=== PATIENT | male | born 1950 | race Caucasian/White ===

== ENCOUNTER 2016-09-09 08:29 | Outpatient (RCR) | payer MEDICARE, MEDICAID ==
--- OUTSIDE RECORDS SUMMARY | 2016-06-15 09:15 | XMS REPORT | Continuity of Care Document ---
Author Author [facility] Organization [facility] Address Unknown Phone Unavailable Care Team Providers Care Clinical Exercise Physiologist Name Role Phone Chyna Nicole PCP [phone] Source Comments Some departments are not documenting in the electronic medical record. If you do not see the information that you expected, contact Release of Information in the Health Information Management department at [phone] for further assistance in locating additional records.[facility] Active Allergies and Adverse Reactions Allergen Noted Date Severity Reactions Comments Morphine 02/09/2016 High HALLUCINATIONS Current Medications Prescription Sig. Disp. Refills Start End Date Status Date latanoprost (XALATAN) Apply 1 Drop to both eyes Active 0.005 % ophthalmic at bedtime daily. solution docusate (COLACE) 100 mg Take 200 mg by mouth Active capsule daily. furosemide (LASIX) 40 mg Take 40 mg by mouth Active tablet daily. ebwdnpzoy-ohyv-uorhwboa Take by mouth. Active 6-30-50 mg tab polyethylene glycol 3350 Take 17 g by mouth daily. Active (GLYCOLAX; MIRALAX) 17 gram/dose powder OLANZapine (ZYPREXA Take 30 mg by mouth at Active ZYDIS) 20 mg rapid bedtime daily. dissolve tablet metoprolol (LOPRESSOR) Take 100 mg by mouth Active 100 mg tablet twice daily. Give 1 tab by mouth two times a day for Hypertension. Hold for systolic BP less than 100, Notify doctor if BP greater than 170 Indications: HYPERTENSION polyvinyl Place 1 Drop into or Active alcohol/povidone around eye(s) as Needed. (REFRESH) 1.4/0.6 % ophthalmic solution Lactoperoxi-Gluc Oxid-Pot by Mucous Membrane route. Active Thio gel CARBAMIDE PEROXIDE Place 5 Drops in ear as Active (DEBROX OT) directed as Needed. Instill 5 drop in both ears as needed for wax albuterol 0.5% Inhale 2.5 mg solution as Active (PROVENTIL; VENTOLIN) 2.5 directed every 6 hours as mg/0.5 mL nebu nebulizer needed. solution polycarbophil (FIBER) 625 Take 625 mg by mouth Active mg tablet daily. paliperidone(+) (INVEGA) Take 1 Tab by mouth every Active 9 mg tablet morning. melatonin 3 mg tab Take 6 mg by mouth at Active bedtime daily. omeprazole DR(+) Take 20 mg by mouth Active (PRILOSEC) 20 mg capsule daily. ramelteon(+) (ROZEREM) 8 Take 8 mg by mouth at Active mg tab bedtime as needed. Indications: SLEEP-ONSET INSOMNIA levothyroxine (SYNTHROID) Take 50 mcg by mouth Active 50 mcg tablet daily. hydrocortisone 2.5% Apply to affected area Active (ANUSOL-HC) 2.5 % rectal daily as needed. cream Indications: HEMORRHOIDS acetaminophen (TYLENOL) Take 1,000 mg by mouth Active 500 mg tablet every 4 hours as needed for Pain. Indications: PAIN erythromycin (ROMYCIN) Apply 1 Inch to right eye 3.5 g 3 05/13/20 Active ophthalmic ointment as directed three times 16 daily. 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 Eyelid lesion 02/09/2016 Last Assessment & Plan: mycosis fungoides with right upper and lower eyelid lesions patient may place dry gauze over lesion at night to minimize weeping start erythromycin ointment TID to eyelid lesions and right eye, concern for some early exposure changes due to LL mechanical ectropion and increased risk of developing preseptal cellulitis due to ulcerations but no signs of infection today Most Recent Encounters Date Type Specialty Providers Description 05/13/2016 Office Visit Ophthalmology Abraham Marie MD Eyelid lesion ( Primary Dx); Mycosis fungoides involving lymph nodes of multiple regions (HCC) Social History Tobacco Use Types Packs/Day Years Used Date Current Every Day Smoker Cigarettes 1 51 Smokeless Tobacco: Never Used Alcohol Use Drinks/Week oz/Week Comments No 0 Standard 0.0 drinks or equivalent Last Filed Vital Signs Vital Sign Reading Time Taken Blood Pressure 134/74 05/13/2016 3:16 PM CDT Pulse 95 05/13/2016 3:16 PM CDT Temperature 36.9 C (98.5 F) 03/10/2016 2:21 PM CDT Respiratory Rate 16 03/10/2016 2:21 PM CDT Height 1.778 m (5' 10") 05/13/2016 3:16 PM CDT Weight 101.2 kg (223 lb 1.7 oz) 05/13/2016 3:16 PM CDT Body Mass Index 32.01 05/13/2016 3:16 PM CDT Oxygen Saturation 96% 03/10/2016 2:21 PM CDT Plan of Care Date Type Specialty Providers Description 06/21/2016 Appointment Oncology 06/21/2016 Appointment Oncology Pasquale Alonzo MD [address] [facility] [address] [place] [address] [phone] (Fax) 07/19/2016 Appointment Ophthalmology Abraham Marie MD [address] [place] [address] [phone] (Fax) Health Maintenance Due Date Last Done Comments Hepatitis C Screening 1950 Physical (Comprehensive) 01/08/1955 Exam Pertussis Vaccine 01/08/1959 Tetanus Vaccine 01/08/1965 Colorectal Cancer 01/08/1998 Screening Shingles Vaccine 2008 Prevnar/Pneumovax (#1) 01/08/2013 Influenza Vaccine 05/06/2016 Results from Last 3 Months Not on file
[2016-06-15 09:41] LABS: BASOPHILS % (AUTO) 0 % (0-10); EOSINOPHILS # (AUTO) 0.1 10^3/uL (0.0-0.3); EOSINOPHILS % (AUTO) 1 % (0-10); LYMPHOCYTES # (AUTO) 0.7 X 10^3 (1.0-4.0); LYMPHOCYTES % (AUTO) 10 % (12-44); MEAN CORPUSCULAR HEMOGLOBIN 30 PG (25-34); MEAN CORPUSCULAR HGB CONC 34 G/DL (32-36); MEAN CORPUSCULAR VOLUME 87 FL (80-99); MEAN PLATELET VOLUME 10.2 FL (7.4-10.4); MONOCYTES # (AUTO) 0.8 X 10^3 (0.0-1.0); MONOCYTES % (AUTO) 11 % (0-12); NEUTROPHILS # (AUTO) 5.6 X 10^3 (1.8-7.8); NEUTROPHILS % (AUTO) 78 % (42-75); PLATELET COUNT 223 10^3/uL (130-400); RED BLOOD COUNT 5.71 10^6/uL (4.35-5.85); RED CELL DISTRIBUTION WIDTH 13.8 % (10.0-14.5); WHITE BLOOD COUNT 7.2 10^3/uL (4.3-11.0)
[2016-06-15 10:03] LABS: ALANINE AMINOTRANSFERASE 18 U/L (0-55); ALBUMIN 4.1 G/DL (3.2-4.5); ANION GAP 14 MMOL/L (5-14); ASPARTATE AMINO TRANSFERASE 17 U/L (5-34); BILIRUBIN,TOTAL 0.5 MG/DL (0.1-1.0); BLOOD UREA NITROGEN 16 MG/DL (7-18); BUN/CREATININE RATIO 16; CALCIUM 9.5 MG/DL (8.5-10.1); CARBON DIOXIDE 20 MMOL/L (21-32); CHLORIDE 106 MMOL/L (98-107); CREATININE SERUM 1.02 MG/DL (0.60-1.30); GFR ESTIMATED > 60; GLUCOSE 127 MG/DL (70-105); POTASSIUM 4.1 MMOL/L (3.6-5.0); SODIUM 140 MMOL/L (135-145); TOTAL PROTEIN 7.5 G/DL (6.4-8.2)
[2016-07-05 10:17] LABS: BASOPHILS % (AUTO) 0 % (0-10); EOSINOPHILS % (AUTO) 0 % (0-10); LYMPHOCYTES # (AUTO) 0.6 X 10^3 (1.0-4.0); LYMPHOCYTES % (AUTO) 12 % (12-44); MEAN CORPUSCULAR HEMOGLOBIN 31 PG (25-34); MEAN CORPUSCULAR HGB CONC 35 G/DL (32-36); MEAN CORPUSCULAR VOLUME 87 FL (80-99); MEAN PLATELET VOLUME 9.9 FL (7.4-10.4); MONOCYTES # (AUTO) 0.9 X 10^3 (0.0-1.0); MONOCYTES % (AUTO) 16 % (0-12); NEUTROPHILS % (AUTO) 72 % (42-75); PLATELET COUNT 243 10^3/uL (130-400); RED BLOOD COUNT 5.32 10^6/uL (4.35-5.85); RED CELL DISTRIBUTION WIDTH 13.9 % (10.0-14.5); WHITE BLOOD COUNT 5.5 10^3/uL (4.3-11.0)
[2016-07-05 10:39] LABS: ALANINE AMINOTRANSFERASE 23 U/L (0-55); ANION GAP 8 MMOL/L (5-14); ASPARTATE AMINO TRANSFERASE 18 U/L (5-34); BILIRUBIN,TOTAL 0.4 MG/DL (0.1-1.0); BLOOD UREA NITROGEN 16 MG/DL (7-18); BUN/CREATININE RATIO 17; CALCIUM 9.2 MG/DL (8.5-10.1); CARBON DIOXIDE 27 MMOL/L (21-32); CHLORIDE 105 MMOL/L (98-107); CREATININE SERUM 0.94 MG/DL (0.60-1.30); GFR ESTIMATED > 60; GLUCOSE 113 MG/DL (70-105); LACTATE DEHYDROGENASE 164 U/L (125-220); SODIUM 140 MMOL/L (135-145); TOTAL PROTEIN 7.5 G/DL (6.4-8.2)
[2016-07-27 11:36] LABS: BASOPHILS % (AUTO) 0 % (0-10); EOSINOPHILS % (AUTO) 0 % (0-10); LYMPHOCYTES # (AUTO) 0.9 X 10^3 (1.0-4.0); LYMPHOCYTES % (AUTO) 14 % (12-44); MEAN CORPUSCULAR HEMOGLOBIN 30 PG (25-34); MEAN CORPUSCULAR HGB CONC 35 G/DL (32-36); MEAN CORPUSCULAR VOLUME 88 FL (80-99); MEAN PLATELET VOLUME 9.5 FL (7.4-10.4); MONOCYTES % (AUTO) 14 % (0-12); NEUTROPHILS # (AUTO) 4.9 X 10^3 (1.8-7.8); NEUTROPHILS % (AUTO) 72 % (42-75); PLATELET COUNT 304 10^3/uL (130-400); RED CELL DISTRIBUTION WIDTH 14.1 % (10.0-14.5); WHITE BLOOD COUNT 6.8 10^3/uL (4.3-11.0)
[2016-07-27 12:00] LABS: ALANINE AMINOTRANSFERASE 17 U/L (0-55); ALBUMIN 4.1 G/DL (3.2-4.5); ANION GAP 9 MMOL/L (5-14); ASPARTATE AMINO TRANSFERASE 23 U/L (5-34); BILIRUBIN,TOTAL 0.5 MG/DL (0.1-1.0); BLOOD UREA NITROGEN 19 MG/DL (7-18); BUN/CREATININE RATIO 20; CALCIUM 9.5 MG/DL (8.5-10.1); CARBON DIOXIDE 23 MMOL/L (21-32); CHLORIDE 107 MMOL/L (98-107); CREATININE SERUM 0.97 MG/DL (0.60-1.30); GFR ESTIMATED > 60; GLUCOSE 94 MG/DL (70-105); LACTATE DEHYDROGENASE 218 U/L (125-220); SODIUM 139 MMOL/L (135-145); TOTAL PROTEIN 7.5 G/DL (6.4-8.2)
[2016-07-27 12:01] LABS: POTASSIUM 4.2 MMOL/L (3.6-5.0)
[2016-08-17 15:21] LABS: BASOPHILS % (AUTO) 0 % (0-10); EOSINOPHILS % (AUTO) 1 % (0-10); LYMPHOCYTES # (AUTO) 1.1 X 10^3 (1.0-4.0); LYMPHOCYTES % (AUTO) 18 % (12-44); MEAN CORPUSCULAR HEMOGLOBIN 31 PG (25-34); MEAN CORPUSCULAR HGB CONC 35 G/DL (32-36); MEAN CORPUSCULAR VOLUME 88 FL (80-99); MEAN PLATELET VOLUME 9.8 FL (7.4-10.4); MONOCYTES % (AUTO) 17 % (0-12); NEUTROPHILS # (AUTO) 3.7 X 10^3 (1.8-7.8); NEUTROPHILS % (AUTO) 65 % (42-75); PLATELET COUNT 302 10^3/uL (130-400); RED BLOOD COUNT 5.35 10^6/uL (4.35-5.85); RED CELL DISTRIBUTION WIDTH 14.5 % (10.0-14.5); WHITE BLOOD COUNT 5.8 10^3/uL (4.3-11.0)
[2016-08-17 15:48] LABS: ALANINE AMINOTRANSFERASE 16 U/L (0-55); ALBUMIN 4.2 G/DL (3.2-4.5); ANION GAP 10 MMOL/L (5-14); ASPARTATE AMINO TRANSFERASE 21 U/L (5-34); BILIRUBIN,TOTAL 0.4 MG/DL (0.1-1.0); BLOOD UREA NITROGEN 16 MG/DL (7-18); BUN/CREATININE RATIO 16; CALCIUM 9.2 MG/DL (8.5-10.1); CARBON DIOXIDE 23 MMOL/L (21-32); CHLORIDE 106 MMOL/L (98-107); CREATININE SERUM 1.01 MG/DL (0.60-1.30); GFR ESTIMATED > 60; GLUCOSE 103 MG/DL (70-105); LACTATE DEHYDROGENASE 250 U/L (125-220); POTASSIUM 4.1 MMOL/L (3.6-5.0); SODIUM 139 MMOL/L (135-145); TOTAL PROTEIN 7.5 G/DL (6.4-8.2)
[~2016-09-09] VITALS: Ht 175.3 cm; Wt 106.1 kg
[~2016-09-09 08:29] MED LIST: AC500T PO; ACETAMINOPHEN 325 MG TAB (TYLENOL) CANCER CTR PO PRN; ACHD5005 PO; AMLO5TAB2 PO; CARB15DR75 OU; CLOB30CR10 TP; DCS100C PO; DEXAMETHASONE IV PRN; DIVA500T15 PO; FAMOTIDINE 20MG/2ML IV (CANCER CTR) IV SCH; FURO40TA4 PO; LTN005OP2 OU; LVT.05T PO; METO100T2 PO; MULT-963 PO; NS (IVPB) CANCER CENTER 250 ML ONE; NS IV 500 ML (CANCER CENTER) 0 ML ONE; NS IV 500 ML (CANCER CENTER) 500 ML ONE; OMEP20CA12 PO; PALI3TAB2 PO; PALONOSETRON HCL IV PRN; QUET50TA PO; SODIUM CHLORIDE IV SCH; TR1C15 TOP; WHEA730P PO; [UNRECOGNIZED DRUG - CODE] PO; [UNRECOGNIZED DRUG - CODE] TP; [UNRECOGNIZED DRUG - OTHER] IV PRN; [UNRECOGNIZED DRUG - OTHER] IV SCH; diphenhydrAMINE 50 MG/ML INJ (CANCER CENTER) IV PRN
[2016-09-09 09:02] LABS: MEAN CORPUSCULAR HEMOGLOBIN 31 PG (25-34); MEAN CORPUSCULAR HGB CONC 35 G/DL (32-36); MEAN CORPUSCULAR VOLUME 88 FL (80-99); MEAN PLATELET VOLUME 9.8 FL (7.4-10.4); PLATELET COUNT 303 10^3/uL (130-400); RED BLOOD COUNT 5.61 10^6/uL (4.35-5.85); RED CELL DISTRIBUTION WIDTH 14.3 % (10.0-14.5); WHITE BLOOD COUNT 5.1 10^3/uL (4.3-11.0)
[2016-09-09 09:03] LABS: BASOPHILS % (AUTO) 0 % (0-10); EOSINOPHILS # (AUTO) 0.1 10^3/uL (0.0-0.3); EOSINOPHILS % (AUTO) 1 % (0-10); LYMPHOCYTES # (AUTO) 0.8 X 10^3 (1.0-4.0); LYMPHOCYTES % (AUTO) 15 % (12-44); MONOCYTES # (AUTO) 0.8 X 10^3 (0.0-1.0); MONOCYTES % (AUTO) 16 % (0-12); NEUTROPHILS # (AUTO) 3.5 X 10^3 (1.8-7.8); NEUTROPHILS % (AUTO) 68 % (42-75)
[2016-09-09 09:27] LABS: ALANINE AMINOTRANSFERASE 23 U/L (0-55); ALBUMIN 4.4 G/DL (3.2-4.5); ANION GAP 11 MMOL/L (5-14); ASPARTATE AMINO TRANSFERASE 23 U/L (5-34); BILIRUBIN,TOTAL 0.5 MG/DL (0.1-1.0); BLOOD UREA NITROGEN 16 MG/DL (7-18); BUN/CREATININE RATIO 16; CALCIUM 9.7 MG/DL (8.5-10.1); CARBON DIOXIDE 23 MMOL/L (21-32); CHLORIDE 106 MMOL/L (98-107); CREATININE SERUM 1.03 MG/DL (0.60-1.30); GFR ESTIMATED > 60; GLUCOSE 115 MG/DL (70-105); LACTATE DEHYDROGENASE 206 U/L (125-220); POTASSIUM 4.3 MMOL/L (3.6-5.0); SODIUM 140 MMOL/L (135-145); TOTAL PROTEIN 7.9 G/DL (6.4-8.2)
[2016-09-09] MEDS ORDERED: NS IV 500 ML (CANCER CENTER) 500 ML ONE (09:41)
== END 2016-09-13 | disposition home or self-care (01) ==
LOC: ONC 08:29
PROVIDERS: ATTEND Internal Medicine Hematology & Oncology
DX: Z51.11 Encounter for antineoplastic chemotherapy (principal); C86.6 Primary cutaneous CD30-positive T-cell proliferations; I10 Essential (primary) hypertension; E03.9 Hypothyroidism, unspecified; J44.9 Chronic obstructive pulmonary disease, unspecified; F17.210 Nicotine dependence, cigarettes, uncomplicated; Z79.899 Other long term (current) drug therapy
CPT/HCPCS: 36415; 80053; 83615; 85025; 96375; 96413; 99213

== ENCOUNTER → 2016-11-16 | Outpatient (CLI) | payer MEDICARE, MEDICAID ==
[~2016-11-16] MED LIST changes: -ACETAMINOPHEN 325 MG TAB (TYLENOL) CANCER CTR PO PRN; -DEXAMETHASONE IV PRN; -FAMOTIDINE 20MG/2ML IV (CANCER CTR) IV SCH; -NS (IVPB) CANCER CENTER 250 ML ONE; -NS IV 500 ML (CANCER CENTER) 0 ML ONE; -NS IV 500 ML (CANCER CENTER) 500 ML ONE; -PALONOSETRON HCL IV PRN; -SODIUM CHLORIDE IV SCH; -[UNRECOGNIZED DRUG - OTHER] IV PRN; -[UNRECOGNIZED DRUG - OTHER] IV SCH; -diphenhydrAMINE 50 MG/ML INJ (CANCER CENTER) IV PRN
--- OUTSIDE RECORDS SUMMARY | 2016-11-16 10:11 | XMS REPORT | Continuity of Care Document ---
Author Author [facility] Organization [facility] Address Unknown Phone Unavailable Care Team Providers Care Floorworker Lasting Name Role Phone Chyna Nicole PCP [phone] Source Comments Some departments are not documenting in the electronic medical record. If you do not see the information that you expected, contact Release of Information in the Health Information Management department at [phone] for further assistance in locating additional records.[facility] Active Allergies and Adverse Reactions Allergen [...] 40 mg by mouth Active tablet daily. [id number]-mwzh-qlqezsib Take by mouth. Active 6-30-50 mg tab [...] ulcerations but no signs of infection today Social History Tobacco Use Types Packs/Day Years [...]
--- NOTE | 2016-11-16 11:02 | Diagnostic Imaging Report ---
INDICATION: Cough and congestion. COMPARISON: 06/16/2011. FINDINGS: The lungs are well-aerated. No infiltrates have developed. No hilar adenopathy. No pulmonary edema. No pneumothorax or pleural effusions. The heart is not enlarged. IMPRESSION: Normal PA and lateral chest without significant change since the previous exam. Dictated by: Dictated on workstation # [id number]
== END ==
LOC: RAD 10:07
PROVIDERS: ATTEND Internal Medicine Hematology & Oncology
DX: R09.89 Other specified symptoms and signs involving the circulatory and respiratory systems (principal)
CPT/HCPCS: 71020

== ENCOUNTER → 2016-12-29 | Outpatient (RCR) | payer MEDICARE, MEDICAID ==
--- OUTSIDE RECORDS SUMMARY | 2016-09-30 10:03 | XMS REPORT | Continuity of Care Document ---
Author Author [facility] Organization [facility] Address Unknown Phone Unavailable Care Team Providers Care Residential Substance Abuse Counselor Name Role Phone Chyna Nicole PCP [phone] Source Comments Some departments are not documenting in the electronic medical record. If you do not see the information that you expected, contact Release of Information in the Health Information Management department at [phone] for further assistance in locating additional records.[facility] Active Allergies and Adverse Reactions Allergen Noted [...] 40 mg by mouth Active tablet daily. [id number]-uuwv-vpztnteh Take by mouth. Active 6-30-50 mg tab [...] Recent Encounters Date Type Specialty Providers Description 07/28/2016 Orders Only Oncology Vivienne Kothari APRN Cutaneous T-cell lymphoma, unspecified body region (HCC) 07/28/2016 Orders Only Oncology Pasquale Alonzo MD 07/28/2016 Orders Only Oncology Thea Ledezma LPN Cutaneous T-cell lymphoma, unspecified body region ([facility]) Social History Tobacco Use Types Packs/Day Years [...] 03/10/2016 2:21 PM CDT Plan of Care Health Maintenance Due Date Last Done Comments Hepatitis C Screening 1950 Physical (Comprehensive) 01/08/1955 Exam Pertussis Vaccine 01/08/1959 Tetanus Vaccine 01/08/1965 Colorectal Cancer 01/08/1998 Screening Shingles Vaccine 2008 Prevnar/Pneumovax (#1) 01/08/2013 Influenza Vaccine 05/06/2016 Results from Last 3 Months Not on file
[2016-09-30 10:25] LABS: BASOPHILS % (AUTO) 0 % (0-10); EOSINOPHILS # (AUTO) 0.1 10^3/uL (0.0-0.3); EOSINOPHILS % (AUTO) 1 % (0-10); LYMPHOCYTES # (AUTO) 0.7 X 10^3 (1.0-4.0); LYMPHOCYTES % (AUTO) 13 % (12-44); MEAN CORPUSCULAR HEMOGLOBIN 31 PG (25-34); MEAN CORPUSCULAR HGB CONC 34 G/DL (32-36); MEAN CORPUSCULAR VOLUME 89 FL (80-99); MONOCYTES # (AUTO) 0.9 X 10^3 (0.0-1.0); MONOCYTES % (AUTO) 16 % (0-12); NEUTROPHILS % (AUTO) 70 % (42-75); PLATELET COUNT 268 10^3/uL (130-400); RED BLOOD COUNT 5.45 10^6/uL (4.35-5.85); RED CELL DISTRIBUTION WIDTH 14.6 % (10.0-14.5); WHITE BLOOD COUNT 5.8 10^3/uL (4.3-11.0)
[2016-09-30 10:58] LABS: ALANINE AMINOTRANSFERASE 19 U/L (0-55); ALBUMIN 4.2 G/DL (3.2-4.5); ANION GAP 10 MMOL/L (5-14); ASPARTATE AMINO TRANSFERASE 20 U/L (5-34); BILIRUBIN,TOTAL 0.5 MG/DL (0.1-1.0); BLOOD UREA NITROGEN 18 MG/DL (7-18); BUN/CREATININE RATIO 18; CALCIUM 9.4 MG/DL (8.5-10.1); CARBON DIOXIDE 23 MMOL/L (21-32); CHLORIDE 107 MMOL/L (98-107); CREATININE SERUM 1.02 MG/DL (0.60-1.30); GFR ESTIMATED > 60; GLUCOSE 97 MG/DL (70-105); LACTATE DEHYDROGENASE 197 U/L (125-220); SODIUM 140 MMOL/L (135-145); TOTAL PROTEIN 7.5 G/DL (6.4-8.2)
[2016-10-21 10:42] LABS: BASOPHILS % (AUTO) 1 % (0-10); EOSINOPHILS # (AUTO) 0.1 10^3/uL (0.0-0.3); EOSINOPHILS % (AUTO) 1 % (0-10); LYMPHOCYTES % (AUTO) 16 % (12-44); MEAN CORPUSCULAR HEMOGLOBIN 31 PG (25-34); MEAN CORPUSCULAR HGB CONC 34 G/DL (32-36); MEAN CORPUSCULAR VOLUME 89 FL (80-99); MEAN PLATELET VOLUME 9.9 FL (7.4-10.4); MONOCYTES # (AUTO) 0.9 X 10^3 (0.0-1.0); MONOCYTES % (AUTO) 14 % (0-12); NEUTROPHILS # (AUTO) 4.5 X 10^3 (1.8-7.8); NEUTROPHILS % (AUTO) 69 % (42-75); PLATELET COUNT 269 10^3/uL (130-400); RED BLOOD COUNT 5.38 10^6/uL (4.35-5.85); RED CELL DISTRIBUTION WIDTH 14.7 % (10.0-14.5); WHITE BLOOD COUNT 6.5 10^3/uL (4.3-11.0)
[2016-10-21 11:09] LABS: ALANINE AMINOTRANSFERASE 17 U/L (0-55); ALBUMIN 4.2 G/DL (3.2-4.5); ANION GAP 13 MMOL/L (5-14); ASPARTATE AMINO TRANSFERASE 20 U/L (5-34); BILIRUBIN,TOTAL 0.5 MG/DL (0.1-1.0); BLOOD UREA NITROGEN 16 MG/DL (7-18); BUN/CREATININE RATIO 16; CALCIUM 9.4 MG/DL (8.5-10.1); CARBON DIOXIDE 21 MMOL/L (21-32); CHLORIDE 105 MMOL/L (98-107); CREATININE SERUM 0.97 MG/DL (0.60-1.30); GFR ESTIMATED > 60; GLUCOSE 103 MG/DL (70-105); LACTATE DEHYDROGENASE 178 U/L (125-220); POTASSIUM 4.3 MMOL/L (3.6-5.0); SODIUM 139 MMOL/L (135-145); TOTAL PROTEIN 7.7 G/DL (6.4-8.2)
[2016-10-21 12:22] LABS: THYROID STIMULATING HORMONE 0.93 UIU/ML (0.35-4.94)
[2016-11-16 09:30] LABS: BASOPHILS % (AUTO) 0 % (0-10); EOSINOPHILS % (AUTO) 0 % (0-10); LYMPHOCYTES # (AUTO) 0.5 X 10^3 (1.0-4.0); LYMPHOCYTES % (AUTO) 8 % (12-44); MEAN CORPUSCULAR HEMOGLOBIN 31 PG (25-34); MEAN CORPUSCULAR HGB CONC 35 G/DL (32-36); MEAN CORPUSCULAR VOLUME 88 FL (80-99); MEAN PLATELET VOLUME 9.9 FL (7.4-10.4); MONOCYTES # (AUTO) 0.9 X 10^3 (0.0-1.0); MONOCYTES % (AUTO) 14 % (0-12); NEUTROPHILS # (AUTO) 4.6 X 10^3 (1.8-7.8); NEUTROPHILS % (AUTO) 77 % (42-75); PLATELET COUNT 218 10^3/uL (130-400); RED BLOOD COUNT 4.92 10^6/uL (4.35-5.85); RED CELL DISTRIBUTION WIDTH 14.8 % (10.0-14.5)
[2016-11-16 10:02] LABS: ALANINE AMINOTRANSFERASE 15 U/L (0-55); ALBUMIN 3.5 G/DL (3.2-4.5); ANION GAP 12 MMOL/L (5-14); ASPARTATE AMINO TRANSFERASE 19 U/L (5-34); BILIRUBIN,TOTAL 0.4 MG/DL (0.1-1.0); BLOOD UREA NITROGEN 13 MG/DL (7-18); BUN/CREATININE RATIO 13; CALCIUM 8.7 MG/DL (8.5-10.1); CARBON DIOXIDE 23 MMOL/L (21-32); CHLORIDE 106 MMOL/L (98-107); CREATININE SERUM 0.98 MG/DL (0.60-1.30); GFR ESTIMATED > 60; GLUCOSE 151 MG/DL (70-105); LACTATE DEHYDROGENASE 236 U/L (125-220); POTASSIUM 3.6 MMOL/L (3.6-5.0); SODIUM 141 MMOL/L (135-145); TOTAL PROTEIN 7.1 G/DL (6.4-8.2)
[2016-12-07 11:11] LABS: BASOPHILS % (AUTO) 0 % (0-10); EOSINOPHILS # (AUTO) 0.1 10^3/uL (0.0-0.3); EOSINOPHILS % (AUTO) 1 % (0-10); LYMPHOCYTES # (AUTO) 0.9 X 10^3 (1.0-4.0); LYMPHOCYTES % (AUTO) 8 % (12-44); MEAN CORPUSCULAR HEMOGLOBIN 30 PG (25-34); MEAN CORPUSCULAR HGB CONC 34 G/DL (32-36); MEAN CORPUSCULAR VOLUME 89 FL (80-99); MEAN PLATELET VOLUME 9.4 FL (7.4-10.4); MONOCYTES # (AUTO) 0.9 X 10^3 (0.0-1.0); MONOCYTES % (AUTO) 8 % (0-12); NEUTROPHILS # (AUTO) 9.5 X 10^3 (1.8-7.8); NEUTROPHILS % (AUTO) 83 % (42-75); PLATELET COUNT 379 10^3/uL (130-400); RED BLOOD COUNT 5.21 10^6/uL (4.35-5.85); RED CELL DISTRIBUTION WIDTH 15.4 % (10.0-14.5); WHITE BLOOD COUNT 11.5 10^3/uL (4.3-11.0)
[2016-12-07 11:36] LABS: ALANINE AMINOTRANSFERASE 14 U/L (0-55); ALBUMIN 3.5 G/DL (3.2-4.5); ANION GAP 8 MMOL/L (5-14); ASPARTATE AMINO TRANSFERASE 22 U/L (5-34); BILIRUBIN,TOTAL 0.3 MG/DL (0.1-1.0); BLOOD UREA NITROGEN 12 MG/DL (7-18); BUN/CREATININE RATIO 13; CALCIUM 9.3 MG/DL (8.5-10.1); CARBON DIOXIDE 26 MMOL/L (21-32); CHLORIDE 106 MMOL/L (98-107); CREATININE SERUM 0.91 MG/DL (0.60-1.30); GFR ESTIMATED > 60; GLUCOSE 86 MG/DL (70-105); LACTATE DEHYDROGENASE 323 U/L (125-220); POTASSIUM 4.7 MMOL/L (3.6-5.0); SODIUM 140 MMOL/L (135-145); TOTAL PROTEIN 7.8 G/DL (6.4-8.2)
[~2016-12-29] VITALS: Ht 175.3 cm; Wt 98.9 kg
[~2016-12-29] MED LIST changes: +ACETAMINOPHEN 325 MG TAB (TYLENOL) CANCER CTR PO PRN; +DEXAMETHASONE IV PRN; +FAMOTIDINE 20MG/2ML IV (CANCER CTR) IV SCH; +NS IV 500 ML (CANCER CENTER) 500 ML IV SCH; +PALONOSETRON HCL IV PRN; +SODIUM CHLORIDE IV SCH; +[UNRECOGNIZED DRUG - OTHER] IV PRN; +[UNRECOGNIZED DRUG - OTHER] IV SCH; +diphenhydrAMINE 25 MG TAB (BENADRYL) CANCER CENTER PO ONE; +diphenhydrAMINE 25 MG TAB (BENADRYL) CANCER CENTER PO SCH; +diphenhydrAMINE 50 MG/ML INJ (CANCER CENTER) IV PRN
[2016-12-29 09:29] LABS: BASOPHILS % (AUTO) 1 % (0-10); EOSINOPHILS # (AUTO) 0.3 10^3/uL (0.0-0.3); EOSINOPHILS % (AUTO) 5 % (0-10); LYMPHOCYTES # (AUTO) 0.7 X 10^3 (1.0-4.0); LYMPHOCYTES % (AUTO) 13 % (12-44); MEAN CORPUSCULAR HEMOGLOBIN 30 PG (25-34); MEAN CORPUSCULAR HGB CONC 34 G/DL (32-36); MEAN CORPUSCULAR VOLUME 90 FL (80-99); MEAN PLATELET VOLUME 10.5 FL (7.4-10.4); MONOCYTES # (AUTO) 0.8 X 10^3 (0.0-1.0); MONOCYTES % (AUTO) 14 % (0-12); NEUTROPHILS # (AUTO) 3.9 X 10^3 (1.8-7.8); NEUTROPHILS % (AUTO) 68 % (42-75); PLATELET COUNT 254 10^3/uL (130-400); RED BLOOD COUNT 5.45 10^6/uL (4.35-5.85); RED CELL DISTRIBUTION WIDTH 15.7 % (10.0-14.5); WHITE BLOOD COUNT 5.8 10^3/uL (4.3-11.0)
[2016-12-29 09:46] LABS: ALANINE AMINOTRANSFERASE 16 U/L (0-55); ALBUMIN 4.1 G/DL (3.2-4.5); ANION GAP 10 MMOL/L (5-14); ASPARTATE AMINO TRANSFERASE 19 U/L (5-34); BILIRUBIN,TOTAL 0.6 MG/DL (0.1-1.0); BLOOD UREA NITROGEN 14 MG/DL (7-18); BUN/CREATININE RATIO 15; CALCIUM 9.7 MG/DL (8.5-10.1); CARBON DIOXIDE 24 MMOL/L (21-32); CHLORIDE 106 MMOL/L (98-107); CREATININE SERUM 0.96 MG/DL (0.60-1.30); GFR ESTIMATED > 60; GLUCOSE 114 MG/DL (70-105); MAGNESIUM 2.2 MG/DL (1.8-2.4); POTASSIUM 4.4 MMOL/L (3.6-5.0); SODIUM 140 MMOL/L (135-145); TOTAL PROTEIN 7.8 G/DL (6.4-8.2)
== END | disposition home or self-care (01) ==
LOC: ONC 09-30 10:00
PROVIDERS: ATTEND Internal Medicine Hematology & Oncology
DX: Z51.11 Encounter for antineoplastic chemotherapy (principal); C86.6 Primary cutaneous CD30-positive T-cell proliferations; I10 Essential (primary) hypertension; E03.9 Hypothyroidism, unspecified; J44.9 Chronic obstructive pulmonary disease, unspecified; F17.210 Nicotine dependence, cigarettes, uncomplicated; Z79.899 Other long term (current) drug therapy
CPT/HCPCS: 36415; 80053; 83615; 83735; 84443; 85025; 96375; 96413; 99213

== ENCOUNTER 2017-04-13 09:31 | Outpatient (RCR) | payer MEDICARE, MEDICAID ==
[2017-01-19 10:50] LABS: BASOPHILS % (AUTO) 0 % (0-10); EOSINOPHILS # (AUTO) 0.1 10^3/uL (0.0-0.3); EOSINOPHILS % (AUTO) 1 % (0-10); LYMPHOCYTES # (AUTO) 0.7 X 10^3 (1.0-4.0); LYMPHOCYTES % (AUTO) 11 % (12-44); MEAN CORPUSCULAR HEMOGLOBIN 31 PG (25-34); MEAN CORPUSCULAR HGB CONC 35 G/DL (32-36); MEAN CORPUSCULAR VOLUME 89 FL (80-99); MEAN PLATELET VOLUME 9.8 FL (7.4-10.4); MONOCYTES % (AUTO) 16 % (0-12); NEUTROPHILS # (AUTO) 4.6 X 10^3 (1.8-7.8); NEUTROPHILS % (AUTO) 72 % (42-75); PLATELET COUNT 285 10^3/uL (130-400); RED BLOOD COUNT 5.23 10^6/uL (4.35-5.85); RED CELL DISTRIBUTION WIDTH 15.1 % (10.0-14.5); WHITE BLOOD COUNT 6.4 10^3/uL (4.3-11.0)
[2017-01-19 11:16] LABS: ALANINE AMINOTRANSFERASE 14 U/L (0-55); ALBUMIN 3.9 G/DL (3.2-4.5); ANION GAP 10 MMOL/L (5-14); ASPARTATE AMINO TRANSFERASE 18 U/L (5-34); BILIRUBIN,TOTAL 0.4 MG/DL (0.1-1.0); BLOOD UREA NITROGEN 12 MG/DL (7-18); BUN/CREATININE RATIO 13; CALCIUM 9.3 MG/DL (8.5-10.1); CARBON DIOXIDE 23 MMOL/L (21-32); CHLORIDE 106 MMOL/L (98-107); CREATININE SERUM 0.89 MG/DL (0.60-1.30); GFR ESTIMATED > 60; GLUCOSE 96 MG/DL (70-105); LACTATE DEHYDROGENASE 200 U/L (125-220); POTASSIUM 3.7 MMOL/L (3.6-5.0); SODIUM 139 MMOL/L (135-145); TOTAL PROTEIN 7.4 G/DL (6.4-8.2)
[2017-02-10 09:49] LABS: BASOPHILS % (AUTO) 0 % (0-10); EOSINOPHILS # (AUTO) 0.4 10^3/uL (0.0-0.3); EOSINOPHILS % (AUTO) 9 % (0-10); LYMPHOCYTES # (AUTO) 0.7 X 10^3 (1.0-4.0); LYMPHOCYTES % (AUTO) 15 % (12-44); MEAN CORPUSCULAR HEMOGLOBIN 30 PG (25-34); MEAN CORPUSCULAR HGB CONC 34 G/DL (32-36); MEAN CORPUSCULAR VOLUME 89 FL (80-99); MEAN PLATELET VOLUME 10.3 FL (7.4-10.4); MONOCYTES # (AUTO) 0.8 X 10^3 (0.0-1.0); MONOCYTES % (AUTO) 18 % (0-12); NEUTROPHILS # (AUTO) 2.8 X 10^3 (1.8-7.8); NEUTROPHILS % (AUTO) 59 % (42-75); PLATELET COUNT 227 10^3/uL (130-400); RED BLOOD COUNT 5.49 10^6/uL (4.35-5.85); RED CELL DISTRIBUTION WIDTH 14.9 % (10.0-14.5); WHITE BLOOD COUNT 4.8 10^3/uL (4.3-11.0)
[2017-02-10 10:00] LABS: ALANINE AMINOTRANSFERASE 26 U/L (0-55); ALBUMIN 3.8 G/DL (3.2-4.5); ANION GAP 8 MMOL/L (5-14); ASPARTATE AMINO TRANSFERASE 40 U/L (5-34); BILIRUBIN,TOTAL 0.6 MG/DL (0.1-1.0); BLOOD UREA NITROGEN 12 MG/DL (7-18); BUN/CREATININE RATIO 14; CALCIUM 9.3 MG/DL (8.5-10.1); CARBON DIOXIDE 25 MMOL/L (21-32); CHLORIDE 105 MMOL/L (98-107); CREATININE SERUM 0.86 MG/DL (0.60-1.30); GFR ESTIMATED > 60; GLUCOSE 103 MG/DL (70-105); LACTATE DEHYDROGENASE 497 U/L (125-220); SODIUM 138 MMOL/L (135-145); TOTAL PROTEIN 8.3 G/DL (6.4-8.2)
[2017-02-10 10:05] LABS: POTASSIUM 5.2 MMOL/L (3.6-5.0)
[2017-03-02 09:38] LABS: BASOPHILS % (AUTO) 1 % (0-10); EOSINOPHILS # (AUTO) 0.3 10^3/uL (0.0-0.3); EOSINOPHILS % (AUTO) 5 % (0-10); LYMPHOCYTES # (AUTO) 0.9 X 10^3 (1.0-4.0); LYMPHOCYTES % (AUTO) 15 % (12-44); MEAN CORPUSCULAR HEMOGLOBIN 31 PG (25-34); MEAN CORPUSCULAR HGB CONC 34 G/DL (32-36); MEAN CORPUSCULAR VOLUME 90 FL (80-99); MEAN PLATELET VOLUME 9.4 FL (7.4-10.4); MONOCYTES # (AUTO) 0.8 X 10^3 (0.0-1.0); MONOCYTES % (AUTO) 13 % (0-12); NEUTROPHILS # (AUTO) 4.2 X 10^3 (1.8-7.8); NEUTROPHILS % (AUTO) 67 % (42-75); PLATELET COUNT 273 10^3/uL (130-400); RED BLOOD COUNT 5.46 10^6/uL (4.35-5.85); RED CELL DISTRIBUTION WIDTH 14.8 % (10.0-14.5); WHITE BLOOD COUNT 6.3 10^3/uL (4.3-11.0)
[2017-03-02 10:09] LABS: ALANINE AMINOTRANSFERASE 19 U/L (0-55); ALBUMIN 4.1 GM/DL (3.2-4.5); ANION GAP 12 MMOL/L (5-14); ASPARTATE AMINO TRANSFERASE 20 U/L (5-34); BILIRUBIN,TOTAL 0.4 MG/DL (0.1-1.0); BLOOD UREA NITROGEN 17 MG/DL (7-18); BUN/CREATININE RATIO 17; CALCIUM 9.7 MG/DL (8.5-10.1); CARBON DIOXIDE 24 MMOL/L (21-32); CHLORIDE 106 MMOL/L (98-107); CREATININE SERUM 0.99 MG/DL (0.60-1.30); GFR ESTIMATED > 60; GLUCOSE 96 MG/DL (70-105); HEMOLYSIS 19 (-100-29); ICTERUS 0.4 (-100-1.9); LACTATE DEHYDROGENASE 249 U/L (125-220); LIPEMIA 20 (-100-49); POTASSIUM 4.1 MMOL/L (3.6-5.0); SODIUM 142 MMOL/L (135-145); TOTAL PROTEIN 8.4 GM/DL (6.4-8.2)
[2017-03-24 10:10] LABS: BASOPHILS % (AUTO) 0 % (0-10); EOSINOPHILS # (AUTO) 0.3 10^3/uL (0.0-0.3); EOSINOPHILS % (AUTO) 6 % (0-10); LYMPHOCYTES # (AUTO) 0.7 X 10^3 (1.0-4.0); LYMPHOCYTES % (AUTO) 12 % (12-44); MEAN CORPUSCULAR HEMOGLOBIN 31 PG (25-34); MEAN CORPUSCULAR HGB CONC 35 G/DL (32-36); MEAN CORPUSCULAR VOLUME 90 FL (80-99); MEAN PLATELET VOLUME 10.2 FL (7.4-10.4); MONOCYTES # (AUTO) 0.6 X 10^3 (0.0-1.0); MONOCYTES % (AUTO) 11 % (0-12); NEUTROPHILS % (AUTO) 71 % (42-75); PLATELET COUNT 238 10^3/uL (130-400); RED BLOOD COUNT 5.31 10^6/uL (4.35-5.85); RED CELL DISTRIBUTION WIDTH 14.5 % (10.0-14.5); WHITE BLOOD COUNT 5.7 10^3/uL (4.3-11.0)
[2017-03-24 10:41] LABS: ALANINE AMINOTRANSFERASE 15 U/L (0-55); ALBUMIN 3.9 GM/DL (3.2-4.5); ANION GAP 10 MMOL/L (5-14); ASPARTATE AMINO TRANSFERASE 19 U/L (5-34); BILIRUBIN,TOTAL 0.5 MG/DL (0.1-1.0); BLOOD UREA NITROGEN 15 MG/DL (7-18); BUN/CREATININE RATIO 14; CALCIUM 9.5 MG/DL (8.5-10.1); CARBON DIOXIDE 25 MMOL/L (21-32); CHLORIDE 105 MMOL/L (98-107); CREATININE SERUM 1.04 MG/DL (0.60-1.30); GFR ESTIMATED > 60; GLUCOSE 118 MG/DL (70-105); LACTATE DEHYDROGENASE 165 U/L (125-220); POTASSIUM 3.8 MMOL/L (3.6-5.0); SODIUM 140 MMOL/L (135-145); TOTAL PROTEIN 7.5 GM/DL (6.4-8.2)
[~2017-04-13] VITALS: Ht 175.3 cm; Wt 102.5 kg
[~2017-04-13 09:31] MED LIST changes: +BRENTUXIMAB VEDOTIN IV SCH; -diphenhydrAMINE 25 MG TAB (BENADRYL) CANCER CENTER PO ONE; -diphenhydrAMINE 50 MG/ML INJ (CANCER CENTER) IV PRN
[2017-04-13 09:48] LABS: BASOPHILS % (AUTO) 1 % (0-10); EOSINOPHILS # (AUTO) 0.4 10^3/uL (0.0-0.3); EOSINOPHILS % (AUTO) 6 % (0-10); LYMPHOCYTES # (AUTO) 0.7 X 10^3 (1.0-4.0); LYMPHOCYTES % (AUTO) 11 % (12-44); MEAN CORPUSCULAR HEMOGLOBIN 30 PG (25-34); MEAN CORPUSCULAR HGB CONC 34 G/DL (32-36); MEAN CORPUSCULAR VOLUME 90 FL (80-99); MEAN PLATELET VOLUME 9.8 FL (7.4-10.4); MONOCYTES # (AUTO) 0.8 X 10^3 (0.0-1.0); MONOCYTES % (AUTO) 13 % (0-12); NEUTROPHILS # (AUTO) 4.3 X 10^3 (1.8-7.8); NEUTROPHILS % (AUTO) 70 % (42-75); PLATELET COUNT 241 10^3/uL (130-400); RED BLOOD COUNT 5.54 10^6/uL (4.35-5.85); RED CELL DISTRIBUTION WIDTH 14.6 % (10.0-14.5); WHITE BLOOD COUNT 6.1 10^3/uL (4.3-11.0)
[2017-04-13 10:17] LABS: ALANINE AMINOTRANSFERASE 17 U/L (0-55); ANION GAP 11 MMOL/L (5-14); ASPARTATE AMINO TRANSFERASE 19 U/L (5-34); BILIRUBIN,TOTAL 0.5 MG/DL (0.1-1.0); BLOOD UREA NITROGEN 14 MG/DL (7-18); BUN/CREATININE RATIO 14; CALCIUM 9.7 MG/DL (8.5-10.1); CARBON DIOXIDE 23 MMOL/L (21-32); CHLORIDE 107 MMOL/L (98-107); CREATININE SERUM 1.02 MG/DL (0.60-1.30); GFR ESTIMATED > 60; GLUCOSE 118 MG/DL (70-105); LACTATE DEHYDROGENASE 196 U/L (125-220); POTASSIUM 4.2 MMOL/L (3.6-5.0); SODIUM 141 MMOL/L (135-145); TOTAL PROTEIN 7.8 GM/DL (6.4-8.2)
== END 2017-04-19 | disposition home or self-care (01) ==
LOC: ONC 09:31
PROVIDERS: ATTEND Internal Medicine Hematology & Oncology
DX: Z51.11 Encounter for antineoplastic chemotherapy (principal); C86.6 Primary cutaneous CD30-positive T-cell proliferations; I10 Essential (primary) hypertension; E03.9 Hypothyroidism, unspecified; J44.9 Chronic obstructive pulmonary disease, unspecified; F17.210 Nicotine dependence, cigarettes, uncomplicated; Z79.899 Other long term (current) drug therapy
CPT/HCPCS: 36415; 80053; 83615; 85025; 96375; 96413; 99213

== ENCOUNTER → 2017-05-25 | Outpatient (CLI) | payer MEDICARE, MEDICAID ==
[~2017-05-25] MED LIST changes: -ACETAMINOPHEN 325 MG TAB (TYLENOL) CANCER CTR PO PRN; +BARIUM SUSPENSION 2.1% (VANILLA SILQ) 450 ML PO ONE; -BRENTUXIMAB VEDOTIN IV SCH; +CATHETER FLUSH 10 ML SYR IV PRN; -DEXAMETHASONE IV PRN; -FAMOTIDINE 20MG/2ML IV (CANCER CTR) IV SCH; +IOHEXOL 350 MG/ML 100 ML (OMNIPAQUE 350) VIAL IV ONE; +NS 100 ML (IVPB) BAG IV ONE; -NS IV 500 ML (CANCER CENTER) 500 ML IV SCH; -PALONOSETRON HCL IV PRN; -SODIUM CHLORIDE IV SCH; -[UNRECOGNIZED DRUG - OTHER] IV PRN; -[UNRECOGNIZED DRUG - OTHER] IV SCH; -diphenhydrAMINE 25 MG TAB (BENADRYL) CANCER CENTER PO SCH
--- NOTE | 2017-05-25 13:28 | Diagnostic Imaging Report ---
INDICATION: T-cell lymphoma. COMPARISON: Exam compared to 04/06/2016. TECHNIQUE: This patient received oral contrast media. CT chest, abdomen, and pelvis performed prior to IV contrast. Following IV contrast, post-injection CT neck, chest, abdomen, and pelvis performed with multiplanar reconstructions. NECK: No pathologically enlarged cervical lymph nodes. From swallowing or Valsalva, there is occlusion of the oropharynx and hypopharynx. No appreciable discrete mass. This, however, limits the evaluation of the mucosal surfaces. No fluid collection. No destructive osseous lesion. There are air-fluid levels within the bilateral maxillary sinuses associated with some lobular membrane thickening. Slight membrane thickening in the sphenoid as well as opacification of multiple partially visualized ethmoid air cells present. Mastoids and middle ear cavities are clear. No bony destruction. CHEST: There is some mild infrahilar right lower lobe partial atelectasis. No focal consolidation or pneumonia. No pulmonary parenchymal mass or lung nodule. There is no hilar or mediastinal adenopathy. There is some ectasia of the ascending aorta without dissection, plaque, or rupture and measures an unchanged 4.9 cm diameter. No pleural or pericardial effusion. No soft tissue or osseous chest wall abnormality. ABDOMEN AND PELVIS: Some low-density nodularity about the bilateral adrenal glands is identical to the prior. No dominant adrenal mass suggestive of some adenomatous hyperplasia. The liver is unremarkable. The spleen is negative. The pancreas is negative. The elongated portacaval node with a short axis of 9 mm is unchanged. Left greater than right renal cortical cysts are simple and stable. No biliary abnormality. The pancreas is negative. Right paramedian ventral abdominal wall hernia comprised of fat as well as segments of unobstructed small and large bowel, stable. No findings to suggest strangulation of the hernia sac contents. Prostate, seminal vesicles, and urinary bladder are unremarkable. No pelvic lymphadenopathy. No ascites or fluid collection. IMPRESSION: Neck: No adenopathy or fluid collection. Paranasal sinusitis. Chest: Negative and stable. Abdomen: Elongated prominent portacaval node unchanged. Nodular thickening of the adrenal glands unchanged. Negative liver. Stable benign renal cysts. Nonobstructive right upper quadrant ventral abdominal wall hernia stable. Pelvis: No pelvic adenopathy, mass, ascites, inflammatory process, or acute pathology. Dictated by: Dictated on workstation # [id number]
== END ==
LOC: RAD 12:24
PROVIDERS: ATTEND Nurse Practitioner Adult Health
DX: J32.8 Other chronic sinusitis; E27.9 Disorder of adrenal gland, unspecified; N28.1 Cyst of kidney, acquired; C84.09 Mycosis fungoides, extranodal and solid organ sites; C86.6 Primary cutaneous CD30-positive T-cell proliferations
CPT/HCPCS: 70491; 71260; 74178

== ENCOUNTER 2017-05-31 08:39 | Outpatient (RCR) | payer MEDICARE, MEDICAID ==
[2017-05-04 09:31] LABS: BASOPHILS % (AUTO) 0 % (0-10); EOSINOPHILS # (AUTO) 0.1 10^3/uL (0.0-0.3); EOSINOPHILS % (AUTO) 2 % (0-10); LYMPHOCYTES # (AUTO) 0.6 X 10^3 (1.0-4.0); LYMPHOCYTES % (AUTO) 8 % (12-44); MEAN CORPUSCULAR HEMOGLOBIN 31 PG (25-34); MEAN CORPUSCULAR HGB CONC 34 G/DL (32-36); MEAN CORPUSCULAR VOLUME 90 FL (80-99); MEAN PLATELET VOLUME 9.5 FL (7.4-10.4); MONOCYTES # (AUTO) 0.5 X 10^3 (0.0-1.0); MONOCYTES % (AUTO) 6 % (0-12); NEUTROPHILS # (AUTO) 6.1 X 10^3 (1.8-7.8); NEUTROPHILS % (AUTO) 83 % (42-75); PLATELET COUNT 267 10^3/uL (130-400); RED BLOOD COUNT 4.95 10^6/uL (4.35-5.85); RED CELL DISTRIBUTION WIDTH 14.4 % (10.0-14.5); WHITE BLOOD COUNT 7.4 10^3/uL (4.3-11.0)
[2017-05-04 09:53] LABS: ALANINE AMINOTRANSFERASE 13 U/L (0-55); ALBUMIN 3.6 GM/DL (3.2-4.5); ANION GAP 13 MMOL/L (5-14); ASPARTATE AMINO TRANSFERASE 14 U/L (5-34); BILIRUBIN,TOTAL 0.4 MG/DL (0.1-1.0); BLOOD UREA NITROGEN 11 MG/DL (7-18); BUN/CREATININE RATIO 13; CALCIUM 8.9 MG/DL (8.5-10.1); CARBON DIOXIDE 23 MMOL/L (21-32); CHLORIDE 107 MMOL/L (98-107); CREATININE SERUM 0.88 MG/DL (0.60-1.30); GFR ESTIMATED > 60; GLUCOSE 168 MG/DL (70-105); LACTATE DEHYDROGENASE 154 U/L (125-220); POTASSIUM 2.9 MMOL/L (3.6-5.0); SODIUM 143 MMOL/L (135-145); TOTAL PROTEIN 6.9 GM/DL (6.4-8.2)
[~2017-05-31 08:39] MED LIST changes: +ACETAMINOPHEN 325 MG TAB (TYLENOL) CANCER CTR PO PRN; -BARIUM SUSPENSION 2.1% (VANILLA SILQ) 450 ML PO ONE; +BRENTUXIMAB VEDOTIN IV SCH; -CATHETER FLUSH 10 ML SYR IV PRN; +DEXAMETHASONE IV PRN; +FAMOTIDINE 20MG/2ML IV (CANCER CTR) IV SCH; -IOHEXOL 350 MG/ML 100 ML (OMNIPAQUE 350) VIAL IV ONE; -NS 100 ML (IVPB) BAG IV ONE; +NS IV 500 ML (CANCER CENTER) 500 ML IV SCH; +PALONOSETRON HCL IV PRN; +SODIUM CHLORIDE IV SCH; +[UNRECOGNIZED DRUG - OTHER] IV PRN; +diphenhydrAMINE 25 MG TAB (BENADRYL) CANCER CENTER PO SCH
== END 2017-06-04 | disposition home or self-care (01) ==
LOC: ONC 08:39
PROVIDERS: ATTEND Internal Medicine Hematology & Oncology
DX: C86.6 Primary cutaneous CD30-positive T-cell proliferations (principal); I10 Essential (primary) hypertension; E03.9 Hypothyroidism, unspecified; J44.9 Chronic obstructive pulmonary disease, unspecified; F17.210 Nicotine dependence, cigarettes, uncomplicated; Z79.899 Other long term (current) drug therapy
CPT/HCPCS: 36415; 80053; 83615; 83735; 85025; 99213

== ENCOUNTER 2017-06-15 11:35 | Outpatient (RCR) | payer MEDICARE, MEDICAID ==
[~2017-06-15 11:35] MED LIST changes: -ACETAMINOPHEN 325 MG TAB (TYLENOL) CANCER CTR PO PRN; -BRENTUXIMAB VEDOTIN IV SCH; -DEXAMETHASONE IV PRN; -FAMOTIDINE 20MG/2ML IV (CANCER CTR) IV SCH; -NS IV 500 ML (CANCER CENTER) 500 ML IV SCH; -PALONOSETRON HCL IV PRN; -SODIUM CHLORIDE IV SCH; -[UNRECOGNIZED DRUG - OTHER] IV PRN; -diphenhydrAMINE 25 MG TAB (BENADRYL) CANCER CENTER PO SCH
[2017-06-15 11:50] LABS: BASOPHILS % (AUTO) 1 % (0-10); EOSINOPHILS # (AUTO) 0.5 10^3/uL (0.0-0.3); EOSINOPHILS % (AUTO) 6 % (0-10); LYMPHOCYTES # (AUTO) 1.1 X 10^3 (1.0-4.0); LYMPHOCYTES % (AUTO) 14 % (12-44); MEAN CORPUSCULAR HEMOGLOBIN 30 PG (25-34); MEAN CORPUSCULAR HGB CONC 33 G/DL (32-36); MEAN CORPUSCULAR VOLUME 92 FL (80-99); MEAN PLATELET VOLUME 9.9 FL (7.4-10.4); MONOCYTES % (AUTO) 13 % (0-12); NEUTROPHILS # (AUTO) 5.1 X 10^3 (1.8-7.8); NEUTROPHILS % (AUTO) 67 % (42-75); PLATELET COUNT 237 10^3/uL (130-400); RED BLOOD COUNT 5.52 10^6/uL (4.35-5.85); RED CELL DISTRIBUTION WIDTH 13.3 % (10.0-14.5); WHITE BLOOD COUNT 7.7 10^3/uL (4.3-11.0)
[2017-06-15 12:12] LABS: ALANINE AMINOTRANSFERASE 15 U/L (0-55); ALBUMIN 4.1 GM/DL (3.2-4.5); ANION GAP 8 MMOL/L (5-14); ASPARTATE AMINO TRANSFERASE 17 U/L (5-34); BILIRUBIN,TOTAL 0.5 MG/DL (0.1-1.0); BLOOD UREA NITROGEN 15 MG/DL (7-18); BUN/CREATININE RATIO 15; CALCIUM 9.6 MG/DL (8.5-10.1); CARBON DIOXIDE 27 MMOL/L (21-32); CHLORIDE 106 MMOL/L (98-107); CREATININE SERUM 0.99 MG/DL (0.60-1.30); GFR ESTIMATED > 60; GLUCOSE 77 MG/DL (70-105); POTASSIUM 4.6 MMOL/L (3.6-5.0); SODIUM 141 MMOL/L (135-145); TOTAL PROTEIN 8.3 GM/DL (6.4-8.2)
[2017-07-27 08:06] LABS: BASOPHILS % (AUTO) 0 % (0-10); EOSINOPHILS # (AUTO) 0.4 10^3/uL (0.0-0.3); EOSINOPHILS % (AUTO) 7 % (0-10); LYMPHOCYTES % (AUTO) 17 % (12-44); MEAN CORPUSCULAR HEMOGLOBIN 31 PG (25-34); MEAN CORPUSCULAR HGB CONC 34 G/DL (32-36); MEAN CORPUSCULAR VOLUME 91 FL (80-99); MEAN PLATELET VOLUME 9.8 FL (7.4-10.4); MONOCYTES # (AUTO) 0.7 X 10^3 (0.0-1.0); MONOCYTES % (AUTO) 12 % (0-12); NEUTROPHILS # (AUTO) 3.9 X 10^3 (1.8-7.8); NEUTROPHILS % (AUTO) 65 % (42-75); PLATELET COUNT 204 10^3/uL (130-400); RED BLOOD COUNT 5.41 10^6/uL (4.35-5.85); RED CELL DISTRIBUTION WIDTH 13.3 % (10.0-14.5); WHITE BLOOD COUNT 6.1 10^3/uL (4.3-11.0)
[2017-07-27 08:25] LABS: ALANINE AMINOTRANSFERASE 14 U/L (0-55); ALBUMIN 3.9 GM/DL (3.2-4.5); ANION GAP 11 MMOL/L (5-14); ASPARTATE AMINO TRANSFERASE 16 U/L (5-34); BILIRUBIN,TOTAL 0.5 MG/DL (0.1-1.0); BLOOD UREA NITROGEN 16 MG/DL (7-18); BUN/CREATININE RATIO 16; CALCIUM 9.4 MG/DL (8.5-10.1); CARBON DIOXIDE 24 MMOL/L (21-32); CHLORIDE 107 MMOL/L (98-107); CREATININE SERUM 1.02 MG/DL (0.60-1.30); GFR ESTIMATED > 60; GLUCOSE 107 MG/DL (70-105); LACTATE DEHYDROGENASE 182 U/L (125-220); POTASSIUM 4.5 MMOL/L (3.6-5.0); SODIUM 142 MMOL/L (135-145); TOTAL PROTEIN 7.8 GM/DL (6.4-8.2)
== END 2017-07-27 07:40 | disposition home or self-care (01) ==
LOC: ONC 11:35
PROVIDERS: ATTEND Internal Medicine Hematology & Oncology
DX: C86.6 Primary cutaneous CD30-positive T-cell proliferations (principal); C84.09 Mycosis fungoides, extranodal and solid organ sites; J32.8 Other chronic sinusitis; E27.9 Disorder of adrenal gland, unspecified; N28.1 Cyst of kidney, acquired; I10 Essential (primary) hypertension; E03.9 Hypothyroidism, unspecified; J44.9 Chronic obstructive pulmonary disease, unspecified; F17.210 Nicotine dependence, cigarettes, uncomplicated; Z79.899 Other long term (current) drug therapy
CPT/HCPCS: 36415; 80053; 83615; 85025; 99213

== ENCOUNTER 2017-08-17 10:08 | Outpatient (RCR) | payer MEDICARE, MEDICAID ==
[~2017-08-17] VITALS: Ht 175.3 cm; Wt 107.0 kg
[~2017-08-17 10:08] MED LIST changes: +ACETAMINOPHEN 325 MG TAB (TYLENOL) CANCER CTR ONE; +ACETAMINOPHEN 325 MG TAB (TYLENOL) CANCER CTR PO PRN; +BRENTUXIMAB VEDOTIN IV SCH; +FAMOTIDINE 20MG/2ML IV (CANCER CTR) IV SCH; +NS IV 1000 ML (CANCER CTR) IV SCH; +NS IV 500 ML (CANCER CENTER) 500 ML ONE; +PALONOSETRON HCL 0.25 MG, DEXAMETHASONE INJ (CANCER CTR) 4 MG in NS (IVPB) CANCER CENTE... IV PRN; +SODIUM CHLORIDE IV SCH; +diphenhydrAMINE 25 MG TAB (BENADRYL) CANCER CENTER PO ONE; +diphenhydrAMINE 25 MG TAB (BENADRYL) CANCER CENTER PO SCH
[2017-08-17 10:37] LABS: BASOPHILS % (AUTO) 0 % (0-10); EOSINOPHILS # (AUTO) 0.2 10^3/uL (0.0-0.3); EOSINOPHILS % (AUTO) 3 % (0-10); HEMATOCRIT 49 % (40-54); HEMOGLOBIN 16.5 G/DL (13.3-17.7); LYMPHOCYTES # (AUTO) 0.8 X 10^3 (1.0-4.0); LYMPHOCYTES % (AUTO) 12 % (12-44); MEAN CORPUSCULAR HEMOGLOBIN 30 PG (25-34); MEAN CORPUSCULAR HGB CONC 34 G/DL (32-36); MEAN CORPUSCULAR VOLUME 90 FL (80-99); MEAN PLATELET VOLUME 9.7 FL (7.4-10.4); MONOCYTES # (AUTO) 0.7 X 10^3 (0.0-1.0); MONOCYTES % (AUTO) 11 % (0-12); NEUTROPHILS % (AUTO) 73 % (42-75); PLATELET COUNT 246 10^3/uL (130-400); RED BLOOD COUNT 5.43 10^6/uL (4.35-5.85); RED CELL DISTRIBUTION WIDTH 13.6 % (10.0-14.5); WHITE BLOOD COUNT 6.8 10^3/uL (4.3-11.0)
[2017-08-17 10:58] LABS: ALANINE AMINOTRANSFERASE 15 U/L (0-55); ALBUMIN 3.9 GM/DL (3.2-4.5); ALKALINE PHOSPHATASE 81 U/L (40-136); BILIRUBIN,TOTAL 0.4 MG/DL (0.1-1.0); BUN/CREATININE RATIO 20; CALCIUM 9.6 MG/DL (8.5-10.1); CARBON DIOXIDE 26 MMOL/L (21-32); CHLORIDE 103 MMOL/L (98-107); CREATININE SERUM 0.95 MG/DL (0.60-1.30); GFR ESTIMATED > 60; GLUCOSE 93 MG/DL (70-105); POTASSIUM 4.3 MMOL/L (3.6-5.0); SODIUM 140 MMOL/L (135-145); TOTAL PROTEIN 7.9 GM/DL (6.4-8.2)
== END 2017-09-06 15:07 | disposition home or self-care (01) ==
LOC: ONC 10:08
PROVIDERS: ATTEND Internal Medicine Hematology & Oncology
DX: Z51.11 Encounter for antineoplastic chemotherapy (principal); C86.6 Primary cutaneous CD30-positive T-cell proliferations; C84.09 Mycosis fungoides, extranodal and solid organ sites; E27.9 Disorder of adrenal gland, unspecified; I10 Essential (primary) hypertension; E03.9 Hypothyroidism, unspecified; J44.9 Chronic obstructive pulmonary disease, unspecified; F17.210 Nicotine dependence, cigarettes, uncomplicated; Z79.899 Other long term (current) drug therapy
CPT/HCPCS: 36415; 80053; 83615; 85025; 96375; 96413

== ENCOUNTER 2017-11-30 10:14 | Outpatient (RCR) | payer MEDICARE, MEDICAID ==
[2017-09-07 09:35] LABS: BASOPHILS % (AUTO) 0 % (0-10); EOSINOPHILS # (AUTO) 0.4 10^3/uL (0.0-0.3); EOSINOPHILS % (AUTO) 8 % (0-10); HEMATOCRIT 50 % (40-54); HEMOGLOBIN 16.6 G/DL (13.3-17.7); LYMPHOCYTES # (AUTO) 0.7 X 10^3 (1.0-4.0); LYMPHOCYTES % (AUTO) 13 % (12-44); MEAN CORPUSCULAR HEMOGLOBIN 30 PG (25-34); MEAN CORPUSCULAR HGB CONC 34 G/DL (32-36); MEAN CORPUSCULAR VOLUME 91 FL (80-99); MEAN PLATELET VOLUME 10.1 FL (7.4-10.4); MONOCYTES # (AUTO) 0.7 X 10^3 (0.0-1.0); MONOCYTES % (AUTO) 12 % (0-12); NEUTROPHILS # (AUTO) 3.6 X 10^3 (1.8-7.8); NEUTROPHILS % (AUTO) 66 % (42-75); PLATELET COUNT 227 10^3/uL (130-400); RED BLOOD COUNT 5.47 10^6/uL (4.35-5.85); RED CELL DISTRIBUTION WIDTH 14.1 % (10.0-14.5); WHITE BLOOD COUNT 5.5 10^3/uL (4.3-11.0)
[2017-09-07 10:01] LABS: ALANINE AMINOTRANSFERASE 14 U/L (0-55); ALKALINE PHOSPHATASE 96 U/L (40-136); BILIRUBIN,TOTAL 0.6 MG/DL (0.1-1.0); BUN/CREATININE RATIO 15; CALCIUM 9.5 MG/DL (8.5-10.1); CARBON DIOXIDE 24 MMOL/L (21-32); CHLORIDE 107 MMOL/L (98-107); CREATININE SERUM 0.93 MG/DL (0.60-1.30); GFR ESTIMATED > 60; GLUCOSE 110 MG/DL (70-105); POTASSIUM 4.1 MMOL/L (3.6-5.0); SODIUM 143 MMOL/L (135-145); TOTAL PROTEIN 7.8 GM/DL (6.4-8.2)
[2017-09-28 09:32] LABS: BASOPHILS % (AUTO) 0 % (0-10); EOSINOPHILS # (AUTO) 0.3 10^3/uL (0.0-0.3); EOSINOPHILS % (AUTO) 5 % (0-10); HEMATOCRIT 48 % (40-54); HEMOGLOBIN 16.5 G/DL (13.3-17.7); LYMPHOCYTES # (AUTO) 0.7 X 10^3 (1.0-4.0); LYMPHOCYTES % (AUTO) 13 % (12-44); MEAN CORPUSCULAR HEMOGLOBIN 31 PG (25-34); MEAN CORPUSCULAR HGB CONC 34 G/DL (32-36); MEAN CORPUSCULAR VOLUME 92 FL (80-99); MEAN PLATELET VOLUME 10.2 FL (7.4-10.4); MONOCYTES # (AUTO) 0.3 X 10^3 (0.0-1.0); MONOCYTES % (AUTO) 6 % (0-12); NEUTROPHILS # (AUTO) 3.9 X 10^3 (1.8-7.8); NEUTROPHILS % (AUTO) 76 % (42-75); PLATELET COUNT 204 10^3/uL (130-400); RED BLOOD COUNT 5.25 10^6/uL (4.35-5.85); RED CELL DISTRIBUTION WIDTH 14.4 % (10.0-14.5); WHITE BLOOD COUNT 5.1 10^3/uL (4.3-11.0)
[2017-09-28 09:58] LABS: ALANINE AMINOTRANSFERASE 17 U/L (0-55); ALBUMIN 3.9 GM/DL (3.2-4.5); ALKALINE PHOSPHATASE 94 U/L (40-136); BILIRUBIN,TOTAL 0.6 MG/DL (0.1-1.0); BUN/CREATININE RATIO 11; CALCIUM 9.1 MG/DL (8.5-10.1); CARBON DIOXIDE 25 MMOL/L (21-32); CHLORIDE 104 MMOL/L (98-107); CREATININE SERUM 1.09 MG/DL (0.60-1.30); GFR ESTIMATED > 60; GLUCOSE 156 MG/DL (70-105); SODIUM 142 MMOL/L (135-145); TOTAL PROTEIN 7.8 GM/DL (6.4-8.2)
[2017-10-19 10:36] LABS: BASOPHILS % (AUTO) 0 % (0-10); EOSINOPHILS # (AUTO) 0.2 10^3/uL (0.0-0.3); EOSINOPHILS % (AUTO) 4 % (0-10); HEMATOCRIT 48 % (40-54); HEMOGLOBIN 16.3 G/DL (13.3-17.7); LYMPHOCYTES # (AUTO) 0.8 X 10^3 (1.0-4.0); LYMPHOCYTES % (AUTO) 13 % (12-44); MEAN CORPUSCULAR HEMOGLOBIN 32 PG (25-34); MEAN CORPUSCULAR HGB CONC 34 G/DL (32-36); MEAN CORPUSCULAR VOLUME 92 FL (80-99); MEAN PLATELET VOLUME 10.3 FL (7.4-10.4); MONOCYTES # (AUTO) 0.7 X 10^3 (0.0-1.0); MONOCYTES % (AUTO) 11 % (0-12); NEUTROPHILS # (AUTO) 4.3 X 10^3 (1.8-7.8); NEUTROPHILS % (AUTO) 72 % (42-75); PLATELET COUNT 204 10^3/uL (130-400); RED BLOOD COUNT 5.18 10^6/uL (4.35-5.85); RED CELL DISTRIBUTION WIDTH 14.4 % (10.0-14.5)
[2017-10-19 11:04] LABS: BUN/CREATININE RATIO 14; CALCIUM 9.5 MG/DL (8.5-10.1); CARBON DIOXIDE 24 MMOL/L (21-32); CHLORIDE 103 MMOL/L (98-107); CREATININE SERUM 0.96 MG/DL (0.60-1.30); GFR ESTIMATED > 60; GLUCOSE 123 MG/DL (70-105); SODIUM 138 MMOL/L (135-145)
[2017-10-19 11:05] LABS: ALANINE AMINOTRANSFERASE 14 U/L (0-55); ALKALINE PHOSPHATASE 98 U/L (40-136); BILIRUBIN,TOTAL 0.6 MG/DL (0.1-1.0); TOTAL PROTEIN 8.1 GM/DL (6.4-8.2)
[2017-11-09 09:56] LABS: BASOPHILS % (AUTO) 0 % (0-10); EOSINOPHILS # (AUTO) 0.3 10^3/uL (0.0-0.3); EOSINOPHILS % (AUTO) 5 % (0-10); HEMATOCRIT 48 % (40-54); HEMOGLOBIN 16.5 G/DL (13.3-17.7); LYMPHOCYTES # (AUTO) 0.9 X 10^3 (1.0-4.0); LYMPHOCYTES % (AUTO) 13 % (12-44); MEAN CORPUSCULAR HEMOGLOBIN 32 PG (25-34); MEAN CORPUSCULAR HGB CONC 34 G/DL (32-36); MEAN CORPUSCULAR VOLUME 92 FL (80-99); MEAN PLATELET VOLUME 10.3 FL (7.4-10.4); MONOCYTES # (AUTO) 0.6 X 10^3 (0.0-1.0); MONOCYTES % (AUTO) 9 % (0-12); NEUTROPHILS % (AUTO) 73 % (42-75); PLATELET COUNT 208 10^3/uL (130-400); RED BLOOD COUNT 5.21 10^6/uL (4.35-5.85); RED CELL DISTRIBUTION WIDTH 14.3 % (10.0-14.5); WHITE BLOOD COUNT 6.9 10^3/uL (4.3-11.0)
[2017-11-09 10:11] LABS: ALANINE AMINOTRANSFERASE 17 U/L (0-55); ALBUMIN 3.9 GM/DL (3.2-4.5); ALKALINE PHOSPHATASE 95 U/L (40-136); BILIRUBIN,TOTAL 0.5 MG/DL (0.1-1.0); BUN/CREATININE RATIO 11; CALCIUM 9.2 MG/DL (8.5-10.1); CARBON DIOXIDE 27 MMOL/L (21-32); CHLORIDE 105 MMOL/L (98-107); CREATININE SERUM 0.98 MG/DL (0.60-1.30); GFR ESTIMATED > 60; GLUCOSE 127 MG/DL (70-105); POTASSIUM 4.3 MMOL/L (3.6-5.0); SODIUM 139 MMOL/L (135-145); TOTAL PROTEIN 7.8 GM/DL (6.4-8.2)
[~2017-11-30] VITALS: Ht 175.3 cm; Wt 111.1 kg
[~2017-11-30 10:14] MED LIST changes: -ACETAMINOPHEN 325 MG TAB (TYLENOL) CANCER CTR ONE; +NS IV SCH; +[UNRECOGNIZED DRUG - OTHER] IV SCH; +[UNRECOGNIZED DRUG - OTHER] IV SCH; -diphenhydrAMINE 25 MG TAB (BENADRYL) CANCER CENTER PO ONE
[2017-11-30 10:32] LABS: BASOPHILS % (AUTO) 0 % (0-10); EOSINOPHILS # (AUTO) 0.1 10^3/uL (0.0-0.3); EOSINOPHILS % (AUTO) 1 % (0-10); HEMATOCRIT 49 % (40-54); HEMOGLOBIN 16.9 G/DL (13.3-17.7); LYMPHOCYTES # (AUTO) 0.8 X 10^3 (1.0-4.0); LYMPHOCYTES % (AUTO) 13 % (12-44); MEAN CORPUSCULAR HEMOGLOBIN 32 PG (25-34); MEAN CORPUSCULAR HGB CONC 34 G/DL (32-36); MEAN CORPUSCULAR VOLUME 92 FL (80-99); MEAN PLATELET VOLUME 10.3 FL (7.4-10.4); MONOCYTES % (AUTO) 17 % (0-12); NEUTROPHILS # (AUTO) 4.1 X 10^3 (1.8-7.8); NEUTROPHILS % (AUTO) 69 % (42-75); PLATELET COUNT 197 10^3/uL (130-400); RED BLOOD COUNT 5.34 10^6/uL (4.35-5.85); RED CELL DISTRIBUTION WIDTH 14.4 % (10.0-14.5)
[2017-11-30 10:56] LABS: ALANINE AMINOTRANSFERASE 14 U/L (0-55); ALBUMIN 4.1 GM/DL (3.2-4.5); ALKALINE PHOSPHATASE 83 U/L (40-136); BILIRUBIN,TOTAL 0.9 MG/DL (0.1-1.0); BUN/CREATININE RATIO 14; CALCIUM 8.8 MG/DL (8.5-10.1); CARBON DIOXIDE 25 MMOL/L (21-32); CHLORIDE 104 MMOL/L (98-107); CREATININE SERUM 0.91 MG/DL (0.60-1.30); GFR ESTIMATED > 60; GLUCOSE 102 MG/DL (70-105); POTASSIUM 4.3 MMOL/L (3.6-5.0); SODIUM 137 MMOL/L (135-145); TOTAL PROTEIN 7.9 GM/DL (6.4-8.2)
[2017-11-30] MEDS ORDERED: LOPERAMIDE 2 MG (IMODIUM) CAP PO ONE (11:15)
== END 2017-12-06 | disposition home or self-care (01) ==
LOC: ONC 10:14
PROVIDERS: ATTEND Internal Medicine Hematology & Oncology
DX: Z51.11 Encounter for antineoplastic chemotherapy (principal); C86.6 Primary cutaneous CD30-positive T-cell proliferations; C84.09 Mycosis fungoides, extranodal and solid organ sites; E27.9 Disorder of adrenal gland, unspecified; I10 Essential (primary) hypertension; E03.9 Hypothyroidism, unspecified; J44.9 Chronic obstructive pulmonary disease, unspecified; F17.210 Nicotine dependence, cigarettes, uncomplicated; Z79.899 Other long term (current) drug therapy
CPT/HCPCS: 36415; 80053; 83615; 84550; 85025; 96375; 96413

== ENCOUNTER → 2018-01-18 | Outpatient (CLI) | payer MEDICARE, MEDICAID ==
[~2018-01-18] MED LIST changes: -ACETAMINOPHEN 325 MG TAB (TYLENOL) CANCER CTR PO PRN; +BARIUM SUSPENSION 2.1% (VANILLA SILQ) 450 ML PO ONE; -BRENTUXIMAB VEDOTIN IV SCH; -FAMOTIDINE 20MG/2ML IV (CANCER CTR) IV SCH; +IOHEXOL 350 MG/ML 100 ML (OMNIPAQUE 350) VIAL IV ONE; +NS 250 ML (IVPB) BAG IV ONE; -NS IV 1000 ML (CANCER CTR) IV SCH; -NS IV 500 ML (CANCER CENTER) 500 ML ONE; -NS IV SCH; -PALONOSETRON HCL 0.25 MG, DEXAMETHASONE INJ (CANCER CTR) 4 MG in NS (IVPB) CANCER CENTE... IV PRN; -SODIUM CHLORIDE IV SCH; -[UNRECOGNIZED DRUG - OTHER] IV SCH; -[UNRECOGNIZED DRUG - OTHER] IV SCH; -diphenhydrAMINE 25 MG TAB (BENADRYL) CANCER CENTER PO SCH
--- NOTE | 2018-01-18 11:37 | Diagnostic Imaging Report ---
INDICATION: Cutaneous T-cell lymphoma. TECHNIQUE: Pre-and postcontrast axial imaging of the abdomen and pelvis was performed. Post contrast axial imaging of the neck and chest was also performed. COMPARISON: Comparison is made with prior CT neck, chest, abdomen and pelvis study from 05/25/2017. FINDINGS: CT NECK: The visualized intracranial structures are unremarkable. The posterior nasopharynx is unremarkable. Oropharynx and larynx are unremarkable. No thyroid masses are seen. Submandibular and parotid glands appear to be symmetric bilaterally. No pathologically enlarged lymph nodes are identified. No fluid collections are seen. Paranasal sinus disease with mucosal thickening bilateral maxillary sinuses as well as ethmoid air cells is again noted. Mastoids are well aerated. IMPRESSION: Stable CT soft tissue neck when compared with prior exam from 05/25/2017. Paranasal sinus disease is again noted. No definite pathologically enlarged cervical lymph nodes are present. CT CHEST: No axillary, hilar or mediastinal lymphadenopathy is detected. No pericardial or pleural fluid is identified. Minimal atelectasis in the right lower lobe and right middle lobe is again noted. No parenchymal mass is seen. IMPRESSION: Stable CT of the chest with no thoracic lymphadenopathy or evidence of pulmonary metastatic disease. CT ABDOMEN AND PELVIS: No discrete liver mass is seen. Gallbladder is unremarkable. The pancreas and spleen are unremarkable. Adrenal nodularity bilaterally appears stable. No discrete adrenal mass is detected. A left renal cyst appears to be stable. Right kidney is unremarkable. Aorta is calcified but nonaneurysmal. Large abdominal wall hernia containing small bowel loops appear similar to prior exam. No bowel obstruction is identified. The previously noted elongated lymph node in the portacaval location appears stable to slightly smaller with short axis measurement of 7 mm compared with 9 mm. No new lymphadenopathy is seen. No pelvic lymphadenopathy is seen. Bladder is unremarkable. IMPRESSION: Slight decrease in size of portacaval lymph node when compared with exam from 05/25/2017. No new abnormality is detected. Dictated by: Dictated on workstation # [id number]
== END ==
LOC: RAD 09:27
PROVIDERS: ATTEND Nurse Practitioner Adult Health
DX: C86.6 Primary cutaneous CD30-positive T-cell proliferations (principal); C84.09 Mycosis fungoides, extranodal and solid organ sites
CPT/HCPCS: 70491; 71260; 74178

== ENCOUNTER 2018-02-21 13:18 | Outpatient (RCR) | payer MEDICARE, MEDICAID ==
[2017-12-21 10:58] LABS: BASOPHILS % (AUTO) 0 % (0-10); EOSINOPHILS # (AUTO) 0.3 10^3/uL (0.0-0.3); EOSINOPHILS % (AUTO) 7 % (0-10); HEMATOCRIT 48 % (40-54); HEMOGLOBIN 15.9 G/DL (13.3-17.7); LYMPHOCYTES # (AUTO) 0.7 X 10^3 (1.0-4.0); LYMPHOCYTES % (AUTO) 14 % (12-44); MEAN CORPUSCULAR HEMOGLOBIN 31 PG (25-34); MEAN CORPUSCULAR HGB CONC 33 G/DL (32-36); MEAN CORPUSCULAR VOLUME 93 FL (80-99); MEAN PLATELET VOLUME 10.4 FL (7.4-10.4); MONOCYTES # (AUTO) 0.8 X 10^3 (0.0-1.0); MONOCYTES % (AUTO) 15 % (0-12); NEUTROPHILS # (AUTO) 3.2 X 10^3 (1.8-7.8); NEUTROPHILS % (AUTO) 64 % (42-75); PLATELET COUNT 236 10^3/uL (130-400); RED BLOOD COUNT 5.18 10^6/uL (4.35-5.85); RED CELL DISTRIBUTION WIDTH 14.7 % (10.0-14.5); WHITE BLOOD COUNT 5.1 10^3/uL (4.3-11.0)
[2017-12-21 11:18] LABS: ALANINE AMINOTRANSFERASE 16 U/L (0-55); ALBUMIN 4.2 GM/DL (3.2-4.5); ALKALINE PHOSPHATASE 95 U/L (40-136); BILIRUBIN,TOTAL 0.6 MG/DL (0.1-1.0); BUN/CREATININE RATIO 16; CALCIUM 9.5 MG/DL (8.5-10.1); CARBON DIOXIDE 26 MMOL/L (21-32); CHLORIDE 103 MMOL/L (98-107); CREATININE SERUM 0.98 MG/DL (0.60-1.30); GFR ESTIMATED > 60; GLUCOSE 86 MG/DL (70-105); POTASSIUM 4.5 MMOL/L (3.6-5.0); SODIUM 138 MMOL/L (135-145); TOTAL PROTEIN 8.2 GM/DL (6.4-8.2)
[2018-01-11 10:53] LABS: BASOPHILS % (AUTO) 1 % (0-10); EOSINOPHILS # (AUTO) 0.2 10^3/uL (0.0-0.3); EOSINOPHILS % (AUTO) 4 % (0-10); HEMATOCRIT 47 % (40-54); HEMOGLOBIN 15.5 G/DL (13.3-17.7); LYMPHOCYTES # (AUTO) 0.7 X 10^3 (1.0-4.0); LYMPHOCYTES % (AUTO) 14 % (12-44); MEAN CORPUSCULAR HEMOGLOBIN 31 PG (25-34); MEAN CORPUSCULAR HGB CONC 33 G/DL (32-36); MEAN CORPUSCULAR VOLUME 93 FL (80-99); MEAN PLATELET VOLUME 10.1 FL (7.4-10.4); MONOCYTES # (AUTO) 0.7 X 10^3 (0.0-1.0); MONOCYTES % (AUTO) 14 % (0-12); NEUTROPHILS # (AUTO) 3.5 X 10^3 (1.8-7.8); NEUTROPHILS % (AUTO) 68 % (42-75); PLATELET COUNT 202 10^3/uL (130-400); RED BLOOD COUNT 4.99 10^6/uL (4.35-5.85); RED CELL DISTRIBUTION WIDTH 14.5 % (10.0-14.5); WHITE BLOOD COUNT 5.1 10^3/uL (4.3-11.0)
[2018-01-11 11:06] LABS: ALANINE AMINOTRANSFERASE 16 U/L (0-55); ALBUMIN 3.9 GM/DL (3.2-4.5); ALKALINE PHOSPHATASE 99 U/L (40-136); BILIRUBIN,TOTAL 0.5 MG/DL (0.1-1.0); BUN/CREATININE RATIO 14; CALCIUM 9.3 MG/DL (8.5-10.1); CARBON DIOXIDE 25 MMOL/L (21-32); CHLORIDE 104 MMOL/L (98-107); CREATININE SERUM 0.92 MG/DL (0.60-1.30); GFR ESTIMATED > 60; GLUCOSE 101 MG/DL (70-105); POTASSIUM 4.7 MMOL/L (3.6-5.0); SODIUM 137 MMOL/L (135-145); TOTAL PROTEIN 7.4 GM/DL (6.4-8.2)
[2018-01-26 13:22] LABS: BASOPHILS % (AUTO) 0 % (0-10); EOSINOPHILS # (AUTO) 0.5 10^3/uL (0.0-0.3); EOSINOPHILS % (AUTO) 7 % (0-10); HEMATOCRIT 48 % (40-54); HEMOGLOBIN 15.9 G/DL (13.3-17.7); LYMPHOCYTES % (AUTO) 14 % (12-44); MEAN CORPUSCULAR HEMOGLOBIN 31 PG (25-34); MEAN CORPUSCULAR HGB CONC 33 G/DL (32-36); MEAN CORPUSCULAR VOLUME 92 FL (80-99); MEAN PLATELET VOLUME 9.8 FL (7.4-10.4); MONOCYTES % (AUTO) 14 % (0-12); NEUTROPHILS # (AUTO) 4.6 X 10^3 (1.8-7.8); NEUTROPHILS % (AUTO) 65 % (42-75); PLATELET COUNT 188 10^3/uL (130-400); RED BLOOD COUNT 5.16 10^6/uL (4.35-5.85); RED CELL DISTRIBUTION WIDTH 14.4 % (10.0-14.5)
[2018-01-26 13:51] LABS: ALANINE AMINOTRANSFERASE 16 U/L (0-55); ALKALINE PHOSPHATASE 95 U/L (40-136); BILIRUBIN,TOTAL 0.6 MG/DL (0.1-1.0); BUN/CREATININE RATIO 13; CALCIUM 9.4 MG/DL (8.5-10.1); CARBON DIOXIDE 24 MMOL/L (21-32); CHLORIDE 105 MMOL/L (98-107); CREATININE SERUM 0.84 MG/DL (0.60-1.30); GFR ESTIMATED > 60; GLUCOSE 91 MG/DL (70-105); POTASSIUM 4.5 MMOL/L (3.6-5.0); SODIUM 141 MMOL/L (135-145); TOTAL PROTEIN 7.8 GM/DL (6.4-8.2)
[~2018-02-21] VITALS: Ht 175.3 cm; Wt 109.8 kg
[~2018-02-21 13:18] MED LIST changes: +ACETAMINOPHEN 325 MG TAB (TYLENOL) CANCER CTR PO PRN; -BARIUM SUSPENSION 2.1% (VANILLA SILQ) 450 ML PO ONE; +FAMOTIDINE 20MG/2ML IV (CANCER CTR) IV SCH; -IOHEXOL 350 MG/ML 100 ML (OMNIPAQUE 350) VIAL IV ONE; -NS 250 ML (IVPB) BAG IV ONE; +NS IV 1000 ML (CANCER CTR) IV SCH; +NS IV 500 ML (CANCER CENTER) 500 ML ONE; +NS IV SCH; +PALONOSETRON HCL 0.25 MG, DEXAMETHASONE INJ (CANCER CTR) 4 MG in NS (IVPB) CANCER CENTE... IV PRN; +[UNRECOGNIZED DRUG - OTHER] IV SCH; +diphenhydrAMINE 25 MG TAB (BENADRYL) CANCER CENTER PO SCH
[2018-02-21 14:14] LABS: BASOPHILS % (AUTO) 1 % (0-10); EOSINOPHILS # (AUTO) 0.2 10^3/uL (0.0-0.3); EOSINOPHILS % (AUTO) 3 % (0-10); HEMATOCRIT 48 % (40-54); HEMOGLOBIN 15.8 G/DL (13.3-17.7); LYMPHOCYTES # (AUTO) 0.8 X 10^3 (1.0-4.0); LYMPHOCYTES % (AUTO) 16 % (12-44); MEAN CORPUSCULAR HEMOGLOBIN 31 PG (25-34); MEAN CORPUSCULAR HGB CONC 33 G/DL (32-36); MEAN CORPUSCULAR VOLUME 93 FL (80-99); MEAN PLATELET VOLUME 10.4 FL (7.4-10.4); MONOCYTES # (AUTO) 0.6 X 10^3 (0.0-1.0); MONOCYTES % (AUTO) 13 % (0-12); NEUTROPHILS # (AUTO) 3.4 X 10^3 (1.8-7.8); NEUTROPHILS % (AUTO) 67 % (42-75); PLATELET COUNT 195 10^3/uL (130-400); RED BLOOD COUNT 5.13 10^6/uL (4.35-5.85); RED CELL DISTRIBUTION WIDTH 14.3 % (10.0-14.5)
[2018-02-21 14:26] LABS: ALANINE AMINOTRANSFERASE 15 U/L (0-55); ALBUMIN 3.8 GM/DL (3.2-4.5); ALKALINE PHOSPHATASE 99 U/L (40-136); BILIRUBIN,TOTAL 0.5 MG/DL (0.1-1.0); BUN/CREATININE RATIO 12; CALCIUM 9.2 MG/DL (8.5-10.1); CARBON DIOXIDE 26 MMOL/L (21-32); CHLORIDE 106 MMOL/L (98-107); CREATININE SERUM 1.03 MG/DL (0.60-1.30); GFR ESTIMATED > 60; GLUCOSE 161 MG/DL (70-105); POTASSIUM 4.2 MMOL/L (3.6-5.0); SODIUM 141 MMOL/L (135-145); TOTAL PROTEIN 7.6 GM/DL (6.4-8.2)
== END 2018-03-21 | disposition home or self-care (01) ==
LOC: ONC 13:18
PROVIDERS: ATTEND Internal Medicine Hematology & Oncology
DX: Z51.11 Encounter for antineoplastic chemotherapy (principal); C86.6 Primary cutaneous CD30-positive T-cell proliferations; C84.09 Mycosis fungoides, extranodal and solid organ sites; E27.9 Disorder of adrenal gland, unspecified; I10 Essential (primary) hypertension; E03.9 Hypothyroidism, unspecified; J44.9 Chronic obstructive pulmonary disease, unspecified; F17.210 Nicotine dependence, cigarettes, uncomplicated; Z79.899 Other long term (current) drug therapy
CPT/HCPCS: 36415; 80053; 83615; 85025; 96375; 96413; 99213

== ENCOUNTER 2018-05-17 06:20 | Outpatient (CLI) | payer MEDICARE, MEDICAID ==
[~2018-05-17] VITALS: Ht 177.8 cm; Wt 112.0 kg
[~2018-05-17 06:20] MED LIST changes: -ACETAMINOPHEN 325 MG TAB (TYLENOL) CANCER CTR PO PRN; -FAMOTIDINE 20MG/2ML IV (CANCER CTR) IV SCH; -NS IV 1000 ML (CANCER CTR) IV SCH; -NS IV 500 ML (CANCER CENTER) 500 ML ONE; -NS IV SCH; -PALONOSETRON HCL 0.25 MG, DEXAMETHASONE INJ (CANCER CTR) 4 MG in NS (IVPB) CANCER CENTE... IV PRN; -[UNRECOGNIZED DRUG - OTHER] IV SCH; -diphenhydrAMINE 25 MG TAB (BENADRYL) CANCER CENTER PO SCH
[2018-05-17] MEDS ORDERED: CALC625T29 PO (09:18)
[2018-05-17] MEDS ORDERED: ACET325T49 PO (09:18)
[2018-05-17] MEDS ORDERED: DOCU100C37 PO (09:18)
[2018-05-17] MEDS ORDERED: CARB15DR OU (09:18)
[2018-05-17] MEDS ORDERED: FURO40TA4 PO (09:18)
[2018-05-17] MEDS ORDERED: OMEP20CA12 PO (09:18)
[2018-05-17] MEDS ORDERED: LEVO50TA6 PO (09:18)
[2018-05-17] MEDS ORDERED: LATA7.5D OU (09:18)
[2018-05-17] MEDS ORDERED: METO100T12 PO (09:18)
[2018-05-17] MEDS ORDERED: POLY119P5 PO (09:42)
[2018-05-17] MEDS ORDERED: CLON0.5T13 PO (09:42)
[2018-05-17] MEDS ORDERED: SODI30SP2 NSEACH (09:42)
[2018-05-17] MEDS ORDERED: OLAN15TA19 PO (09:42)
[2018-05-17] MEDS ORDERED: FOLI1TAB24 PO (09:42)
[2018-05-17] MEDS ORDERED: POTA10TA10 PO (09:42)
[2018-05-17] MEDS ORDERED: DIPH25TA65 PO (09:42)
[2018-05-17] MEDS ORDERED: RT-ALBUINH IH (09:42)
[2018-05-17] MEDS ORDERED: RAME8TAB18 PO (09:42)
[2018-05-17] MEDS ORDERED: SULF1TAB35 PO (09:42)
[2018-05-17] MEDS ORDERED: FLUT9.9S NSEACH (09:42)
[2018-05-17] MEDS ORDERED: ONDA8TAB9 SL (09:42)
[2018-05-17] MEDS ORDERED: MAGN400T39 PO (09:42)
[2018-05-17] MEDS ORDERED: MELA1TAB15 PO (09:42)
[2018-05-18] MEDS ORDERED: ACHD5005 PO (13:15)
== END 2018-05-17 09:44 | disposition home or self-care (01) ==
LOC: PREOP 06:20
PROVIDERS: ATTEND Surgery
DX: Z01.818 Encounter for other preprocedural examination (principal)

== ENCOUNTER 2018-05-18 11:07 | Day surgery (SDC) | payer MEDICARE, MEDICAID ==
[~2018-05-18] VITALS: Ht 177.8 cm; Wt 112.0 kg
[~2018-05-18 11:07] MED LIST changes: +ACET325T49 PO; +CALC625T29 PO; +CARB15DR OU; +CLON0.5T13 PO; +DIPH25TA65 PO; +DOCU100C37 PO; +FLUT9.9S NSEACH; +FOLI1TAB24 PO; +LATA7.5D OU; +LEVO50TA6 PO; +MAGN400T39 PO; +MELA1TAB15 PO; +METO100T12 PO; +OLAN15TA19 PO; +ONDA8TAB9 SL; +POLY119P5 PO; +POTA10TA10 PO; +RAME8TAB18 PO; +RT-ALBUINH IH; +SODI30SP2 NSEACH; +SULF1TAB35 PO
[2018-05-18 11:10] VITALS: BP 120/78
[2018-05-18] MEDS ORDERED: LACTATED RINGERS 1,000 ML IV PRN (11:17)
[2018-05-18] MEDS ORDERED: ceFAZolin INJECTION 1,000 MG in NS (IVPB) 50 ML IV ONE (11:30)
--- NOTE | 2018-05-18 11:51 | History & Physicial ---
History of Present Illness History of Present Illness Reason for visit/HPI To undergo infusaport placement for systemic therapy to manage mycosis fungoides Date of Admission 05/18/18 Date Seen by Provider: May 18, 2018 Time Seen by Provider: 11:49 I consulted on this patient on 05/18/18 11:48 Attending Physician Ginger Ryan MD Admitting Physician Caesar Barone DO Consult Allergies and Home Medications Allergies Coded Allergies: No Known Drug Allergies (Unverified , 06/16/11) Home Medications Acetaminophen 325 Mg Tablet, 650 MG PO Q4H PRN for PAIN-MILD, (Reported) GIVE 2 (325MG) TABS DO NOT EXCEED 3000MG/24HR Albuterol Sulfate 1 Puff Puff, 2 PUFF IH Q4H PRN for COPD, (Reported) 1 PUFF = 90 MCG Calcium Polycarbophil 625 Mg Tablet, 625 MG PO DAILY, (Reported) Carboxymethylcellulose Sodium 15 Ml Drops, 1 ML OU QID, (Reported) Clonazepam 0.5 Mg Tablet, 0.5 MG PO TID, (Reported) Diphenhydramine HCl 25 Mg Tablet, 25 MG PO Q6H PRN for ITCHING, (Reported) Docusate Sodium 100 Mg Capsule, 100 MG PO DAILY, (Reported) Fluticasone Propionate 9.9 Ml [place].susp, 1 SPRAY NSEACH DAILY, (Reported) 1 SPRAY EACH NARE DAILY Folic Acid 1 Mg Tablet, 1 MG PO [id number], (Reported) Furosemide 40 Mg Tablet, 40 MG PO DAILY, (Reported) Latanoprost/Pf 7.5 Ml Drops, 1 DROP OU HS, (Reported) Levothyroxine Sodium 50 Mcg Tablet, 50 MCG PO DAILY, (Reported) Magnesium Oxide 400 Mg Tablet, 400 MG PO DAILY, (Reported) Melatonin/Pyridoxine 1 Each Tablet, 10 MG PO HS, (Reported) TAKE 2 (5MG) TABS Metoprolol Tartrate 100 Mg Tablet, 100 MG PO BID, (Reported) Olanzapine 15 Mg Tablet, 15 MG PO HS, (Reported) Omeprazole 20 Mg Capsule.dr, 20 MG PO DAILY, (Reported) Ondansetron 8 Mg Tab.rapdis, 8 MG SL Q8H PRN for NAUSEA/VOMITING-1ST LINE, ( Reported) Polyethylene Glycol 3350 119 Gm Powder, 17 GM PO DAILY, (Reported) Potassium Chloride 10 Meq Tablet.er, 10 MEQ PO DAILY, (Reported) Ramelteon 8 Mg Tablet, 8 MG PO HS, (Reported) Sodium Chloride 30 Ml [place], 1 SPRAY NSEACH Q6H PRN for NASAL CONGESTION, ( Reported) Sulfamethoxazole/Trimethoprim 1 Each Tablet, 1 EACH PO DAILY, (Reported) FOR 7 DAYS STARTED 05/16/18 Patient Home Medication List Home Medication List Reviewed: Yes Past Huzoykn-Mchyrv-Apeevw Hx Patient Social History Employed/Student: retired Recent Foreign Travel: No Contact w/other who traveled: No Recent Hopitalizations: No Seasonal Allergies Seasonal Allergies: No Surgeries Yes Adenoidectomy, Tonsillectomy Respiratory No Cardiovascular Yes Hypertension Gastrointestinal No Musculoskeletal Yes Arthritis Cancer Yes Lymphoma Psychosocial History of Psychiatric Problem: Yes Behavioral Health Disorders: Anxiety, Bipolar, Schizophrenia Review of Systems Constitutional: malaise EENTM: no symptoms reported Respiratory: cough Cardiovascular: no symptoms reported Gastrointestinal: no symptoms reported Genitourinary: no symptoms reported Musculoskeletal: back pain, joint pain Skin: see HPI Psychiatric/Neurological: No Symptoms Reported, See HPI, Anxiety Physical Exam Vital Signs Capillary Refill : Height, Weight, BMI Height: 5'10.00" Weight: 247lbs. 0.0oz. 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 Assessment/Plan Assessment and Plan Gentleman with mycosis fungoides. For infusaport placement Admission Diagnosis Admission Status: Other (Outpt Proc) GINGER RYAN MD May 18, 2018 11:51
--- NOTE | 2018-05-18 11:52 | Progress Note-Pre Operative ---
Pre-Operative Progress Note H&P Reviewed The H&P was reviewed, patient examined and no changes noted. Date Seen by Provider: May 18, 2018 Time Seen by Provider: 11:30 Date H&P Reviewed: May 18, 2018 Time H&P Reviewed: 11:52 Pre-Operative Diagnosis: T-cell lymphoma GINGER RYAN MD May 18, 2018 11:52
[2018-05-18] MEDS ORDERED: 0.9% SODIUM CHLORIDE PF INJ 20 ML VIAL ONE (11:53)
[2018-05-18] MEDS ORDERED: HEParin (CENTRAL IV FLUSH) 500 UNIT/5 ML SYR ONE (11:53)
[2018-05-18] MEDS ORDERED: BUP/EPI 0.5% 1:200,000 (SENSORCAINE) 30 ML VIAL ONE (11:53)
[2018-05-18] MEDS ORDERED: ONDANSETRON 4 MG/2 ML (SDV) Z0FRAN ONE (12:10)
[2018-05-18] MEDS ORDERED: proPOfol 200 MG/20 ML (DIPRIVAN) VIAL IV ONE (12:10)
[2018-05-18] MEDS ORDERED: SEVOFLURANE (ULTANE) 15 ML INHAL SOLN ONE ×2 (12:10→12:59)
[2018-05-18] MEDS ORDERED: LIDOCAINE PF 2% 2 ML (XYLOCAINE) VIAL ONE (12:10)
[2018-05-18] MEDS ORDERED: MIDAZOLAM 2 MG/2 ML (VERSED) VIAL ONE (12:11)
[2018-05-18] MEDS ORDERED: fentaNYL INJECTION 100 MCG/2 ML AMP ONE (12:11)
--- OUTSIDE RECORDS SUMMARY | 2018-05-18 12:22 | XMS REPORT | Continuity of Care Document ---
Demographics Preferred Language Unknown Marital Status Unknown Christian Affiliation Unknown Race Unknown Ethnic Group Unknown Author Author [facility] Address Unknown Phone Unavailable Allergies Active Description Code Type Severity Reaction Onset Reported/Identified Relationship to Patient Clinical Status Yes No Known Drug Allergies [id number] Drug Allergy Unknown N/A 06/16/2011 Medications There is no data. 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 12/16/2011 782.1 ECHO VIRUS RASH 12/14/2012 Ot 455.9 RESIDUAL HEMORRHOID TAGS 12/14/2012 Ot 569.3 RECTAL ANAL HEMORRHAGE 06/11/2015 Ot V72.84 06/30/2015 MELY MENA DO Ot L08.9 06/30/2015 MEYL MENA DO Ot M79.89 11/17/2015 MELY MENA DO Ot L08.9 11/17/2015 MELY MENA DO Ot R22.41 12/25/2015 MELY MENA DO Ot K59.00 CONSTIPATION, UNSPECIFIED 01/13/2016 GELLENDER DO, MELY A Ot K59.00 CONSTIPATION, UNSPECIFIED 01/21/2016 GELLENDER DO, MELY A Ot K59.00 CONSTIPATION, UNSPECIFIED 04/07/2016 MARY SOTO Ot C84.A0 CUTANEOUS T-CELL LYMPHOMA, UNSPECIFIED, 04/27/2016 MARY SOTO Ot C84.A0 CUTANEOUS T-CELL LYMPHOMA, UNSPECIFIED, 05/04/2016 LAMONT SPENCE S [employer] UNIT LEADER Ot C84.A0 CUTANEOUS T-CELL LYMPHOMA, UNSPECIFIED, 05/04/2016 LAMONT SPENCE S [employer]IT LEADER Ot E03.9 HYPOTHYROIDISM, UNSPECIFIED 05/04/2016 LAMONT SPENCE S [employer] UNIT LEADER Ot F17.210 NICOTINE DEPENDENCE, CIGARETTES, UNCOMPL 05/04/2016 LAMONT SPENCE S [employer] UNIT LEADER Ot I10 ESSENTIAL (PRIMARY) HYPERTENSION 05/04/2016 LAMONT SPENCE S [employer] UNIT LEADER Ot J44.9 CHRONIC OBSTRUCTIVE PULMONARY DISEASE, U 05/04/2016 LAMONT SPENCE S [employer] UNIT LEADER Ot Z79.899 OTHER [facility] (CURRENT) DRUG THERAPY 05/09/2016 LAMONT SPENCE S [employer] UNIT LEADER Ot C84.A0 CUTANEOUS T-CELL LYMPHOMA, UNSPECIFIED, 05/09/2016 LAMONT SPENCE [employer] UNIT LEADER Ot E03.9 HYPOTHYROIDISM, UNSPECIFIED 05/09/2016 LAMONT SPENCE S [employer] UNIT LEADER Ot F17.210 NICOTINE DEPENDENCE, CIGARETTES, UNCOMPL 05/09/2016 LAMONT SPENCE S [employer] UNIT LEADER Ot I10 ESSENTIAL (PRIMARY) HYPERTENSION 05/09/2016 LAMONT SPENCE S [employer] UNIT LEADER Ot J44.9 CHRONIC OBSTRUCTIVE PULMONARY DISEASE, U 05/09/2016 LAMONT SPENCE S [employer] UNIT LEADER Ot Z79.899 OTHER [facility] (CURRENT) DRUG THERAPY 05/11/2016 MARY SOTO N Ot C84.A0 CUTANEOUS T-CELL LYMPHOMA, UNSPECIFIED, 06/11/2016 MARY SOTO N Ot 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, EXTRANODAL AND SOLID 06/11/2016 BRITTANY, BOBTHA N Ot C85.90 NON-HODGKIN LYMPHOMA, UNSPECIFIED, UNSPE 06/11/2016 MARY SOTO N Ot E03.9 HYPOTHYROIDISM, UNSPECIFIED 06/11/2016 BRITTANYMARY VILLEDA N Ot F17.210 NICOTINE DEPENDENCE, CIGARETTES, UNCOMPL 06/11/2016 BRITTANYENRIQUEAN N Ot I10 ESSENTIAL (PRIMARY) HYPERTENSION 06/11/2016 BRITTANYMARY N Ot J44.9 CHRONIC OBSTRUCTIVE PULMONARY DISEASE, U 06/11/2016 BRITTANYMARY N Ot Z51.11 ENCOUNTER FOR ANTINEOPLASTIC CHEMOTHERAP 06/11/2016 BRITTANYMARY N Ot Z79.899 OTHER [facility] (CURRENT) DRUG THERAPY 06/15/2016 BRITTANY BOBAN N Ot C85.90 NON-HODGKIN LYMPHOMA, UNSPECIFIED, UNSPE 06/15/2016 BRITTANYENRIQUEAN N Ot E03.9 HYPOTHYROIDISM, UNSPECIFIED 06/15/2016 BRITTANY, BOBAN N Ot F17.210 NICOTINE DEPENDENCE, CIGARETTES, UNCOMPL 06/15/2016 BRITTANY BOBAN N Ot I10 ESSENTIAL (PRIMARY) HYPERTENSION 06/15/2016 BRITTANYMARY N Ot J44.9 CHRONIC OBSTRUCTIVE PULMONARY DISEASE, U 06/15/2016 BRITTANYMARY N Ot Z79.899 OTHER [facility] (CURRENT) DRUG THERAPY 06/16/2016 BRITTANY, BOBAN N Ot C85.90 NON-HODGKIN LYMPHOMA, UNSPECIFIED, UNSPE 06/16/2016 BRITTANYENRIQUEAN N Ot E03.9 HYPOTHYROIDISM, UNSPECIFIED 06/16/2016 BRITTANY, BOBTHA N Ot F17.210 NICOTINE DEPENDENCE, CIGARETTES, UNCOMPL 06/16/2016 BRITTANY BOBAN N Ot I10 ESSENTIAL (PRIMARY) HYPERTENSION 06/16/2016 BRITTANYMARY N Ot J44.9 CHRONIC OBSTRUCTIVE PULMONARY DISEASE, U 06/16/2016 BRITTANYMARY N Ot Z79.899 OTHER [facility]EN [facility] (CURRENT) DRUG THERAPY 07/27/2016 BRITTANY, BOBAN N Ot C85.90 NON-HODGKIN LYMPHOMA, UNSPECIFIED, UNSPE 07/27/2016 BRITTANY BOBAN N Ot E03.9 HYPOTHYROIDISM, UNSPECIFIED 07/27/2016 BRITTANY, BOBAN N Ot F17.210 NICOTINE DEPENDENCE, CIGARETTES, UNCOMPL 07/27/2016 BRITTANY BOBAN N Ot I10 ESSENTIAL (PRIMARY) HYPERTENSION 07/27/2016 BRITTANYENRIQUEAN N Ot J44.9 CHRONIC OBSTRUCTIVE PULMONARY DISEASE, U 07/27/2016 BRITTANYMARY N Ot Z51.11 ENCOUNTER FOR ANTINEOPLASTIC CHEMOTHERAP 07/27/2016 BRITTANY, BOBAN N Ot Z79.899 OTHER [facility] (CURRENT) DRUG THERAPY 09/02/2016 BRITTANY, BOBAN N Ot C86.6 PRIMARY CUTANEOUS AD65-AZLSEHTJ T-CELL P 09/02/2016 BRITTANY, BOBAN N Ot E03.9 HYPOTHYROIDISM, UNSPECIFIED 09/02/2016 BRITTANY, BOBAN N Ot F17.210 NICOTINE DEPENDENCE, CIGARETTES, UNCOMPL 09/02/2016 BRITTANY, BOBAN N Ot I10 ESSENTIAL (PRIMARY) HYPERTENSION 09/02/2016 BRITTANY, BOBAN N Ot J44.9 CHRONIC OBSTRUCTIVE PULMONARY DISEASE, U 09/02/2016 BRITTANY, BOBAN N Ot Z51.11 ENCOUNTER FOR ANTINEOPLASTIC CHEMOTHERAP 09/02/2016 BRITTANY, BOBAN N Ot Z79.899 OTHER [facility] (CURRENT) DRUG THERAPY 09/09/2016 BRITTANY BOBAN N Ot C86.6 PRIMARY CUTANEOUS BJ19-AOYHTJMS T-CELL P 09/09/2016 BRITTANY, BOBAN N Ot E03.9 HYPOTHYROIDISM, UNSPECIFIED 09/09/2016 BRITTANY, BOBAN N Ot F17.210 NICOTINE DEPENDENCE, CIGARETTES, UNCOMPL 09/09/2016 BRITTANY, BOBAN N Ot I10 ESSENTIAL (PRIMARY) HYPERTENSION 09/09/2016 BRITTANY, BOBAN N Ot J44.9 CHRONIC OBSTRUCTIVE PULMONARY DISEASE, U 09/09/2016 BRITTANY, BOBAN N Ot Z51.11 ENCOUNTER FOR ANTINEOPLASTIC CHEMOTHERAP 09/09/2016 BRITTANY, BOBAN N Ot Z79.899 OTHER [facility] (CURRENT) DRUG THERAPY 09/13/2016 BRITTANY BOBAN N Ot C86.6 PRIMARY CUTANEOUS QM81-SINDNLVA T-CELL P 09/13/2016 BRITTANY, BOBAN N Ot E03.9 HYPOTHYROIDISM, UNSPECIFIED 09/13/2016 BRITTANY, BOBAN N Ot F17.210 NICOTINE DEPENDENCE, CIGARETTES, UNCOMPL 09/13/2016 BRITTANY, BOBAN N Ot I10 ESSENTIAL (PRIMARY) HYPERTENSION 09/13/2016 BRITTANY, BOBAN N Ot J44.9 CHRONIC OBSTRUCTIVE PULMONARY DISEASE, U 09/13/2016 BRITTANY, BOBAN N Ot Z51.11 ENCOUNTER FOR ANTINEOPLASTIC CHEMOTHERAP 09/13/2016 BRITTANY, BOBAN N Ot Z79.899 OTHER [facility] (CURRENT) DRUG THERAPY 09/14/2016 BRITTANY BOBTHA N Ot C86.6 PRIMARY CUTANEOUS IL99-EQTYLSNG T-CELL P 09/14/2016 BRITTANY ENRIQUEAN N Ot E03.9 HYPOTHYROIDISM, UNSPECIFIED 09/14/2016 BRITTANY, BOBAN N Ot F17.210 NICOTINE DEPENDENCE, CIGARETTES, UNCOMPL 09/14/2016 BRITTANY BOBAN N Ot I10 ESSENTIAL (PRIMARY) HYPERTENSION 09/14/2016 BRITTANY ENRIQUEAN N Ot J44.9 CHRONIC OBSTRUCTIVE PULMONARY DISEASE, U 09/14/2016 BRITTANY BOBAN N Ot Z51.11 ENCOUNTER FOR ANTINEOPLASTIC CHEMOTHERAP 09/14/2016 BRITTANY, BOBAN N Ot Z79.899 OTHER [facility] (CURRENT) DRUG THERAPY 09/29/2016 BRITTANY MARY N Ot C86.6 PRIMARY CUTANEOUS HD00-LRULLHWB T-CELL P 09/29/2016 BRITTANY BOBAN N Ot E03.9 HYPOTHYROIDISM, UNSPECIFIED 09/29/2016 BRITTANY, BOBAN N Ot F17.210 NICOTINE DEPENDENCE, CIGARETTES, UNCOMPL 09/29/2016 BRITTANY BOBAN N Ot I10 ESSENTIAL (PRIMARY) HYPERTENSION 09/29/2016 BRITTANY ENRIQUEAN N Ot J44.9 CHRONIC OBSTRUCTIVE PULMONARY DISEASE, U 09/29/2016 BRITTANY, BOBAN N Ot Z51.11 ENCOUNTER FOR ANTINEOPLASTIC CHEMOTHERAP 09/29/2016 BRITTANY ENRIQUEAN N Ot Z79.899 OTHER [facility] (CURRENT) DRUG THERAPY 09/30/2016 BRITTANY ENRIQUETHA N Ot C86.6 PRIMARY CUTANEOUS MA80-LGOUIIBZ T-CELL P 09/30/2016 BRITTANY MARY N Ot E03.9 HYPOTHYROIDISM, UNSPECIFIED 09/30/2016 BRITTANY, BOBAN N Ot F17.210 NICOTINE DEPENDENCE, CIGARETTES, UNCOMPL 09/30/2016 BRITTANY, BOBAN N Ot I10 ESSENTIAL (PRIMARY) HYPERTENSION 09/30/2016 BRITTANY BOBAN N Ot J44.9 CHRONIC OBSTRUCTIVE PULMONARY DISEASE, U 09/30/2016 BRITTANY, BOBAN N Ot Z51.11 ENCOUNTER FOR ANTINEOPLASTIC CHEMOTHERAP 09/30/2016 BRITTANY BOBAN N Ot Z79.899 OTHER [facility] (CURRENT) DRUG THERAPY 11/17/2016 MARY SOTO N Ot R09.89 OTH SYMPTOMS AND SIGNS INVOLVING THE CIR 11/19/2016 MARY SOTO N Ot C86.6 PRIMARY CUTANEOUS LF42-HQQJWIAI T-CELL P 11/19/2016 BRITTANY, ENRIQUETHA N Ot E03.9 HYPOTHYROIDISM, UNSPECIFIED 11/19/2016 BRITTANY MARY N Ot F17.210 NICOTINE DEPENDENCE, CIGARETTES, UNCOMPL 11/19/2016 BRITTANYMARY N Ot I10 ESSENTIAL (PRIMARY) HYPERTENSION 11/19/2016 BRITTANY MARY N Ot J44.9 CHRONIC OBSTRUCTIVE PULMONARY DISEASE, U 11/19/2016 BRITTANY MARY N Ot Z51.11 ENCOUNTER FOR ANTINEOPLASTIC CHEMOTHERAP 11/19/2016 BRITTANY ENRIQUEAN N Ot Z79.899 OTHER [facility] (CURRENT) DRUG THERAPY 12/03/2016 BRITTANY MARY N Ot C86.6 PRIMARY CUTANEOUS VF39-KCDTOLOC T-CELL P 12/03/2016 BRITTANY MARY N Ot E03.9 HYPOTHYROIDISM, UNSPECIFIED 12/03/2016 BRITTANY ENRIQUEAN N Ot F17.210 NICOTINE DEPENDENCE, CIGARETTES, UNCOMPL 12/03/2016 BRITTANY MARY N Ot I10 ESSENTIAL (PRIMARY) HYPERTENSION 12/03/2016 BRITTANY MARY N Ot J44.9 CHRONIC OBSTRUCTIVE PULMONARY DISEASE, U 12/03/2016 BRITTANY MARY N Ot Z51.11 ENCOUNTER FOR ANTINEOPLASTIC CHEMOTHERAP 12/03/2016 BRITTANY MARY N Ot Z79.899 OTHER [facility] (CURRENT) DRUG THERAPY 12/07/2016 BRITTANY MARY N Ot R09.89 OTH SYMPTOMS AND SIGNS INVOLVING THE CIR 12/15/2016 BRITTANY BOBAN N Ot R09.89 OTH SYMPTOMS AND SIGNS INVOLVING THE CIR 12/29/2016 MARY SOTO N Ot C86.6 PRIMARY CUTANEOUS EW49-HZZVKUQJ T-CELL P 12/29/2016 BRITTANY BOBAN N Ot E03.9 HYPOTHYROIDISM, UNSPECIFIED 12/29/2016 BRITTANY BOBAN N Ot F17.210 NICOTINE DEPENDENCE, CIGARETTES, UNCOMPL 12/29/2016 BRITTANY BOBAN N Ot I10 ESSENTIAL (PRIMARY) HYPERTENSION 12/29/2016 BRITTANY ENRIQUEAN N Ot J44.9 CHRONIC OBSTRUCTIVE PULMONARY DISEASE, U 12/29/2016 BRITTANY ENRIQUEAN N Ot Z51.11 ENCOUNTER FOR ANTINEOPLASTIC CHEMOTHERAP 12/29/2016 MARY SOTO Zara Ot Z79.899 OTHER [facility] (CURRENT) DRUG THERAPY 12/29/2016 MARY SOTO Zara Ot C86.6 PRIMARY CUTANEOUS JH47-WLISQDVQ T-CELL P 12/29/2016 MARY SOTO Zara Ot E03.9 HYPOTHYROIDISM, UNSPECIFIED 12/29/2016 MARY SOTO Zara Ot F17.210 NICOTINE DEPENDENCE, CIGARETTES, UNCOMPL 12/29/2016 BRITTANY ENRIQUETHA Zara Ot I10 ESSENTIAL (PRIMARY) HYPERTENSION 12/29/2016 BRITTANY ENRIQUETHA Zara Ot J44.9 CHRONIC OBSTRUCTIVE PULMONARY DISEASE, U 12/29/2016 MARY SOTO Zara Ot Z51.11 ENCOUNTER FOR ANTINEOPLASTIC CHEMOTHERAP 12/29/2016 MARY SOTO Zara Ot Z79.899 OTHER [facility] (CURRENT) DRUG THERAPY 01/19/2017 Ot V72.84 EXAM PRE- OPERATIVE NOS 01/19/2017 MELY MENA DO Ot L08.9 LOCAL INFECTION OF THE SKIN AND SUBCUTAN 01/19/2017 MELY MENA DO Ot R22.41 LOCALIZED SWELLING, MASS AND LUMP, RIGHT 01/19/2017 MELY MENA DO Ot K59.00 CONSTIPATION, UNSPECIFIED 01/19/2017 BRITTANY MARY Zuñiga Ot C84.A0 CUTANEOUS T-CELL LYMPHOMA, UNSPECIFIED, 01/19/2017 LAMONT SPENCEP Ot C84.A0 CUTANEOUS T-CELL LYMPHOMA, UNSPECIFIED, 01/19/2017 LAMONT SPENCE BUSINESS UNIT LEADER Ot E03.9 HYPOTHYROIDISM, UNSPECIFIED 01/19/2017 LAMONT SPENCEP Ot F17.210 NICOTINE DEPENDENCE, CIGARETTES, UNCOMPL 01/19/2017 LAMONT SPENCE BUSINESS UNIT LEADER Ot I10 ESSENTIAL (PRIMARY) HYPERTENSION 01/19/2017 LAMONT SPENCE [employer] UNIT LEADER Ot J44.9 CHRONIC OBSTRUCTIVE PULMONARY DISEASE, U 01/19/2017 LAMONT SPENCEP Ot Z79.899 OTHER GREEN [facility] (CURRENT) DRUG THERAPY 01/19/2017 MARY SOTO Zara Ot R09.89 OTH SYMPTOMS AND SIGNS INVOLVING THE CIR 01/19/2017 BRITTANY MARY Zuñiga Ot C86.6 PRIMARY CUTANEOUS XG38-WLSGSYAH T-CELL P 01/19/2017 BRITTANY BOBAN N Ot E03.9 HYPOTHYROIDISM, UNSPECIFIED 01/19/2017 BRITTANYMARY N Ot F17.210 NICOTINE DEPENDENCE, CIGARETTES, UNCOMPL 01/19/2017 BRITTANYMARY N Ot I10 ESSENTIAL (PRIMARY) HYPERTENSION 01/19/2017 BRITTANYENRIQUEAN N Ot J44.9 CHRONIC OBSTRUCTIVE PULMONARY DISEASE, U 01/19/2017 BRITTANYMARY N Ot Z51.11 ENCOUNTER FOR ANTINEOPLASTIC CHEMOTHERAP 01/19/2017 BRITTANY BOBAN N Ot Z79.899 OTHER GRE[facility] (CURRENT) DRUG THERAPY 01/23/2017 BRITTANY BOBAN N Ot C86.6 PRIMARY CUTANEOUS YA24-DVNJSYGV T-CELL P 01/23/2017 BRITTANYMARY N Ot E03.9 HYPOTHYROIDISM, UNSPECIFIED 01/23/2017 BRITTANY, BOBAN N Ot F17.210 NICOTINE DEPENDENCE, CIGARETTES, UNCOMPL 01/23/2017 BRITTANY BOBAN N Ot I10 ESSENTIAL (PRIMARY) HYPERTENSION 01/23/2017 BRITTANYMARY N Ot J44.9 CHRONIC OBSTRUCTIVE PULMONARY DISEASE, U 01/23/2017 BRITTANYMARY N Ot Z51.11 ENCOUNTER FOR ANTINEOPLASTIC CHEMOTHERAP 01/23/2017 BRITTANY BOBAN N Ot Z79.899 OTHER GREEN [facility] (CURRENT) DRUG THERAPY 01/23/2017 BRITTANY BOBTHA N Ot C86.6 PRIMARY CUTANEOUS TF19-TKIXCGZN T-CELL P 01/23/2017 BRITTANY BOBTHA N Ot E03.9 HYPOTHYROIDISM, UNSPECIFIED 01/23/2017 BRITTANY BOBTHA N Ot F17.210 NICOTINE DEPENDENCE, CIGARETTES, UNCOMPL 01/23/2017 BRITTANY BOBTHA N Ot I10 ESSENTIAL (PRIMARY) HYPERTENSION 01/23/2017 BRITTANYMARY N Ot J44.9 CHRONIC OBSTRUCTIVE PULMONARY DISEASE, U 01/23/2017 BRITTANY BOBAN N Ot Z51.11 ENCOUNTER FOR ANTINEOPLASTIC CHEMOTHERAP 01/23/2017 BRITTANY, BOBAN N Ot Z79.899 OTHER GRE[facility] (CURRENT) DRUG THERAPY 01/23/2017 BRITTANY BOBAN N Ot C86.6 PRIMARY CUTANEOUS UP56-TIYYLALW T-CELL P 01/23/2017 BRITTANYENRIQUEAN N Ot E03.9 HYPOTHYROIDISM, UNSPECIFIED 01/23/2017 BRITTANY BOBAN N Ot F17.210 NICOTINE DEPENDENCE, CIGARETTES, UNCOMPL 01/23/2017 BRITTANY BOBAN N Ot I10 ESSENTIAL (PRIMARY) HYPERTENSION 01/23/2017 BRITTANYENRIQUEAN N Ot J44.9 CHRONIC OBSTRUCTIVE PULMONARY DISEASE, U 01/23/2017 BRITTANYENRIQUEAN N Ot Z51.11 ENCOUNTER FOR ANTINEOPLASTIC CHEMOTHERAP 01/23/2017 BRITTANYENRIQUEAN N Ot Z79.899 OTHER GRE[facility] (CURRENT) DRUG THERAPY 01/23/2017 BRITTANY BOBAN N Ot C86.6 PRIMARY CUTANEOUS TH04-WFZNISNQ T-CELL P 01/23/2017 BRITTANY BOBAN N Ot E03.9 HYPOTHYROIDISM, UNSPECIFIED 01/23/2017 BRITTANY, BOBAN N Ot F17.210 NICOTINE DEPENDENCE, CIGARETTES, UNCOMPL 01/23/2017 BRITTANY BOBAN N Ot I10 ESSENTIAL (PRIMARY) HYPERTENSION 01/23/2017 BRITTANY BOBAN N Ot J44.9 CHRONIC OBSTRUCTIVE PULMONARY DISEASE, U 01/23/2017 BRITTANY, BOBAN N Ot Z51.11 ENCOUNTER FOR ANTINEOPLASTIC CHEMOTHERAP 01/23/2017 BRITTANY, BOBAN N Ot Z79.899 OTHER [facility] [facility] (CURRENT) DRUG THERAPY 01/23/2017 BRITTANY BOBAN N Ot C86.6 PRIMARY CUTANEOUS QL17-PPTXVSLN T-CELL P 01/23/2017 BRITTANY BOBAN N Ot E03.9 HYPOTHYROIDISM, UNSPECIFIED 01/23/2017 BRITTANY, BOBAN N Ot F17.210 NICOTINE DEPENDENCE, CIGARETTES, UNCOMPL 01/23/2017 BRITTANY BOBAN N Ot I10 ESSENTIAL (PRIMARY) HYPERTENSION 01/23/2017 BRITTANYMARY N Ot J44.9 CHRONIC OBSTRUCTIVE PULMONARY DISEASE, U 01/23/2017 BRITTANY BOBAN N Ot Z51.11 ENCOUNTER FOR ANTINEOPLASTIC CHEMOTHERAP 01/23/2017 BRITTANY, BOBAN N Ot Z79.899 OTHER GRE[employer] [facility] (CURRENT) DRUG THERAPY 01/23/2017 BRITTANY, BOBAN N Ot C86.6 PRIMARY CUTANEOUS RC24-GECPYQYF T-CELL P 01/23/2017 BRITTANY BOBAN N Ot E03.9 HYPOTHYROIDISM, UNSPECIFIED 01/23/2017 BRITTANY, BOBAN N Ot F17.210 NICOTINE DEPENDENCE, CIGARETTES, UNCOMPL 01/23/2017 BRITTANY BOBAN N Ot I10 ESSENTIAL (PRIMARY) HYPERTENSION 01/23/2017 BRITTANY BOBAN N Ot J44.9 CHRONIC OBSTRUCTIVE PULMONARY DISEASE, U 01/23/2017 BRITTANY, BOBAN N Ot Z51.11 ENCOUNTER FOR ANTINEOPLASTIC CHEMOTHERAP 01/23/2017 BRITTANY, BOBAN N Ot Z79.899 OTHER [facility] (CURRENT) DRUG THERAPY 02/08/2017 BRITTANYENRIQUEAN N Ot C86.6 PRIMARY CUTANEOUS IY40-IASNAAOJ T-CELL P 02/08/2017 BRITTANY BOBAN N Ot E03.9 HYPOTHYROIDISM, UNSPECIFIED 02/08/2017 BRITTANY, BOBAN N Ot F17.210 NICOTINE DEPENDENCE, CIGARETTES, UNCOMPL 02/08/2017 BRITTANY, BOBAN N Ot I10 ESSENTIAL (PRIMARY) HYPERTENSION 02/08/2017 BRITTANY, BOBAN N Ot J44.9 CHRONIC OBSTRUCTIVE PULMONARY DISEASE, U 02/08/2017 BRITTANY, BOBAN N Ot Z51.11 ENCOUNTER FOR ANTINEOPLASTIC CHEMOTHERAP 02/08/2017 BRITTANY, BOBAN N Ot Z79.899 OTHER [facility] (CURRENT) DRUG THERAPY 03/02/2017 BRITTANY BOBAN N Ot C86.6 PRIMARY CUTANEOUS NJ98-AEUIXUBW T-CELL P 03/02/2017 BRITTANY BOBAN N Ot E03.9 HYPOTHYROIDISM, UNSPECIFIED 03/02/2017 BRITTANY, BOBAN N Ot F17.210 NICOTINE DEPENDENCE, CIGARETTES, UNCOMPL 03/02/2017 BRITTANY, BOBAN N Ot I10 ESSENTIAL (PRIMARY) HYPERTENSION 03/02/2017 BRITTANYENRIQUEAN N Ot J44.9 CHRONIC OBSTRUCTIVE PULMONARY DISEASE, U 03/02/2017 BRITTANY, BOBAN N Ot Z51.11 ENCOUNTER FOR ANTINEOPLASTIC CHEMOTHERAP 03/02/2017 BRITTANY, BOBAN N Ot Z79.899 OTHER [facility] (CURRENT) DRUG THERAPY 04/05/2017 BRITTANY, BOBAN N Ot C86.6 PRIMARY CUTANEOUS XJ01-XDPIPDTZ T-CELL P 04/05/2017 BRITTANY, BOBAN N Ot E03.9 HYPOTHYROIDISM, UNSPECIFIED 04/05/2017 BRITTANY, BOBAN N Ot F17.210 NICOTINE DEPENDENCE, CIGARETTES, UNCOMPL 04/05/2017 BRITTANY, BOBAN N Ot I10 ESSENTIAL (PRIMARY) HYPERTENSION 04/05/2017 BRITTANY, BOBAN N Ot J44.9 CHRONIC OBSTRUCTIVE PULMONARY DISEASE, U 04/05/2017 BRITTANY, BOBAN N Ot Z51.11 ENCOUNTER FOR ANTINEOPLASTIC CHEMOTHERAP 04/05/2017 BRITTANY, BOBAN N Ot Z79.899 OTHER [facility] (CURRENT) DRUG THERAPY 04/19/2017 BRITTANY, BOBAN N Ot C86.6 PRIMARY CUTANEOUS ZX93-EMRWBECV T-CELL P 04/19/2017 BRITTANY, BOBAN N Ot E03.9 HYPOTHYROIDISM, UNSPECIFIED 04/19/2017 BRITTANY, BOBAN N Ot F17.210 NICOTINE DEPENDENCE, CIGARETTES, UNCOMPL 04/19/2017 BRITTANY, BOBAN N Ot I10 ESSENTIAL (PRIMARY) HYPERTENSION 04/19/2017 BRITTANY, BOBAN N Ot J44.9 CHRONIC OBSTRUCTIVE PULMONARY DISEASE, U 04/19/2017 BRITTANY, BOBAN N Ot Z51.11 ENCOUNTER FOR ANTINEOPLASTIC CHEMOTHERAP 04/19/2017 BRITTANY, BOBAN N Ot Z79.899 OTHER GREEN [employer] (CURRENT) DRUG THERAPY 04/25/2017 BRITTANY, BOBAN N Ot C86.6 PRIMARY CUTANEOUS QM79-GBIEUWPK T-CELL P 04/25/2017 BRITTANY, BOBAN N Ot E03.9 HYPOTHYROIDISM, UNSPECIFIED 04/25/2017 BRITTANY, BOBAN N Ot F17.210 NICOTINE DEPENDENCE, CIGARETTES, UNCOMPL 04/25/2017 BRITTANY, BOBAN N Ot I10 ESSENTIAL (PRIMARY) HYPERTENSION 04/25/2017 BRITTANY, BOBAN N Ot J44.9 CHRONIC OBSTRUCTIVE PULMONARY DISEASE, U 04/25/2017 BRITTANY, BOBAN N Ot Z51.11 ENCOUNTER FOR ANTINEOPLASTIC CHEMOTHERAP 04/25/2017 BRITTANY, BOBAN N Ot Z79.899 OTHER [facility] (CURRENT) DRUG THERAPY 05/11/2017 BRITTANY, BOBAN N Ot C86.6 PRIMARY CUTANEOUS HO87-BFKIWCYH T-CELL P 05/11/2017 BRITTANY, BOBAN N Ot E03.9 HYPOTHYROIDISM, UNSPECIFIED 05/11/2017 BRITTANY, BOBAN N Ot F17.210 NICOTINE DEPENDENCE, CIGARETTES, UNCOMPL 05/11/2017 BRITTANY, BOBAN N Ot I10 ESSENTIAL (PRIMARY) HYPERTENSION 05/11/2017 BRITTANY, BOBAN N Ot J44.9 CHRONIC OBSTRUCTIVE PULMONARY DISEASE, U 05/11/2017 BRITTANY, BOBAN N Ot Z79.899 OTHER GREEN PL[employer] (CURRENT) DRUG THERAPY 05/24/2017 MELY MENA DO Ot L08.9 LOCAL INFECTION OF THE SKIN AND SUBCUTAN 05/24/2017 MELY MENA DO Ot R22.41 LOCALIZED SWELLING, MASS AND LUMP, RIGHT 05/24/2017 MELY MENA DO Ot K59.00 CONSTIPATION, UNSPECIFIED 05/24/2017 MARY SOTO Ot C84.A0 CUTANEOUS T-CELL LYMPHOMA, UNSPECIFIED, 05/24/2017 LAMONT SPENCE S [employer] UNIT LEADER Ot C84.A0 CUTANEOUS T-CELL LYMPHOMA, UNSPECIFIED, 05/24/2017 LAMONT SPENCE S [employer]IT LEADER Ot E03.9 HYPOTHYROIDISM, UNSPECIFIED 05/24/2017 LAMONT SPENCE S [employer] UNIT LEADER Ot F17.210 NICOTINE DEPENDENCE, CIGARETTES, UNCOMPL 05/24/2017 LAMONT SPENCE S [employer] UNIT LEADER Ot I10 ESSENTIAL (PRIMARY) HYPERTENSION 05/24/2017 LAMONT SPENCE S [employer] UNIT LEADER Ot J44.9 CHRONIC OBSTRUCTIVE PULMONARY DISEASE, U 05/24/2017 LAMONT SPENCE [employer] UNIT LEADER Ot Z79.899 OTHER GREEN PLUMBER (CURRENT) DRUG THERAPY 05/24/2017 MARY SOTO N Ot R09.89 OTH SYMPTOMS AND SIGNS INVOLVING THE CIR 05/24/2017 MARY SOTO Ot C86.6 PRIMARY CUTANEOUS [id number]-[id number] T-CELL P 05/24/2017 MARY SOTO N Ot E03.9 HYPOTHYROIDISM, UNSPECIFIED 05/24/2017 MARY SOTO N Ot F17.210 NICOTINE DEPENDENCE, CIGARETTES, UNCOMPL 05/24/2017 MARY SOTO N Ot I10 ESSENTIAL (PRIMARY) HYPERTENSION 05/24/2017 MARY SOTO N Ot J44.9 CHRONIC OBSTRUCTIVE PULMONARY DISEASE, U 05/24/2017 BRITTANY BOBAN N Ot Z79.899 OTHER [facility] (CURRENT) DRUG THERAPY 05/30/2017 MARY SOTO N Ot C86.6 PRIMARY CUTANEOUS QU42-DXLNZHVV T-CELL P 05/30/2017 MARY SOTO N Ot E03.9 HYPOTHYROIDISM, UNSPECIFIED 05/30/2017 BRITTANY, BOBAN N Ot F17.210 NICOTINE DEPENDENCE, CIGARETTES, UNCOMPL 05/30/2017 MARY SOTO N Ot I10 ESSENTIAL (PRIMARY) HYPERTENSION 05/30/2017 MARY SOTO N Ot J44.9 CHRONIC OBSTRUCTIVE PULMONARY DISEASE, U 05/30/2017 BRITTANY, BOBAN N Ot Z79.899 OTHER GREEN PLUMBER (CURRENT) DRUG THERAPY 06/01/2017 SPENCELAMONT Mckeon S BUSINESS UNIT LEADER Ot 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, EXTRANODAL AND SOLID 06/01/2017 SPENCELAMONT Mckeon S [employer] UNIT LEADER Ot C86.6 PRIMARY CUTANEOUS [id number]-[id number] T-CELL P 06/01/2017 LAMONT SPENCE [employer] UNIT LEADER Ot E27.9 DISORDER OF ADRENAL GLAND, UNSPECIFIED 06/01/2017 LAMONT SPENCE S [employer] UNIT LEADER Ot J32.8 OTHER CHRONIC SINUSITIS 06/01/2017 LAMONT SPENCE S [employer] UNIT LEADER Ot N28.1 CYST OF KIDNEY, ACQUIRED 06/04/2017 BRITTANY BOBAN N Ot C86.6 PRIMARY CUTANEOUS [id number]-[id number] T-CELL P 06/04/2017 BRITTANY BOBAN N Ot E03.9 HYPOTHYROIDISM, UNSPECIFIED 06/04/2017 BRITTANY, BOBAN N Ot F17.210 NICOTINE DEPENDENCE, CIGARETTES, UNCOMPL 06/04/2017 BRITTANY, BOBAN N Ot I10 ESSENTIAL (PRIMARY) HYPERTENSION 06/04/2017 BRITTANY, BOBAN N Ot J44.9 CHRONIC OBSTRUCTIVE PULMONARY DISEASE, U 06/04/2017 BRITTANY, BOBAN N Ot Z79.899 OTHER GREEN PLUMBER (CURRENT) DRUG THERAPY 06/16/2017 BRITTANY BOBAN N Ot 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, EXTRANODAL AND SOLID 06/16/2017 BRITTANY, BOBAN N Ot C86.6 PRIMARY CUTANEOUS ZV72-[id number] T-CELL P 06/16/2017 BRITTANY BOBAN N Ot E03.9 HYPOTHYROIDISM, UNSPECIFIED 06/16/2017 BRITTANY, BOBAN N Ot E27.9 DISORDER OF ADRENAL GLAND, UNSPECIFIED 06/16/2017 BRITTANY, BOBAN N Ot F17.210 NICOTINE DEPENDENCE, CIGARETTES, UNCOMPL 06/16/2017 BRITTANY, BOBAN N Ot I10 ESSENTIAL (PRIMARY) HYPERTENSION 06/16/2017 BRITTANY, BOBAN N Ot J32.8 OTHER CHRONIC SINUSITIS 06/16/2017 BRITTANY, BOBAN N Ot J44.9 CHRONIC OBSTRUCTIVE PULMONARY DISEASE, U 06/16/2017 BRITTANY BOBAN N Ot N28.1 CYST OF KIDNEY, ACQUIRED 06/16/2017 BRITTANY, BOBAN N Ot Z79.899 OTHER [facility]FP (CURRENT) DRUG THERAPY 06/16/2017 SPENCELAMONT Mckeon S [employer]IT LEADER Ot 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, EXTRANODAL AND SOLID 06/16/2017 SPENCELAMONT Mckeon S [employer] UNIT LEADER Ot C86.6 PRIMARY CUTANEOUS UY23-[id number] T-CELL P 06/16/2017 SPENCELAMONT Mckeon S [employer]IT LEADER Ot E27.9 DISORDER OF ADRENAL GLAND, UNSPECIFIED 06/16/2017 SPENCELAMONT Mckeon S [employer] UNIT LEADER Ot J32.8 OTHER CHRONIC SINUSITIS 06/16/2017 SPENCELAMONT Mckeon S [employer]IT LEADER Ot N28.1 CYST OF KIDNEY, ACQUIRED 06/27/2017 SPENCELAMONT Mckeon S [employer] UNIT LEADER Ot 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, EXTRANODAL AND SOLID 06/27/2017 LAMONT SPENCE S [employer] UNIT LEADER Ot C86.6 PRIMARY CUTANEOUS PG75-FFJZHVIU T-CELL P 06/27/2017 LAMONT SPENCE S [employer] UNIT LEADER Ot E27.9 DISORDER OF ADRENAL GLAND, UNSPECIFIED 06/27/2017 SPENCELAMONT Mckeon S [employer] UNIT LEADER Ot J32.8 OTHER CHRONIC SINUSITIS 06/27/2017 LAMONT SPENCE S [employer]IT LEADER Ot N28.1 CYST OF KIDNEY, ACQUIRED 07/27/2017 BRITTANYMARY VILLEDA N Ot 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, EXTRANODAL AND SOLID 07/27/2017 MARY SOTO N Ot C86.6 PRIMARY CUTANEOUS QJ28-RJJRLACL T-CELL P 07/27/2017 MARY SOTO N Ot E03.9 HYPOTHYROIDISM, UNSPECIFIED 07/27/2017 BRITTANY, BOBTHA N Ot E27.9 DISORDER OF ADRENAL GLAND, UNSPECIFIED 07/27/2017 MARY SOTO N Ot F17.210 NICOTINE DEPENDENCE, CIGARETTES, UNCOMPL 07/27/2017 RBITTANY, BOBAN N Ot I10 ESSENTIAL (PRIMARY) HYPERTENSION 07/27/2017 BRITTANY BOBAN N Ot J32.8 OTHER CHRONIC SINUSITIS 07/27/2017 BRITTANY BOBAN N Ot J44.9 CHRONIC OBSTRUCTIVE PULMONARY DISEASE, U 07/27/2017 MARY SOTO N Ot N28.1 CYST OF KIDNEY, ACQUIRED 07/27/2017 MARY SOTO N Ot Z79.899 OTHER [facility]FP (CURRENT) DRUG THERAPY 08/01/2017 NENA CANCINO MD Ot 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, EXTRANODAL AND SOLID 08/01/2017 NENA CANCINO MD Ot C86.6 PRIMARY CUTANEOUS BI40-LXSPIRAS T-CELL P 08/01/2017 NENA CANCINO MD Ot E03.9 HYPOTHYROIDISM, UNSPECIFIED 08/01/2017 NENA CANCINO MD Ot E27.9 DISORDER OF ADRENAL GLAND, UNSPECIFIED 08/01/2017 NENA CANCINO MD Ot F17.210 NICOTINE DEPENDENCE, CIGARETTES, UNCOMPL 08/01/2017 NENA CANCINO MD Ot I10 ESSENTIAL (PRIMARY) HYPERTENSION 08/01/2017 NENA CANCINO MD Ot J44.9 CHRONIC OBSTRUCTIVE PULMONARY DISEASE, U 08/01/2017 NENA CANCINO MD Ot Z79.899 OTHER [facility] (CURRENT) DRUG THERAPY 08/17/2017 NENA CANCINO MD Ot 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, EXTRANODAL AND SOLID 08/17/2017 NENA CANCINO MD Ot C86.6 PRIMARY CUTANEOUS IM42-KWKMXARF T-CELL P 08/17/2017 NENA CANCINO MD Ot E03.9 HYPOTHYROIDISM, UNSPECIFIED 08/17/2017 NENA CANCINO MD Ot E27.9 DISORDER OF ADRENAL GLAND, UNSPECIFIED 08/17/2017 NENA CANCINO MD Ot F17.210 NICOTINE DEPENDENCE, CIGARETTES, UNCOMPL 08/17/2017 NENA CANCINO MD Ot I10 ESSENTIAL (PRIMARY) HYPERTENSION 08/17/2017 NENA CANCINO MD Ot J44.9 CHRONIC OBSTRUCTIVE PULMONARY DISEASE, U 08/17/2017 NENA CANCNIO MD Ot Z79.899 OTHER [facility] (CURRENT) DRUG THERAPY 09/06/2017 NENA CANCINO MD Ot 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, EXTRANODAL AND SOLID 09/06/2017 NENA CANCINO MD Ot C86.6 PRIMARY CUTANEOUS YD91-PEWDVDLM T-CELL P 09/06/2017 NENA CANCINO MD Ot E03.9 HYPOTHYROIDISM, UNSPECIFIED 09/06/2017 NENA CANCINO MD Ot E27.9 DISORDER OF ADRENAL GLAND, UNSPECIFIED 09/06/2017 NENA CANCINO MD Ot F17.210 NICOTINE DEPENDENCE, CIGARETTES, UNCOMPL 09/06/2017 NENA CANCINO MD Ot I10 ESSENTIAL (PRIMARY) HYPERTENSION 09/06/2017 NENA CANCINO MD Ot J44.9 CHRONIC OBSTRUCTIVE PULMONARY DISEASE, U 09/06/2017 JULITA LYON, NENA Ot Z51.11 ENCOUNTER FOR ANTINEOPLASTIC CHEMOTHERAP 09/06/2017 NENA CANCINO MD Ot Z79.899 OTHER [facility] (CURRENT) DRUG THERAPY 09/08/2017 BRITTANY, BOBAN N Ot 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, EXTRANODAL AND SOLID 09/08/2017 BRITTANY, BOBAN N Ot C86.6 PRIMARY CUTANEOUS UI94-ZUGRENSH T-CELL P 09/08/2017 BRITTANY, BOBAN N Ot E03.9 HYPOTHYROIDISM, UNSPECIFIED 09/08/2017 BRITTANY, BOBAN N Ot E27.9 DISORDER OF ADRENAL GLAND, UNSPECIFIED 09/08/2017 BRITTANY, BOBAN N Ot F17.210 NICOTINE DEPENDENCE, CIGARETTES, UNCOMPL 09/08/2017 BRITTANY, BOBAN N Ot I10 ESSENTIAL (PRIMARY) HYPERTENSION 09/08/2017 BRITTANY, BOBAN N Ot J44.9 CHRONIC OBSTRUCTIVE PULMONARY DISEASE, U 09/08/2017 BRITTANY, BOBAN N Ot Z79.899 OTHER [facility] (CURRENT) DRUG THERAPY 10/03/2017 BRITTANY, BOBAN N Ot 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, EXTRANODAL AND SOLID 10/03/2017 BRITTANY, BOBAN N Ot C86.6 PRIMARY CUTANEOUS PV36-SKXQQQWB T-CELL P 10/03/2017 BRITTANY, BOBAN N Ot E03.9 HYPOTHYROIDISM, UNSPECIFIED 10/03/2017 BRITTANY, BOBAN N Ot E27.9 DISORDER OF ADRENAL GLAND, UNSPECIFIED 10/03/2017 BRITTANY, BOBAN N Ot F17.210 NICOTINE DEPENDENCE, CIGARETTES, UNCOMPL 10/03/2017 BRITTANY, BOBAN N Ot I10 ESSENTIAL (PRIMARY) HYPERTENSION 10/03/2017 BRITTANY, BOBAN N Ot J44.9 CHRONIC OBSTRUCTIVE PULMONARY DISEASE, U 10/03/2017 BRITTANY, BOBAN N Ot Z79.899 OTHER [facility] (CURRENT) DRUG THERAPY 10/10/2017 BRITTANY, BOBAN N Ot 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, EXTRANODAL AND SOLID 10/10/2017 BRITTANY, BOBAN N Ot C86.6 PRIMARY CUTANEOUS SO09-YVOFLHRF T-CELL P 10/10/2017 BRITTANY, BOBAN N Ot E03.9 HYPOTHYROIDISM, UNSPECIFIED 10/10/2017 BRITTANY, BOBAN N Ot E27.9 DISORDER OF ADRENAL GLAND, UNSPECIFIED 10/10/2017 BRITTANY, BOBAN N Ot F17.210 NICOTINE DEPENDENCE, CIGARETTES, UNCOMPL 10/10/2017 BRITTANY, BOBAN N Ot I10 ESSENTIAL (PRIMARY) HYPERTENSION 10/10/2017 BRITTANY, BOBAN N Ot J44.9 CHRONIC OBSTRUCTIVE PULMONARY DISEASE, U 10/10/2017 BRITTANY, BOBAN N Ot Z79.899 OTHER [facility] (CURRENT) DRUG THERAPY 10/28/2017 BRITTANY, BOBAN N Ot 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, EXTRANODAL AND SOLID 10/28/2017 BRITTANY, BOBAN N Ot C86.6 PRIMARY CUTANEOUS LS09-CKEHROZF T-CELL P 10/28/2017 BRITTANY, BOBAN N Ot E03.9 HYPOTHYROIDISM, UNSPECIFIED 10/28/2017 BRITTANY, BOBAN N Ot E27.9 DISORDER OF ADRENAL GLAND, UNSPECIFIED 10/28/2017 BRITTANY, BOBAN N Ot F17.210 NICOTINE DEPENDENCE, CIGARETTES, UNCOMPL 10/28/2017 BRITTANY, BOBAN N Ot I10 ESSENTIAL (PRIMARY) HYPERTENSION 10/28/2017 BRITTANY, BOBAN N Ot J44.9 CHRONIC OBSTRUCTIVE PULMONARY DISEASE, U 10/28/2017 BRITTANY, BOBAN N Ot Z79.899 OTHER [facility] (CURRENT) DRUG THERAPY 11/09/2017 BRTITANY, BOBAN N Ot 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, EXTRANODAL AND SOLID 11/09/2017 BRITTANY, BOBAN N Ot C86.6 PRIMARY CUTANEOUS CL15-AEUVWSOG T-CELL P 11/09/2017 BRITTANY, BOBAN N Ot E03.9 HYPOTHYROIDISM, UNSPECIFIED 11/09/2017 BRITTANY, BOBAN N Ot E27.9 DISORDER OF ADRENAL GLAND, UNSPECIFIED 11/09/2017 BRITTANY, BOBAN N Ot F17.210 NICOTINE DEPENDENCE, CIGARETTES, UNCOMPL 11/09/2017 BRITTANY, BOBAN N Ot I10 ESSENTIAL (PRIMARY) HYPERTENSION 11/09/2017 BRITTANY, BOBAN N Ot J44.9 CHRONIC OBSTRUCTIVE PULMONARY DISEASE, U 11/09/2017 BRITTANY, BOBAN N Ot Z79.899 OTHER [facility] (CURRENT) DRUG THERAPY 11/10/2017 BRITTANY, BOBAN N Ot 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, EXTRANODAL AND SOLID 11/10/2017 BRITTANY, BOBAN N Ot C86.6 PRIMARY CUTANEOUS BF86-KKWTOLJB T-CELL P 11/10/2017 BRITTANY, ENRIQUEAN N Ot E03.9 HYPOTHYROIDISM, UNSPECIFIED 11/10/2017 BRITTANY, BOBAN N Ot E27.9 DISORDER OF ADRENAL GLAND, UNSPECIFIED 11/10/2017 BRITTANY, BOBAN N Ot F17.210 NICOTINE DEPENDENCE, CIGARETTES, UNCOMPL 11/10/2017 BRITTANY, BOBAN N Ot I10 ESSENTIAL (PRIMARY) HYPERTENSION 11/10/2017 BRITTANY, BOBAN N Ot J44.9 CHRONIC OBSTRUCTIVE PULMONARY DISEASE, U 11/10/2017 BRITTANY, BOBAN N Ot Z79.899 OTHER [facility] (CURRENT) DRUG THERAPY 11/30/2017 BRITTANY, BOBAN N Ot 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, EXTRANODAL AND SOLID 11/30/2017 BRITTANY, BOBAN N Ot C86.6 PRIMARY CUTANEOUS VD51-PTSCRQFF T-CELL P 11/30/2017 BRITTANY, BOBAN N Ot E03.9 HYPOTHYROIDISM, UNSPECIFIED 11/30/2017 BRITTANY, BOBAN N Ot E27.9 DISORDER OF ADRENAL GLAND, UNSPECIFIED 11/30/2017 BRITTANY, BOBAN N Ot F17.210 NICOTINE DEPENDENCE, CIGARETTES, UNCOMPL 11/30/2017 BRITTANY, BOBAN N Ot I10 ESSENTIAL (PRIMARY) HYPERTENSION 11/30/2017 BRITTANY, BOBAN N Ot J44.9 CHRONIC OBSTRUCTIVE PULMONARY DISEASE, U 11/30/2017 BRITTANY, BOBAN N Ot Z79.899 OTHER [facility] (CURRENT) DRUG THERAPY 12/06/2017 BRITTANY, BOBAN N Ot 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, EXTRANODAL AND SOLID 12/06/2017 BRITTANY, BOBAN N Ot C86.6 PRIMARY CUTANEOUS SI41-BJYAFCXQ T-CELL P 12/06/2017 BRITTANY, BOBAN N Ot E03.9 HYPOTHYROIDISM, UNSPECIFIED 12/06/2017 BRITTANY, BOBAN N Ot E27.9 DISORDER OF ADRENAL GLAND, UNSPECIFIED 12/06/2017 BRITTANY, BOBAN N Ot F17.210 NICOTINE DEPENDENCE, CIGARETTES, UNCOMPL 12/06/2017 BRITTANY, BOBAN N Ot I10 ESSENTIAL (PRIMARY) HYPERTENSION 12/06/2017 BRITTANY, BOBAN N Ot J44.9 CHRONIC OBSTRUCTIVE PULMONARY DISEASE, U 12/06/2017 BRITTANY, BOBAN N Ot Z51.11 ENCOUNTER FOR ANTINEOPLASTIC CHEMOTHERAP 12/06/2017 BRITTANY, BOBAN N Ot Z79.899 OTHER [facility] (CURRENT) DRUG THERAPY 12/07/2017 BRITTANY, BOBAN N Ot 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, EXTRANODAL AND SOLID 12/07/2017 BRITTANY, BOBAN N Ot C86.6 PRIMARY CUTANEOUS XN37-PJPYXXBB T-CELL P 12/07/2017 BRITTANY, BOBAN N Ot E03.9 HYPOTHYROIDISM, UNSPECIFIED 12/07/2017 BRITTANY, BOBAN N Ot E27.9 DISORDER OF ADRENAL GLAND, UNSPECIFIED 12/07/2017 BRITTANY, BOBAN N Ot F17.210 NICOTINE DEPENDENCE, CIGARETTES, UNCOMPL 12/07/2017 BRITTANY, BOBAN N Ot I10 ESSENTIAL (PRIMARY) HYPERTENSION 12/07/2017 BRITTANY, BOBAN N Ot J44.9 CHRONIC OBSTRUCTIVE PULMONARY DISEASE, U 12/07/2017 BRITTANY, BOBAN N Ot Z51.11 ENCOUNTER FOR ANTINEOPLASTIC CHEMOTHERAP 12/07/2017 BRITTANY, BOBAN N Ot Z79.899 OTHER [facility] (CURRENT) DRUG THERAPY 12/13/2017 BRITTANY, BOBAN N Ot 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, EXTRANODAL AND SOLID 12/13/2017 BRITTANY, BOBAN N Ot C86.6 PRIMARY CUTANEOUS VE49-JXGBBBOS T-CELL P 12/13/2017 BRITTANY, BOBAN N Ot E03.9 HYPOTHYROIDISM, UNSPECIFIED 12/13/2017 BRITTANY, BOBAN N Ot E27.9 DISORDER OF ADRENAL GLAND, UNSPECIFIED 12/13/2017 BRITTANY, BOBAN N Ot F17.210 NICOTINE DEPENDENCE, CIGARETTES, UNCOMPL 12/13/2017 BRITTANY, BOBAN N Ot I10 ESSENTIAL (PRIMARY) HYPERTENSION 12/13/2017 BRITTANY, BOBAN N Ot J44.9 CHRONIC OBSTRUCTIVE PULMONARY DISEASE, U 12/13/2017 BRITTANY, BOBAN N Ot Z51.11 ENCOUNTER FOR ANTINEOPLASTIC CHEMOTHERAP 12/13/2017 BRITTANY, BOBAN N Ot Z79.899 OTHER GREEN [facility] (CURRENT) DRUG THERAPY 12/19/2017 BRITTANY, BOBAN N Ot 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, EXTRANODAL AND SOLID 12/19/2017 BRITTANY, BOBAN N Ot C86.6 PRIMARY CUTANEOUS HN84-KGQDJHFR T-CELL P 12/19/2017 BRITTANYENRIQUEAN N Ot E03.9 HYPOTHYROIDISM, UNSPECIFIED 12/19/2017 BRITTANY, BOBAN N Ot E27.9 DISORDER OF ADRENAL GLAND, UNSPECIFIED 12/19/2017 BRITTANY BOBAN N Ot F17.210 NICOTINE DEPENDENCE, CIGARETTES, UNCOMPL 12/19/2017 BRITTANY BOBAN N Ot I10 ESSENTIAL (PRIMARY) HYPERTENSION 12/19/2017 BRITTANY, BOBAN N Ot J44.9 CHRONIC OBSTRUCTIVE PULMONARY DISEASE, U 12/19/2017 BRITTANY, BOBAN N Ot Z79.899 OTHER GREEN [facility] (CURRENT) DRUG THERAPY 12/21/2017 BRITTANY, BOBAN N Ot 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, EXTRANODAL AND SOLID 12/21/2017 BRITTANY, BOBAN N Ot C86.6 PRIMARY CUTANEOUS CC88-MFVGQNQP T-CELL P 12/21/2017 BRITTANY ENRIQUETHA N Ot E03.9 HYPOTHYROIDISM, UNSPECIFIED 12/21/2017 BRITTANY, BOBAN N Ot E27.9 DISORDER OF ADRENAL GLAND, UNSPECIFIED 12/21/2017 BRITTANY, BOBAN N Ot F17.210 NICOTINE DEPENDENCE, CIGARETTES, UNCOMPL 12/21/2017 BRITTANY, BOBAN N Ot I10 ESSENTIAL (PRIMARY) HYPERTENSION 12/21/2017 BRITTANY, BOBAN N Ot J44.9 CHRONIC OBSTRUCTIVE PULMONARY DISEASE, U 12/21/2017 BRITTANY BOBAN N Ot Z79.899 OTHER [facility] (CURRENT) DRUG THERAPY 12/22/2017 BRITTANY, BOBAN N Ot 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, EXTRANODAL AND SOLID 12/22/2017 BRITTANY, BOBAN N Ot C86.6 PRIMARY CUTANEOUS NW38-MQTLFDVD T-CELL P 12/22/2017 BRITTANY, BOBAN N Ot E03.9 HYPOTHYROIDISM, UNSPECIFIED 12/22/2017 BRITTANY, BOBAN N Ot E27.9 DISORDER OF ADRENAL GLAND, UNSPECIFIED 12/22/2017 BRITTANY, BOBAN N Ot F17.210 NICOTINE DEPENDENCE, CIGARETTES, UNCOMPL 12/22/2017 BRITTANY, BOBAN N Ot I10 ESSENTIAL (PRIMARY) HYPERTENSION 12/22/2017 BRITTANY, BOBAN N Ot J44.9 CHRONIC OBSTRUCTIVE PULMONARY DISEASE, U 12/22/2017 BRITTANY, MARY Zuñiga Ot Z79.899 OTHER [facility] (CURRENT) DRUG THERAPY 01/16/2018 Ot V72.84 EXAM PRE- OPERATIVE NOS 01/16/2018 MELY MENA DO Ot L08.9 LOCAL INFECTION OF THE SKIN AND SUBCUTAN 01/16/2018 MELY MENA DO Ot R22.41 LOCALIZED SWELLING, MASS AND LUMP, RIGHT 01/16/2018 MELY MENA DO Ot K59.00 CONSTIPATION, UNSPECIFIED 01/16/2018 MARY SOTO Ot C84.A0 CUTANEOUS T-CELL LYMPHOMA, UNSPECIFIED, 01/16/2018 LAMONT SPENCE BUSINESS UNIT LEADER Ot C84.A0 CUTANEOUS T-CELL LYMPHOMA, UNSPECIFIED, 01/16/2018 LAMONT SPENCE BUSINESS UNIT LEADER Ot E03.9 HYPOTHYROIDISM, UNSPECIFIED 01/16/2018 LAMONT SPENCE BUSINESS UNIT LEADER Ot F17.210 NICOTINE DEPENDENCE, CIGARETTES, UNCOMPL 01/16/2018 LAMONT SPENCE BUSINESS UNIT LEADER Ot I10 ESSENTIAL (PRIMARY) HYPERTENSION 01/16/2018 LAMONT SPENCE BUSINESS UNIT LEADER Ot J44.9 CHRONIC OBSTRUCTIVE PULMONARY DISEASE, U 01/16/2018 LAMONT SPENCE BUSINESS UNIT LEADER Ot Z79.899 OTHER [facility] (CURRENT) DRUG THERAPY 01/16/2018 MARY SOTO Ot R09.89 OTH SYMPTOMS AND SIGNS INVOLVING THE CIR 01/16/2018 LAMONT SPENCE BUSINESS UNIT LEADER Ot 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, EXTRANODAL AND SOLID 01/16/2018 LAMONT SPENCE BUSINESS UNIT LEADER Ot C86.6 PRIMARY CUTANEOUS YW82-OBLIVRJV T-CELL P 01/16/2018 LAMONT SPENCE BUSINESS UNIT LEADER Ot E27.9 DISORDER OF ADRENAL GLAND, UNSPECIFIED 01/16/2018 LAMONT SPENCE BUSINESS UNIT LEADER Ot J32.8 OTHER CHRONIC SINUSITIS 01/16/2018 LAMONT SPENCE BUSINESS UNIT LEADER Ot N28.1 CYST OF KIDNEY, ACQUIRED 01/16/2018 MARY SOTO Ot 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, EXTRANODAL AND SOLID 01/16/2018 MARY SOTO Ot C86.6 PRIMARY CUTANEOUS WR88-MLWXSAXF T-CELL P 01/16/2018 BRITTANY, BOBAN N Ot E03.9 HYPOTHYROIDISM, UNSPECIFIED 01/16/2018 MARY SOTO N Ot E27.9 DISORDER OF ADRENAL GLAND, UNSPECIFIED 01/16/2018 MARY SOTO N Ot F17.210 NICOTINE DEPENDENCE, CIGARETTES, UNCOMPL 01/16/2018 MARY SOTO N Ot I10 ESSENTIAL (PRIMARY) HYPERTENSION 01/16/2018 MARY SOTO Ot J44.9 CHRONIC OBSTRUCTIVE PULMONARY DISEASE, U 01/16/2018 MARY SOTO N Ot Z51.11 ENCOUNTER FOR ANTINEOPLASTIC CHEMOTHERAP 01/16/2018 MARY SOTO N Ot Z79.899 OTHER [facility] (CURRENT) DRUG THERAPY 01/19/2018 SPENCE HILAH S BUSINESS UNIT LEADER Ot 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, EXTRANODAL AND SOLID 01/19/2018 JL SPENCEAH S BUSINESS UNIT LEADER Ot C86.6 PRIMARY CUTANEOUS WW80-TTOTDBSP T-CELL P 01/24/2018 BRITTANYMARY N Ot 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, EXTRANODAL AND SOLID 01/24/2018 BRITTANYMARY VILLEDA N Ot C86.6 PRIMARY CUTANEOUS QW98-QKVJTJDV T-CELL P 01/24/2018 MARY SOTO N Ot E03.9 HYPOTHYROIDISM, UNSPECIFIED 01/24/2018 MARY SOTO N Ot E27.9 DISORDER OF ADRENAL GLAND, UNSPECIFIED 01/24/2018 MARY SOTO N Ot F17.210 NICOTINE DEPENDENCE, CIGARETTES, UNCOMPL 01/24/2018 MARY SOTO N Ot I10 ESSENTIAL (PRIMARY) HYPERTENSION 01/24/2018 MARY SOTO Ot J44.9 CHRONIC OBSTRUCTIVE PULMONARY DISEASE, U 01/24/2018 MARY SOTO N Ot Z51.11 ENCOUNTER FOR ANTINEOPLASTIC CHEMOTHERAP 01/24/2018 MARY SOTO N Ot Z79.899 OTHER [facility] (CURRENT) DRUG THERAPY 02/07/2018 SPENCEJLAH S BUSINESS UNIT LEADER Ot 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, EXTRANODAL AND SOLID 02/07/2018 SPENCE HILAH S BUSINESS UNIT LEADER Ot C86.6 PRIMARY CUTANEOUS IQ59-IUBZHFWZ T-CELL P 02/15/2018 BRITTANY, BOBAN N Ot 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, EXTRANODAL AND SOLID 02/15/2018 BRITTANY, BOBAN N Ot C86.6 PRIMARY CUTANEOUS FP79-WQFSDSRZ T-CELL P 02/15/2018 BIRTTANYMARY N Ot E03.9 HYPOTHYROIDISM, UNSPECIFIED 02/15/2018 BRITTANY BOBAN N Ot E27.9 DISORDER OF ADRENAL GLAND, UNSPECIFIED 02/15/2018 BRITTANYENRIQUEAN N Ot F17.210 NICOTINE DEPENDENCE, CIGARETTES, UNCOMPL 02/15/2018 BRITTANY BOBAN N Ot I10 ESSENTIAL (PRIMARY) HYPERTENSION 02/15/2018 BRITTANYMARY N Ot J44.9 CHRONIC OBSTRUCTIVE PULMONARY DISEASE, U 02/15/2018 BRITTANYENRIQUEAN N Ot Z51.11 ENCOUNTER FOR ANTINEOPLASTIC CHEMOTHERAP 02/15/2018 BRITTANY BOBAN N Ot Z79.899 OTHER GREEN [facility] (CURRENT) DRUG THERAPY 02/21/2018 LAMONT SPENCE BUSINESS UNIT LEADER Ot 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, EXTRANODAL AND SOLID 02/21/2018 LAMONT SPENCE BUSINESS UNIT LEADER Ot C86.6 PRIMARY CUTANEOUS YC02-LZLYMWTV T-CELL P 03/21/2018 BRITTANY, BOBAN N Ot 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, EXTRANODAL AND SOLID 03/21/2018 BRITTANY, BOBAN N Ot C86.6 PRIMARY CUTANEOUS NA61-KKIPBZOF T-CELL P 03/21/2018 BRITTANYMARY N Ot E03.9 HYPOTHYROIDISM, UNSPECIFIED 03/21/2018 BRITTANY BOBTHA N Ot E27.9 DISORDER OF ADRENAL GLAND, UNSPECIFIED 03/21/2018 BRITTANYMARY VILLEDA N Ot F17.210 NICOTINE DEPENDENCE, CIGARETTES, UNCOMPL 03/21/2018 BRITTANYMARY N Ot I10 ESSENTIAL (PRIMARY) HYPERTENSION 03/21/2018 BRITTANYMARY N Ot J44.9 CHRONIC OBSTRUCTIVE PULMONARY DISEASE, U 03/21/2018 BRITTANYENRIQEUAN N Ot Z51.11 ENCOUNTER FOR ANTINEOPLASTIC CHEMOTHERAP 03/21/2018 BRITTANY BOBAN N Ot Z79.899 OTHER [facility] (CURRENT) DRUG THERAPY 03/22/2018 BRITTANY, BOBAN N Ot 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, EXTRANODAL AND SOLID 03/22/2018 BRITTANY, BOBAN N Ot C86.6 PRIMARY CUTANEOUS LX29-NHUZOERM T-CELL P 03/22/2018 BRITTANY, BOBAN N Ot E03.9 HYPOTHYROIDISM, UNSPECIFIED 03/22/2018 BRITTANYENRIQUEAN N Ot E27.9 DISORDER OF ADRENAL GLAND, UNSPECIFIED 03/22/2018 BRITTANY BOBTHA N Ot F17.210 NICOTINE DEPENDENCE, CIGARETTES, UNCOMPL 03/22/2018 BRITTANY, BOBAN N Ot I10 ESSENTIAL (PRIMARY) HYPERTENSION 03/22/2018 MARY SOTO N Ot J44.9 CHRONIC OBSTRUCTIVE PULMONARY DISEASE, U 03/22/2018 MARY SOTO N Ot Z51.11 ENCOUNTER FOR ANTINEOPLASTIC CHEMOTHERAP 03/22/2018 BRITTANY BOBAN N Ot Z79.899 OTHER [facility] (CURRENT) DRUG THERAPY 05/17/2018 SHELBY LYON, GINGER Portillo Ot Z01.818 ENCOUNTER FOR OTHER PREPROCEDURAL EXAMIN 05/17/2018 BRITTANY BOBTHA N Ot 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, EXTRANODAL AND SOLID 05/17/2018 BRITTANY, BOBAN N Ot C86.6 PRIMARY CUTANEOUS RE87-SJSWDVQI T-CELL P 05/17/2018 MARY SOTO N Ot E03.9 HYPOTHYROIDISM, UNSPECIFIED 05/17/2018 BRITTANY BOBTHA N Ot E27.9 DISORDER OF ADRENAL GLAND, UNSPECIFIED 05/17/2018 MARY SOTO N Ot F17.210 NICOTINE DEPENDENCE, CIGARETTES, UNCOMPL 05/17/2018 MARY SOTO N Ot I10 ESSENTIAL (PRIMARY) HYPERTENSION 05/17/2018 MARY SOTO N Ot J44.9 CHRONIC OBSTRUCTIVE PULMONARY DISEASE, U 05/17/2018 BRITTANYMARY N Ot Z79.899 OTHER [facility] (CURRENT) DRUG THERAPY Procedures There is no data. Results There is no data. Encounters ACCT No. Visit Date/Time Discharge Status Pt. Type Provider Facility Loc./Unit Complaint [id number] 07/18/2012 15:36:00 07/18/2012 23:59:59 CLS Outpatient [id number] 06/11/2015 11:46:50 ACT Document Registration [id number] 05/17/2018 06:20:00 05/17/2018 09:44:00 DIS Outpatient SHELBY LYON, GNIGER Portillo [facility] PREOP T-CELL LYMPHOMA [id number] 03/22/2018 09:19:00 03/22/2018 23:59:59 CLS Outpatient MARY SOTO N [facility] ONC [id number] 02/21/2018 13:18:00 03/21/2018 00:01:00 DIS Outpatient MARY SOTO N [facility] ONC [id number] 01/18/2018 09:27:00 01/18/2018 23:59:59 CLS Outpatient LAMONT SPENCE [facility] RAD 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- CELL LYMPHOMA [id number] 11/30/2017 10:14:00 12/06/2017 00:01:00 DIS Outpatient BRITTANYMARY VILLEDA Zara [facility] ONC [id number] 08/17/2017 10:08:00 09/06/2017 15:07:00 DIS Outpatient NENA CANCINO MD [facility] ONC [id number] 06/15/2017 11:35:00 07/27/2017 07:40:00 DIS Outpatient BRITTANYMARY VILLEDA Zara [facility] ONC [id number] 05/31/2017 08:39:00 06/04/2017 00:01:00 DIS Outpatient MARY SOTO N [facility] ONC [id number] 05/25/2017 12:24:00 05/25/2017 23:59:59 CLS Outpatient LAMONT SPENCE [facility] RAD C86.6,C84.09 [id number] 04/13/2017 09:31:00 04/19/2017 00:01:00 DIS Outpatient MARY SOTO N [facility] ONC [id number] 12/29/2016 08:49:00 12/29/2016 00:01:00 DIS Outpatient BRITTANY, MARY N [facility] ONC [id number] 11/16/2016 10:07:00 11/16/2016 23:59:59 CLS Outpatient MARY SOTO N [facility] RAD [id number] 09/09/2016 08:29:00 09/13/2016 00:01:00 DIS Outpatient BRITTANY, MARY N [facility] ONC [id number] 05/24/2016 09:57:00 06/11/2016 09:10:00 DIS Outpatient MARY SOTO [facility] ONC [id number] 05/03/2016 08:27:00 05/03/2016 23:59:59 CLS Outpatient LAMONT SPENCE [facility] ONC [id number] 04/06/2016 09:44:00 04/06/2016 23:59:59 CLS Outpatient MARY SOTO [facility] RAD CUTANEOUS T CELL [id number] 12/24/2015 12:50:00 12/24/2015 23:59:59 CLS Outpatient MELY MENA DO [facility] RAD CONSTIPATION [id number] 06/11/2015 11:46:00 06/11/2015 23:59:59 CLS Outpatient MELY MENA DO [facility] RAD RT LEG SWOLLEN/ INFECTED [id number] 05/18/2018 11:07:00 ACT Outpatient SHELBY LYON, GINGER Portillo [facility] SDC T-CELL LYMPHOMA [id number] 12/14/2012 07:45:00 Document Registration [id number] 12/13/2012 07:36:00 Document Registration [id number] 06/16/2011 14:45:00 Document Registration
[2018-05-18] MEDS ORDERED: PHENYLEPHRINE 100 MCG/ML 10 ML (ANESTHESIA) SYR ONE (12:49)
--- NOTE | 2018-05-18 13:13 | Operative Report ---
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 to facilitate this, placing an Wcuasn-z-Mlks was felt to be reasonable. Informed consent was obtained after reviewing the details of procedure and complications of bacteremia, malfunction of the catheter requiring replacement etc. Description of procedure: He was placed supine on the operating table and general anesthesia induced using a laryngeal mask airway. A gram of Ancef was administered intravenously as prophylaxis against wound infection. Left infraclavicular fossa was prepared and draped in the usual sterile manner. Subclavian vein was accessed and a floppy guidewire introduced into the heart under fluoroscopy serpiginous pocket was created over the same area the Jay catheter introduced into the superior vena cava, under fluoroscopy, using the peel-away sheath. It was then connected to the Qppieg-y-Kcyq, that had been primed with heparinized saline. I was able to aspirate and flush the system without any difficulty. The port was then secured to the ovalis tissue using 2- 0 Prolene sutures. Hemostasis was achieved using cautery incision closed using 0 Vicryl for the subcutaneous tissue and 4-0 Vicryl for skin, in a subcuticular fashion. Preemptive analgesia was established using 0.5 percent Marcaine with epinephrine. He tolerated the procedure well, was extubated in the operating room and taken to the recovery room in a stable condition Findings of the Procedure See op report Allergies and Home Medications Allergies Coded Allergies: No Known Drug Allergies (Unverified , 06/16/11) Home Medications Acetaminophen 325 Mg Tablet, 650 MG PO Q4H PRN for PAIN-MILD, (Reported) GIVE 2 (325MG) TABS DO NOT EXCEED 3000MG/24HR Albuterol Sulfate 1 Puff Puff, 2 PUFF IH Q4H PRN for COPD, (Reported) 1 PUFF = 90 MCG Calcium Polycarbophil 625 Mg Tablet, 625 MG PO DAILY, (Reported) Carboxymethylcellulose Sodium 15 Ml Drops, 1 ML OU QID, (Reported) Clonazepam 0.5 Mg Tablet, 0.5 MG PO TID, (Reported) Diphenhydramine HCl 25 Mg Tablet, 25 MG PO Q6H PRN for ITCHING, (Reported) Docusate Sodium 100 Mg Capsule, 100 MG PO DAILY, (Reported) Fluticasone Propionate 9.9 Ml Eugene.susp, 1 SPRAY NSEACH DAILY, (Reported) 1 SPRAY EACH NARE DAILY Folic Acid 1 Mg Tablet, 1 MG PO SuMoTuWeThFr, (Reported) Furosemide 40 Mg Tablet, 40 MG PO DAILY, (Reported) Latanoprost/Pf 7.5 Ml Drops, 1 DROP OU HS, (Reported) Levothyroxine Sodium 50 Mcg Tablet, 50 MCG PO DAILY, (Reported) Magnesium Oxide 400 Mg Tablet, 400 MG PO DAILY, (Reported) Melatonin/Pyridoxine 1 Each Tablet, 10 MG PO HS, (Reported) TAKE 2 (5MG) TABS Metoprolol Tartrate 100 Mg Tablet, 100 MG PO BID, (Reported) Olanzapine 15 Mg Tablet, 15 MG PO HS, (Reported) Omeprazole 20 Mg Capsule.dr, 20 MG PO DAILY, (Reported) Ondansetron 8 Mg Tab.rapdis, 8 MG SL Q8H PRN for NAUSEA/VOMITING-1ST LINE, ( Reported) Polyethylene Glycol 3350 119 Gm Powder, 17 GM PO DAILY, (Reported) Potassium Chloride 10 Meq Tablet.er, 10 MEQ PO DAILY, (Reported) Ramelteon 8 Mg Tablet, 8 MG PO HS, (Reported) Sodium Chloride 30 Ml Eugene, 1 SPRAY NSEACH Q6H PRN for NASAL CONGESTION, ( Reported) Sulfamethoxazole/Trimethoprim 1 Each Tablet, 1 EACH PO DAILY, (Reported) FOR 7 DAYS STARTED 05/16/18 Patient Home Medication List Home Medication List Reviewed: Yes GINGER RYAN MD May 18, 2018 13:13
[2018-05-18] MEDS ORDERED: ACHD5005 PO (13:15)
--- NOTE | 2018-05-18 13:16 | Discharge Inst-Simple/Standard ---
Discharge Inst-Standard Discharge Medications New, Converted or Re-Newed RX: RX on Chart Patient Instructions/Follow Up Plan of Care/Instructions/FU: Band-Aids off in 48 hours. May use the port Activity as Tolerated: Yes Discharge Diet: No Restrictions GINGER RYAN MD May 18, 2018 13:16
[2018-05-18] MEDS ORDERED: fentaNYL INJECTION 100 MCG/2 ML AMP IVP ONE (13:30)
[2018-05-18] MEDS ORDERED: HYDROmorphone 2 MG/ML VIAL (DILAUDID) IV ONE (13:30)
[2018-05-18] MEDS ORDERED: ONDANSETRON 4 MG/2 ML (SDV) Z0FRAN IVP PRN (13:30)
--- NOTE | 2018-05-18 13:56 | Anesthesia-General Post-Op ---
General Patient Condition Mental Status/LOC: Same as Preop Cardiovascular: Satisfactory Nausea/Vomiting: Absent Respiratory: Satisfactory Pain: Controlled Complications: Absent Post Op Complications Complications None Follow Up Care/Instructions Patient Instructions None needed. Anesthesia/Patient Condition Patient Condition Patient is doing well, no complaints, stable vital signs, no apparent adverse anesthesia problems. No complications reported per nursing. DAGOBERTO ROACH CRNA May 18, 2018 13:56
[2018-05-18 14:25] VITALS: BP 108/68
[2018-05-18 14:55] VITALS: BP 100/63
[2018-05-18 15:30] VITALS: BP 102/64
--- NOTE | 2018-05-18 17:50 | Diagnostic Imaging Report ---
Clinical indication: Port placement in operating room #[address] Rosario. Exam: Two limited fluoroscopic x-ray images of the chest. Comparison: CT scan of the neck, chest, abdomen and pelvis dated 01/18/2018. Findings and impression: Central line is seen overlying the left innominate region extending to the mid to distal superior vena cava region. Please see surgeon's report for more detail. Fluoroscopy was provided for surgeons and a total of 42.7 seconds and 7.26 mGy was provided. Dictated by: Dictated on workstation # [id number]
--- NOTE | 2018-05-18 17:50 | Diagnostic Imaging Report ---
INDICATION: Port-A-Cath placement. PA chest obtained at 01:33 p.m. and compared with 11/16/2016. There is cardiomegaly. There is mild bibasilar atelectasis with poor inspiration. There is a Port-A-Cath over the left chest with catheter tip overlying the upper SVC. There is no pneumothorax or pleural fluid seen post device placement. IMPRESSION: Cardiomegaly with bibasilar atelectasis and poor inspiration. No pneumothorax or pleural fluid following device placement. Port-A-Cath tip overlies the upper SVC. Dictated by: Dictated on workstation # [id number]
== END 2018-05-18 15:50 | disposition home or self-care (01) ==
LOC: SDC 11:07
PROVIDERS: ATTEND Surgery
DX: C84.09 Mycosis fungoides, extranodal and solid organ sites (principal); I10 Essential (primary) hypertension; J45.909 Unspecified asthma, uncomplicated; F41.9 Anxiety disorder, unspecified; F31.9 Bipolar disorder, unspecified; F20.9 Schizophrenia, unspecified; Z72.0 Tobacco use; E66.9 Obesity, unspecified; Z68.35 Body mass index [BMI] 35.0-35.9, adult; Z79.899 Other long term (current) drug therapy
CPT/HCPCS: 71045; 87081

== ENCOUNTER 2018-06-12 10:46 | Outpatient (RCR) | payer MEDICARE, MEDICAID ==
[2018-03-22 09:34] LABS: BASOPHILS % (AUTO) 0 % (0-10); EOSINOPHILS # (AUTO) 0.4 10^3/uL (0.0-0.3); EOSINOPHILS % (AUTO) 6 % (0-10); HEMATOCRIT 46 % (40-54); HEMOGLOBIN 15.8 G/DL (13.3-17.7); LYMPHOCYTES # (AUTO) 0.6 X 10^3 (1.0-4.0); LYMPHOCYTES % (AUTO) 10 % (12-44); MEAN CORPUSCULAR HEMOGLOBIN 32 PG (25-34); MEAN CORPUSCULAR HGB CONC 35 G/DL (32-36); MEAN CORPUSCULAR VOLUME 92 FL (80-99); MEAN PLATELET VOLUME 9.7 FL (7.4-10.4); MONOCYTES # (AUTO) 0.6 X 10^3 (0.0-1.0); MONOCYTES % (AUTO) 10 % (0-12); NEUTROPHILS # (AUTO) 4.6 X 10^3 (1.8-7.8); NEUTROPHILS % (AUTO) 74 % (42-75); PLATELET COUNT 222 10^3/uL (130-400); RED BLOOD COUNT 4.97 10^6/uL (4.35-5.85); RED CELL DISTRIBUTION WIDTH 14.1 % (10.0-14.5); WHITE BLOOD COUNT 6.3 10^3/uL (4.3-11.0)
[2018-03-22 09:53] LABS: ALANINE AMINOTRANSFERASE 14 U/L (0-55); ALBUMIN 3.8 GM/DL (3.2-4.5); ALKALINE PHOSPHATASE 89 U/L (40-136); BILIRUBIN,TOTAL 0.4 MG/DL (0.1-1.0); BUN/CREATININE RATIO 9; CALCIUM 9.5 MG/DL (8.5-10.1); CARBON DIOXIDE 27 MMOL/L (21-32); CHLORIDE 107 MMOL/L (98-107); CREATININE SERUM 0.94 MG/DL (0.60-1.30); GFR ESTIMATED > 60; GLUCOSE 128 MG/DL (70-105); POTASSIUM 4.3 MMOL/L (3.6-5.0); SODIUM 141 MMOL/L (135-145); TOTAL PROTEIN 7.7 GM/DL (6.4-8.2)
[2018-04-20 10:51] LABS: BASOPHILS % (AUTO) 0 % (0-10); EOSINOPHILS # (AUTO) 0.4 10^3/uL (0.0-0.3); EOSINOPHILS % (AUTO) 7 % (0-10); HEMATOCRIT 48 % (40-54); HEMOGLOBIN 15.7 G/DL (13.3-17.7); LYMPHOCYTES # (AUTO) 0.8 X 10^3 (1.0-4.0); LYMPHOCYTES % (AUTO) 14 % (12-44); MEAN CORPUSCULAR HEMOGLOBIN 31 PG (25-34); MEAN CORPUSCULAR HGB CONC 33 G/DL (32-36); MEAN CORPUSCULAR VOLUME 93 FL (80-99); MEAN PLATELET VOLUME 10.1 FL (7.4-10.4); MONOCYTES # (AUTO) 0.5 X 10^3 (0.0-1.0); MONOCYTES % (AUTO) 10 % (0-12); NEUTROPHILS # (AUTO) 3.7 X 10^3 (1.8-7.8); NEUTROPHILS % (AUTO) 69 % (42-75); PLATELET COUNT 191 10^3/uL (130-400); RED BLOOD COUNT 5.11 10^6/uL (4.35-5.85); RED CELL DISTRIBUTION WIDTH 14.4 % (10.0-14.5); WHITE BLOOD COUNT 5.3 10^3/uL (4.3-11.0)
[2018-04-20 11:10] LABS: ALANINE AMINOTRANSFERASE 17 U/L (0-55); ALKALINE PHOSPHATASE 103 U/L (40-136); BILIRUBIN,TOTAL 0.5 MG/DL (0.1-1.0); BUN/CREATININE RATIO 15; CALCIUM 9.7 MG/DL (8.5-10.1); CARBON DIOXIDE 29 MMOL/L (21-32); CHLORIDE 104 MMOL/L (98-107); CREATININE SERUM 0.86 MG/DL (0.60-1.30); GFR ESTIMATED > 60; GLUCOSE 109 MG/DL (70-105); POTASSIUM 4.3 MMOL/L (3.6-5.0); SODIUM 140 MMOL/L (135-145)
[2018-05-15 14:30] LABS: BASOPHILS % (AUTO) 0 % (0-10); EOSINOPHILS # (AUTO) 0.3 10^3/uL (0.0-0.3); EOSINOPHILS % (AUTO) 2 % (0-10); HEMATOCRIT 45 % (40-54); HEMOGLOBIN 15.3 G/DL (13.3-17.7); LYMPHOCYTES # (AUTO) 0.8 X 10^3 (1.0-4.0); LYMPHOCYTES % (AUTO) 8 % (12-44); MEAN CORPUSCULAR HEMOGLOBIN 32 PG (25-34); MEAN CORPUSCULAR HGB CONC 34 G/DL (32-36); MEAN CORPUSCULAR VOLUME 94 FL (80-99); MEAN PLATELET VOLUME 9.8 FL (7.4-10.4); MONOCYTES # (AUTO) 0.7 X 10^3 (0.0-1.0); MONOCYTES % (AUTO) 7 % (0-12); NEUTROPHILS # (AUTO) 8.5 X 10^3 (1.8-7.8); NEUTROPHILS % (AUTO) 82 % (42-75); PLATELET COUNT 216 10^3/uL (130-400); RED BLOOD COUNT 4.85 10^6/uL (4.35-5.85); RED CELL DISTRIBUTION WIDTH 14.2 % (10.0-14.5); WHITE BLOOD COUNT 10.4 10^3/uL (4.3-11.0)
[2018-05-15 14:52] LABS: ALANINE AMINOTRANSFERASE 14 U/L (0-55); ALBUMIN 4.1 GM/DL (3.2-4.5); ALKALINE PHOSPHATASE 116 U/L (40-136); BILIRUBIN,TOTAL 0.3 MG/DL (0.1-1.0); BUN/CREATININE RATIO 13; CALCIUM 9.4 MG/DL (8.5-10.1); CARBON DIOXIDE 25 MMOL/L (21-32); CHLORIDE 102 MMOL/L (98-107); CREATININE SERUM 1.11 MG/DL (0.60-1.30); GFR ESTIMATED > 60; GLUCOSE 152 MG/DL (70-105); POTASSIUM 4.2 MMOL/L (3.6-5.0); SODIUM 138 MMOL/L (135-145); TOTAL PROTEIN 7.8 GM/DL (6.4-8.2)
[2018-05-22 13:47] LABS: BASOPHILS % (AUTO) 0 % (0-10); EOSINOPHILS # (AUTO) 0.4 10^3/uL (0.0-0.3); EOSINOPHILS % (AUTO) 5 % (0-10); HEMATOCRIT 42 % (40-54); HEMOGLOBIN 13.7 G/DL (13.3-17.7); LYMPHOCYTES # (AUTO) 0.8 X 10^3 (1.0-4.0); LYMPHOCYTES % (AUTO) 12 % (12-44); MEAN CORPUSCULAR HEMOGLOBIN 31 PG (25-34); MEAN CORPUSCULAR HGB CONC 33 G/DL (32-36); MEAN CORPUSCULAR VOLUME 96 FL (80-99); MEAN PLATELET VOLUME 10.2 FL (7.4-10.4); MONOCYTES # (AUTO) 0.8 X 10^3 (0.0-1.0); MONOCYTES % (AUTO) 11 % (0-12); NEUTROPHILS # (AUTO) 5.2 X 10^3 (1.8-7.8); NEUTROPHILS % (AUTO) 73 % (42-75); PLATELET COUNT 199 10^3/uL (130-400); RED BLOOD COUNT 4.41 10^6/uL (4.35-5.85); RED CELL DISTRIBUTION WIDTH 14.6 % (10.0-14.5); WHITE BLOOD COUNT 7.2 10^3/uL (4.3-11.0)
[2018-05-22 14:03] LABS: BUN/CREATININE RATIO 15; CALCIUM 9.5 MG/DL (8.5-10.1); CARBON DIOXIDE 25 MMOL/L (21-32); CHLORIDE 105 MMOL/L (98-107); CREATININE SERUM 0.98 MG/DL (0.60-1.30); GFR ESTIMATED > 60; GLUCOSE 145 MG/DL (70-105); POTASSIUM 4.1 MMOL/L (3.6-5.0); SODIUM 139 MMOL/L (135-145)
[~2018-06-12] VITALS: Ht 175.3 cm; Wt 112.9 kg
[~2018-06-12 10:46] MED LIST changes: +CYCLOPHOSPHAMIDE INJECTION 1,000 MG, CYCLOPHOSPHAMIDE INJECTION 500 MG in NS (IVPB) CAN... IV SCH; +NS IV 1000 ML (CANCER CTR) IV SCH; +ONDANSETRON MDV (CANCER CENTER 16 MG, DEXAMETHASONE INJECTION 10 MG in NS (IVPB) CANCER... IV SCH; +vinCRIStine SULFATE 2 MG in NS (IVPB) CANCER CENTER 50 ML IV SCH
[2018-06-12 11:16] LABS: BASOPHILS % (AUTO) 1 % (0-10); EOSINOPHILS # (AUTO) 0.2 10^3/uL (0.0-0.3); EOSINOPHILS % (AUTO) 2 % (0-10); HEMATOCRIT 44 % (40-54); HEMOGLOBIN 14.6 G/DL (13.3-17.7); LYMPHOCYTES # (AUTO) 0.8 X 10^3 (1.0-4.0); LYMPHOCYTES % (AUTO) 13 % (12-44); MEAN CORPUSCULAR HEMOGLOBIN 32 PG (25-34); MEAN CORPUSCULAR HGB CONC 34 G/DL (32-36); MEAN CORPUSCULAR VOLUME 95 FL (80-99); MEAN PLATELET VOLUME 9.8 FL (7.4-10.4); MONOCYTES % (AUTO) 17 % (0-12); NEUTROPHILS # (AUTO) 4.2 X 10^3 (1.8-7.8); NEUTROPHILS % (AUTO) 68 % (42-75); PLATELET COUNT 225 10^3/uL (130-400); RED BLOOD COUNT 4.59 10^6/uL (4.35-5.85); RED CELL DISTRIBUTION WIDTH 13.6 % (10.0-14.5); WHITE BLOOD COUNT 6.3 10^3/uL (4.3-11.0)
[2018-06-12 11:36] LABS: ALANINE AMINOTRANSFERASE 16 U/L (0-55); ALBUMIN 3.8 GM/DL (3.2-4.5); ALKALINE PHOSPHATASE 179 U/L (40-136); BILIRUBIN,TOTAL 0.4 MG/DL (0.1-1.0); BUN/CREATININE RATIO 13; CALCIUM 9.3 MG/DL (8.5-10.1); CARBON DIOXIDE 25 MMOL/L (21-32); CHLORIDE 105 MMOL/L (98-107); CREATININE SERUM 0.94 MG/DL (0.60-1.30); GFR ESTIMATED > 60; GLUCOSE 95 MG/DL (70-105); POTASSIUM 4.3 MMOL/L (3.6-5.0); SODIUM 142 MMOL/L (135-145); TOTAL PROTEIN 7.5 GM/DL (6.4-8.2)
== END 2018-06-20 | disposition home or self-care (01) ==
LOC: ONC 10:46
PROVIDERS: ATTEND Internal Medicine Hematology & Oncology
DX: Z51.11 Encounter for antineoplastic chemotherapy (principal); C86.6 Primary cutaneous CD30-positive T-cell proliferations; C84.09 Mycosis fungoides, extranodal and solid organ sites; E27.9 Disorder of adrenal gland, unspecified; I10 Essential (primary) hypertension; E03.9 Hypothyroidism, unspecified; J44.9 Chronic obstructive pulmonary disease, unspecified; F17.210 Nicotine dependence, cigarettes, uncomplicated; Z79.899 Other long term (current) drug therapy
CPT/HCPCS: 36415; 36591; 80048; 80053; 83615; 85025; 96375; 96411; 96413; 99213

== ENCOUNTER → 2018-07-28 | Outpatient (CLI) | payer MEDICARE, MEDICAID ==
[~2018-07-28] MED LIST changes: -CYCLOPHOSPHAMIDE INJECTION 1,000 MG, CYCLOPHOSPHAMIDE INJECTION 500 MG in NS (IVPB) CAN... IV SCH; -NS IV 1000 ML (CANCER CTR) IV SCH; -ONDANSETRON MDV (CANCER CENTER 16 MG, DEXAMETHASONE INJECTION 10 MG in NS (IVPB) CANCER... IV SCH; -vinCRIStine SULFATE 2 MG in NS (IVPB) CANCER CENTER 50 ML IV SCH
== END ==
PROVIDERS: ATTEND Family Medicine
DX: L98.9 Disorder of the skin and subcutaneous tissue, unspecified (principal)
CPT/HCPCS: 87070; 87077; 87186; 87205

== ENCOUNTER 2018-08-31 14:18 | Outpatient (RCR) | payer MEDICARE, MEDICAID ==
[~2018-08-31] VITALS: Ht 175.3 cm; Wt 115.2 kg
[~2018-08-31 14:18] MED LIST changes: +CYCLOPHOSPHAMIDE INJECTION 1,000 MG, CYCLOPHOSPHAMIDE INJECTION 500 MG in NS (IVPB) CAN... IV SCH; +NS IV 1000 ML (CANCER CTR) IV SCH; +ONDANSETRON MDV (CANCER CENTER 16 MG, DEXAMETHASONE INJECTION 10 MG in NS (IVPB) CANCER... IV SCH; +vinCRIStine SULFATE 2 MG in NS (IVPB) CANCER CENTER 50 ML IV SCH
[2018-08-31 14:32] LABS: BASOPHILS % (AUTO) 0 % (0-10); EOSINOPHILS # (AUTO) 0.6 10^3/uL (0.0-0.3); EOSINOPHILS % (AUTO) 6 % (0-10); HEMATOCRIT 47 % (40-54); HEMOGLOBIN 14.9 G/DL (13.3-17.7); LYMPHOCYTES # (AUTO) 0.9 X 10^3 (1.0-4.0); LYMPHOCYTES % (AUTO) 8 % (12-44); MEAN CORPUSCULAR HEMOGLOBIN 30 PG (25-34); MEAN CORPUSCULAR HGB CONC 32 G/DL (32-36); MEAN CORPUSCULAR VOLUME 95 FL (80-99); MEAN PLATELET VOLUME 9.3 FL (7.4-10.4); MONOCYTES % (AUTO) 9 % (0-12); NEUTROPHILS # (AUTO) 8.7 X 10^3 (1.8-7.8); NEUTROPHILS % (AUTO) 77 % (42-75); PLATELET COUNT 287 10^3/uL (130-400); RED CELL DISTRIBUTION WIDTH 14.5 % (10.0-14.5); WHITE BLOOD COUNT 11.3 10^3/uL (4.3-11.0)
[2018-08-31 14:57] LABS: ALANINE AMINOTRANSFERASE 36 U/L (0-55); ALBUMIN 3.4 GM/DL (3.2-4.5); ALKALINE PHOSPHATASE 338 U/L (40-136); BILIRUBIN,TOTAL 0.5 MG/DL (0.1-1.0); BUN/CREATININE RATIO 12; CALCIUM 9.3 MG/DL (8.5-10.1); CARBON DIOXIDE 26 MMOL/L (21-32); CHLORIDE 104 MMOL/L (98-107); CREATININE SERUM 1.04 MG/DL (0.60-1.30); GFR ESTIMATED > 60; GLUCOSE 88 MG/DL (70-105); POTASSIUM 4.1 MMOL/L (3.6-5.0); SODIUM 141 MMOL/L (135-145); TOTAL PROTEIN 7.9 GM/DL (6.4-8.2)
== END 2018-09-02 | disposition home or self-care (01) ==
LOC: ONC 14:18
PROVIDERS: ATTEND Internal Medicine Hematology & Oncology
DX: C86.6 Primary cutaneous CD30-positive T-cell proliferations (principal); C84.09 Mycosis fungoides, extranodal and solid organ sites; E27.9 Disorder of adrenal gland, unspecified; I10 Essential (primary) hypertension; E03.9 Hypothyroidism, unspecified; J44.9 Chronic obstructive pulmonary disease, unspecified; F17.210 Nicotine dependence, cigarettes, uncomplicated; Z79.899 Other long term (current) drug therapy
CPT/HCPCS: 36415; 80053; 83615; 85025; 93005; 99213

== ENCOUNTER 2018-09-02 13:03 | Inpatient (IN) | payer MEDICARE, MEDICAID ==
[~2018-09-02] VITALS: Ht 182.9 cm; Wt 117.9 kg
[~2018-09-02 13:03] MED LIST changes: -CYCLOPHOSPHAMIDE INJECTION 1,000 MG, CYCLOPHOSPHAMIDE INJECTION 500 MG in NS (IVPB) CAN... IV SCH; -NS IV 1000 ML (CANCER CTR) IV SCH; -ONDANSETRON MDV (CANCER CENTER 16 MG, DEXAMETHASONE INJECTION 10 MG in NS (IVPB) CANCER... IV SCH; -vinCRIStine SULFATE 2 MG in NS (IVPB) CANCER CENTER 50 ML IV SCH
--- OUTSIDE RECORDS SUMMARY | 2018-09-02 13:07 | XMS REPORT | Clinical Summary ---
Author Author [facility] Organization [facility] Address Unknown Phone Unavailable Care Team Providers Care Claims Processor Name Role Phone Abraham Marie MD Unavailable Chyna Nicole MD Unavailable Keesha Anderson MD Unavailable Unavailable Kasia Blake RN Unavailable Unavailable Chyna Nicole MD PCP Pasquale Alonzo MD Unavailable Yun Johnson RN Unavailable Unavailable Sobia Wallace RN Unavailable Unavailable Source Comments Some departments are not documenting in the electronic medical record. If you do not see the information that you expected, contact Release of Information in the Health Information Management department at [phone] for further assistance in locating additional records.[facility] Allergies Comments Active Allergy Reactions Severity Noted Date Morphine HALLUCINATION High 02/09/2016 S Medications End Date Status Medication Sig Dispensed Refills Start Date Active latanoprost (XALATAN) Apply 1 Drop 0 0.005 % ophthalmic to both eyes solution at bedtime daily. Active docusate (COLACE) 100 mg Take 200 mg 0 capsule by mouth daily. Active furosemide (LASIX) 40 mg Take 40 mg by 0 tablet mouth daily. Active nozjbzbpb-zokj-frvgaebo Take by 0 6-30-50 mg tab mouth. Active polyethylene glycol 3350 Take 17 g by 0 (GLYCOLAX; MIRALAX) 17 mouth daily. gram/dose powder Active OLANZapine (ZYPREXA Take 30 mg by 0 ZYDIS) 20 mg rapid mouth at dissolve tablet bedtime daily. Active metoprolol (LOPRESSOR) Take 100 mg 0 100 mg tabletIndications: by mouth hypertension twice daily. Give 1 tab by mouth two times a day for Hypertension. Hold for systolic BP less than 100, Notify doctor if BP greater than 170 Indications: HYPERTENSION Active polyvinyl Place 1 Drop 0 alcohol/povidone into or (REFRESH) 1.4/0.6 % around eye(s) ophthalmic solution as Needed. Active Lactoperoxi-Gluc Oxid-Pot by Mucous 0 Thio gel Membrane route. Active CARBAMIDE PEROXIDE Place 5 Drops 0 (DEBROX OT) in ear as directed as Needed. Instill 5 drop in both ears as needed for wax Active albuterol 0.5% Inhale 2.5 mg 0 (PROVENTIL; VENTOLIN) 2.5 solution as mg/0.5 mL nebu nebulizer directed solution every 6 hours as needed. Active polycarbophil (FIBER) 625 Take 625 mg 0 mg tablet by mouth daily. Active paliperidone(+) (INVEGA) Take 1 Tab by 0 9 mg tablet mouth every morning. Active melatonin 3 mg tab Take 6 mg by 0 mouth at bedtime daily. Active omeprazole DR(+) Take 20 mg by 0 (PRILOSEC) 20 mg capsule mouth daily. Active ramelteon(+) (ROZEREM) 8 Take 8 mg by 0 mg tabIndications: mouth at Sleep-Onset Insomnia bedtime as needed. Indications: SLEEP-ONSET INSOMNIA Active levothyroxine (SYNTHROID) Take 50 mcg 0 50 mcg tablet by mouth daily. Active hydrocortisone 2.5% Apply to 0 (ANUSOL-HC) 2.5 % rectal affected area creamIndications: daily as Hemorrhoids needed. Indications: HEMORRHOIDS Active acetaminophen (TYLENOL) Take 1,000 mg 0 500 mg tabletIndications: by mouth Pain every 4 hours as needed for Pain. Indications: PAIN Active erythromycin (ROMYCIN) Apply 1 Inch 3.5 g 3 ophthalmic ointment to right eye 6 as directed three times daily. apply to lesions on right eyelid Active Problems Problem Noted Date Diffuse large B-cell lymphoma of lymph nodes of multiple regions 03/10/2016 Mycosis fungoides 02/27/2016 Eyelid lesion 02/09/2016 Last Assessment & [...] ulcerations but no signs of infection today Family History Medical History Relation Name Comments Arthritis-osteo Father Asthma Father Basal Cell Carcinoma Father Asthma Mother Relation Name Status Comments Father Mother Social History Date Tobacco Use Types Packs/Day Years Used Current Every Day Smoker Cigarettes 1 51 Smokeless Tobacco: Never Used Alcohol Use Drinks/Week oz/Week Comments No 0 Standard 0.0 drinks or equivalent Sex Assigned at Date Recorded Not on file Industry Job Start Date Occupation Not on file Not on file Not on file Travel End Travel History Travel Start No recent travel history available. Last Filed Vital Signs Time Taken Vital Sign Reading 05/13/2016 3:16 PM CDT Blood Pressure 134/74 05/13/2016 3:16 PM CDT Pulse 95 03/10/2016 2:21 PM CDT Temperature 36.9 C (98.5 F) 03/10/2016 2:21 PM CDT Respiratory Rate 16 03/10/2016 2:21 PM CDT Oxygen Saturation 96% - Inhaled Oxygen - Concentration 05/13/2016 3:16 PM CDT Weight 101.2 kg (223 lb 1.7 oz) 05/13/2016 3:16 PM CDT Height 177.8 cm (5' 10") 05/13/2016 3:16 PM CDT Body Mass Index 32.01 Plan of Treatment Health Maintenance Due Date Last Done Comments HEPATITIS C SCREENING 1950 PHYSICAL (COMPREHENSIVE) 01/08/1955 EXAM DTAP/TDAP VACCINES (1 - 01/08/1966 Tdap) COLORECTAL CANCER 01/08/1998 SCREENING SHINGLES RECOMBINANT 01/08/1998 VACCINE (1 of 2) ABDOMINAL AORTIC ANEURYSM 01/08/2013 SCREENING PNEUMONIA (PCV13/PPSV23) 01/08/2013 VACCINES (1 of 2 - PCV13) INFLUENZA VACCINE 04/05/2018 Results Not on filefrom Last 3 Months Insurance Payer Benefit Subscriber ID Type Phone Address Plan / Group MEDICARE MEDICARE xxxxxxxxxx Medicare PART A AND B [facility] MEDICAID [place] [facility] xxxxxxxxxxx Medicaid [employer] [place] Advance Directives Patient has advance care planning documents on file. For more information, please contact: [facility] [address] [place] [address]
[2018-09-02] MEDS ORDERED: NS IV 1000 ML 1,000 ML ONE (13:08)
--- OUTSIDE RECORDS SUMMARY | 2018-09-02 13:09 | XMS REPORT | Continuity of Care Document ---
Demographics Preferred Language Unknown Marital Status Unknown Roman Catholic Affiliation Unknown Race Unknown Ethnic Group Unknown Author Author [facility] Address Unknown Phone Unavailable Allergies Active Description Code Type Severity Reaction Onset Reported/Identified Relationship to Patient Clinical Status Yes NO KNOWN DRUG ALLERGIES UNKNOWN NO KNOWN DRUG ALLERG Yes No Known Drug Allergies [id number] Drug Allergy Unknown N/A 06/16/2011 Medications Medication Packaging Start Date Stop Date Route Dosage Sig SALINE NASAL MIST LIQ (OCEAN SPRAY) SPRAYS 07/04/2018 07/14/2018 PRN Q6H HYDROCODONE/APAP 5MG/325MG TAB 5 MG/325MG (PILY-TAB 5/325) TAB 07/04/2018 07/14/2018 PRN Q6H OLANZAPINE TAB 10 MG (ZYPREXA) MG 07/04/2018 07/04/2018 ONCE&2100 ONDANSETRON 8 MG Oral DissolveTab (ZOFRAN) MG 07/04/2018 08/03/2018 PRN Q8H ACETAMINOPHEN ORAL TABLET 325mg(Tylenol) Dose( s) 07/04/2018 08/03/2018 PRN Q4H Artificial TEARS opht drops (TEARS for Dry Eyes) DROP 07/04/2018 07/14/2018 QID&0700,1400,2000 CLONAZEPAM TAB 0.5 MG (KLONOPIN) MG 07/04/2018 08/03/2018 TID&0800,1400,2000 ALUM/MAG/SIMETH 30CC LIQ (MYLANTA PLUS) cc 07/04/2018 07/14/2018 PRN Q4H NICOTINE PATCH PAT 7 MG (NICODERM) MG 07/04/2018 07/04/2018 ONCE&1630 CALMOSEPTINE OINT TUBE (RISAMINE OINT) jacek 07/04/2018 07/11/2018 PRN QID DIPHENHYDRAMINE CAP 25 MG (BENADRYL) MG 07/04/2018 08/03/2018 PRN Q6H HYDROCODONE/APAP 5MG/325MG TAB 5 MG/325MG (PILY-TAB 5/325) TAB 07/04/2018 08/03/2018 PRN Q6H ALBUTEROL INHALER MDI 8 GM (VENTOLIN HFA) PUFF (S) 07/04/2018 07/14/2018 PRN QID METOPROLOL TAB 50 MG (LOPRESSOR) MG 07/04/2018 08/03/2018 BID&0800,2000 LACTULOSE SYRUP LIQ 20 GM/30CC (CHRONULAC SYRUP) GM 07/04/2018 08/03/2018 BID&0800,2000 MILK OF MAGNESIA LIQ ml 07/04/2018 08/03/2018 PRN BID LATANOPROST OPHTH SOLUTION LIQ 0.005 % (XALATAN) drops 07/04/2018 08/02/2018 QHS&2100 OLANZAPINE TAB 10 MG (ZYPREXA) MG 07/04/2018 07/10/2018 QHS&2100 MAGNESIUM OXIDE TAB 400 MG (MAG-OX) MG 07/05/2018 08/03/2018 Daily&0900 VENLAFAXINE XR CAP 75 MG (EFFEXOR XR) MG 07/05/2018 08/03/2018 Daily&0900 POTASSIUM CHLORIDE TAB 10 MEQ (K-DUR) MEQ 07/05/2018 08/03/2018 Daily&0900 Docusate sodium 100mg oral capsule (COLACE) MG 07/05/2018 08/03/2018 Daily&0900 FOLIC ACID TAB 1 MG MG 07/05/2018 08/08/2018 Daily& 0900 FLUTICASONE NASAL INHALER MDI 50 MCG (FLONASE NOSE SPRAY) PUFF(S) 07/05/2018 08/03/2018 Daily&0900 FUROSEMIDE TAB 40 MG (LASIX) MG 08/03/2018 Daily&0900 LOPERAMIDE CAP 2 MG (IMMODIUM) MG 07/05/2018 08/04/2018 PRN Daily PANTOPRAZOLE TAB 20 MG (PROTONIX) MG 07/05/2018 08/03/2018 Daily&0900 POLYETHYLENE GLYCOL POWDER UD PWD (MIRALAX 17GM UNIT DOSE PAKS) gm 07/05/2018 07/15/2018 PRN Daily BISACODYL SUPPOS 10 MG (DULCOLAX SUPPOS) MG 07/05/2018 07/11/2018 PRN Daily CALCIUM POLYCARBOPHIL TAB 625 MG (FIBERCON) MG 07/05/2018 08/03/2018 Daily&0900 NICOTINE PATCH PAT 7 MG (NICODERM) MG 07/05/2018 08/03/2018 Daily&0900 LEVOTHYROXINE TAB 50 MCG (SYNTHROID) MCG 07/05/2018 08/03/2018 Daily&0900 MILK OF ANT ENCINAS ml 07/05/2018 08/04/2018 PRN Daily VENLAFAXINE XR CAP 75 MG (EFFEXOR XR) MG 07/08/2018 07/08/2018 ONCE&1054 VENLAFAXINE XR CAP 75 MG (EFFEXOR XR) MG 07/09/2018 08/07/2018 Daily&0900 MUPIROCIN OINT 2 % (BACTROBAN) jacek 07/11/2018 07/20/2018 BID&0800,2000 OLANZAPINE TAB 10 MG (ZYPREXA) MG 07/11/2018 08/09/2018 QHS&2100 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, EXTRANODAL AND SOLID MARY SOTO Ot E03.9 HYPOTHYROIDISM, UNSPECIFIED MARY SOTO Ot F17.210 NICOTINE DEPENDENCE, CIGARETTES, UNCOMPL MARY SOTO Ot I10 ESSENTIAL (PRIMARY) HYPERTENSION MARY SOTO Ot J44.9 CHRONIC OBSTRUCTIVE PULMONARY DISEASE, U MARY SOTO Ot Z51.11 ENCOUNTER FOR ANTINEOPLASTIC CHEMOTHERAP MARY SOTO Ot Z79.899 OTHER SNF (CURRENT) DRUG THERAPY 06/16/2011 Ot 910.0 06/16/2011 Ot 924.8 06/16/2011 Ot 959.01 06/16/2011 Ot E000.8 06/16/2011 Ot E819.9 06/16/2011 Ot V03.7 11/09/2011 110.5 DERMATOPHYTOSIS TINEA IMBRICATA 12/16/2011 782.1 ECHO VIRUS RASH 12/14/2012 Ot 455.9 RESIDUAL HEMORRHOID TAGS 12/14/2012 Ot 569.3 RECTAL ANAL HEMORRHAGE 06/11/2015 Ot V72.84 06/30/2015 MELY MENA DO Ot L08.9 06/30/2015 MELY MENA DO A Ot M79.89 11/17/2015 GELLENDER DOMELY Ot L08.9 11/17/2015 GELLENDER DOMELY Ot R22.41 12/25/2015 GELLENDER DOMELY Ot K59.00 CONSTIPATION, UNSPECIFIED 01/13/2016 GELLENDER DO, MELY Perez Ot K59.00 CONSTIPATION, UNSPECIFIED 01/21/2016 GELLENDER DO, MELY Perez Ot K59.00 CONSTIPATION, UNSPECIFIED 04/07/2016 MARY SOTO Ot C84.A0 CUTANEOUS T-CELL LYMPHOMA, UNSPECIFIED, 04/27/2016 MARY SOTO Ot C84.A0 CUTANEOUS T-CELL LYMPHOMA, UNSPECIFIED, 05/04/2016 LAMONT SPENCE POLITICAL WORKER Ot C84.A0 CUTANEOUS T-CELL LYMPHOMA, UNSPECIFIED, 05/04/2016 LAMONT SPENCE POLITICAL WORKER Ot E03.9 HYPOTHYROIDISM, UNSPECIFIED 05/04/2016 LAMONT SPENCE POLITICAL WORKER Ot F17.210 NICOTINE DEPENDENCE, CIGARETTES, UNCOMPL 05/04/2016 LAMONT SPENCE S POLITICAL WORKER Ot I10 ESSENTIAL (PRIMARY) HYPERTENSION 05/04/2016 LAMONT SPENCE POLITICAL WORKER Ot J44.9 CHRONIC OBSTRUCTIVE PULMONARY DISEASE, U 05/04/2016 LAMONT SPENCE POLITICAL WORKER Ot Z79.899 OTHER MID LEVEL PRACTITIONER (CURRENT) DRUG THERAPY 05/09/2016 LAMONT SPENCE POLITICAL WORKER Ot C84.A0 CUTANEOUS T-CELL LYMPHOMA, UNSPECIFIED, 05/09/2016 LAMONT SPENCE POLITICAL WORKER Ot E03.9 HYPOTHYROIDISM, UNSPECIFIED 05/09/2016 LAMONT SPENCE POLITICAL WORKER Ot F17.210 NICOTINE DEPENDENCE, CIGARETTES, UNCOMPL 05/09/2016 LAMONT SPENCE POLITICAL WORKER Ot I10 ESSENTIAL (PRIMARY) HYPERTENSION 05/09/2016 LAMONT SPENCE POLITICAL WORKER Ot J44.9 CHRONIC OBSTRUCTIVE PULMONARY DISEASE, U 05/09/2016 LAMONT SPENCE POLITICAL WORKER Ot Z79.899 OTHER SNF (CURRENT) DRUG THERAPY 05/11/2016 MARY SOTO Ot C84.A0 CUTANEOUS T-CELL LYMPHOMA, UNSPECIFIED, 06/11/2016 MARY SOTO Ot 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, EXTRANODAL AND SOLID 06/11/2016 BRITTANYENRIQUEAN N Ot C85.90 NON-HODGKIN LYMPHOMA, UNSPECIFIED, UNSPE 06/11/2016 BRITTANY BOBAN N Ot E03.9 HYPOTHYROIDISM, UNSPECIFIED 06/11/2016 BRITTANY, BOBAN N Ot F17.210 NICOTINE DEPENDENCE, CIGARETTES, UNCOMPL 06/11/2016 BRITTANY BOBAN N Ot I10 ESSENTIAL (PRIMARY) HYPERTENSION 06/11/2016 BRITTANYENRIQUE VILLEDAAN N Ot J44.9 CHRONIC OBSTRUCTIVE PULMONARY DISEASE, U 06/11/2016 BRITTANYENRIQUEAN N Ot Z51.11 ENCOUNTER FOR ANTINEOPLASTIC CHEMOTHERAP 06/11/2016 BRITTANY, BOBAN N Ot Z79.899 OTHER SNF (CURRENT) DRUG THERAPY 06/15/2016 BRITTANY BOBAN N Ot C85.90 NON-HODGKIN LYMPHOMA, UNSPECIFIED, UNSPE 06/15/2016 BRITTANY BOBAN N Ot E03.9 HYPOTHYROIDISM, UNSPECIFIED 06/15/2016 BRITTANY, BOBAN N Ot F17.210 NICOTINE DEPENDENCE, CIGARETTES, UNCOMPL 06/15/2016 BRITTANY BOBAN N Ot I10 ESSENTIAL (PRIMARY) HYPERTENSION 06/15/2016 BRITTANYMARY N Ot J44.9 CHRONIC OBSTRUCTIVE PULMONARY DISEASE, U 06/15/2016 BRITTANY BOBAN N Ot Z79.899 OTHER MID LEVEL PRACTITIONER (CURRENT) DRUG THERAPY 06/16/2016 BRITTANY BOBTHA N Ot C85.90 NON-HODGKIN LYMPHOMA, UNSPECIFIED, UNSPE 06/16/2016 BRITTANYMARY N Ot E03.9 HYPOTHYROIDISM, UNSPECIFIED 06/16/2016 BRITTANY, BOBAN N Ot F17.210 NICOTINE DEPENDENCE, CIGARETTES, UNCOMPL 06/16/2016 BRITTANY BOBAN N Ot I10 ESSENTIAL (PRIMARY) HYPERTENSION 06/16/2016 BRITTANY BOBAN N Ot J44.9 CHRONIC OBSTRUCTIVE PULMONARY DISEASE, U 06/16/2016 BRITTANY, BOBAN N Ot Z79.899 OTHER MID LEVEL PRACTITIONER (CURRENT) DRUG THERAPY 07/27/2016 BRITTANY BOBAN N Ot C85.90 NON-HODGKIN LYMPHOMA, UNSPECIFIED, UNSPE 07/27/2016 BRITTANY BOBAN N Ot E03.9 HYPOTHYROIDISM, UNSPECIFIED 07/27/2016 BRITTANY, BOBAN N Ot F17.210 NICOTINE DEPENDENCE, CIGARETTES, UNCOMPL 07/27/2016 BRITTANY BOBAN N Ot I10 ESSENTIAL (PRIMARY) HYPERTENSION 07/27/2016 BRITTANY, BOBAN N Ot J44.9 CHRONIC OBSTRUCTIVE PULMONARY DISEASE, U 07/27/2016 BRITTANY, BOBAN N Ot Z51.11 ENCOUNTER FOR ANTINEOPLASTIC CHEMOTHERAP 07/27/2016 BRITTANY, BOBAN N Ot Z79.899 OTHER SNF (CURRENT) DRUG THERAPY 09/02/2016 BRITTANY, BOBAN N Ot C86.6 PRIMARY CUTANEOUS DF60-PAEMDMNS T-CELL P 09/02/2016 BRITTANY, BOBAN N Ot E03.9 HYPOTHYROIDISM, UNSPECIFIED 09/02/2016 BRITTANY, BOBAN N Ot F17.210 NICOTINE DEPENDENCE, CIGARETTES, UNCOMPL 09/02/2016 BRITTANY, BOBAN N Ot I10 ESSENTIAL (PRIMARY) HYPERTENSION 09/02/2016 RBITTANY, BOBAN N Ot J44.9 CHRONIC OBSTRUCTIVE PULMONARY DISEASE, U 09/02/2016 BRITTANY, BOBAN N Ot Z51.11 ENCOUNTER FOR ANTINEOPLASTIC CHEMOTHERAP 09/02/2016 BRITTANY, BOBAN N Ot Z79.899 OTHER MID LEVEL PRACTITIONER (CURRENT) DRUG THERAPY 09/09/2016 BRITTANY, BOBAN N Ot C86.6 PRIMARY CUTANEOUS KU55-HZXYABNF T-CELL P 09/09/2016 BRITTANY, BOBAN N Ot E03.9 HYPOTHYROIDISM, UNSPECIFIED 09/09/2016 BRITTANY, BOBAN N Ot F17.210 NICOTINE DEPENDENCE, CIGARETTES, UNCOMPL 09/09/2016 BRITTANY, BOBAN N Ot I10 ESSENTIAL (PRIMARY) HYPERTENSION 09/09/2016 BRITTANY BOBAN N Ot J44.9 CHRONIC OBSTRUCTIVE PULMONARY DISEASE, U 09/09/2016 BRITTANY, BOBAN N Ot Z51.11 ENCOUNTER FOR ANTINEOPLASTIC CHEMOTHERAP 09/09/2016 BRITTANY, BOBAN N Ot Z79.899 OTHER SNF (CURRENT) DRUG THERAPY 09/13/2016 BRITTANY, BOBAN N Ot C86.6 PRIMARY CUTANEOUS RO06-TDIUGGMI T-CELL P 09/13/2016 BRITTANY, BOBAN N Ot E03.9 HYPOTHYROIDISM, UNSPECIFIED 09/13/2016 BRITTANY, BOBAN N Ot F17.210 NICOTINE DEPENDENCE, CIGARETTES, UNCOMPL 09/13/2016 BRITTAYN, BOBAN N Ot I10 ESSENTIAL (PRIMARY) HYPERTENSION 09/13/2016 BRITTANY, BOBAN N Ot J44.9 CHRONIC OBSTRUCTIVE PULMONARY DISEASE, U 09/13/2016 BRITTANY, BOBAN N Ot Z51.11 ENCOUNTER FOR ANTINEOPLASTIC CHEMOTHERAP 09/13/2016 BRITTANY, BOBAN N Ot Z79.899 OTHER SNF (CURRENT) DRUG THERAPY 09/14/2016 BRITTANY BOBAN N Ot C86.6 PRIMARY CUTANEOUS JI85-DCPHXPOB T-CELL P 09/14/2016 BRITTANY ENRIQUEAN N Ot E03.9 HYPOTHYROIDISM, UNSPECIFIED 09/14/2016 BRITTANY, BOBAN N Ot F17.210 NICOTINE DEPENDENCE, CIGARETTES, UNCOMPL 09/14/2016 BRITTANY, BOBAN N Ot I10 ESSENTIAL (PRIMARY) HYPERTENSION 09/14/2016 BRITTANY, BOBAN N Ot J44.9 CHRONIC OBSTRUCTIVE PULMONARY DISEASE, U 09/14/2016 BRITTANY, BOBAN N Ot Z51.11 ENCOUNTER FOR ANTINEOPLASTIC CHEMOTHERAP 09/14/2016 BRITTANY, BOBAN N Ot Z79.899 OTHER MID LEVEL PRACTITIONER (CURRENT) DRUG THERAPY 09/29/2016 BRITTANY BOBAN N Ot C86.6 PRIMARY CUTANEOUS NN46-HVLSWSXU T-CELL P 09/29/2016 BRITTANY, BOBAN N Ot E03.9 HYPOTHYROIDISM, UNSPECIFIED 09/29/2016 BRITTANY, BOBAN N Ot F17.210 NICOTINE DEPENDENCE, CIGARETTES, UNCOMPL 09/29/2016 BRITTANY, BOBAN N Ot I10 ESSENTIAL (PRIMARY) HYPERTENSION 09/29/2016 BRITTANY ENRIQUEAN N Ot J44.9 CHRONIC OBSTRUCTIVE PULMONARY DISEASE, U 09/29/2016 BRITTANY, BOBAN N Ot Z51.11 ENCOUNTER FOR ANTINEOPLASTIC CHEMOTHERAP 09/29/2016 BRITTANY, BOBAN N Ot Z79.899 OTHER MID LEVEL PRACTITIONER (CURRENT) DRUG THERAPY 09/30/2016 BRITTANY, BOBAN N Ot C86.6 PRIMARY CUTANEOUS DX63-GCXLWADN T-CELL P 09/30/2016 BRITTANY, BOBAN N Ot E03.9 HYPOTHYROIDISM, UNSPECIFIED 09/30/2016 BRITTANY, BOBAN N Ot F17.210 NICOTINE DEPENDENCE, CIGARETTES, UNCOMPL 09/30/2016 BRITTANY, BOBAN N Ot I10 ESSENTIAL (PRIMARY) HYPERTENSION 09/30/2016 BRITTANYNERIQUEAN N Ot J44.9 CHRONIC OBSTRUCTIVE PULMONARY DISEASE, U 09/30/2016 BRITTANY, BOBAN N Ot Z51.11 ENCOUNTER FOR ANTINEOPLASTIC CHEMOTHERAP 09/30/2016 BRITTANY MARY N Ot Z79.899 OTHER SNF (CURRENT) DRUG THERAPY 11/17/2016 BRITTANY MARY N Ot R09.89 OTH SYMPTOMS AND SIGNS INVOLVING THE CIR 11/19/2016 BRITTANY MARY N Ot C86.6 PRIMARY CUTANEOUS AG97-ZCGQEJIL T-CELL P 11/19/2016 BRITTANY MARY N Ot E03.9 HYPOTHYROIDISM, UNSPECIFIED 11/19/2016 BRITTANY MARY N Ot F17.210 NICOTINE DEPENDENCE, CIGARETTES, UNCOMPL 11/19/2016 BRITTANY MARY N Ot I10 ESSENTIAL (PRIMARY) HYPERTENSION 11/19/2016 BRITTANYMARY N Ot J44.9 CHRONIC OBSTRUCTIVE PULMONARY DISEASE, U 11/19/2016 BRITTANY MARY N Ot Z51.11 ENCOUNTER FOR ANTINEOPLASTIC CHEMOTHERAP 11/19/2016 BRITTANY MARY N Ot Z79.899 OTHER MID LEVEL PRACTITIONER (CURRENT) DRUG THERAPY 12/03/2016 BRITTANY MARY N Ot C86.6 PRIMARY CUTANEOUS HR16-AGELVLME T-CELL P 12/03/2016 BRITTANY MARY N Ot E03.9 HYPOTHYROIDISM, UNSPECIFIED 12/03/2016 BRITTANYMARY N Ot F17.210 NICOTINE DEPENDENCE, CIGARETTES, UNCOMPL 12/03/2016 BRITTANY MARY N Ot I10 ESSENTIAL (PRIMARY) HYPERTENSION 12/03/2016 BRITTANY MARY N Ot J44.9 CHRONIC OBSTRUCTIVE PULMONARY DISEASE, U 12/03/2016 BRITTANY MARY N Ot Z51.11 ENCOUNTER FOR ANTINEOPLASTIC CHEMOTHERAP 12/03/2016 BRITTANYMARY N Ot Z79.899 OTHER SNF (CURRENT) DRUG THERAPY 12/07/2016 BRITTANY MARY N Ot R09.89 OTH SYMPTOMS AND SIGNS INVOLVING THE CIR 12/15/2016 BRITTANY BOBTHA N Ot R09.89 OTH SYMPTOMS AND SIGNS INVOLVING THE CIR 12/29/2016 BRITTANY MARY N Ot C86.6 PRIMARY CUTANEOUS GN52-IQBOEKAC T-CELL P 12/29/2016 BRITTANY MARY N Ot E03.9 HYPOTHYROIDISM, UNSPECIFIED 12/29/2016 BRITTANYMARY N Ot F17.210 NICOTINE DEPENDENCE, CIGARETTES, UNCOMPL 12/29/2016 MARY SOTO N Ot I10 ESSENTIAL (PRIMARY) HYPERTENSION 12/29/2016 MARY SOTO Zara Ot J44.9 CHRONIC OBSTRUCTIVE PULMONARY DISEASE, U 12/29/2016 MARY SOTO Ot Z51.11 ENCOUNTER FOR ANTINEOPLASTIC CHEMOTHERAP 12/29/2016 MARY SOTO Ot Z79.899 OTHER MID LEVEL PRACTITIONER (CURRENT) DRUG THERAPY 12/29/2016 MARY SOTO Zara Ot C86.6 PRIMARY CUTANEOUS IW68-NZDEQIEG T-CELL P 12/29/2016 MARY SOTO Zara Ot E03.9 HYPOTHYROIDISM, UNSPECIFIED 12/29/2016 MARY SOTO Ot F17.210 NICOTINE DEPENDENCE, CIGARETTES, UNCOMPL 12/29/2016 MARY SOTO Ot I10 ESSENTIAL (PRIMARY) HYPERTENSION 12/29/2016 MARY SOTO Ot J44.9 CHRONIC OBSTRUCTIVE PULMONARY DISEASE, U 12/29/2016 MARY SOTO Ot Z51.11 ENCOUNTER FOR ANTINEOPLASTIC CHEMOTHERAP 12/29/2016 MARY SOTO Zara Ot Z79.899 OTHER SNF (CURRENT) DRUG THERAPY 01/19/2017 Ot V72.84 EXAM PRE- OPERATIVE NOS 01/19/2017 MELY MENA DO Ot L08.9 LOCAL INFECTION OF THE SKIN AND SUBCUTAN 01/19/2017 MELY MENA DO Ot R22.41 LOCALIZED SWELLING, MASS AND LUMP, RIGHT 01/19/2017 MELY MENA DO Ot K59.00 CONSTIPATION, UNSPECIFIED 01/19/2017 MARY SOTO Zara Ot C84.A0 CUTANEOUS T-CELL LYMPHOMA, UNSPECIFIED, 01/19/2017 LAMONT SPENCEP Ot C84.A0 CUTANEOUS T-CELL LYMPHOMA, UNSPECIFIED, 01/19/2017 LAMONT SPENCE POLITICAL WORKER Ot E03.9 HYPOTHYROIDISM, UNSPECIFIED 01/19/2017 LAMONT SPENCEP Ot F17.210 NICOTINE DEPENDENCE, CIGARETTES, UNCOMPL 01/19/2017 LAMONT SPENCE POLITICAL WORKER Ot I10 ESSENTIAL (PRIMARY) HYPERTENSION 01/19/2017 LAMONT SPENCEP Ot J44.9 CHRONIC OBSTRUCTIVE PULMONARY DISEASE, U 01/19/2017 LAMONT SPENCEP Ot Z79.899 OTHER MID LEVEL PRACTITIONER (CURRENT) DRUG THERAPY 01/19/2017 MARY SOTO N Ot R09.89 OTH SYMPTOMS AND SIGNS INVOLVING THE CIR 01/19/2017 MARY SOTO Ot C86.6 PRIMARY CUTANEOUS QQ34-DASECETY T-CELL P 01/19/2017 MARY SOTO N Ot E03.9 HYPOTHYROIDISM, UNSPECIFIED 01/19/2017 BRITTANYMARY N Ot F17.210 NICOTINE DEPENDENCE, CIGARETTES, UNCOMPL 01/19/2017 MARY SOTO N Ot I10 ESSENTIAL (PRIMARY) HYPERTENSION 01/19/2017 BRITTANYMARY N Ot J44.9 CHRONIC OBSTRUCTIVE PULMONARY DISEASE, U 01/19/2017 BRITTANYMARY N Ot Z51.11 ENCOUNTER FOR ANTINEOPLASTIC CHEMOTHERAP 01/19/2017 MARY SOTO N Ot Z79.899 OTHER MID LEVEL PRACTITIONER (CURRENT) DRUG THERAPY 01/23/2017 MARY SOTO N Ot C86.6 PRIMARY CUTANEOUS JC75-MBTLWYMJ T-CELL P 01/23/2017 MARY SOTO N Ot E03.9 HYPOTHYROIDISM, UNSPECIFIED 01/23/2017 BRITTANY BOBTHA N Ot F17.210 NICOTINE DEPENDENCE, CIGARETTES, UNCOMPL 01/23/2017 BRITTANYMARY N Ot I10 ESSENTIAL (PRIMARY) HYPERTENSION 01/23/2017 MARY SOTO N Ot J44.9 CHRONIC OBSTRUCTIVE PULMONARY DISEASE, U 01/23/2017 BRITTANYMARY N Ot Z51.11 ENCOUNTER FOR ANTINEOPLASTIC CHEMOTHERAP 01/23/2017 MARY SOTO N Ot Z79.899 OTHER MID LEVEL PRACTITIONER (CURRENT) DRUG THERAPY 01/23/2017 MARY SOTO N Ot C86.6 PRIMARY CUTANEOUS BL28-HXQNVMOZ T-CELL P 01/23/2017 BRITTANYMARY N Ot E03.9 HYPOTHYROIDISM, UNSPECIFIED 01/23/2017 BRITTANYENRIQUEAN N Ot F17.210 NICOTINE DEPENDENCE, CIGARETTES, UNCOMPL 01/23/2017 BRITTANYMARY N Ot I10 ESSENTIAL (PRIMARY) HYPERTENSION 01/23/2017 BRITTANYENRIQUEAN N Ot J44.9 CHRONIC OBSTRUCTIVE PULMONARY DISEASE, U 01/23/2017 BRITTANY BOBAN N Ot Z51.11 ENCOUNTER FOR ANTINEOPLASTIC CHEMOTHERAP 01/23/2017 BRITTANY BOBAN N Ot Z79.899 OTHER SNF (CURRENT) DRUG THERAPY 01/23/2017 BRITTANY BOBAN N Ot C86.6 PRIMARY CUTANEOUS OU90-RPAAAKIW T-CELL P 01/23/2017 BRITTANYENRIQUEAN N Ot E03.9 HYPOTHYROIDISM, UNSPECIFIED 01/23/2017 BRITTANY, BOBAN N Ot F17.210 NICOTINE DEPENDENCE, CIGARETTES, UNCOMPL 01/23/2017 BRITTANY BOBAN N Ot I10 ESSENTIAL (PRIMARY) HYPERTENSION 01/23/2017 BRITTANY BOBAN N Ot J44.9 CHRONIC OBSTRUCTIVE PULMONARY DISEASE, U 01/23/2017 BRITTANY BOBAN N Ot Z51.11 ENCOUNTER FOR ANTINEOPLASTIC CHEMOTHERAP 01/23/2017 BRITTANY BOBAN N Ot Z79.899 OTHER SNF (CURRENT) DRUG THERAPY 01/23/2017 BRITTANY BOBTHA N Ot C86.6 PRIMARY CUTANEOUS QM46-BCMBKWTB T-CELL P 01/23/2017 BRITTANY BOBTHA N Ot E03.9 HYPOTHYROIDISM, UNSPECIFIED 01/23/2017 BRITTANY, BOBAN N Ot F17.210 NICOTINE DEPENDENCE, CIGARETTES, UNCOMPL 01/23/2017 BRITTANY BOBAN N Ot I10 ESSENTIAL (PRIMARY) HYPERTENSION 01/23/2017 BRITTANY BOBAN N Ot J44.9 CHRONIC OBSTRUCTIVE PULMONARY DISEASE, U 01/23/2017 BRITTANY BOBAN N Ot Z51.11 ENCOUNTER FOR ANTINEOPLASTIC CHEMOTHERAP 01/23/2017 BRITTANY BOBTHA N Ot Z79.899 OTHER MID LEVEL PRACTITIONER (CURRENT) DRUG THERAPY 01/23/2017 BRITTANYMARY N Ot C86.6 PRIMARY CUTANEOUS WV80-ERAUBGVE T-CELL P 01/23/2017 BRITTANYMARY N Ot E03.9 HYPOTHYROIDISM, UNSPECIFIED 01/23/2017 BRITTANY, BOBAN N Ot F17.210 NICOTINE DEPENDENCE, CIGARETTES, UNCOMPL 01/23/2017 BRITTANY BOBAN N Ot I10 ESSENTIAL (PRIMARY) HYPERTENSION 01/23/2017 BRITTANY BOBAN N Ot J44.9 CHRONIC OBSTRUCTIVE PULMONARY DISEASE, U 01/23/2017 BRITTANY, BOBAN N Ot Z51.11 ENCOUNTER FOR ANTINEOPLASTIC CHEMOTHERAP 01/23/2017 BRITTANY BOBAN N Ot Z79.899 OTHER SNF (CURRENT) DRUG THERAPY 01/23/2017 BRITTANY BOBAN N Ot C86.6 PRIMARY CUTANEOUS FX40-PDFBOAGJ T-CELL P 01/23/2017 BRITTANY, BOBAN N Ot E03.9 HYPOTHYROIDISM, UNSPECIFIED 01/23/2017 BRITTANY, BOBAN N Ot F17.210 NICOTINE DEPENDENCE, CIGARETTES, UNCOMPL 01/23/2017 BRITTANY, BOBAN N Ot I10 ESSENTIAL (PRIMARY) HYPERTENSION 01/23/2017 BRITTANY, BOBAN N Ot J44.9 CHRONIC OBSTRUCTIVE PULMONARY DISEASE, U 01/23/2017 BRITTANY, BOBAN N Ot Z51.11 ENCOUNTER FOR ANTINEOPLASTIC CHEMOTHERAP 01/23/2017 BRITTANY, BOBAN N Ot Z79.899 OTHER MID LEVEL PRACTITIONER (CURRENT) DRUG THERAPY 02/08/2017 BRITTANY, BOBAN N Ot C86.6 PRIMARY CUTANEOUS AH93-JULMBZCC T-CELL P 02/08/2017 BRITTANY, BOBAN N Ot E03.9 HYPOTHYROIDISM, UNSPECIFIED 02/08/2017 BRITTANY, BOBAN N Ot F17.210 NICOTINE DEPENDENCE, CIGARETTES, UNCOMPL 02/08/2017 BRITTANY, BOBAN N Ot I10 ESSENTIAL (PRIMARY) HYPERTENSION 02/08/2017 BRITTANY, BOBAN N Ot J44.9 CHRONIC OBSTRUCTIVE PULMONARY DISEASE, U 02/08/2017 BRITTANY, BOBAN N Ot Z51.11 ENCOUNTER FOR ANTINEOPLASTIC CHEMOTHERAP 02/08/2017 BRITTANY, BOBAN N Ot Z79.899 OTHER MID LEVEL PRACTITIONER (CURRENT) DRUG THERAPY 03/02/2017 BRITTANY, BOBAN N Ot C86.6 PRIMARY CUTANEOUS EM25-IYGUYJHC T-CELL P 03/02/2017 BRITTANY, BOBAN N Ot E03.9 HYPOTHYROIDISM, UNSPECIFIED 03/02/2017 BRITTANY, BOBAN N Ot F17.210 NICOTINE DEPENDENCE, CIGARETTES, UNCOMPL 03/02/2017 BRITTANY, BOBAN N Ot I10 ESSENTIAL (PRIMARY) HYPERTENSION 03/02/2017 BRITTANY, BOBAN N Ot J44.9 CHRONIC OBSTRUCTIVE PULMONARY DISEASE, U 03/02/2017 BRITTANY, BOBAN N Ot Z51.11 ENCOUNTER FOR ANTINEOPLASTIC CHEMOTHERAP 03/02/2017 BRITTANY, BOBAN N Ot Z79.899 OTHER MID LEVEL PRACTITIONER (CURRENT) DRUG THERAPY 04/05/2017 BRITTANY, BOBAN N Ot C86.6 PRIMARY CUTANEOUS KZ02-[id number] T-CELL P 04/05/2017 BRITTANY, BOBAN N Ot E03.9 HYPOTHYROIDISM, UNSPECIFIED 04/05/2017 BRITTANY, BOBAN N Ot F17.210 NICOTINE DEPENDENCE, CIGARETTES, UNCOMPL 04/05/2017 BRITTANY, BOBAN N Ot I10 ESSENTIAL (PRIMARY) HYPERTENSION 04/05/2017 BRITTANY, BOBAN N Ot J44.9 CHRONIC OBSTRUCTIVE PULMONARY DISEASE, U 04/05/2017 BRITTANY, BOBAN N Ot Z51.11 ENCOUNTER FOR ANTINEOPLASTIC CHEMOTHERAP 04/05/2017 BRITTANY, BOBAN N Ot Z79.899 OTHER MID LEVEL PRACTITIONER (CURRENT) DRUG THERAPY 04/19/2017 BRITTANY, BOBAN N Ot C86.6 PRIMARY CUTANEOUS XQ93-[id number] T-CELL P 04/19/2017 BRITTANY, BOBAN N Ot E03.9 HYPOTHYROIDISM, UNSPECIFIED 04/19/2017 BRITTANY, BOBAN N Ot F17.210 NICOTINE DEPENDENCE, CIGARETTES, UNCOMPL 04/19/2017 BRITTANY, BOBAN N Ot I10 ESSENTIAL (PRIMARY) HYPERTENSION 04/19/2017 BRITTANY, BOBAN N Ot J44.9 CHRONIC OBSTRUCTIVE PULMONARY DISEASE, U 04/19/2017 BRITTANY, BOBAN N Ot Z51.11 ENCOUNTER FOR ANTINEOPLASTIC CHEMOTHERAP 04/19/2017 BRITTANY, BOBAN N Ot Z79.899 OTHER SNF (CURRENT) DRUG THERAPY 04/25/2017 BRITATNY, BOBAN N Ot C86.6 PRIMARY CUTANEOUS ED34-KJRGUCZS T-CELL P 04/25/2017 BRITTANY, BOBAN N Ot E03.9 HYPOTHYROIDISM, UNSPECIFIED 04/25/2017 BRITTANY, BOBAN N Ot F17.210 NICOTINE DEPENDENCE, CIGARETTES, UNCOMPL 04/25/2017 BRITTANY, BOBAN N Ot I10 ESSENTIAL (PRIMARY) HYPERTENSION 04/25/2017 BRITTANY, BOBAN N Ot J44.9 CHRONIC OBSTRUCTIVE PULMONARY DISEASE, U 04/25/2017 BRITTANY, BOBAN N Ot Z51.11 ENCOUNTER FOR ANTINEOPLASTIC CHEMOTHERAP 04/25/2017 BRITTANY, BOBAN N Ot Z79.899 OTHER SNF (CURRENT) DRUG THERAPY 05/11/2017 BRITTANY, BOBAN N Ot C86.6 PRIMARY CUTANEOUS OO78-YZQAPHET T-CELL P 05/11/2017 BRITTANY, BOBAN N Ot E03.9 HYPOTHYROIDISM, UNSPECIFIED 05/11/2017 BRITTANY, BOBAN N Ot F17.210 NICOTINE DEPENDENCE, CIGARETTES, UNCOMPL 05/11/2017 BRITTANY, BOBAN N Ot I10 ESSENTIAL (PRIMARY) HYPERTENSION 05/11/2017 BRITTANY, MARY Zuñiga Ot J44.9 CHRONIC OBSTRUCTIVE PULMONARY DISEASE, U 05/11/2017 BRITTANY MARY Zuñiga Ot Z79.899 OTHER MID LEVEL PRACTITIONER (CURRENT) DRUG THERAPY 05/24/2017 MELY MENA DO Ot L08.9 LOCAL INFECTION OF THE SKIN AND SUBCUTAN 05/24/2017 MELY MENA DO Ot R22.41 LOCALIZED SWELLING, MASS AND LUMP, RIGHT 05/24/2017 MELY MENA DO Ana Ot K59.00 CONSTIPATION, UNSPECIFIED 05/24/2017 BRITTANY MARY Zuñiga Ot C84.A0 CUTANEOUS T-CELL LYMPHOMA, UNSPECIFIED, 05/24/2017 LAMONT SPENCE POLITICAL WORKER Ot C84.A0 CUTANEOUS T-CELL LYMPHOMA, UNSPECIFIED, 05/24/2017 LAMONT SPENCE POLITICAL WORKER Ot E03.9 HYPOTHYROIDISM, UNSPECIFIED 05/24/2017 LAMONT SPENCE POLITICAL WORKER Ot F17.210 NICOTINE DEPENDENCE, CIGARETTES, UNCOMPL 05/24/2017 LAMONT SPENCE POLITICAL WORKER Ot I10 ESSENTIAL (PRIMARY) HYPERTENSION 05/24/2017 LAMONT SPENCE POLITICAL WORKER Ot J44.9 CHRONIC OBSTRUCTIVE PULMONARY DISEASE, U 05/24/2017 LAMONT SPENCE POLITICAL WORKER Ot Z79.899 OTHER MID LEVEL PRACTITIONER (CURRENT) DRUG THERAPY 05/24/2017 BRITTANY MARY Zuñiga Ot R09.89 OTH SYMPTOMS AND SIGNS INVOLVING THE CIR 05/24/2017 MARY SOTO Ot C86.6 PRIMARY CUTANEOUS DN39-DRFAIQLP T-CELL P 05/24/2017 MARY SOTO Ot E03.9 HYPOTHYROIDISM, UNSPECIFIED 05/24/2017 MARY SOTO N Ot F17.210 NICOTINE DEPENDENCE, CIGARETTES, UNCOMPL 05/24/2017 MARY SOTO N Ot I10 ESSENTIAL (PRIMARY) HYPERTENSION 05/24/2017 MARY SOTO Ot J44.9 CHRONIC OBSTRUCTIVE PULMONARY DISEASE, U 05/24/2017 BRITTANY MARY N Ot Z79.899 OTHER MID LEVEL PRACTITIONER (CURRENT) DRUG THERAPY 05/30/2017 MARY SOTO Ot C86.6 PRIMARY CUTANEOUS VA36-ESFBJRPX T-CELL P 05/30/2017 MARY SOTO N Ot E03.9 HYPOTHYROIDISM, UNSPECIFIED 05/30/2017 BRITTANYENRIQUEAN N Ot F17.210 NICOTINE DEPENDENCE, CIGARETTES, UNCOMPL 05/30/2017 BRITTANYENRIQUEAN N Ot I10 ESSENTIAL (PRIMARY) HYPERTENSION 05/30/2017 BRITTANYENRIQUE VILLEDAAN N Ot J44.9 CHRONIC OBSTRUCTIVE PULMONARY DISEASE, U 05/30/2017 BRITTANYMARY VILLEDA N Ot Z79.899 OTHER SNF (CURRENT) DRUG THERAPY 06/01/2017 SPENCELAMONT S POLITICAL WORKER Ot 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, EXTRANODAL AND SOLID 06/01/2017 SPENCELAMONT S POLITICAL WORKER Ot C86.6 PRIMARY CUTANEOUS OG15-JNQTINYO T-CELL P 06/01/2017 LAMONT SPENCE S POLITICAL WORKER Ot E27.9 DISORDER OF ADRENAL GLAND, UNSPECIFIED 06/01/2017 LAMONT SPENCE S POLITICAL WORKER Ot J32.8 OTHER CHRONIC SINUSITIS 06/01/2017 LAMONT SPENCE S POLITICAL WORKER Ot N28.1 CYST OF KIDNEY, ACQUIRED 06/04/2017 BRITTANY BOBAN N Ot C86.6 PRIMARY CUTANEOUS EF13-IGJBPEGR T-CELL P 06/04/2017 MARY SOTO N Ot E03.9 HYPOTHYROIDISM, UNSPECIFIED 06/04/2017 BRITTANY BOBAN N Ot F17.210 NICOTINE DEPENDENCE, CIGARETTES, UNCOMPL 06/04/2017 BRITTANY BOBTHA N Ot I10 ESSENTIAL (PRIMARY) HYPERTENSION 06/04/2017 BRITTANYMARY VILLEDA N Ot J44.9 CHRONIC OBSTRUCTIVE PULMONARY DISEASE, U 06/04/2017 MARY SOTO N Ot Z79.899 OTHER SNF (CURRENT) DRUG THERAPY 06/16/2017 BRITTANY BOBAN N Ot 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, EXTRANODAL AND SOLID 06/16/2017 BRITTANY BOBAN N Ot C86.6 PRIMARY CUTANEOUS GW10-MPMEFXZV T-CELL P 06/16/2017 BRITTANYENRIQUEAN N Ot E03.9 HYPOTHYROIDISM, UNSPECIFIED 06/16/2017 BRITTANY BOBAN N Ot E27.9 DISORDER OF ADRENAL GLAND, UNSPECIFIED 06/16/2017 BRITTANY BOBAN N Ot F17.210 NICOTINE DEPENDENCE, CIGARETTES, UNCOMPL 06/16/2017 BRITTANY BOBAN N Ot I10 ESSENTIAL (PRIMARY) HYPERTENSION 06/16/2017 BRITTANY, BOBAN N Ot J32.8 OTHER CHRONIC SINUSITIS 06/16/2017 BRITTANYMARY VILLEDA Zara Ot J44.9 CHRONIC OBSTRUCTIVE PULMONARY DISEASE, U 06/16/2017 MARY SOTO Zara Ot N28.1 CYST OF KIDNEY, ACQUIRED 06/16/2017 MARY SOTO Zara Ot Z79.899 OTHER SNF (CURRENT) DRUG THERAPY 06/16/2017 LAMONT SPENCE S POLITICAL WORKER Ot 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, EXTRANODAL AND SOLID 06/16/2017 LAMONT SPENCE S POLITICAL WORKER Ot C86.6 PRIMARY CUTANEOUS CA30-ZDCUVIFH T-CELL P 06/16/2017 LAMONT SPENCE S POLITICAL WORKER Ot E27.9 DISORDER OF ADRENAL GLAND, UNSPECIFIED 06/16/2017 LAMONT SPENCE S POLITICAL WORKER Ot J32.8 OTHER CHRONIC SINUSITIS 06/16/2017 SPENCELAMONT S POLITICAL WORKER Ot N28.1 CYST OF KIDNEY, ACQUIRED 06/27/2017 LAMONT SPENCE S POLITICAL WORKER Ot 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, EXTRANODAL AND SOLID 06/27/2017 LAMONT SPENCE S POLITICAL WORKER Ot C86.6 PRIMARY CUTANEOUS KH11-RYHDLAEP T-CELL P 06/27/2017 LAMONT SPENCE S POLITICAL WORKER Ot E27.9 DISORDER OF ADRENAL GLAND, UNSPECIFIED 06/27/2017 LAMONT SPENCE S POLITICAL WORKER Ot J32.8 OTHER CHRONIC SINUSITIS 06/27/2017 JL SPENCESHANDRA S POLITICAL WORKER Ot N28.1 CYST OF KIDNEY, ACQUIRED 07/27/2017 BRITTANY, ENRIQUETHA Zara Ot 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, EXTRANODAL AND SOLID 07/27/2017 BRITTANY ENRIQUETHA Zara Ot C86.6 PRIMARY CUTANEOUS LZ54-NOGBINQN T-CELL P 07/27/2017 BRITTANY, ENRIQUETHA Zara Ot E03.9 HYPOTHYROIDISM, UNSPECIFIED 07/27/2017 MARY SOTO Ot E27.9 DISORDER OF ADRENAL GLAND, UNSPECIFIED 07/27/2017 BRITTANYMARY Ot F17.210 NICOTINE DEPENDENCE, CIGARETTES, UNCOMPL 07/27/2017 MARY SOTO Ot I10 ESSENTIAL (PRIMARY) HYPERTENSION 07/27/2017 MARY SOTO Ot J32.8 OTHER CHRONIC SINUSITIS 07/27/2017 MARY SOTO Ot J44.9 CHRONIC OBSTRUCTIVE PULMONARY DISEASE, U 07/27/2017 MARY SOTO Ot N28.1 CYST OF KIDNEY, ACQUIRED 07/27/2017 MARY SOTO Zara Ot Z79.899 OTHER MID LEVEL PRACTITIONER (CURRENT) DRUG THERAPY 08/01/2017 NENA CANCINO MD Ot 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, EXTRANODAL AND SOLID 08/01/2017 NENA CANCINO MD Ot C86.6 PRIMARY CUTANEOUS GR94-SVFUVDRJ T-CELL P 08/01/2017 NENA CANCINO MD Ot E03.9 HYPOTHYROIDISM, UNSPECIFIED 08/01/2017 NENA CANCINO MD Ot E27.9 DISORDER OF ADRENAL GLAND, UNSPECIFIED 08/01/2017 NENA CANCINO MD Ot F17.210 NICOTINE DEPENDENCE, CIGARETTES, UNCOMPL 08/01/2017 NENA CANCINO MD Ot I10 ESSENTIAL (PRIMARY) HYPERTENSION 08/01/2017 NENA CANCINO MD Ot J44.9 CHRONIC OBSTRUCTIVE PULMONARY DISEASE, U 08/01/2017 NENA CANCINO MD Ot Z79.899 OTHER MID LEVEL PRACTITIONER (CURRENT) DRUG THERAPY 08/17/2017 NENA CANCINO MD Ot 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, EXTRANODAL AND SOLID 08/17/2017 NENA CANCINO MD Ot C86.6 PRIMARY CUTANEOUS AG14-RGDQHQYV T-CELL P 08/17/2017 NENA CANCINO MD Ot E03.9 HYPOTHYROIDISM, UNSPECIFIED 08/17/2017 NENA CANCINO MD Ot E27.9 DISORDER OF ADRENAL GLAND, UNSPECIFIED 08/17/2017 NENA CANCINO MD Ot F17.210 NICOTINE DEPENDENCE, CIGARETTES, UNCOMPL 08/17/2017 NENA CANCINO MD Ot I10 ESSENTIAL (PRIMARY) HYPERTENSION 08/17/2017 NENA CANCINO MD Ot J44.9 CHRONIC OBSTRUCTIVE PULMONARY DISEASE, U 08/17/2017 NENA CANCINO MD Ot Z79.899 OTHER SNF (CURRENT) DRUG THERAPY 09/06/2017 NENA CANCINO MD Ot 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, EXTRANODAL AND SOLID 09/06/2017 NENA CANCINO MD Ot C86.6 PRIMARY CUTANEOUS RN02-PIQMXLGE T-CELL P 09/06/2017 NENA CANCINO MD Ot E03.9 HYPOTHYROIDISM, UNSPECIFIED 09/06/2017 NENA CANCINO MD Ot E27.9 DISORDER OF ADRENAL GLAND, UNSPECIFIED 09/06/2017 JULITA LYON, NENA Ot F17.210 NICOTINE DEPENDENCE, CIGARETTES, UNCOMPL 09/06/2017 NENA CANCINO MD Ot I10 ESSENTIAL (PRIMARY) HYPERTENSION 09/06/2017 JULITA LYON, NENA Ot J44.9 CHRONIC OBSTRUCTIVE PULMONARY DISEASE, U 09/06/2017 JULITA LYON, NENA Ot Z51.11 ENCOUNTER FOR ANTINEOPLASTIC CHEMOTHERAP 09/06/2017 NENA CANCINO MD Ot Z79.899 OTHER MID LEVEL PRACTITIONER (CURRENT) DRUG THERAPY 09/08/2017 BRITTANY, BOBAN N Ot 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, EXTRANODAL AND SOLID 09/08/2017 BRITTANY, BOBAN N Ot C86.6 PRIMARY CUTANEOUS CX93-OMLKRESY T-CELL P 09/08/2017 BRITTANY, BOBAN N Ot E03.9 HYPOTHYROIDISM, UNSPECIFIED 09/08/2017 BRITTANY, BOBAN N Ot E27.9 DISORDER OF ADRENAL GLAND, UNSPECIFIED 09/08/2017 BRITTANY, BOBAN N Ot F17.210 NICOTINE DEPENDENCE, CIGARETTES, UNCOMPL 09/08/2017 BRITTANY, BOBAN N Ot I10 ESSENTIAL (PRIMARY) HYPERTENSION 09/08/2017 BRITTANY, BOBAN N Ot J44.9 CHRONIC OBSTRUCTIVE PULMONARY DISEASE, U 09/08/2017 BRITTANY, BOBAN N Ot Z79.899 OTHER MID LEVEL PRACTITIONER (CURRENT) DRUG THERAPY 10/03/2017 BRITTANY, BOBAN N Ot 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, EXTRANODAL AND SOLID 10/03/2017 BRITTANY, BOBAN N Ot C86.6 PRIMARY CUTANEOUS QP09-JCUMGCEP T-CELL P 10/03/2017 BRITTANY, BOBAN N Ot E03.9 HYPOTHYROIDISM, UNSPECIFIED 10/03/2017 BRITTANY, BOBAN N Ot E27.9 DISORDER OF ADRENAL GLAND, UNSPECIFIED 10/03/2017 BRITTANY, BOBAN N Ot F17.210 NICOTINE DEPENDENCE, CIGARETTES, UNCOMPL 10/03/2017 BRITTANY, BOBAN N Ot I10 ESSENTIAL (PRIMARY) HYPERTENSION 10/03/2017 BRITTANY, BOBAN N Ot J44.9 CHRONIC OBSTRUCTIVE PULMONARY DISEASE, U 10/03/2017 BRITTANY, BOBAN N Ot Z79.899 OTHER SNF (CURRENT) DRUG THERAPY 10/10/2017 BRITTANY, BOBAN N Ot 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, EXTRANODAL AND SOLID 10/10/2017 BRITTANY, BOBAN N Ot C86.6 PRIMARY CUTANEOUS TZ59-DBXOMOGB T-CELL P 10/10/2017 BRITTANY, BOBAN N Ot E03.9 HYPOTHYROIDISM, UNSPECIFIED 10/10/2017 BRITTANY, BOBAN N Ot E27.9 DISORDER OF ADRENAL GLAND, UNSPECIFIED 10/10/2017 BRITTANY, BOBAN N Ot F17.210 NICOTINE DEPENDENCE, CIGARETTES, UNCOMPL 10/10/2017 BRITTANY, BOBAN N Ot I10 ESSENTIAL (PRIMARY) HYPERTENSION 10/10/2017 BRITTANY, BOBAN N Ot J44.9 CHRONIC OBSTRUCTIVE PULMONARY DISEASE, U 10/10/2017 BRITTANY, BOBAN N Ot Z79.899 OTHER MID LEVEL PRACTITIONER (CURRENT) DRUG THERAPY 10/28/2017 BRITTANY, BOBAN N Ot 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, EXTRANODAL AND SOLID 10/28/2017 BRITTANY, BOBAN N Ot C86.6 PRIMARY CUTANEOUS QM41-ENONNIDE T-CELL P 10/28/2017 BRITTANY, BOBAN N Ot E03.9 HYPOTHYROIDISM, UNSPECIFIED 10/28/2017 BRITTANY, BOBAN N Ot E27.9 DISORDER OF ADRENAL GLAND, UNSPECIFIED 10/28/2017 BRITTANY, BOBAN N Ot F17.210 NICOTINE DEPENDENCE, CIGARETTES, UNCOMPL 10/28/2017 BRITTANY, BOBAN N Ot I10 ESSENTIAL (PRIMARY) HYPERTENSION 10/28/2017 BRITTANY, BOBAN N Ot J44.9 CHRONIC OBSTRUCTIVE PULMONARY DISEASE, U 10/28/2017 BRITTANY, BOBAN N Ot Z79.899 OTHER SNF (CURRENT) DRUG THERAPY 11/09/2017 BRITTANY, BOBAN N Ot 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, EXTRANODAL AND SOLID 11/09/2017 BRITTANY, BOBAN N Ot C86.6 PRIMARY CUTANEOUS NI74-RSITCIEK T-CELL P 11/09/2017 BRITTANY, BOBAN N Ot E03.9 HYPOTHYROIDISM, UNSPECIFIED 11/09/2017 BRITTANY, BOBAN N Ot E27.9 DISORDER OF ADRENAL GLAND, UNSPECIFIED 11/09/2017 BRITTANY, BOBAN N Ot F17.210 NICOTINE DEPENDENCE, CIGARETTES, UNCOMPL 11/09/2017 BRITTANY, BOBAN N Ot I10 ESSENTIAL (PRIMARY) HYPERTENSION 11/09/2017 BRITTANY, BOBAN N Ot J44.9 CHRONIC OBSTRUCTIVE PULMONARY DISEASE, U 11/09/2017 BRITTANY, BOBAN N Ot Z79.899 OTHER MID LEVEL PRACTITIONER (CURRENT) DRUG THERAPY 11/10/2017 BRITTANY, BOBAN N Ot 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, EXTRANODAL AND SOLID 11/10/2017 BRITTANY, BOBAN N Ot C86.6 PRIMARY CUTANEOUS OR85-YUURNJTL T-CELL P 11/10/2017 BRITTANY, BOBAN N Ot E03.9 HYPOTHYROIDISM, UNSPECIFIED 11/10/2017 BRITTANY, BOBAN N Ot E27.9 DISORDER OF ADRENAL GLAND, UNSPECIFIED 11/10/2017 BRITTANY, BOBAN N Ot F17.210 NICOTINE DEPENDENCE, CIGARETTES, UNCOMPL 11/10/2017 BRITTANY, BOBAN N Ot I10 ESSENTIAL (PRIMARY) HYPERTENSION 11/10/2017 BRITTANY, BOBAN N Ot J44.9 CHRONIC OBSTRUCTIVE PULMONARY DISEASE, U 11/10/2017 BRITTANY, BOBAN N Ot Z79.899 OTHER MID LEVEL PRACTITIONER (CURRENT) DRUG THERAPY 11/30/2017 BRITTANY, BOBAN N Ot 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, EXTRANODAL AND SOLID 11/30/2017 BRITTANY, BOBAN N Ot C86.6 PRIMARY CUTANEOUS FL03-BINADXVS T-CELL P 11/30/2017 BRITTANY, BOBAN N Ot E03.9 HYPOTHYROIDISM, UNSPECIFIED 11/30/2017 BRITTANY, BOBAN N Ot E27.9 DISORDER OF ADRENAL GLAND, UNSPECIFIED 11/30/2017 BRITTANY, BOBAN N Ot F17.210 NICOTINE DEPENDENCE, CIGARETTES, UNCOMPL 11/30/2017 BRITTANY, BOBAN N Ot I10 ESSENTIAL (PRIMARY) HYPERTENSION 11/30/2017 BRITTANY, BOBAN N Ot J44.9 CHRONIC OBSTRUCTIVE PULMONARY DISEASE, U 11/30/2017 BRITTANY, BOBAN N Ot Z79.899 OTHER MID LEVEL PRACTITIONER (CURRENT) DRUG THERAPY 12/06/2017 BRITTANY, BOBAN N Ot 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, EXTRANODAL AND SOLID 12/06/2017 BRITTANY, BOBAN N Ot C86.6 PRIMARY CUTANEOUS EO88-VSUNVMHT T-CELL P 12/06/2017 BRITTANY, BOBAN N Ot [...] 12/06/2017 BRITTANY, BOBAN N Ot Z79.899 OTHER MID LEVEL PRACTITIONER (CURRENT) DRUG THERAPY 12/07/2017 BRITTANY, BOBAN N Ot 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, EXTRANODAL AND SOLID 12/07/2017 BRITTANY, BOBAN N Ot C86.6 PRIMARY CUTANEOUS CU30-NOAORWQA T-CELL P 12/07/2017 BRITTANY, BOBAN N Ot [...] 12/07/2017 BRITTANY, BOBAN N Ot Z79.899 OTHER MID LEVEL PRACTITIONER (CURRENT) DRUG THERAPY 12/13/2017 BRITTANY, BOBAN N Ot 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, EXTRANODAL AND SOLID 12/13/2017 BRITTANY, BOBAN N Ot C86.6 PRIMARY CUTANEOUS HS56-IKELASYO T-CELL P 12/13/2017 BRITTANY, BOBAN N Ot E03.9 HYPOTHYROIDISM, UNSPECIFIED 12/13/2017 BRITTANY, BOBAN N Ot E27.9 DISORDER OF ADRENAL GLAND, UNSPECIFIED 12/13/2017 BRITTANY, BOBAN N Ot F17.210 NICOTINE DEPENDENCE, CIGARETTES, UNCOMPL 12/13/2017 BRITTANY, BOBAN N Ot I10 ESSENTIAL (PRIMARY) HYPERTENSION 12/13/2017 BRITTANY, BOBAN N Ot J44.9 CHRONIC OBSTRUCTIVE PULMONARY DISEASE, U 12/13/2017 BRITTANY, BOBAN N Ot Z51.11 ENCOUNTER FOR ANTINEOPLASTIC CHEMOTHERAP 12/13/2017 MARY SOTO N Ot Z79.899 OTHER MID LEVEL PRACTITIONER (CURRENT) DRUG THERAPY 12/19/2017 MARY SOTO N Ot 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, EXTRANODAL AND SOLID 12/19/2017 BRITTANY BOBTHA N Ot C86.6 PRIMARY CUTANEOUS NX41-NMELZSNF T-CELL P 12/19/2017 BRITTANYMARY VILLEDA N Ot E03.9 HYPOTHYROIDISM, UNSPECIFIED 12/19/2017 BRITTANY BOBTHA N Ot E27.9 DISORDER OF ADRENAL GLAND, UNSPECIFIED 12/19/2017 BRITTANYMARY N Ot F17.210 NICOTINE DEPENDENCE, CIGARETTES, UNCOMPL 12/19/2017 BRITTANYMARY N Ot I10 ESSENTIAL (PRIMARY) HYPERTENSION 12/19/2017 BRITTANYMARY N Ot J44.9 CHRONIC OBSTRUCTIVE PULMONARY DISEASE, U 12/19/2017 BRITTANYMARY N Ot Z79.899 OTHER MID LEVEL PRACTITIONER (CURRENT) DRUG THERAPY 12/21/2017 BRITTANY BOBTHA N Ot 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, EXTRANODAL AND SOLID 12/21/2017 BRITTANYMARY N Ot C86.6 PRIMARY CUTANEOUS UW11-VUSSAXTX T-CELL P 12/21/2017 BRITTANYMARY N Ot E03.9 HYPOTHYROIDISM, UNSPECIFIED 12/21/2017 BRITTANYMARY N Ot E27.9 DISORDER OF ADRENAL GLAND, UNSPECIFIED 12/21/2017 BRITTANYMARY N Ot F17.210 NICOTINE DEPENDENCE, CIGARETTES, UNCOMPL 12/21/2017 BRITTNAYMARY N Ot I10 ESSENTIAL (PRIMARY) HYPERTENSION 12/21/2017 BRITTANYMARY N Ot J44.9 CHRONIC OBSTRUCTIVE PULMONARY DISEASE, U 12/21/2017 BRITTANYMARY N Ot Z79.899 OTHER SNF (CURRENT) DRUG THERAPY 12/22/2017 BRITTANYMARY N Ot 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, EXTRANODAL AND SOLID 12/22/2017 BRITTANY, BOBAN N Ot C86.6 PRIMARY CUTANEOUS LW31-WDSXLVZW T-CELL P 12/22/2017 BRITTANYMARY N Ot E03.9 HYPOTHYROIDISM, UNSPECIFIED 12/22/2017 BRITTANY BOBAN N Ot E27.9 DISORDER OF ADRENAL GLAND, UNSPECIFIED 12/22/2017 MARY SOTO Ot F17.210 NICOTINE DEPENDENCE, CIGARETTES, UNCOMPL 12/22/2017 MARY SOTO Ot I10 ESSENTIAL (PRIMARY) HYPERTENSION 12/22/2017 MARY SOTO Ot J44.9 CHRONIC OBSTRUCTIVE PULMONARY DISEASE, U 12/22/2017 MARY SOTO Ot Z79.899 OTHER MID LEVEL PRACTITIONER (CURRENT) DRUG THERAPY 01/16/2018 Ot V72.84 EXAM PRE- OPERATIVE NOS 01/16/2018 GELLENDER DO, MELY A Ot L08.9 LOCAL INFECTION OF THE SKIN AND SUBCUTAN 01/16/2018 GELLENDER DO, MELY Ana Ot R22.41 LOCALIZED SWELLING, MASS AND LUMP, RIGHT 01/16/2018 TRINA DO MELY Perez Ot K59.00 CONSTIPATION, UNSPECIFIED 01/16/2018 MARY SOTO Ot C84.A0 CUTANEOUS T-CELL LYMPHOMA, UNSPECIFIED, 01/16/2018 LAMONT SPENCEP Ot C84.A0 CUTANEOUS T-CELL LYMPHOMA, UNSPECIFIED, 01/16/2018 LAMONT SPENCE POLITICAL WORKER Ot E03.9 HYPOTHYROIDISM, UNSPECIFIED 01/16/2018 LAMONT SPENCE POLITICAL WORKER Ot F17.210 NICOTINE DEPENDENCE, CIGARETTES, UNCOMPL 01/16/2018 LAMONT SPENCE POLITICAL WORKER Ot I10 ESSENTIAL (PRIMARY) HYPERTENSION 01/16/2018 LAMONT SPENCE POLITICAL WORKER Ot J44.9 CHRONIC OBSTRUCTIVE PULMONARY DISEASE, U 01/16/2018 LAMONT SPENCE POLITICAL WORKER Ot Z79.899 OTHER MID LEVEL PRACTITIONER (CURRENT) DRUG THERAPY 01/16/2018 MARY SOTO Ot R09.89 OTH SYMPTOMS AND SIGNS INVOLVING THE CIR 01/16/2018 LAMONT SPENCE POLITICAL WORKER Ot 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, EXTRANODAL AND SOLID 01/16/2018 LAMONT SPENCE POLITICAL WORKER Ot C86.6 PRIMARY CUTANEOUS JC76-YXOJJQSC T-CELL P 01/16/2018 LAMONT SPENCE POLITICAL WORKER Ot E27.9 DISORDER OF ADRENAL GLAND, UNSPECIFIED 01/16/2018 LAMONT SPENCE POLITICAL WORKER Ot J32.8 OTHER CHRONIC SINUSITIS 01/16/2018 LAMONT SPENCE POLITICAL WORKER Ot N28.1 CYST OF KIDNEY, ACQUIRED 01/16/2018 BRITTANYMARY VILLEDA N Ot 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, EXTRANODAL AND SOLID 01/16/2018 MARY SOTO N Ot C86.6 PRIMARY CUTANEOUS AD72-TIELCMKM T-CELL P 01/16/2018 MARY SOTO N Ot E03.9 HYPOTHYROIDISM, UNSPECIFIED 01/16/2018 BRITTANYMARY VILLEDA N Ot E27.9 DISORDER OF ADRENAL GLAND, UNSPECIFIED 01/16/2018 MARY SOTO N Ot F17.210 NICOTINE DEPENDENCE, CIGARETTES, UNCOMPL 01/16/2018 MARY SOTO N Ot I10 ESSENTIAL (PRIMARY) HYPERTENSION 01/16/2018 BRITTANYMARY VILLEDA N Ot J44.9 CHRONIC OBSTRUCTIVE PULMONARY DISEASE, U 01/16/2018 MARY SOTO N Ot Z51.11 ENCOUNTER FOR ANTINEOPLASTIC CHEMOTHERAP 01/16/2018 MARY SOTO N Ot Z79.899 OTHER SNF (CURRENT) DRUG THERAPY 01/19/2018 LAMONT SPENCE POLITICAL WORKER Ot 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, EXTRANODAL AND SOLID 01/19/2018 LAMONT SPENCE POLITICAL WORKER Ot C86.6 PRIMARY CUTANEOUS WE41-IYKWIADS T-CELL P 01/24/2018 BRITTANYMARY N Ot 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, EXTRANODAL AND SOLID 01/24/2018 MARY SOTO N Ot C86.6 PRIMARY CUTANEOUS QH52-OALGHAAU T-CELL P 01/24/2018 MARY SOTO N Ot E03.9 HYPOTHYROIDISM, UNSPECIFIED 01/24/2018 MARY SOTO N Ot E27.9 DISORDER OF ADRENAL GLAND, UNSPECIFIED 01/24/2018 MARY SOTO N Ot F17.210 NICOTINE DEPENDENCE, CIGARETTES, UNCOMPL 01/24/2018 MARY SOTO N Ot I10 ESSENTIAL (PRIMARY) HYPERTENSION 01/24/2018 MARY SOTO N Ot J44.9 CHRONIC OBSTRUCTIVE PULMONARY DISEASE, U 01/24/2018 MARY SOTO N Ot Z51.11 ENCOUNTER FOR ANTINEOPLASTIC CHEMOTHERAP 01/24/2018 MARY SOTO N Ot Z79.899 OTHER MID LEVEL PRACTITIONER (CURRENT) DRUG THERAPY 02/07/2018 LAMONT SPENCE POLITICAL WORKER Ot 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, EXTRANODAL AND SOLID 02/07/2018 LAMONT SPENCE POLITICAL WORKER Ot C86.6 PRIMARY CUTANEOUS ZT59-EPRTNCGJ T-CELL P 02/15/2018 BRITTANY, BOBAN N Ot 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, EXTRANODAL AND SOLID 02/15/2018 BRITTANY, BOBAN N Ot C86.6 PRIMARY CUTANEOUS LE51-YVWWTAMU T-CELL P 02/15/2018 BRITTANY, MARY N Ot E03.9 HYPOTHYROIDISM, UNSPECIFIED 02/15/2018 BRITTANY, BOBAN N Ot E27.9 DISORDER OF ADRENAL GLAND, UNSPECIFIED 02/15/2018 BRITTANY BOBAN N Ot F17.210 NICOTINE DEPENDENCE, CIGARETTES, UNCOMPL 02/15/2018 BRITTANY BOBAN N Ot I10 ESSENTIAL (PRIMARY) HYPERTENSION 02/15/2018 BRITTANY BOBTHA N Ot J44.9 CHRONIC OBSTRUCTIVE PULMONARY DISEASE, U 02/15/2018 BRITTANY BOBAN N Ot Z51.11 ENCOUNTER FOR ANTINEOPLASTIC CHEMOTHERAP 02/15/2018 BRITTANY ENRIQUETHA N Ot Z79.899 OTHER SNF (CURRENT) DRUG THERAPY 02/21/2018 LAMONT SPENCE POLITICAL WORKER Ot 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, EXTRANODAL AND SOLID 02/21/2018 LAMONT SPENCE POLITICAL WORKER Ot C86.6 PRIMARY CUTANEOUS SU01-NWVTQCGF T-CELL P 03/21/2018 BRITTANY, BOBAN N Ot 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, EXTRANODAL AND SOLID 03/21/2018 BRITTANY, BOBAN N Ot C86.6 PRIMARY CUTANEOUS QW33-NVNMZCSJ T-CELL P 03/21/2018 BRITTANY MARY N Ot E03.9 HYPOTHYROIDISM, UNSPECIFIED 03/21/2018 BRITTANY, MARY N Ot E27.9 DISORDER OF ADRENAL GLAND, UNSPECIFIED 03/21/2018 BRITTANYMARY N Ot F17.210 NICOTINE DEPENDENCE, CIGARETTES, UNCOMPL 03/21/2018 BRITTANY BOBAN N Ot I10 ESSENTIAL (PRIMARY) HYPERTENSION 03/21/2018 BRITTANY BOBAN N Ot J44.9 CHRONIC OBSTRUCTIVE PULMONARY DISEASE, U 03/21/2018 BRITTANY, BOBAN N Ot Z51.11 ENCOUNTER FOR ANTINEOPLASTIC CHEMOTHERAP 03/21/2018 BRITTANY BOBAN N Ot Z79.899 OTHER MID LEVEL PRACTITIONER (CURRENT) DRUG THERAPY 03/22/2018 BRITTANY, BOBAN N Ot 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, EXTRANODAL AND SOLID 03/22/2018 BRITTANY, BOBAN N Ot C86.6 PRIMARY CUTANEOUS GH56-JTVUSUVQ T-CELL P 03/22/2018 BRITTANY, BOBAN N Ot E03.9 HYPOTHYROIDISM, UNSPECIFIED 03/22/2018 BRITTANY, BOBAN N Ot E27.9 DISORDER OF ADRENAL GLAND, UNSPECIFIED 03/22/2018 BRITTANY, BOBAN N Ot F17.210 NICOTINE DEPENDENCE, CIGARETTES, UNCOMPL 03/22/2018 BRITTANY, BOBAN N Ot I10 ESSENTIAL (PRIMARY) HYPERTENSION 03/22/2018 BRITTANY, BOBAN N Ot J44.9 CHRONIC OBSTRUCTIVE PULMONARY DISEASE, U 03/22/2018 BRITTANY, BOBAN N Ot Z51.11 ENCOUNTER FOR ANTINEOPLASTIC CHEMOTHERAP 03/22/2018 BRITTANY, BOBAN N Ot Z79.899 OTHER SNF (CURRENT) DRUG THERAPY 05/17/2018 SHELBY LYON, GINGER Portillo Ot Z01.818 ENCOUNTER FOR OTHER PREPROCEDURAL EXAMIN 05/17/2018 BRITTANY, BOBAN N Ot 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, EXTRANODAL AND SOLID 05/17/2018 BRITTANY, BOBAN N Ot C86.6 PRIMARY CUTANEOUS JD19-VZCTHXQG T-CELL P 05/17/2018 BRITTANY, BOBAN N Ot E03.9 HYPOTHYROIDISM, UNSPECIFIED 05/17/2018 BRITTANY, BOBAN N Ot E27.9 DISORDER OF ADRENAL GLAND, UNSPECIFIED 05/17/2018 BRITTANY, BOBAN N Ot F17.210 NICOTINE DEPENDENCE, CIGARETTES, UNCOMPL 05/17/2018 BRITTANY, BOBAN N Ot I10 ESSENTIAL (PRIMARY) HYPERTENSION 05/17/2018 BRITTANY, BOBAN N Ot J44.9 CHRONIC OBSTRUCTIVE PULMONARY DISEASE, U 05/17/2018 BRITTANY, BOBAN N Ot Z79.899 OTHER MID LEVEL PRACTITIONER (CURRENT) DRUG THERAPY 05/18/2018 SHELBY LYON, GINGER Portillo Ot 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, EXTRANODAL AND SOLID 05/18/2018 SHELBY LYON, GINGER Portillo Ot E66.9 OBESITY, UNSPECIFIED 05/18/2018 SHELBY LYON, GINGER Portillo Ot F20.9 SCHIZOPHRENIA, UNSPECIFIED 05/18/2018 SHELBY LYON, GINGER Portillo Ot F31.9 BIPOLAR DISORDER, UNSPECIFIED 05/18/2018 SHELBY LYON, GINGER Portillo Ot F41.9 ANXIETY DISORDER, UNSPECIFIED 05/18/2018 SHELBY LYON, GINGER Portillo Ot I10 ESSENTIAL (PRIMARY) HYPERTENSION 05/18/2018 SHELBY LYON, GINGER Portillo Ot J45.909 UNSPECIFIED ASTHMA, UNCOMPLICATED 05/18/2018 SHELBY LYON, GINGER Portillo Ot Z68.35 BODY MASS INDEX (BMI) 35.0-35.9, ADULT 05/18/2018 GINGER RYAN MD Ot Z72.0 TOBACCO USE 05/18/2018 GINGER RYAN MD Ot Z79.899 OTHER SNF (CURRENT) DRUG THERAPY 05/23/2018 GINGER RYAN MD Ot Z01.818 ENCOUNTER FOR OTHER PREPROCEDURAL EXAMIN 05/23/2018 SHELBY LYON, GINGER Portillo Ot 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, EXTRANODAL AND SOLID 05/23/2018 SHELBY LYON, GINGER Portillo Ot E66.9 OBESITY, UNSPECIFIED 05/23/2018 SHELBY LYON, GINGER Portillo Ot F20.9 SCHIZOPHRENIA, UNSPECIFIED 05/23/2018 SHELBY LYON, GINGER Portillo Ot F31.9 BIPOLAR DISORDER, UNSPECIFIED 05/23/2018 SHELBY LYON, GINGER Portillo Ot F41.9 ANXIETY DISORDER, UNSPECIFIED 05/23/2018 SHELBY LYON, GINGER Portillo Ot I10 ESSENTIAL (PRIMARY) HYPERTENSION 05/23/2018 SHELBY LYON, GINGER Portillo Ot J45.909 UNSPECIFIED ASTHMA, UNCOMPLICATED 05/23/2018 SHELBY LYON, GINGER Portillo Ot Z68.35 BODY MASS INDEX (BMI) 35.0-35.9, ADULT 05/23/2018 GINGER RYAN MD Ot Z72.0 TOBACCO USE 05/23/2018 SHELBY LYON, GINGER Portillo Ot Z79.899 OTHER MID LEVEL PRACTITIONER (CURRENT) DRUG THERAPY 05/24/2018 MARY SOTO N Ot 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, EXTRANODAL AND SOLID 05/24/2018 MARY SOTO N Ot C86.6 PRIMARY CUTANEOUS QW21-MYTMFISM T-CELL P 05/24/2018 MARY SOTO Ot E03.9 HYPOTHYROIDISM, UNSPECIFIED 05/24/2018 BRITTANY, BOBAN N Ot E27.9 DISORDER OF ADRENAL GLAND, UNSPECIFIED 05/24/2018 BRITTANY, ENRIQUEAN N Ot F17.210 NICOTINE DEPENDENCE, CIGARETTES, UNCOMPL 05/24/2018 BRITTANY BOBAN N Ot I10 ESSENTIAL (PRIMARY) HYPERTENSION 05/24/2018 BRITTANY BOBAN N Ot J44.9 CHRONIC OBSTRUCTIVE PULMONARY DISEASE, U 05/24/2018 BRITTANYENRIQUEAN N Ot Z79.899 OTHER SNF (CURRENT) DRUG THERAPY 05/24/2018 SHELBY LYON, GINGER M Ot 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, EXTRANODAL AND SOLID 05/24/2018 SHELBY LYON, GINGER M Ot E66.9 OBESITY, UNSPECIFIED 05/24/2018 SHELBY LYON, GINGER M Ot F20.9 SCHIZOPHRENIA, UNSPECIFIED 05/24/2018 SHELBY LYON, GINGER M Ot F31.9 BIPOLAR DISORDER, UNSPECIFIED 05/24/2018 SHELBY LYON, GINGER M Ot F41.9 ANXIETY DISORDER, UNSPECIFIED 05/24/2018 SHELBY LYON, GINGER M Ot I10 ESSENTIAL (PRIMARY) HYPERTENSION 05/24/2018 SHELBY LYON, GINGER M Ot J45.909 UNSPECIFIED ASTHMA, UNCOMPLICATED 05/24/2018 SHELBY LYON, GINGER M Ot Z68.35 BODY MASS INDEX (BMI) 35.0-35.9, ADULT 05/24/2018 SHELBY LYON, GINGER M Ot Z72.0 TOBACCO USE 05/24/2018 SHELBY LYON, GINGER M Ot Z79.899 OTHER MID LEVEL PRACTITIONER (CURRENT) DRUG THERAPY 06/05/2018 MARY SOTO N Ot 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, EXTRANODAL AND SOLID 06/05/2018 BRITTANY BOBAN N Ot C86.6 PRIMARY CUTANEOUS WN77-VQPKUBBN T-CELL P 06/05/2018 BRITTANY, BOBAN N Ot E03.9 HYPOTHYROIDISM, UNSPECIFIED 06/05/2018 BRITTANY BOBTHA N Ot E27.9 DISORDER OF ADRENAL GLAND, UNSPECIFIED 06/05/2018 BRITTANY BOBAN N Ot F17.210 NICOTINE DEPENDENCE, CIGARETTES, UNCOMPL 06/05/2018 BRITTANY BOBAN N Ot I10 ESSENTIAL (PRIMARY) HYPERTENSION 06/05/2018 MARY SOTO N Ot J44.9 CHRONIC OBSTRUCTIVE PULMONARY DISEASE, U 06/05/2018 BRITTANY, BOBAN N Ot Z79.899 OTHER SNF (CURRENT) DRUG THERAPY 06/20/2018 BRITTANY, BOBAN N Ot 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, EXTRANODAL AND SOLID 06/20/2018 BRITTANY, BOBAN N Ot C86.6 PRIMARY CUTANEOUS XL11-EWGMKTRC T-CELL P 06/20/2018 BRITTANY, BOBAN N Ot E03.9 HYPOTHYROIDISM, UNSPECIFIED 06/20/2018 BRITTANY, BOBAN N Ot E27.9 DISORDER OF ADRENAL GLAND, UNSPECIFIED 06/20/2018 BRITTANY, BOBAN N Ot F17.210 NICOTINE DEPENDENCE, CIGARETTES, UNCOMPL 06/20/2018 BRITTANY, BOBAN N Ot I10 ESSENTIAL (PRIMARY) HYPERTENSION 06/20/2018 BRITTANY, BOBAN N Ot J44.9 CHRONIC OBSTRUCTIVE PULMONARY DISEASE, U 06/20/2018 BRITTANY, BOBAN N Ot Z51.11 ENCOUNTER FOR ANTINEOPLASTIC CHEMOTHERAP 06/20/2018 BRITTANY, BOBAN N Ot Z79.899 OTHER SNF (CURRENT) DRUG THERAPY 06/23/2018 BRITTANY, BOBAN N Ot 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, EXTRANODAL AND SOLID 06/23/2018 BRITTANY, BOBAN N Ot C86.6 PRIMARY CUTANEOUS VK70-TMIBEGPI T-CELL P 06/23/2018 BRITTANY, BOBAN N Ot E03.9 HYPOTHYROIDISM, UNSPECIFIED 06/23/2018 BRITTANY, BOBAN N Ot E27.9 DISORDER OF ADRENAL GLAND, UNSPECIFIED 06/23/2018 BRITTANY, BOBAN N Ot F17.210 NICOTINE DEPENDENCE, CIGARETTES, UNCOMPL 06/23/2018 BRITTANY, BOBAN N Ot I10 ESSENTIAL (PRIMARY) HYPERTENSION 06/23/2018 BRITTANY, BOBAN N Ot J44.9 CHRONIC OBSTRUCTIVE PULMONARY DISEASE, U 06/23/2018 BRITTANY, BOBAN N Ot Z51.11 ENCOUNTER FOR ANTINEOPLASTIC CHEMOTHERAP 06/23/2018 BRITTANY, BOBAN N Ot Z79.899 OTHER MID LEVEL PRACTITIONER (CURRENT) DRUG THERAPY 06/26/2018 BRITTANY, BOBAN N Ot 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, EXTRANODAL AND SOLID 06/26/2018 BRITTANY, BOBAN N Ot C86.6 PRIMARY CUTANEOUS FT48-MSYIOYFN T-CELL P 06/26/2018 BRITTANY, BOBAN N Ot E03.9 HYPOTHYROIDISM, UNSPECIFIED 06/26/2018 MARY SOTO Ot E27.9 DISORDER OF ADRENAL GLAND, UNSPECIFIED 06/26/2018 MARY SOTO Ot F17.210 NICOTINE DEPENDENCE, CIGARETTES, UNCOMPL 06/26/2018 MARY SOTO Ot I10 ESSENTIAL (PRIMARY) HYPERTENSION 06/26/2018 MARY SOTO Ot J44.9 CHRONIC OBSTRUCTIVE PULMONARY DISEASE, U 06/26/2018 MARY SOTO Ot Z51.11 ENCOUNTER FOR ANTINEOPLASTIC CHEMOTHERAP 06/26/2018 MARY SOTO Ot Z79.899 OTHER MID LEVEL PRACTITIONER (CURRENT) DRUG THERAPY 07/04/2018 GALO, BIANCA W 290.0 SENILE DEMENTIA, UNCOMPLICATED 07/04/2018 GALO, BIANCA W 296.80 BIPOLAR DISORDER, UNSPECIFIED 07/04/2018 GALO, BIANCA W F03.90 UNSPECIFIED DEMENTIA WITHOUT BEHAVIORAL DISTURBANCE 07/04/2018 GALO, BIANCA W F31.9 BIPOLAR DISORDER, UNSPECIFIED 07/04/2018 GALO, BIANCA W 290.0 SENILE DEMENTIA, UNCOMPLICATED 07/04/2018 GALO, BIANCA W 295.70 SCHIZOAFFECTIVE DISORDER, UNSPECIFIED 07/04/2018 GALO, BIANCA W 296.30 MAJOR DEPRESSIVE DISORDER, RECURRENT EPISODE, UNSPECIFIED DEGREE 07/04/2018 GALO, BIANCA W 296.80 BIPOLAR DISORDER, UNSPECIFIED 07/04/2018 GALO, BIANCA W F03.90 UNSPECIFIED DEMENTIA WITHOUT BEHAVIORAL DISTURBANCE 07/04/2018 GALO, BIANCA W F25.9 SCHIZOAFFECTIVE DISORDER, UNSPECIFIED 07/04/2018 GALO, BIANCA W F31.9 BIPOLAR DISORDER, UNSPECIFIED 07/04/2018 GALO, BIANCA W F33.9 MAJOR DEPRESSIVE DISORDER, RECURRENT, UNSPECIFIED 07/12/2018 GALO, BIANCA W 202.80 07/12/2018 GALO, BIANCA W 244.9 07/12/2018 GALO, BIANCA W 290.0 SENILE DEMENTIA, UNCOMPLICATED 07/12/2018 GALO, BIANCA W 295.70 SCHIZOAFFECTIVE DISORDER, UNSPECIFIED 07/12/2018 GALO, BIANCA W 296.30 MAJOR DEPRESSIVE DISORDER, RECURRENT EPISODE, UNSPECIFIED DEGREE 07/12/2018 GALO, BIANCA A 296.34 07/12/2018 GALO, BIANCA W 296.80 BIPOLAR DISORDER, UNSPECIFIED 07/12/2018 GALO, BIANCA W 300.00 07/12/2018 GALO, BIANCA W 401.0 MALIGNANT ESSENTIAL HYPERTENSION 07/12/2018 GALO, BIANCA W 564.00 07/12/2018 GALO, BIANCA W 782.3 07/12/2018 GALO, BIANCA W C84.A0 CUTANEOUS T-CELL LYMPHOMA, UNSPECIFIED, UNSPECIFIED SITE 07/12/2018 GALO, BIANCA W E03.9 HYPOTHYROIDISM, UNSPECIFIED 07/12/2018 GALO, BIANCA W F03.90 UNSPECIFIED DEMENTIA WITHOUT BEHAVIORAL DISTURBANCE 07/12/2018 GALO, BIANCA W F25.9 SCHIZOAFFECTIVE DISORDER, UNSPECIFIED 07/12/2018 GALO, BIANCA W F31.9 BIPOLAR DISORDER, UNSPECIFIED 07/12/2018 GALO, BIANCA A F33.3 07/12/2018 GALO, BIANCA W F33.9 MAJOR DEPRESSIVE DISORDER, RECURRENT, UNSPECIFIED 07/12/2018 GALO, BIANCA W F41.9 ANXIETY DISORDER, UNSPECIFIED 07/12/2018 GALO, BIANCA W I10 ESSENTIAL (PRIMARY) HYPERTENSION 07/12/2018 GALO, BIANCA W K59.09 OTHER CONSTIPATION 07/12/2018 GALO, BIANCA W R60.0 LOCALIZED EDEMA 07/18/2018 BRITATNY, BOBAN N Ot 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, EXTRANODAL AND SOLID 07/18/2018 BRITTANY, BOBAN N Ot C86.6 PRIMARY CUTANEOUS [id number] T-CELL P 07/18/2018 BRITTANY, BOBAN N Ot E03.9 HYPOTHYROIDISM, UNSPECIFIED 07/18/2018 BRITTANY, BOBAN N Ot E27.9 DISORDER OF ADRENAL GLAND, UNSPECIFIED 07/18/2018 BRITTANY BOBAN N Ot F17.210 NICOTINE DEPENDENCE, CIGARETTES, UNCOMPL 07/18/2018 BRITTANY, BOBAN N Ot I10 ESSENTIAL (PRIMARY) HYPERTENSION 07/18/2018 MARY SOTO Zara Ot J44.9 CHRONIC OBSTRUCTIVE PULMONARY DISEASE, U 07/18/2018 MARY SOTO Zara Ot Z79.899 OTHER SNF (CURRENT) DRUG THERAPY 08/01/2018 KEVONLENDER DO, MELY Perez Ot L98.9 DISORDER OF THE SKIN AND SUBCUTANEOUS TI 08/03/2018 GELLENDER DO, MELY Perez Ot L98.9 DISORDER OF THE SKIN AND SUBCUTANEOUS TI 08/03/2018 KEVONLENDER DO, MELY Perez Ot L98.9 DISORDER OF THE SKIN AND SUBCUTANEOUS TI 08/08/2018 BRITTANYMARY Ot 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, EXTRANODAL AND SOLID 08/08/2018 BRITTANYMARY Ot C86.6 PRIMARY CUTANEOUS [id number] T-CELL P 08/08/2018 BRITTANYMARY Ot E03.9 HYPOTHYROIDISM, UNSPECIFIED 08/08/2018 BRITTANYMARY Ot E27.9 DISORDER OF ADRENAL GLAND, UNSPECIFIED 08/08/2018 BRITTANYMARY Ot F17.210 NICOTINE DEPENDENCE, CIGARETTES, UNCOMPL 08/08/2018 BRITTANY ENRIQUETHA Zara Ot I10 ESSENTIAL (PRIMARY) HYPERTENSION 08/08/2018 MARY SOTO Zara Ot J44.9 CHRONIC OBSTRUCTIVE PULMONARY DISEASE, U 08/08/2018 MARY SOTO Zara Ot Z79.899 OTHER MID LEVEL PRACTITIONER (CURRENT) DRUG THERAPY 08/09/2018 KEVONSABINA DOMELY Ot L08.9 LOCAL INFECTION OF THE SKIN AND SUBCUTAN 08/09/2018 GELLENDER DOMELY Ot R22.41 LOCALIZED SWELLING, MASS AND LUMP, RIGHT 08/09/2018 GELLENDER DOMELY Ot K59.00 CONSTIPATION, UNSPECIFIED 08/09/2018 BRITTANYMARY Ot C84.A0 CUTANEOUS T-CELL LYMPHOMA, UNSPECIFIED, 08/09/2018 LAMONT SPENCEP Ot C84.A0 CUTANEOUS T-CELL LYMPHOMA, UNSPECIFIED, 08/09/2018 LAMONT SPENCEP Ot E03.9 HYPOTHYROIDISM, UNSPECIFIED 08/09/2018 LAMONT SPENCE POLITICAL WORKER Ot F17.210 NICOTINE DEPENDENCE, CIGARETTES, UNCOMPL 08/09/2018 LAMONT SPENCE POLITICAL WORKER Ot I10 ESSENTIAL (PRIMARY) HYPERTENSION 08/09/2018 LAMONT SPENCE POLITICAL WORKER Ot J44.9 CHRONIC OBSTRUCTIVE PULMONARY DISEASE, U 08/09/2018 LAMONT SPENCE POLITICAL WORKER Ot Z79.899 OTHER MID LEVEL PRACTITIONER (CURRENT) DRUG THERAPY 08/09/2018 MARY SOTO Ot R09.89 OTH SYMPTOMS AND SIGNS INVOLVING THE CIR 08/09/2018 LAMONT SPENCE POLITICAL WORKER Ot 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, EXTRANODAL AND SOLID 08/09/2018 LAMONT SPENCE POLITICAL WORKER Ot C86.6 PRIMARY CUTANEOUS [id number] T-CELL P 08/09/2018 LAMONT SPENCE POLITICAL WORKER Ot E27.9 DISORDER OF ADRENAL GLAND, UNSPECIFIED 08/09/2018 LAMONT SPENCE POLITICAL WORKER Ot J32.8 OTHER CHRONIC SINUSITIS 08/09/2018 LAMONT SPENCE POLITICAL WORKER Ot N28.1 CYST OF KIDNEY, ACQUIRED 08/09/2018 LAMONT SPENCE POLITICAL WORKER Ot 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, EXTRANODAL AND SOLID 08/09/2018 LAMONT SPENCE POLITICAL WORKER Ot C86.6 PRIMARY CUTANEOUS [id number] T-CELL P 08/09/2018 MARY SOTO Ot 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, EXTRANODAL AND SOLID 08/09/2018 MARY SOTO Ot C86.6 PRIMARY CUTANEOUS XB60-[id number] T-CELL P 08/09/2018 MARY SOTO Ot E03.9 HYPOTHYROIDISM, UNSPECIFIED 08/09/2018 MARY SOTO Ot E27.9 DISORDER OF ADRENAL GLAND, UNSPECIFIED 08/09/2018 MARY SOTO Ot F17.210 NICOTINE DEPENDENCE, CIGARETTES, UNCOMPL 08/09/2018 MARY SOTO Ot I10 ESSENTIAL (PRIMARY) HYPERTENSION 08/09/2018 MARY SOTO Zara Ot J44.9 CHRONIC OBSTRUCTIVE PULMONARY DISEASE, U 08/09/2018 MARY SOTO Ot Z79.899 OTHER MID LEVEL PRACTITIONER (CURRENT) DRUG THERAPY 08/09/2018 MELY MENA DO Ot L98.9 DISORDER OF THE SKIN AND SUBCUTANEOUS TI 08/25/2018 MELY MENA DO, Ot L98.9 DISORDER OF THE SKIN AND SUBCUTANEOUS TI Procedures There is no data. Results Test Result Range Methicillin resistant Staphylococcus aureus (MRSA) screening culture - 11:25 Methicillin resistant Staphylococcus aureus (MRSA) screening culture NEG NRG Thyroid Stimulating Hormone - 07/04/18 12:26 TSH 1.77 mIU/mL 0.32-5.00 Urinalysis - 07/04/18 12:26 Icotest N/A Negative Urine Volume Urine Volume Sufficient (10mL) Urine-Appearance Clear Clear Urine-Bacteria Trace Urine-Bilirubin Negative Negative Urine-Blood Trace-lysed Negative Urine-Color Yellow Colorless-Lt. Yellow Urine-Epithelial Cells 0-5/HPF Urine-Glucose Negative Negative Urine-Ketones Negative Negative Urine-Leukocytes Negative Negative Urine-Nitrite Negative Negative Urine-Other Urine Saved if Culture Needed (48hrs from time of collection) Urine-pH 6.5 5-8.5 Urine-Protein Negative Negative Urine-RBC 10-20/HPF Urine-Specific [place] 1.015 1.000-1.030 Urine-WBC 0-2/HPF Urobilinogen 2.0 E.U./dL 0.2-1.0 MRSA Screen - 07/04/18 12:26 FINAL CULTURE RESULTS Called to Natal[facility] on [facility] Comprehensive Metabolic Panel - 07/11/18 05:10 Albumin 3.3 g/dL 3.6-5.1 ALP 89 U/L 35-130 ALT 13 U/L 6-45 Anion Gap 12 6-14 AST 18 U/L 2-40 BUN 15 mg/dL 5-25 Calcium 8.9 mg/dL 8.3-10.4 Chloride 103 mmol/L 95-114 CO2 29 mEq/L 22-33 Creat 0.82 mg/dL 0.50-1.50 eGFR 93 mL/min/1.73m2 >59 Globulin 3.1 g/dL 2.3-3.5 Glucose 95 mg/dL 70-110 Osmo 290 280-295 Potassium 4.0 mmol/L 3.5-5.3 Sodium 140 mmol/L 134-148 TBil 0.4 mg/dL 0.2-1.2 TP 6.4 g/dL 6.0-8.3 Gram stain microscopy - 07/28/18 15:38 Gram stain microscopy Mixed Bacterial Daly NRG Bacteria identification in wound by culture - 07/28/18 15:38 Bacteria identification in wound by culture SEE COMMEN NRG FREE TEXT EXTERNAL RML SENT SENSITIVITY REPORT 07/31 11:05 NRG QUANTITY OF GROWTH . NRG FREE TEXT ENTRY 2 MOXIFLOXACIN KUSHAL: >2 (NO INTERPRETATION NRG RML Sensitivity Panel - 07/28/18 15:38 Oxacillin susceptibility test by minimum inhibitory concentration 1 NRG Clindamycin susceptibility test by minimum inhibitory concentration <= NRG Erythromycin susceptibility test by minimum inhibitory concentration > NRG Trimethoprim/sulfamethoxazole susceptibility test by minimum inhibitoryconcentration S NRG Vancomycin susceptibility test by minimum inhibitory concentration 1 NRG Levofloxacin susceptibility test by minimum inhibitory concentration > NRG Rifampin susceptibility test by minimum inhibitory concentration <= NRG Cefazolin susceptibility test by minimum inhibitory concentration < = NRG Linezolid susceptibility test by minimum inhibitory concentration 2 NRG Penicillin G susceptibility test by minimum inhibitory concentration > NRG Minocycline susc KUSHAL <= NRG Encounters ACCT No. Visit Date/Time Discharge Status Pt. Type Provider Facility Loc./Unit Complaint [id number] 07/18/2012 15:36:00 07/18/2012 23:59:59 CLS Outpatient [id number] 06/11/2015 11:46:50 ACT Document Registration [id number] 07/28/2018 15:36:00 07/28/2018 23:59:59 CLS Outpatient MELY MENA DO [facility] LABNPT [id number] 07/18/2018 10:52:00 07/18/2018 23:59:59 CLS Outpatient MARY SOTO [facility] ONC [id number] 06/12/2018 10:46:00 06/20/2018 00:01:00 DIS Outpatient MARY SOTO [facility] ONC [id number] 05/18/2018 11:07:00 05/18/2018 15:50:00 DIS Outpatient GINGER RYAN MD [facility] SDC T-CELL LYMPHOMA [id number] 05/17/2018 06:20:00 05/17/2018 09:44:00 DIS Outpatient GINGER RYAN MD [facility] PREOP T-CELL LYMPHOMA [id number] 02/21/2018 13:18:00 03/21/2018 00:01:00 DIS Outpatient MARY SOTO [facility] ONC [id number] 01/18/2018 09:27:00 01/18/2018 23:59:59 CLS Outpatient LAMONT SPENCE POLITICAL WORKER [facility] RAD 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- CELL LYMPHOMA [id number] 11/30/2017 10:14:00 12/06/2017 00:01:00 DIS Outpatient MARY SOTO [facility] ONC [id number] 08/17/2017 10:08:00 09/06/2017 15:07:00 DIS Outpatient NENA CANCINO MD [facility] ONC [id number] 06/15/2017 11:35:00 07/27/2017 07:40:00 DIS Outpatient MARY SOTO [facility] ONC [id number] 05/31/2017 08:39:00 06/04/2017 00:01:00 DIS Outpatient MARY SOTO [facility] ONC [id number] 05/25/2017 12:24:00 05/25/2017 23:59:59 CLS Outpatient LAMONT SPENCE POLITICAL WORKER [facility] RAD C86.6,C84.09 [id number] 04/13/2017 09:31:00 04/19/2017 00:01:00 DIS Outpatient MARY SOTO [facility] ONC [id number] 12/29/2016 08:49:00 12/29/2016 00:01:00 DIS Outpatient MARY SOTO [facility] ONC [id number] 11/16/2016 10:07:00 11/16/2016 23:59:59 CLS Outpatient MARY SOTO [facility] RAD [id number] 09/09/2016 08:29:00 09/13/2016 00:01:00 DIS Outpatient MARY SOTO [facility] ONC [id number] 05/24/2016 09:57:00 06/11/2016 09:10:00 DIS Outpatient MARY SOTO [facility] ONC [id number] 05/03/2016 08:27:00 05/03/2016 23:59:59 CLS Outpatient LAMONT SPENCE [facility] ONC [id number] 04/06/2016 09:44:00 04/06/2016 23:59:59 CLS Outpatient MARY SOTO [facility] RAD CUTANEOUS T CELL [id number] 12/24/2015 12:50:00 12/24/2015 23:59:59 CLS Outpatient MELY MENA DO [facility] RAD CONSTIPATION [id number] 06/11/2015 11:46:00 06/11/2015 23:59:59 CLS Outpatient MELY MENA DO [facility] RAD RT LEG SWOLLEN/ INFECTED [id number] 12/14/2012 07:45:00 Document Registration [id number] 12/13/2012 07:36:00 Document Registration [id number] 06/16/2011 14:45:00 Document Registration [id number] 07/04/2018 12:19:00 07/12/2018 14:13:00 DIS Inpatient BIANCA ROSENTHAL [facility] LUIS ARMANDO [id number] 07/04/2018 13:14:08 Document Registration
[2018-09-02] MEDS: NS IV 1000 ML 1,000 ML IV SCH ×3 (13:10→18:27)
--- NOTE | 2018-09-02 13:20 | NUR ---
PT WAS ASKED SEVERAL TIMES BY IF HE WISHED US TO CALL FAMILY AND EACH TIME PT STATES "NO"
[2018-09-02 13:26] LABS: CLARITY,URINE CLEAR; COLOR,URINE YELLOW; GLUCOSE, URINE (UA) NEGATIVE (NEGATIVE); KETONES,URINE 1+ (NEGATIVE); LEUKOCYTE ESTERASE ,URINE 1+ (NEGATIVE); NITRITE,URINE NEGATIVE (NEGATIVE); PH,URINE 5 (5-9); PROTEIN,URINE 2+ (NEGATIVE); UROBILINOGEN,URINE 1 MG/DL (NORMAL)
--- NOTE | 2018-09-02 13:29 | NUR ---
SAT ON BIPAP 100% ET SKIN LESS DUSKY.
[2018-09-02] MEDS ORDERED: PIPERACILLIN SODIUM/TAZOBACTAM 4.5 GM in NS (IVPB) 100 ML IV ONE (13:30)
[2018-09-02 13:34] LABS: BASOPHILS % (AUTO) 0 % (0-10); EOSINOPHILS % (AUTO) 0 % (0-10); HEMATOCRIT 53 % (40-54); LYMPHOCYTES # (AUTO) 0.7 X 10^3 (1.0-4.0); LYMPHOCYTES % (AUTO) 5 % (12-44); MEAN CORPUSCULAR HEMOGLOBIN 30 PG (25-34); MEAN CORPUSCULAR HGB CONC 32 G/DL (32-36); MEAN CORPUSCULAR VOLUME 94 FL (80-99); MEAN PLATELET VOLUME 9.8 FL (7.4-10.4); MONOCYTES # (AUTO) 1.3 X 10^3 (0.0-1.0); MONOCYTES % (AUTO) 10 % (0-12); NEUTROPHILS # (AUTO) 11.6 X 10^3 (1.8-7.8); NEUTROPHILS % (AUTO) 85 % (42-75); PLATELET COUNT 347 10^3/uL (130-400); RED BLOOD COUNT 5.66 10^6/uL (4.35-5.85); RED CELL DISTRIBUTION WIDTH 14.7 % (10.0-14.5); WHITE BLOOD COUNT 13.6 10^3/uL (4.3-11.0)
[2018-09-02 13:38] LABS: AMORPHOUS SEDIMENT,UR RARE AMOR URATES /LPF; BACTERIA,URINE TRACE /HPF; BILIRUBIN,URINE 2+ (NEGATIVE); CALCIUM OXALATE CRYSTALS,UR MODERATE /LPF; WBC,URINE 0-2 /HPF
[2018-09-02] MEDS ORDERED: ONDANSETRON 4 MG/2 ML (SDV) Z0FRAN ONE (13:41)
[2018-09-02 13:42] LABS: ABG OXYGEN SATURATION 100 % (94-100); ABG PCO2 31 MMHG (35-45); ABG PO2 458 MMHG (79-93); ABG TCO2 15.8 MMOL/L (21.0-31.0)
[2018-09-02 13:44] LABS: ABG PH 7.31 (7.37-7.43); ALLENS TEST YES-POS; INSPIRED O2 15/5 100%; VENTILATOR NO
[2018-09-02 13:45] LABS: PATIENT TEMP 99.3
[2018-09-02] MEDS ORDERED: ONDANSETRON 4 MG/2 ML (SDV) Z0FRAN IVP ONE (13:45)
[2018-09-02] MEDS: VANCOMYCIN INJECTION 1,000 MG in NS (IVPB) 250 ML IV ONE ×2 (13:45→15:03)
--- NOTE | 2018-09-02 13:45 | NUR ---
JALEN HERE TO SEE PTErika
--- NOTE | 2018-09-02 13:52 | Diagnostic Imaging Report ---
Indication: Short of breath. Upright chest shows normal heart size and vascularity. There is bibasilar discoid atelectasis. There is no effusion or pneumothorax. Central catheter is present. Impression: There is bibasilar atelectasis. The chest is similar to a prior study from 05/18/2018. Dictated by: Dictated on workstation # [id number]
[2018-09-02 13:58] LABS: ALANINE AMINOTRANSFERASE 20 U/L (0-55); ALBUMIN 3.4 GM/DL (3.2-4.5); ALKALINE PHOSPHATASE 253 U/L (40-136); BILIRUBIN,TOTAL 0.7 MG/DL (0.1-1.0); BUN/CREATININE RATIO 10; CALCIUM 8.9 MG/DL (8.5-10.1); CARBON DIOXIDE 13 MMOL/L (21-32); CHLORIDE 98 MMOL/L (98-107); CREATININE SERUM 3.89 MG/DL (0.60-1.30); GFR ESTIMATED 15; GLUCOSE 205 MG/DL (70-105); POTASSIUM 4.3 MMOL/L (3.6-5.0); SODIUM 143 MMOL/L (135-145); TOTAL PROTEIN 8.2 GM/DL (6.4-8.2)
[2018-09-02] MEDS ORDERED: TETANUS,DIPTH,PERTUSS P/F (BOOSTRIX) 0.5 ML VIAL IM ONE (14:00)
[2018-09-02 14:05] LABS: BAND NEUTROPHILS 30 %; FIBRIN DEGRADATION PRODUCTS 9.49 UG/ML (0.00-0.49); INR 1.3 (0.8-1.4); NEUTROPHILS % (MANUAL) 46 %; PROTHROMBIN TIME PATIENT 15.8 SEC (12.2-14.7)
[2018-09-02 14:06] LABS: EOSINOPHILS % (MANUAL) 1 %; LYMPHOCYTES % (MANUAL) 6 %; MONOCYTES % (MANUAL) 17 %; RBC MORPH NORMAL
--- NOTE | 2018-09-02 14:25 | NUR ---
IN ROOM DISCUSSING ISSUES WITH HIM. PT DOES NOT WANT TO BE TRANSFERRED ET WANTS TO STAY HERE.
[2018-09-02] MEDS ORDERED: PROMETHAZINE INJ 25 MG/ML (PHENERGAN) AMP IVP ONE (14:30)
[2018-09-02] MEDS ORDERED: NS IV 1000 ML 1,000 ML IV ONE (14:44)
[2018-09-02] MEDS ORDERED: NOREPINEPHRINE 4 MG in NS (IVPB) 250 ML IV SCH (14:45)
--- NOTE | 2018-09-02 15:00 | NUR ---
PREIST HERE WITH PT AT THIS TIME.
--- NOTE | 2018-09-02 15:03 | ED General ---
General Chief Complaint: Respiratory Problems Stated Complaint: SOA Nursing Triage Note: ARRIVED VIA EMS FROM [facility], [place], [facility]. PT HAD BEEN SICK WITH VOMITING AND WAS FOUND ON THE FLOOR AT APPX 1230 BY STAFF. EMS REPORTS INITIAL SAT IN THE 50'S AND WAS PUT AT 15L PER MASK. PT ARRIVED CYANOTIC ET ALERT AND TALKING. UNABLE TO OBTAIN SAT AT THIS TIME. PT HAS MULTIPLE SORES ALLOVER BODY WITH SOILED DRESSINGS. PT STATES THE SORES ARE FROM MYLOMA AND THE DRESSINGS HAD NOT BEEN CHANGED FOR DAYS. Nursing Sepsis Screen: Possible Sepsis Risk Source of Information: Patient Exam Limitations: No Limitations History of Present Illness Date Seen by Provider: Sep 02, 2018 Time Seen by Provider: 13:04 Initial Comments This 68-year-old gentleman [facility] hypoxic and cyanotic. He had a [facility] at the [facility]. He denies injury. He does have a shallow laceration on the left ear and on the right hand. Patient has lymphoma and is generally debilitated. He has multiple skin wounds on his face, abdomen, and upper extremities. EMS reports his oxygen saturation was initially in the 50s. On arrival and oxygen saturation cannot be obtained. Patient is alert and responding appropriately. He is very tachypneic and has cyanotic. He denies any pain anywhere. He is very clear about maintaining his DO NOT RESUSCITATE status, but he does want his current condition treated short of resuscitation. Allergies and Home Medications Allergies Coded Allergies: No Known Drug Allergies (Unverified , 09/02/18) Home Medications Acetaminophen 325 Mg Tablet, 650 MG PO Q4H PRN for PAIN-MILD, (Reported) GIVE 2 (325MG) TABS DO NOT EXCEED 3000MG/24HR Albuterol Sulfate 1 Puff Puff, 2 PUFF IH Q4H PRN for COPD, (Reported) 1 PUFF = 90 MCG Calcium Polycarbophil 625 Mg Tablet, 625 MG PO DAILY, (Reported) Carboxymethylcellulose Sodium 15 Ml Drops, 1 ML OU QID, (Reported) Clonazepam 0.5 Mg Tablet, 0.5 MG PO TID, (Reported) Diphenhydramine HCl 25 Mg Tablet, 25 MG PO Q6H PRN for ITCHING, (Reported) Docusate Sodium 100 Mg Capsule, 100 MG PO DAILY, (Reported) Fluticasone Propionate 9.9 Ml [place].susp, 1 SPRAY NSEACH DAILY, (Reported) 1 SPRAY EACH NARE DAILY Folic Acid 1 Mg Tablet, 1 MG PO SuMoTuWeThFr, (Reported) Furosemide 40 Mg Tablet, 40 MG PO DAILY, (Reported) Hydrocodone Bit/Acetaminophen 1 Tab Tab, 1 TAB PO Q6H PRN for PAIN-MODERATE Prescribed by: GINGER RYAN on 05/18/18 1315 Latanoprost/Pf 7.5 Ml Drops, 1 DROP OU HS, (Reported) Levothyroxine Sodium 50 Mcg Tablet, 50 MCG PO DAILY, (Reported) Magnesium Oxide 400 Mg Tablet, 400 MG PO DAILY, (Reported) Melatonin/Pyridoxine 1 Each Tablet, 10 MG PO HS, (Reported) TAKE 2 (5MG) TABS Metoprolol Tartrate 100 Mg Tablet, 100 MG PO BID, (Reported) Olanzapine 15 Mg Tablet, 15 MG PO HS, (Reported) Omeprazole 20 Mg Capsule.dr, 20 MG PO DAILY, (Reported) Ondansetron 8 Mg Tab.rapdis, 8 MG SL Q8H PRN for NAUSEA/VOMITING-1ST LINE, ( Reported) Polyethylene Glycol 3350 119 Gm Powder, 17 GM PO DAILY, (Reported) Potassium Chloride 10 Meq Tablet.er, 10 MEQ PO DAILY, (Reported) Ramelteon 8 Mg Tablet, 8 MG PO HS, (Reported) Sodium Chloride 30 Ml [place], 1 SPRAY NSEACH Q6H PRN for NASAL CONGESTION, ( Reported) Sulfamethoxazole/Trimethoprim 1 Each Tablet, 1 EACH PO DAILY, (Reported) FOR 7 DAYS STARTED 05/16/18 Patient Home Medication List Home Medication List Reviewed: Yes Review of Systems Review of Systems Constitutional: no symptoms reported, see HPI EENTM: see HPI Respiratory: see HPI Cardiovascular: no symptoms reported Gastrointestinal: nausea, other (right lower quadrant hernia with bloating) Genitourinary: no symptoms reported Musculoskeletal: no symptoms reported Skin: see HPI Psychiatric/Neurological: No Symptoms Reported Hematologic/Lymphatic: See HPI Immunological/Allergic: see HPI Past Txolrjj-Ehtefx-Nnoodv Hx Patient Social History Alcohol Use: Denies Use Recreational Drug Use: No Smoking Status: Unknown if Ever Smoked Recent Foreign Travel: No Contact w/Someone Who Travel: No Recent Infectious Disease Expo: No Recent Hopitalizations: No Seasonal Allergies Seasonal Allergies: No Past Medical History Surgeries: Yes Abdominal (colostomy and reversal), Adenoidectomy, Tonsillectomy Respiratory: No Cardiac: Yes Hypertension Neurological: Yes (POSSIBLE TIA YEARS AGO) Seizure Disorder (as a child) Gastrointestinal: Yes Gastroesophageal Reflux Musculoskeletal: Yes Arthritis Endocrine: Yes HEENT: Yes Cataract Cancer: Yes Lymphoma, Melanoma Psychosocial: Yes Anxiety, Bipolar, Schizophrenia Integumentary: No Blood Disorders: No Physical Exam-Suspected Sepsis Physical Exam Vital Signs Vital Signs - First Documented 09/02/18 09/02/18 09/02/18 09/02/18 13:03 13:15 13:42 16:01 Temp 99.3 Pulse 112 Resp 56 B/P (MAP) 142/126 (131) Pulse Ox 97 O2 Delivery NIV Bilevel O2 Flow Rate 60.00 FiO2 50 Capillary Refill : Greater Than 3 Seconds Blood Pressure Mean: 131 Height, Weight, BMI Height: 6'10.00" Weight: 260lbs. 0.0oz. [id number]; 35.4 BMI Method:Stated General Appearance: WD/WN, Severe Distress (respiratory) HEENT: PERRL/EOMI, Other (mucous membranes dry) Neck: Normal Inspection Respiratory: Lungs Clear, Normal Breath Sounds, Other (tachypnea) Cardiovascular: No Edema, No Murmur, Tachycardia Gastrointestinal: Non Tender, Soft, Distended, Other (large hernia in the right lower quadrant) Extremity: Other (numerous skin scars scattered throughout the body. Shallow laceration on the right hand. 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 Norm as Tested Skin: warm/dry, cyanosis Focused Exam Sepsis Stage: Septic Shock Possible Source: Unknown Lactate Level 09/02/18 13:25: Lactic Acid Level 11.87*H Time of Focused Exam: 14:15 Respiratory: Lungs Clear, Respiratory Distress Cardiovascular: Tachycardia (regular) Capillary Refill: Greater Than 3 Seconds Skin: cyanosis (much improved from prior) Lactic Acid Level Within 3hrs of presentation: Admin 30ml/kg IBW due to BMI>30, Admin ABX, Blood cultures prior to ABX's, Focus exam, Lactate level Progress/Results/Core Measures Suspected Sepsis Recent Fever Within 48 Hours: No Infection Criteria Present: Suspected New Infection New/Unexplained Altered Menta: No Sepsis Screen: Possible Sepsis Risk SIRS Temperature:99.3 Pulse: 103 Respiratory Rate: 41 Laboratory Tests 09/02/18 13:25: White Blood Count 13.6H Blood Pressure 142 /126 Mean: 131 09/02/18 13:25: Lactic Acid Level 11.87*H Laboratory Tests 09/02/18 13:25: Creatinine 3.89#H, INR Comment 1.3, Platelet Count 347, Total Bilirubin 0.7 Results/Orders Lab Results Laboratory Tests Test 09/02/18 13:15 09/02/18 13:25 09/02/18 13:30 Range/Units Urine Color YELLOW Urine Clarity CLEAR Urine pH 5 5-9 Urine Specific [place] 1.020 1.016-1.022 Urine Protein 2+ H NEGATIVE Urine Glucose (UA) NEGATIVE NEGATIVE Urine Ketones 1+ H NEGATIVE Urine Nitrite NEGATIVE NEGATIVE Urine Bilirubin 2+ H NEGATIVE Urine Urobilinogen 1 NORMAL MG/DL Urine Leukocyte Esterase 1+ H NEGATIVE Urine RBC (Auto) 4+ H NEGATIVE Urine RBC 5-10 H /HPF Urine WBC 0-2 /HPF Urine Crystals PRESENT H /LPF Urine Calcium Oxalate Crystals MODERATE H /LPF Urine Amorphous Sediment RARE BYRON URATES H /LPF Urine Bacteria TRACE /HPF Urine Casts NONE /LPF Urine Mucus NEGATIVE /LPF Urine Culture Indicated NO White Blood Count 13.6 H 4.3-11.0 10^3/uL Red Blood Count 5.66 4.35-5.85 10^6/uL Hemoglobin 17.0 13.3-17.7 G/DL Hematocrit 53 40-54 % Mean Corpuscular Volume 94 80-99 FL Mean Corpuscular Hemoglobin 30 25-34 PG Mean Corpuscular Hemoglobin Concent 32 32-36 G/DL Red Cell Distribution Width 14.7 H 10.0-14.5 % Platelet Count 347 130-400 10^3/uL Mean Platelet Volume 9.8 7.4-10.4 FL Neutrophils (%) (Auto) 85 H 42-75 % Lymphocytes (%) (Auto) 5 L 12-44 % Monocytes (%) (Auto) 10 0-12 % Eosinophils (%) (Auto) 0 0-10 % Basophils (%) (Auto) 0 0-10 % Neutrophils # (Auto) 11.6 H 1.8-7.8 X 10^3 Lymphocytes # (Auto) 0.7 L 1.0-4.0 X 10^3 Monocytes # (Auto) 1.3 H 0.0-1.0 X 10^3 Eosinophils # (Auto) 0.0 0.0-0.3 10^3/uL Basophils # (Auto) 0.0 0.0-0.1 10^3/uL Neutrophils % (Manual) 46 % Lymphocytes % (Manual) 6 % Monocytes % (Manual) 17 % Eosinophils % (Manual) 1 % Band Neutrophils 30 % Blood Morphology Comment NORMAL Prothrombin Time 15.8 H 12.2-14.7 SEC INR Comment 1.3 0.8-1.4 Activated Partial Thromboplast Time 36 H 24-35 SEC D-Dimer 9.49 H 0.00-0.49 UG/ML Sodium Level 143 135-145 MMOL/L Potassium Level 4.3 3.6-5.0 MMOL/L Chloride Level 98 98-107 MMOL/L Carbon Dioxide Level 13 L 21-32 MMOL/L Anion Gap 32 H 5-14 MMOL/L Blood Urea Nitrogen 37 H 7-18 MG/DL Creatinine 3.89 #H 0.60-1.30 MG/DL Estimat Glomerular Filtration Rate 15 BUN/Creatinine Ratio 10 Glucose Level 205 H 70-105 MG/DL Lactic Acid Level 11.87 *H 0.50-2.00 MMOL/L Calcium Level 8.9 8.5-10.1 MG/DL Corrected Calcium 9.4 8.5-10.1 MG/DL Total Bilirubin 0.7 0.1-1.0 MG/DL Aspartate Amino Transf (AST/SGOT) 17 5-34 U/L Alanine Aminotransferase (ALT/SGPT) 20 0-55 U/L Alkaline Phosphatase 253 H 40-136 U/L Troponin I < 0.30 <0.30 NG/ML Total Protein 8.2 6.4-8.2 GM/DL Albumin 3.4 3.2-4.5 GM/DL Blood Gas Puncture Site RT BRACH Blood Gas Patient Temperature 99.3 Arterial Blood pH 7.31 *L 7.37-7.43 Arterial Blood Partial Pressure CO2 31 L 35-45 MMHG Arterial Blood Partial Pressure O2 458 H 79-93 MMHG Arterial Blood HCO3 15 *L 23-27 MMOL/L Arterial Blood Total CO2 15.8 L 21.0-31.0 MMOL/L Arterial Blood Oxygen Saturation 100 94-100 % Arterial Blood Base Excess -10.0 L -2.5-2.5 MMOL/L Hosea Test YES-POS Blood Gas Ventilator Setting NO Blood Gas Inspired Oxygen 15/5 100% Micro Results Microbiology 09/02/18 Influenza Types A,B Antigen (KUSHAL) - Final, Complete My Orders Orders - RAVINDER GUERRERO MD Cbc With Automated Diff (09/02/18 13:11) Comprehensive Metabolic Panel (09/02/18 13:11) Blood Culture (09/02/18 13:11) Urinalysis (09/02/18 13:11) Urine Culture (09/02/18 13:11) Protime With Inr (09/02/18 13:11) Partial Thromboplastin Time (09/02/18 13:11) Chest 1 View, Ap/Pa Only (09/02/18 13:11) Saline Lock/Iv-Start (09/02/18 13:11) Saline Lock/Iv-Start (09/02/18 13:11) O2 (09/02/18 13:11) Lactic Acid Analyzer (09/02/18 13:11) Ns Iv 1000 Ml (Sodium Chloride 0.9%) (09/02/18 13:11) Ns Iv 1000 Ml (Sodium Chloride 0.9%) (09/02/18 13:08) Ekg Tracing (09/02/18 13:19) Monitor-Rhythm Ecg Trace Only (09/02/18 13:19) Troponin I (09/02/18 13:19) Influenza A And B Antigens (09/02/18 13:20) Piperacillin Sodium/Tazobactam (Zosyn Vi (09/02/18 13:30) Vancomycin Injection (Vancomycin Injecti (09/02/18 13:30) Fibrin Degradation Products (09/02/18 13:23) Manual Differential (09/02/18 13:25) Arterial Blood Gas (09/02/18 13:35) Wound Culture (09/02/18 13:38) Wound Culture (09/02/18 13:38) Mrsa Screen (Icu,Preop,Cath) (09/02/18 13:38) Ondansetron Injection (Zofran Injectio (09/02/18 13:45) Ren Cath (09/02/18 13:44) Ondansetron Injection (Zofran Injectio (09/02/18 13:41) Ct Head/Cervical Spine Wo (09/02/18 13:45) Dipht,Pertuss(Acell),Tet Adult (Boostrix (09/02/18 14:00) Promethazine Injection (Phenergan Injec (09/02/18 14:30) Ct Abdomen/Pelvis Wo (09/02/18 14:21) Ns Iv 1000 Ml (Sodium Chloride 0.9%) (09/02/18 14:44) Norepinephrine (Levophed) (09/02/18 14:45) Medications Given in ED Current Medications Medications Dose Ordered Sig/Rosalio Route Start Time Stop Time Status Last Admin Dose Admin Diphtheria/ Tetanus/Acell Pertussis 0.5 ml ONCE ONCE IM 09/02/18 14:00 09/02/18 14:01 DC 09/02/18 15:04 0.5 ML Ondansetron HCl 8 mg ONCE ONCE IVP 09/02/18 13:45 09/02/18 13:46 DC 09/02/18 13:45 8 MG Piperacillin Sod/ Tazobactam Sod 4.5 gm/Sodium Chloride 100 ml @ 200 mls/hr ONCE ONCE IV 09/02/18 13:30 09/02/18 13:59 DC 09/02/18 13:59 200 MLS/HR Promethazine HCl 6.25 mg ONCE ONCE IVP 09/02/18 14:30 09/02/18 14:31 DC 09/02/18 14:27 6.25 MG Sodium Chloride 1,000 ml @ 0 mls/hr Q0M ONCE IV 09/02/18 14:44 09/02/18 14:46 DC 09/02/18 15:00 1,000 MLS/HR Vancomycin HCl 1000 mg/Sodium Chloride 250 ml @ 250 mls/hr ONCE ONCE IV 09/02/18 13:30 09/02/18 14:29 DC 09/02/18 15:03 250 MLS/HR Vital Signs/I&O 09/02/18 09/02/18 09/02/18 09/02/18 13:03 13:15 13:42 15:14 Temp 99.3 99.0 Pulse 112 103 98 Resp 56 41 40 B/P (MAP) 142/126 (131) 89/69 (76) Pulse Ox 97 98 O2 Delivery NIV Bilevel NIV Bilevel O2 Flow Rate 60.00 09/02/18 09/02/18 09/02/18 09/02/18 15:40 15:40 15:42 15:45 Pulse 92 92 96 93 Resp 37 37 21 B/P (MAP) 96/22 (46) 96/22 (46) 111/92 (98) Pulse Ox 88 88 95 O2 Delivery NIV Bilevel NIV/Bilevel NIV/Bilevel O2 Flow Rate 50.00 09/02/18 09/02/18 09/02/18 09/02/18 15:50 15:50 16:00 16:00 Pulse 94 87 107 107 Resp 36 13 18 18 B/P (MAP) 107/86 (93) 118/87 (97) 118/87 (97) Pulse Ox 96 97 95 95 O2 Delivery NIV Bilevel NIV/Bilevel NIV Bilevel O2 Flow Rate 50.00 50.00 50.00 09/02/18 09/02/18 09/02/18 09/02/18 16:01 16:20 16:30 17:07 Pulse 94 90 105 Resp 16 42 B/P (MAP) 111/77 (88) 124/109 (114) Pulse Ox 97 78 76 O2 Delivery NIV Bilevel Nasal Cannula Nasal Cannula O2 Flow Rate 50.00 5.00 5.00 FiO2 50 09/02/18 09/02/18 19:45 20:40 O2 Delivery Nasal Cannula Nasal Cannula O2 Flow Rate 5.00 5.00 Capillary Refill : Greater Than 3 Seconds Blood Pressure Mean: 131 Progress Note : Time: 16:17 Progress Note I received a phone call regarding patient's CT of the abdomen and pelvis. There appears to be significant ischemic bowel and possible bowel necrosis. Given this new information, prognosis has worsened. I discussed the case again with Dr. Irvin and Dr. Mckeon. We concur that further aggressive care is futile at this point. I visited with the patient in the ICU and explained the situation to him. He agrees with transfer to the floor on comfort care. He expressed understanding with the situation and his very poor prognosis. Patient did request a distribution clerk while still in the ER to administer last rights. The distribution clerk did present to the ER and cared for the patient. ECG Initial ECG Impression Date: Sep 02, 2018 Initial ECG Impression Time: 13:34 Initial ECG Rate: 103 Initial ECG Rhythm: S.Tach Comment Sinus tachycardia with no ST elevation or depression. Right bundle branch block. No significant abnormal intervals. Diagnostic Imaging Diagonstic Imaging: CT Plain Films/CT/US/NM/MRI: abdomen, pelvis Comments CT abdomen and pelvis viewed by me and report reviewed. Discussed with the radiologist. See report below: NAME: CAROLYN [facility]NE [facility] REC#: [id number] PT STATUS: ADM IN : 1950 PHYSICIAN: RAVINDER GUERRERO MD ADMIT DATE: 09/02/18/ICU Draft Date of Exam:09/02/18 CT ABDOMEN/PELVIS WO PROCEDURE: CT abdomen and pelvis without contrast. TECHNIQUE: Multiple contiguous axial images were obtained through the abdomen and pelvis without the use of intravenous contrast. INDICATION: Abdominal distention and pain. FINDINGS: There is extensive portal venous gas in the liver. There is gas in the mesenteric veins. There is marked dilatation of multiple loops of small bowel with mucosal air. The stomach is also distended with air and fluid. There is air also within the wall of the stomach. The colon does not appear to be involved. There is a ventral hernia which contains loops of bowel. No ischemic changes of the loops of bowel in the ventral hernia sac are seen. The liver shows no focal lesion. The bile ducts are not dilated. The spleen, pancreas and adrenals are normal. No acute abnormality of the kidneys is seen. No free intraperitoneal air or fluid is evident. IMPRESSION: There are are diffuse ischemic changes involving the stomach and numerous loops of small bowel. Mesenteric and portal venous gas present. This report was called to the ED at 3:50 p.m. Dictated on workstation # [id number] Dict: 09/02/18 1539 Trans: 09/02/18 1552 [facility] [id number] Interpreted by: ERNST COLE MD Diagonstic Imaging: CT Plain Films/CT/US/NM/MRI: c-spine, head Comments NAME: CAROLYN [facility] REC#: [id number] PT STATUS: ADM IN : 1950 PHYSICIAN: RAVINDER GUERRERO MD ADMIT DATE: 09/02/18/ICU Draft Date of Exam:09/02/18 CT HEAD/CERVICAL SPINE WO PROCEDURE: CT head and CT cervical spine without contrast. TECHNIQUE: Multiple contiguous axial images were obtained through the brain and cervical spine without the use of intravenous contrast. Sagittal and coronal reformations through the cervical spine were then performed. INDICATION: Trauma, found down. COMPARISON: CT head from 06/16/2011. FINDINGS: CT head: No hyperdense hemorrhage or space-occupying mass. No hydrocephalus or midline shift. Global atrophy is present. No features of acute territorial infarct. No acute skull fracture. Paranasal sinuses and mastoid air cells are clear. CT cervical spine: Multilevel degenerative changes are greatest at C5-C6 and C6-C7. No acute fracture or traumatic malalignment. Moderate spinal stenosis secondary to the degenerative changes at C5-C6. Lung apices are clear. IMPRESSION: 1. No acute intracranial process. 2. No acute fracture or traumatic malalignment in the cervical spine. Dictated on workstation # [id number] Dict: 09/02/18 1544 Trans: 09/02/18 1550 [facility] [id number] Interpreted by: ISABEL MARMOLEJO MD Critical Care Note Critical Care Start Time: 13:04 Stop Time: 15:30 Progress Patient was promptly started on BiPAP. He confirmed his DO NOT RESUSCITATE status but consented to BiPAP. Oxygen saturation recovered shortly after starting BiPAP on FiO2 100 percent. Patient was found to be in severe renal failure. He also had an elevated d-dimer. No definite source of infection was identified but septic shock was presumed based on leukocytosis, tachycardia, and hypotension. Antibiotic therapy was started with Zosyn followed by vancomycin. He received 3 full liters of IV normal saline in the ER and a fourth liter was started. He was persistently hypotensive despite fluid resuscitation. Levophed was initiated. Cultures were taken of blood, urine, and multiple skin locations. Patient had significant problems with nausea during his ER stay. Zofran and Phenergan were used to treat his nausea. Departure Communication (Admissions) Time/Spoke to Admitting Phy: 14:10 Dr. Irvin Time/Spoke to Consulting Phy: 14:15 Dr. Linda Rosa Primary Impression: Septic shock Additional Impressions: Respiratory failure Qualified Codes: J96.01 - Acute respiratory failure with hypoxia Acute renal failure Qualified Codes: N17.9 - Acute kidney failure, unspecified Lymphoma Qualified Codes: C85.90 - Non-Hodgkin lymphoma, unspecified, unspecified site Elevated d-dimer Nausea Abdominal hernia Ischemic bowel disease Disposition: ADMITTED INPATIENT Condition: Critical Admissions Decision to Admit Reason: Admit from ER (General) Decision to Admit/Date: Sep 02, 2018 Time/Decision to Admit Time: 13:10 Departure-Patient Inst. Referrals: MELY MENA DO (PCP/Family) Primary Care Physician RAVINDER GUERRERO MD Sep 02, 2018 15:03
--- OUTSIDE RECORDS SUMMARY | 2018-09-02 15:07 | XMS REPORT | Clinical Summary ---
Author Author [facility] Organization [facility] Address Unknown Phone Unavailable Care Team Providers Care Cad Cam Programmer Name Role Phone Abraham Marie MD Unavailable Chyna Nicole MD Unavailable Keesha Anderson MD Unavailable Unavailable Kasai Blake RN Unavailable Unavailable Chyna Nicole MD PCP Pasquale Alonzo MD Unavailable Yun Johnson RN Unavailable Unavailable Sobia Wallace RN Unavailable Unavailable Source Comments Some departments are not documenting in the electronic medical record. If you do not see the information that you expected, contact Release of Information in the Health Information Management department at [phone] for further assistance in locating additional records.[facility] Allergies Comments Active Allergy Reactions Severity [...] mg by 0 tablet mouth daily. Active [id number] Take by 0 6-30-50 mg tab mouth. [...] MEDICARE xxxxxxxxxx Medicare PART A AND B [facility] MEDICAID [place] [facility] xxxxxxxxxxx Medicaid [employer] [place] Advance Directives Patient has advance care planning documents on file. For more information, please contact: [facility] [address] [place] [address]
--- OUTSIDE RECORDS SUMMARY | 2018-09-02 15:09 | XMS REPORT | Continuity of Care Document ---
Demographics Preferred Language Unknown Marital Status Unknown Baptism Affiliation Unknown Race Unknown Ethnic Group Unknown Author Author [facility] Address Unknown Phone Unavailable Allergies Active Description Code Type Severity Reaction Onset Reported/Identified Relationship to Patient Clinical Status Yes NO KNOWN DRUG ALLERGIES UNKNOWN NO KNOWN DRUG ALLERG Yes No Known Drug Allergies [id number] Drug Allergy Unknown N/A 06/16/2011 Medications Medication [...] ANTINEOPLASTIC CHEMOTHERAP MARY SOTO Ot Z79.899 OTHER ASSISTED (CURRENT) DRUG THERAPY 06/16/2011 Ot 910.0 06/16/2011 [...] CUTANEOUS T-CELL LYMPHOMA, UNSPECIFIED, 05/04/2016 LAMONT [employer] Ot C84.A0 CUTANEOUS T-CELL LYMPHOMA, UNSPECIFIED, 05/04/2016 [employer] Ot E03.9 HYPOTHYROIDISM, UNSPECIFIED 05/04/2016 [employer] Ot F17.210 NICOTINE DEPENDENCE, CIGARETTES, UNCOMPL 05/04/2016 L[employer] SPENCE S INSIDE SALES Ot I10 ESSENTIAL (PRIMARY) HYPERTENSION 05/04/2016 [employer] Ot J44.9 CHRONIC OBSTRUCTIVE PULMONARY DISEASE, U 05/04/2016 [employer] Ot 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 05/09/2016 L[employer] Ot C84.A0 CUTANEOUS T-CELL LYMPHOMA, UNSPECIFIED, 05/09/2016 [employer] Ot E03.9 HYPOTHYROIDISM, UNSPECIFIED 05/09/2016 [employer] Ot F17.210 NICOTINE DEPENDENCE, CIGARETTES, UNCOMPL 05/09/2016 [employer] Ot I10 ESSENTIAL (PRIMARY) HYPERTENSION 05/09/2016 [employer] Ot J44.9 CHRONIC OBSTRUCTIVE PULMONARY DISEASE, U 05/09/2016 [employer] Ot Z79.899 OTHER ASSISTED (CURRENT) DRUG THERAPY 05/11/2016 MARY SOTO Ot [...] 06/11/2016 BRITTANY, BOBAN N Ot Z79.899 OTHER ASSISTED (CURRENT) DRUG THERAPY 06/15/2016 BRITTANY BOBAN N Ot C85.90 NON-HODGKIN LYMPHOMA, UNSPECIFIED, UNSPE 06/15/2016 BRITTANY BOBAN N Ot E03.9 HYPOTHYROIDISM, UNSPECIFIED 06/15/2016 BRITTANY, BOBAN N Ot F17.210 NICOTINE DEPENDENCE, CIGARETTES, UNCOMPL 06/15/2016 BRITTANY BOBAN N Ot I10 ESSENTIAL (PRIMARY) HYPERTENSION 06/15/2016 BRITTANYMARY N Ot J44.9 CHRONIC OBSTRUCTIVE PULMONARY DISEASE, U 06/15/2016 BRITTANY BOBAN N Ot 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 06/16/2016 BRITTANY BOBTHA N Ot C85.90 NON-HODGKIN LYMPHOMA, UNSPECIFIED, UNSPE 06/16/2016 BRITTANYMARY N Ot E03.9 HYPOTHYROIDISM, UNSPECIFIED 06/16/2016 BRITTANY, BOBAN N Ot F17.210 NICOTINE DEPENDENCE, CIGARETTES, UNCOMPL 06/16/2016 BRITTANY BOBAN N Ot I10 ESSENTIAL (PRIMARY) HYPERTENSION 06/16/2016 BRITTANY BOBAN N Ot J44.9 CHRONIC OBSTRUCTIVE PULMONARY DISEASE, U 06/16/2016 BRITTANY, BOBAN N Ot 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 07/27/2016 BRITTANY BOBAN N [...] 07/27/2016 BRITTANY, BOBAN N Ot Z79.899 OTHER ASSISTED (CURRENT) DRUG THERAPY 09/02/2016 BRITTANY, BOBAN N Ot C86.6 PRIMARY CUTANEOUS EQ99-MIGAPCFA T-CELL P 09/02/2016 BRITTANY, BOBAN N Ot E03.9 HYPOTHYROIDISM, UNSPECIFIED 09/02/2016 BRITTANY, BOBAN N Ot F17.210 NICOTINE DEPENDENCE, CIGARETTES, UNCOMPL 09/02/2016 BRITTANY, BOBAN N Ot I10 ESSENTIAL (PRIMARY) HYPERTENSION 09/02/2016 BRITTANY, BOBAN N Ot J44.9 CHRONIC OBSTRUCTIVE PULMONARY DISEASE, U 09/02/2016 BRITTANY, BOBAN N Ot Z51.11 ENCOUNTER FOR ANTINEOPLASTIC CHEMOTHERAP 09/02/2016 BRITTANY, BOBAN N Ot 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 09/09/2016 BRITTANY, BOBAN N Ot C86.6 PRIMARY CUTANEOUS SV76-BPBRLPSM T-CELL P 09/09/2016 BRITTANY, BOBAN N Ot E03.9 HYPOTHYROIDISM, UNSPECIFIED 09/09/2016 BRITTANY, BOBAN N Ot F17.210 NICOTINE DEPENDENCE, CIGARETTES, UNCOMPL 09/09/2016 BRITTANY, BOBAN N Ot I10 ESSENTIAL (PRIMARY) HYPERTENSION 09/09/2016 BRITTANY BOBAN N Ot J44.9 CHRONIC OBSTRUCTIVE PULMONARY DISEASE, U 09/09/2016 BRITTANY, BOBAN N Ot Z51.11 ENCOUNTER FOR ANTINEOPLASTIC CHEMOTHERAP 09/09/2016 BRITTANY, BOBAN N Ot Z79.899 OTHER ASSISTED (CURRENT) DRUG THERAPY 09/13/2016 BRITTANY, BOBAN N Ot C86.6 PRIMARY CUTANEOUS AP55-HNDCQPPT T-CELL P 09/13/2016 BRITTANY, BOBAN N Ot E03.9 HYPOTHYROIDISM, UNSPECIFIED 09/13/2016 BRITTANY, BOBAN N Ot F17.210 NICOTINE DEPENDENCE, CIGARETTES, UNCOMPL 09/13/2016 BRITTANY, BOBAN N Ot I10 ESSENTIAL (PRIMARY) HYPERTENSION 09/13/2016 BRITTANY, BOBAN N Ot J44.9 CHRONIC OBSTRUCTIVE PULMONARY DISEASE, U 09/13/2016 BRITTANY, BOBAN N Ot Z51.11 ENCOUNTER FOR ANTINEOPLASTIC CHEMOTHERAP 09/13/2016 BRITTANY, BOBAN N Ot Z79.899 OTHER ASSISTED (CURRENT) DRUG THERAPY 09/14/2016 BRITTANY BOBAN N Ot C86.6 PRIMARY CUTANEOUS QH44-SFRMWKQZ T-CELL P 09/14/2016 BRITTANY ENRIQUEAN N Ot E03.9 HYPOTHYROIDISM, UNSPECIFIED 09/14/2016 BRITTANY, BOBAN N Ot F17.210 NICOTINE DEPENDENCE, CIGARETTES, UNCOMPL 09/14/2016 BRITTANY, BOBAN N Ot I10 ESSENTIAL (PRIMARY) HYPERTENSION 09/14/2016 BRITTANY, BOBAN N Ot J44.9 CHRONIC OBSTRUCTIVE PULMONARY DISEASE, U 09/14/2016 BRITTANY, BOBAN N Ot Z51.11 ENCOUNTER FOR ANTINEOPLASTIC CHEMOTHERAP 09/14/2016 BRITTANY, BOBAN N Ot 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 09/29/2016 BRITTANY BOBAN N Ot C86.6 PRIMARY CUTANEOUS TJ31-HKGHJKJX T-CELL P 09/29/2016 BRITTANY, BOBAN N Ot E03.9 HYPOTHYROIDISM, UNSPECIFIED 09/29/2016 BRITTANY, BOBAN N Ot F17.210 NICOTINE DEPENDENCE, CIGARETTES, UNCOMPL 09/29/2016 BRITTANY, BOBAN N Ot I10 ESSENTIAL (PRIMARY) HYPERTENSION 09/29/2016 BRITTANY ENRIQUEAN N Ot J44.9 CHRONIC OBSTRUCTIVE PULMONARY DISEASE, U 09/29/2016 BRITTANY, BOBAN N Ot Z51.11 ENCOUNTER FOR ANTINEOPLASTIC CHEMOTHERAP 09/29/2016 BRITTANY, BOBAN N Ot 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 09/30/2016 BRITTANY, BOBAN N Ot C86.6 PRIMARY CUTANEOUS DC36-AGLKRQBJ T-CELL P 09/30/2016 BRITTANY, BOBAN N Ot E03.9 HYPOTHYROIDISM, UNSPECIFIED 09/30/2016 BRITTANY, BOBAN N Ot F17.210 NICOTINE DEPENDENCE, CIGARETTES, UNCOMPL 09/30/2016 BRITTANY, BOBAN N Ot I10 ESSENTIAL (PRIMARY) HYPERTENSION 09/30/2016 BRITTANYENRIQUEAN N Ot J44.9 CHRONIC OBSTRUCTIVE PULMONARY DISEASE, U 09/30/2016 BRITTANY, BOBAN N Ot Z51.11 ENCOUNTER FOR ANTINEOPLASTIC CHEMOTHERAP 09/30/2016 BRITTANY MARY N Ot Z79.899 OTHER ASSISTED (CURRENT) DRUG THERAPY 11/17/2016 BRITTANY MARY N Ot R09.89 OTH SYMPTOMS AND SIGNS INVOLVING THE CIR 11/19/2016 BRITTANY MARY N Ot C86.6 PRIMARY CUTANEOUS BK78-LQBPJDBU T-CELL P 11/19/2016 BRITTANY MARY N Ot E03.9 HYPOTHYROIDISM, UNSPECIFIED 11/19/2016 BRITTANY MARY N Ot F17.210 NICOTINE DEPENDENCE, CIGARETTES, UNCOMPL 11/19/2016 BRITTANY MARY N Ot I10 ESSENTIAL (PRIMARY) HYPERTENSION 11/19/2016 BRITTANYMARY N Ot J44.9 CHRONIC OBSTRUCTIVE PULMONARY DISEASE, U 11/19/2016 BRITTANY MARY N Ot Z51.11 ENCOUNTER FOR ANTINEOPLASTIC CHEMOTHERAP 11/19/2016 BRITTANY MARY N Ot 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 12/03/2016 BRITTANY MARY N Ot C86.6 PRIMARY CUTANEOUS CM93-LRQIIZXQ T-CELL P 12/03/2016 BRITTANY MARY N Ot E03.9 HYPOTHYROIDISM, UNSPECIFIED 12/03/2016 BRITTANYMARY N Ot F17.210 NICOTINE DEPENDENCE, CIGARETTES, UNCOMPL 12/03/2016 BRITTANY MARY N Ot I10 ESSENTIAL (PRIMARY) HYPERTENSION 12/03/2016 BRITTANY MARY N Ot J44.9 CHRONIC OBSTRUCTIVE PULMONARY DISEASE, U 12/03/2016 BRITTANY MARY N Ot Z51.11 ENCOUNTER FOR ANTINEOPLASTIC CHEMOTHERAP 12/03/2016 BRITTANYMARY N Ot Z79.899 OTHER ASSISTED (CURRENT) DRUG THERAPY 12/07/2016 BRITTANY MARY N Ot R09.89 OTH SYMPTOMS AND SIGNS INVOLVING THE CIR 12/15/2016 BRITTANY BOBTHA N Ot R09.89 OTH SYMPTOMS AND SIGNS INVOLVING THE CIR 12/29/2016 BRITTANY MARY N Ot C86.6 PRIMARY CUTANEOUS BI91-LCMMCUDG T-CELL P 12/29/2016 BRITTANY MARY N Ot E03.9 HYPOTHYROIDISM, UNSPECIFIED 12/29/2016 BRITTANYMARY N Ot F17.210 NICOTINE DEPENDENCE, CIGARETTES, UNCOMPL 12/29/2016 MARY SOTO N Ot I10 ESSENTIAL (PRIMARY) HYPERTENSION 12/29/2016 MARY SOTO Zara Ot J44.9 CHRONIC OBSTRUCTIVE PULMONARY DISEASE, U 12/29/2016 MARY SOTO Ot Z51.11 ENCOUNTER FOR ANTINEOPLASTIC CHEMOTHERAP 12/29/2016 MARY SOTO Ot 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 12/29/2016 MARY SOTO Zara Ot C86.6 PRIMARY CUTANEOUS WY63-XPAEDXDW T-CELL P 12/29/2016 MARY SOTO Zara Ot E03.9 HYPOTHYROIDISM, UNSPECIFIED 12/29/2016 MARY SOTO Ot F17.210 NICOTINE DEPENDENCE, CIGARETTES, UNCOMPL 12/29/2016 MARY SOTO Ot I10 ESSENTIAL (PRIMARY) HYPERTENSION 12/29/2016 MARY SOTO Ot J44.9 CHRONIC OBSTRUCTIVE PULMONARY DISEASE, U 12/29/2016 MARY SOTO Ot Z51.11 ENCOUNTER FOR ANTINEOPLASTIC CHEMOTHERAP 12/29/2016 MARY SOTO Zara Ot Z79.899 OTHER ASSISTED (CURRENT) DRUG THERAPY 01/19/2017 Ot V72.84 EXAM [...] CUTANEOUS T-CELL LYMPHOMA, UNSPECIFIED, 01/19/2017 [employer] Ot E03.9 HYPOTHYROIDISM, UNSPECIFIED 01/19/2017 LAMONT SPENCEP Ot F17.210 NICOTINE DEPENDENCE, CIGARETTES, UNCOMPL 01/19/2017 [employer] Ot I10 ESSENTIAL (PRIMARY) HYPERTENSION 01/19/2017 LAMONT SPENCEP Ot J44.9 CHRONIC OBSTRUCTIVE PULMONARY DISEASE, U 01/19/2017 LAMONT SPENCEP Ot 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 01/19/2017 MARY SOTO N Ot R09.89 OTH SYMPTOMS AND SIGNS INVOLVING THE CIR 01/19/2017 MARY SOTO Ot C86.6 PRIMARY CUTANEOUS UK48-DNNBYWVP T-CELL P 01/19/2017 MARY SOTO N Ot E03.9 HYPOTHYROIDISM, UNSPECIFIED 01/19/2017 BRITTANYMARY N Ot F17.210 NICOTINE DEPENDENCE, CIGARETTES, UNCOMPL 01/19/2017 MARY SOTO N Ot I10 ESSENTIAL (PRIMARY) HYPERTENSION 01/19/2017 BRITTANYMARY N Ot J44.9 CHRONIC OBSTRUCTIVE PULMONARY DISEASE, U 01/19/2017 BRITTANYMARY N Ot Z51.11 ENCOUNTER FOR ANTINEOPLASTIC CHEMOTHERAP 01/19/2017 MARY SOTO N Ot 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 01/23/2017 MARY SOTO N Ot C86.6 PRIMARY CUTANEOUS QW35-WXHMNSJB T-CELL P 01/23/2017 MARY SOTO N Ot E03.9 HYPOTHYROIDISM, UNSPECIFIED 01/23/2017 BRITTANY BOBTHA N Ot F17.210 NICOTINE DEPENDENCE, CIGARETTES, UNCOMPL 01/23/2017 BRITTANYMARY N Ot I10 ESSENTIAL (PRIMARY) HYPERTENSION 01/23/2017 MARY SOTO N Ot J44.9 CHRONIC OBSTRUCTIVE PULMONARY DISEASE, U 01/23/2017 BRITTANYMARY N Ot Z51.11 ENCOUNTER FOR ANTINEOPLASTIC CHEMOTHERAP 01/23/2017 MARY SOTO N Ot 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 01/23/2017 MARY SOTO N Ot C86.6 PRIMARY CUTANEOUS OL03-LDQWONXA T-CELL P 01/23/2017 BRITTANYMARY N Ot E03.9 HYPOTHYROIDISM, UNSPECIFIED 01/23/2017 BRITTANYENRIQUEAN N Ot F17.210 NICOTINE DEPENDENCE, CIGARETTES, UNCOMPL 01/23/2017 BRITTANYMARY N Ot I10 ESSENTIAL (PRIMARY) HYPERTENSION 01/23/2017 BRITTANYENRIQUEAN N Ot J44.9 CHRONIC OBSTRUCTIVE PULMONARY DISEASE, U 01/23/2017 BRITTANY BOBAN N Ot Z51.11 ENCOUNTER FOR ANTINEOPLASTIC CHEMOTHERAP 01/23/2017 BRITTANY BOBAN N Ot Z79.899 OTHER ASSISTED (CURRENT) DRUG THERAPY 01/23/2017 BRITTANY BOBAN N Ot C86.6 PRIMARY CUTANEOUS SK69-CYEIBIXP T-CELL P 01/23/2017 BRITTANYENRIQUEAN N Ot E03.9 HYPOTHYROIDISM, UNSPECIFIED 01/23/2017 BRITTANY, BOBAN N Ot F17.210 NICOTINE DEPENDENCE, CIGARETTES, UNCOMPL 01/23/2017 BRITTANY BOBAN N Ot I10 ESSENTIAL (PRIMARY) HYPERTENSION 01/23/2017 BRITTANY BOBAN N Ot J44.9 CHRONIC OBSTRUCTIVE PULMONARY DISEASE, U 01/23/2017 BRITTANY BOBAN N Ot Z51.11 ENCOUNTER FOR ANTINEOPLASTIC CHEMOTHERAP 01/23/2017 BRITTANY BOBAN N Ot Z79.899 OTHER ASSISTED (CURRENT) DRUG THERAPY 01/23/2017 BRITTANY BOBTHA N Ot C86.6 PRIMARY CUTANEOUS OM81-YWHBAOIA T-CELL P 01/23/2017 BRITTANY BOBTHA N Ot E03.9 HYPOTHYROIDISM, UNSPECIFIED 01/23/2017 BRITTANY, BOBAN N Ot F17.210 NICOTINE DEPENDENCE, CIGARETTES, UNCOMPL 01/23/2017 BRITTANY BOBAN N Ot I10 ESSENTIAL (PRIMARY) HYPERTENSION 01/23/2017 BRITTANY BOBAN N Ot J44.9 CHRONIC OBSTRUCTIVE PULMONARY DISEASE, U 01/23/2017 BRITTANY BOBAN N Ot Z51.11 ENCOUNTER FOR ANTINEOPLASTIC CHEMOTHERAP 01/23/2017 BRITTANY BOBTHA N Ot 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 01/23/2017 BRITTANYMARY N Ot C86.6 PRIMARY CUTANEOUS PU29-NNYVCPCS T-CELL P 01/23/2017 BRITTANYMARY N Ot E03.9 HYPOTHYROIDISM, UNSPECIFIED 01/23/2017 BRITTANY, BOBAN N Ot F17.210 NICOTINE DEPENDENCE, CIGARETTES, UNCOMPL 01/23/2017 BRITTANY BOBAN N Ot I10 ESSENTIAL (PRIMARY) HYPERTENSION 01/23/2017 BRITTANY BOBAN N Ot J44.9 CHRONIC OBSTRUCTIVE PULMONARY DISEASE, U 01/23/2017 BRITTANY, BOBAN N Ot Z51.11 ENCOUNTER FOR ANTINEOPLASTIC CHEMOTHERAP 01/23/2017 BRITTANY BOBAN N Ot Z79.899 OTHER ASSISTED (CURRENT) DRUG THERAPY 01/23/2017 BRITTANY BOBAN N Ot C86.6 PRIMARY CUTANEOUS GH50-FCTRCWGY T-CELL P 01/23/2017 BRITTANY, BOBAN N Ot E03.9 HYPOTHYROIDISM, UNSPECIFIED 01/23/2017 BRITTANY, BOBAN N Ot F17.210 NICOTINE DEPENDENCE, CIGARETTES, UNCOMPL 01/23/2017 BRITTANY, BOBAN N Ot I10 ESSENTIAL (PRIMARY) HYPERTENSION 01/23/2017 BRITTANY, BOBAN N Ot J44.9 CHRONIC OBSTRUCTIVE PULMONARY DISEASE, U 01/23/2017 BRITTANY, BOBAN N Ot Z51.11 ENCOUNTER FOR ANTINEOPLASTIC CHEMOTHERAP 01/23/2017 BRITTANY, BOBAN N Ot 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 02/08/2017 BRITTANY, BOBAN N Ot C86.6 PRIMARY CUTANEOUS XY79-DJKVSCJM T-CELL P 02/08/2017 BRITTANY, BOBAN N Ot E03.9 HYPOTHYROIDISM, UNSPECIFIED 02/08/2017 BRITTANY, BOBAN N Ot F17.210 NICOTINE DEPENDENCE, CIGARETTES, UNCOMPL 02/08/2017 BRITTANY, BOBAN N Ot I10 ESSENTIAL (PRIMARY) HYPERTENSION 02/08/2017 BRITTANY, BOBAN N Ot J44.9 CHRONIC OBSTRUCTIVE PULMONARY DISEASE, U 02/08/2017 BRITTANY, BOBAN N Ot Z51.11 ENCOUNTER FOR ANTINEOPLASTIC CHEMOTHERAP 02/08/2017 BRITTANY, BOBAN N Ot 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 03/02/2017 BRITTANY, BOBAN N Ot C86.6 PRIMARY CUTANEOUS JK77-CJVJADYQ T-CELL P 03/02/2017 BRITTANY, BOBAN N Ot E03.9 HYPOTHYROIDISM, UNSPECIFIED 03/02/2017 BRITTANY, BOBAN N Ot F17.210 NICOTINE DEPENDENCE, CIGARETTES, UNCOMPL 03/02/2017 BRITTANY, BOBAN N Ot I10 ESSENTIAL (PRIMARY) HYPERTENSION 03/02/2017 BRITTANY, BOBAN N Ot J44.9 CHRONIC OBSTRUCTIVE PULMONARY DISEASE, U 03/02/2017 BRITTANY, BOBAN N Ot Z51.11 ENCOUNTER FOR ANTINEOPLASTIC CHEMOTHERAP 03/02/2017 BRITTANY, BOBAN N Ot 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 04/05/2017 BRITTANY, BOBAN N Ot C86.6 PRIMARY CUTANEOUS ES36-TUZPDHVV T-CELL P 04/05/2017 BRITTANY, BOBAN N Ot E03.9 HYPOTHYROIDISM, UNSPECIFIED 04/05/2017 BRITTANY, BOBAN N Ot F17.210 NICOTINE DEPENDENCE, CIGARETTES, UNCOMPL 04/05/2017 BRITTANY, BOBAN N Ot I10 ESSENTIAL (PRIMARY) HYPERTENSION 04/05/2017 BRITTANY, BOBAN N Ot J44.9 CHRONIC OBSTRUCTIVE PULMONARY DISEASE, U 04/05/2017 BRITTANY, BOBAN N Ot Z51.11 ENCOUNTER FOR ANTINEOPLASTIC CHEMOTHERAP 04/05/2017 BRITTANY, BOBAN N Ot 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 04/19/2017 BRITTANY, BOBAN N Ot C86.6 PRIMARY CUTANEOUS LC30-ZCYXPVAI T-CELL P 04/19/2017 BRITTANY, BOBAN N Ot E03.9 HYPOTHYROIDISM, UNSPECIFIED 04/19/2017 BRITTANY, BOBAN N Ot F17.210 NICOTINE DEPENDENCE, CIGARETTES, UNCOMPL 04/19/2017 BRITTANY, BOBAN N Ot I10 ESSENTIAL (PRIMARY) HYPERTENSION 04/19/2017 BRITTANY, BOBAN N Ot J44.9 CHRONIC OBSTRUCTIVE PULMONARY DISEASE, U 04/19/2017 BRITTANY, BOBAN N Ot Z51.11 ENCOUNTER FOR ANTINEOPLASTIC CHEMOTHERAP 04/19/2017 BRITTANY, BOBAN N Ot Z79.899 OTHER ASSISTED (CURRENT) DRUG THERAPY 04/25/2017 BRITTANY, BOBAN N Ot C86.6 PRIMARY CUTANEOUS TZ00-ORWVVXBY T-CELL P 04/25/2017 BRITTANY, BOBAN N Ot E03.9 HYPOTHYROIDISM, UNSPECIFIED 04/25/2017 BRITTANY, BOBAN N Ot F17.210 NICOTINE DEPENDENCE, CIGARETTES, UNCOMPL 04/25/2017 BRITTANY, BOBAN N Ot I10 ESSENTIAL (PRIMARY) HYPERTENSION 04/25/2017 BRITTANY, BOBAN N Ot J44.9 CHRONIC OBSTRUCTIVE PULMONARY DISEASE, U 04/25/2017 BRITTANY, BOBAN N Ot Z51.11 ENCOUNTER FOR ANTINEOPLASTIC CHEMOTHERAP 04/25/2017 BRITTANY, BOBAN N Ot Z79.899 OTHER ASSISTED (CURRENT) DRUG THERAPY 05/11/2017 BRITTANY, BOBAN N Ot C86.6 PRIMARY CUTANEOUS QQ57-XNILWVVS T-CELL P 05/11/2017 BRITTANY, BOBAN N Ot E03.9 HYPOTHYROIDISM, UNSPECIFIED 05/11/2017 BRITTANY, BOBAN N Ot F17.210 NICOTINE DEPENDENCE, CIGARETTES, UNCOMPL 05/11/2017 BRITTANY, BOBAN N Ot I10 ESSENTIAL (PRIMARY) HYPERTENSION 05/11/2017 BRITTANY, MARY Zuñiga Ot J44.9 CHRONIC OBSTRUCTIVE PULMONARY DISEASE, U 05/11/2017 BRITTANY MARY Zuñiga Ot 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 05/24/2017 MELY MENA DO Ot L08.9 LOCAL INFECTION OF THE SKIN AND SUBCUTAN 05/24/2017 MELY MENA DO Ot R22.41 LOCALIZED SWELLING, MASS AND LUMP, RIGHT 05/24/2017 MELY MENA DO Ana Ot K59.00 CONSTIPATION, UNSPECIFIED 05/24/2017 BRITTANY MARY Zuñiga Ot C84.A0 CUTANEOUS T-CELL LYMPHOMA, UNSPECIFIED, 05/24/2017 [employer] Ot C84.A0 CUTANEOUS T-CELL LYMPHOMA, UNSPECIFIED, 05/24/2017 [employer] Ot E03.9 HYPOTHYROIDISM, UNSPECIFIED 05/24/2017 [employer] Ot F17.210 NICOTINE DEPENDENCE, CIGARETTES, UNCOMPL 05/24/2017 [employer] Ot I10 ESSENTIAL (PRIMARY) HYPERTENSION 05/24/2017 [employer] Ot J44.9 CHRONIC OBSTRUCTIVE PULMONARY DISEASE, U 05/24/2017 [employer] Ot 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 05/24/2017 BRITTANY MARY Zuñiga Ot R09.89 OTH SYMPTOMS AND SIGNS INVOLVING THE CIR 05/24/2017 MARY SOTO Ot C86.6 PRIMARY CUTANEOUS WK72-UIMHOZYD T-CELL P 05/24/2017 MARY SOTO Ot E03.9 HYPOTHYROIDISM, UNSPECIFIED 05/24/2017 MARY SOTO N Ot F17.210 NICOTINE DEPENDENCE, CIGARETTES, UNCOMPL 05/24/2017 MARY SOTO N Ot I10 ESSENTIAL (PRIMARY) HYPERTENSION 05/24/2017 MARY SOTO Ot J44.9 CHRONIC OBSTRUCTIVE PULMONARY DISEASE, U 05/24/2017 BRITTANY MARY N Ot 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 05/30/2017 MARY SOTO Ot C86.6 PRIMARY CUTANEOUS SV44-KQEUZAAG T-CELL P 05/30/2017 MARY SOTO N Ot E03.9 HYPOTHYROIDISM, UNSPECIFIED 05/30/2017 BRITTANYENRIQUEAN N Ot F17.210 NICOTINE DEPENDENCE, CIGARETTES, UNCOMPL 05/30/2017 BRITTANYENRIQUEAN N Ot I10 ESSENTIAL (PRIMARY) HYPERTENSION 05/30/2017 BRITTANYENRIQUE VILLEDAAN N Ot J44.9 CHRONIC OBSTRUCTIVE PULMONARY DISEASE, U 05/30/2017 BRITTANYMARY VILLEDA N Ot Z79.899 OTHER ASSISTED (CURRENT) DRUG THERAPY 06/01/2017 [employer] Ot 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, EXTRANODAL AND SOLID 06/01/2017 [employer] Ot C86.6 PRIMARY CUTANEOUS TZ31-FDRICKKD T-CELL P 06/01/2017 [employer]ONT [employer]ENCE S [employer] SAL[employer] Ot E27.9 DISORDER OF ADRENAL GLAND, UNSPECIFIED 06/01/2017 [employer] S [employer] SAL[employer] Ot J32.8 OTHER CHRONIC SINUSITIS 06/01/2017 [employer] S [employer] Ot N28.1 CYST OF KIDNEY, ACQUIRED 06/04/2017 BRITTANY BOBAN N Ot C86.6 PRIMARY CUTANEOUS UU64-OWYVEMWL T-CELL P 06/04/2017 MARY SOTO N Ot E03.9 HYPOTHYROIDISM, UNSPECIFIED 06/04/2017 BRITTANY BOBAN N Ot F17.210 NICOTINE DEPENDENCE, CIGARETTES, UNCOMPL 06/04/2017 BRITTANY BOBTHA N Ot I10 ESSENTIAL (PRIMARY) HYPERTENSION 06/04/2017 BRITTANYMARY VILLEDA N Ot J44.9 CHRONIC OBSTRUCTIVE PULMONARY DISEASE, U 06/04/2017 MARY SOTO N Ot Z79.899 OTHER ASSISTED (CURRENT) DRUG THERAPY 06/16/2017 BRITTANY BOBAN N Ot 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, EXTRANODAL AND SOLID 06/16/2017 BRITTANY BOBAN N Ot C86.6 PRIMARY CUTANEOUS OK32-LOXHFIIX T-CELL P 06/16/2017 BRITTANYENRIQUEAN N Ot E03.9 [...] 06/16/2017 MARY SOTO Zara Ot Z79.899 OTHER ASSISTED (CURRENT) DRUG THERAPY 06/16/2017 [employer] S [employer] Ot 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, EXTRANODAL AND SOLID 06/16/2017 [employer] S [employer] Ot C86.6 PRIMARY CUTANEOUS SI90-ZSDZQEET T-CELL P 06/16/2017 [employer] Ot E27.9 DISORDER OF ADRENAL GLAND, UNSPECIFIED 06/16/2017 [employer] Ot J32.8 OTHER CHRONIC SINUSITIS 06/16/2017 [employer] Ot N28.1 CYST OF KIDNEY, ACQUIRED 06/27/2017 [employer] S [employer] Ot 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, EXTRANODAL AND SOLID 06/27/2017 LAMONT SP[employer] Ot C86.6 PRIMARY CUTANEOUS [id number]-[id number] T-CELL P 06/27/2017 LAMONT SP[employer] Ot E27.9 DISORDER OF ADRENAL GLAND, UNSPECIFIED 06/27/2017 LAMONT SPENCE [employer] Ot J32.8 OTHER CHRONIC SINUSITIS 06/27/2017 JL SPENCESHANDRA S INSIDE SALES Ot N28.1 CYST OF KIDNEY, ACQUIRED 07/27/2017 BRITTANY, ENRIQUEHTA Zara Ot 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, EXTRANODAL AND SOLID 07/27/2017 BRITTANY ENRIQUETHA Zara Ot C86.6 PRIMARY CUTANEOUS [id number] T-CELL P 07/27/2017 BRITTANY, ENRIQUETHA Zara Ot [...] 07/27/2017 MARY SOTO Zara Ot 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 08/01/2017 NENA CANCINO MD Ot 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, EXTRANODAL AND SOLID 08/01/2017 NENA CANCINO MD Ot C86.6 PRIMARY CUTANEOUS [id number]-JEGPUOWK T-CELL P 08/01/2017 NENA CANCINO MD Ot E03.9 HYPOTHYROIDISM, UNSPECIFIED 08/01/2017 NENA CANCINO MD Ot E27.9 DISORDER OF ADRENAL GLAND, UNSPECIFIED 08/01/2017 NENA CANCINO MD Ot F17.210 NICOTINE DEPENDENCE, CIGARETTES, UNCOMPL 08/01/2017 NENA CANCINO MD Ot I10 ESSENTIAL (PRIMARY) HYPERTENSION 08/01/2017 NENA CANCINO MD Ot J44.9 CHRONIC OBSTRUCTIVE PULMONARY DISEASE, U 08/01/2017 NENA CANCINO MD Ot 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 08/17/2017 NENA CANCINO MD Ot 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, EXTRANODAL AND SOLID 08/17/2017 NENA CANCINO MD Ot C86.6 PRIMARY CUTANEOUS [id number]-[id number] T-CELL P 08/17/2017 NENA CANCINO MD Ot E03.9 HYPOTHYROIDISM, UNSPECIFIED 08/17/2017 NENA CANCINO MD Ot E27.9 DISORDER OF ADRENAL GLAND, UNSPECIFIED 08/17/2017 NENA CANCINO MD Ot F17.210 NICOTINE DEPENDENCE, CIGARETTES, UNCOMPL 08/17/2017 NENA CANCINO MD Ot I10 ESSENTIAL (PRIMARY) HYPERTENSION 08/17/2017 NENA CANCINO MD Ot J44.9 CHRONIC OBSTRUCTIVE PULMONARY DISEASE, U 08/17/2017 NENA CANCINO MD Ot Z79.899 OTHER ASSISTED (CURRENT) DRUG THERAPY 09/06/2017 NENA CANCINO MD Ot 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, EXTRANODAL AND SOLID 09/06/2017 NENA CANCINO MD Ot C86.6 PRIMARY CUTANEOUS [id number]-[id number] T-CELL P 09/06/2017 NENA CANCINO MD Ot [...] 09/06/2017 NENA CANCINO MD Ot 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 09/08/2017 BRITTANY, BOBAN N Ot 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, EXTRANODAL AND SOLID 09/08/2017 BRITTANY, BOBAN N Ot C86.6 PRIMARY CUTANEOUS BT32-KBRJOIBE T-CELL P 09/08/2017 BRITTANY, BOBAN N Ot E03.9 HYPOTHYROIDISM, UNSPECIFIED 09/08/2017 BRITTANY, BOBAN N Ot E27.9 DISORDER OF ADRENAL GLAND, UNSPECIFIED 09/08/2017 BRITTANY, BOBAN N Ot F17.210 NICOTINE DEPENDENCE, CIGARETTES, UNCOMPL 09/08/2017 BRITTANY, BOBAN N Ot I10 ESSENTIAL (PRIMARY) HYPERTENSION 09/08/2017 BRITTANY, BOBAN N Ot J44.9 CHRONIC OBSTRUCTIVE PULMONARY DISEASE, U 09/08/2017 BRITTANY, BOBAN N Ot 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 10/03/2017 BRITTANY, BOBAN N Ot 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, EXTRANODAL AND SOLID 10/03/2017 BRITTANY, BOBAN N Ot C86.6 PRIMARY CUTANEOUS KG88-[id number] T-CELL P 10/03/2017 BRITTANY, BOBAN N Ot E03.9 HYPOTHYROIDISM, UNSPECIFIED 10/03/2017 BRITTANY, BOBAN N Ot E27.9 DISORDER OF ADRENAL GLAND, UNSPECIFIED 10/03/2017 BRITTANY, BOBAN N Ot F17.210 NICOTINE DEPENDENCE, CIGARETTES, UNCOMPL 10/03/2017 BRITTANY, BOBAN N Ot I10 ESSENTIAL (PRIMARY) HYPERTENSION 10/03/2017 BRITTANY, BOBAN N Ot J44.9 CHRONIC OBSTRUCTIVE PULMONARY DISEASE, U 10/03/2017 BRITTANY, BOBAN N Ot Z79.899 OTHER ASSISTED (CURRENT) DRUG THERAPY 10/10/2017 BRITTANY, BOBAN N Ot 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, EXTRANODAL AND SOLID 10/10/2017 BRITTANY, BOBAN N Ot C86.6 PRIMARY CUTANEOUS [id number]-[id number] T-CELL P 10/10/2017 BRITTANY, BOBAN N Ot E03.9 HYPOTHYROIDISM, UNSPECIFIED 10/10/2017 BRITTANY, BOBAN N Ot E27.9 DISORDER OF ADRENAL GLAND, UNSPECIFIED 10/10/2017 BRITTANY, BOBAN N Ot F17.210 NICOTINE DEPENDENCE, CIGARETTES, UNCOMPL 10/10/2017 BRITTANY, BOBAN N Ot I10 ESSENTIAL (PRIMARY) HYPERTENSION 10/10/2017 BRITTANY, BOBAN N Ot J44.9 CHRONIC OBSTRUCTIVE PULMONARY DISEASE, U 10/10/2017 BRITTANY, BOBAN N Ot 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 10/28/2017 BRITTANY, BOBAN N Ot 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, EXTRANODAL AND SOLID 10/28/2017 BRITTANY, BOBAN N Ot C86.6 PRIMARY CUTANEOUS US29-[id number] T-CELL P 10/28/2017 BRITTANY, BOBAN N Ot E03.9 HYPOTHYROIDISM, UNSPECIFIED 10/28/2017 BRITTANY, BOBAN N Ot E27.9 DISORDER OF ADRENAL GLAND, UNSPECIFIED 10/28/2017 BRITTANY, BOBAN N Ot F17.210 NICOTINE DEPENDENCE, CIGARETTES, UNCOMPL 10/28/2017 BRITTANY, BOBAN N Ot I10 ESSENTIAL (PRIMARY) HYPERTENSION 10/28/2017 BRITTANY, BOBAN N Ot J44.9 CHRONIC OBSTRUCTIVE PULMONARY DISEASE, U 10/28/2017 BRITTANY, BOBAN N Ot Z79.899 OTHER ASSISTED (CURRENT) DRUG THERAPY 11/09/2017 BRITTANY, BOBAN N Ot 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, EXTRANODAL AND SOLID 11/09/2017 BRITTANY, BOBAN N Ot C86.6 PRIMARY CUTANEOUS OM07-PSYNJYLP T-CELL P 11/09/2017 BRITTANY, BOBAN N Ot E03.9 HYPOTHYROIDISM, UNSPECIFIED 11/09/2017 BRITTANY, BOBAN N Ot E27.9 DISORDER OF ADRENAL GLAND, UNSPECIFIED 11/09/2017 BRITTANY, BOBAN N Ot F17.210 NICOTINE DEPENDENCE, CIGARETTES, UNCOMPL 11/09/2017 BRITTANY, BOBAN N Ot I10 ESSENTIAL (PRIMARY) HYPERTENSION 11/09/2017 BRITTANY, BOBAN N Ot J44.9 CHRONIC OBSTRUCTIVE PULMONARY DISEASE, U 11/09/2017 BRITTANY, BOBAN N Ot 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 11/10/2017 BRITTANY, BOBAN N Ot 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, EXTRANODAL AND SOLID 11/10/2017 BRITTANY, BOBAN N Ot C86.6 PRIMARY CUTANEOUS CB15-TYMGHOKR T-CELL P 11/10/2017 BRITTANY, BOBAN N Ot E03.9 HYPOTHYROIDISM, UNSPECIFIED 11/10/2017 BRITTANY, BOBAN N Ot E27.9 DISORDER OF ADRENAL GLAND, UNSPECIFIED 11/10/2017 BRITTANY, BOBAN N Ot F17.210 NICOTINE DEPENDENCE, CIGARETTES, UNCOMPL 11/10/2017 BRITTANY, BOBAN N Ot I10 ESSENTIAL (PRIMARY) HYPERTENSION 11/10/2017 BRITTANY, BOBAN N Ot J44.9 CHRONIC OBSTRUCTIVE PULMONARY DISEASE, U 11/10/2017 BRITTANY, BOBAN N Ot 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 11/30/2017 BRITTANY, BOBAN N Ot 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, EXTRANODAL AND SOLID 11/30/2017 BRITTANY, BOBAN N Ot C86.6 PRIMARY CUTANEOUS VN47-XUODSLTY T-CELL P 11/30/2017 BRITTANY, BOBAN N Ot E03.9 HYPOTHYROIDISM, UNSPECIFIED 11/30/2017 BRITTANY, BOBAN N Ot E27.9 DISORDER OF ADRENAL GLAND, UNSPECIFIED 11/30/2017 BRITTANY, BOBAN N Ot F17.210 NICOTINE DEPENDENCE, CIGARETTES, UNCOMPL 11/30/2017 BRITTANY, BOBAN N Ot I10 ESSENTIAL (PRIMARY) HYPERTENSION 11/30/2017 BRITTANY, BOBAN N Ot J44.9 CHRONIC OBSTRUCTIVE PULMONARY DISEASE, U 11/30/2017 BRITTANY, BOBAN N Ot 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 12/06/2017 BRITTANY, BOBAN N Ot 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, EXTRANODAL AND SOLID 12/06/2017 BRITTANY, BOBAN N Ot C86.6 PRIMARY CUTANEOUS FR78-DHDULFFL T-CELL P 12/06/2017 BRITTANY, BOBAN N Ot [...] 12/06/2017 BRITTANY, BOBAN N Ot 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 12/07/2017 BRITTANY, BOBAN N Ot 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, EXTRANODAL AND SOLID 12/07/2017 BRITTANY, BOBAN N Ot C86.6 PRIMARY CUTANEOUS EP15-BWKTSVIG T-CELL P 12/07/2017 BRITTANY, BOBAN N Ot [...] 12/07/2017 BRITTANY, BOBAN N Ot 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 12/13/2017 BRITTANY, BOBAN N Ot 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, EXTRANODAL AND SOLID 12/13/2017 BRITTANY, BOBAN N Ot C86.6 PRIMARY CUTANEOUS SE28-SGSCAVXJ T-CELL P 12/13/2017 BRITTANY, BOBAN N Ot [...] 12/13/2017 MARY SOTO N Ot 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 12/19/2017 MARY SOTO N Ot 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, EXTRANODAL AND SOLID 12/19/2017 BRITTANY BOBTHA N Ot C86.6 PRIMARY CUTANEOUS RV78-OMKNEAFQ T-CELL P 12/19/2017 BRITTANYMARY VILLEDA N Ot E03.9 HYPOTHYROIDISM, UNSPECIFIED 12/19/2017 BRITTANY BOBTHA N Ot E27.9 DISORDER OF ADRENAL GLAND, UNSPECIFIED 12/19/2017 BRITTANYMARY N Ot F17.210 NICOTINE DEPENDENCE, CIGARETTES, UNCOMPL 12/19/2017 BRITTANYMARY N Ot I10 ESSENTIAL (PRIMARY) HYPERTENSION 12/19/2017 BRITTANYMARY N Ot J44.9 CHRONIC OBSTRUCTIVE PULMONARY DISEASE, U 12/19/2017 BRITTANYMARY N Ot 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 12/21/2017 BRITTANY BOBTHA N Ot 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, EXTRANODAL AND SOLID 12/21/2017 BRITTANYMARY N Ot C86.6 PRIMARY CUTANEOUS GC38-CJKGTGZJ T-CELL P 12/21/2017 BRITTANYMARY N Ot E03.9 HYPOTHYROIDISM, UNSPECIFIED 12/21/2017 BRITTANYMARY N Ot E27.9 DISORDER OF ADRENAL GLAND, UNSPECIFIED 12/21/2017 BRITTANYMARY N Ot F17.210 NICOTINE DEPENDENCE, CIGARETTES, UNCOMPL 12/21/2017 BRITTANYMARY N Ot I10 ESSENTIAL (PRIMARY) HYPERTENSION 12/21/2017 BRITTANYMARY N Ot J44.9 CHRONIC OBSTRUCTIVE PULMONARY DISEASE, U 12/21/2017 BRITTANYMARY N Ot Z79.899 OTHER ASSISTED (CURRENT) DRUG THERAPY 12/22/2017 BRITTANYMARY N Ot 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, EXTRANODAL AND SOLID 12/22/2017 BRITTANY, BOBAN N Ot C86.6 PRIMARY CUTANEOUS ZH86-JPLXIPVY T-CELL P 12/22/2017 BRITTANYMARY N Ot E03.9 HYPOTHYROIDISM, UNSPECIFIED 12/22/2017 BRITTANY BOBAN N Ot E27.9 DISORDER OF ADRENAL GLAND, UNSPECIFIED 12/22/2017 MARY SOTO Ot F17.210 NICOTINE DEPENDENCE, CIGARETTES, UNCOMPL 12/22/2017 MARY SOTO Ot I10 ESSENTIAL (PRIMARY) HYPERTENSION 12/22/2017 MARY SOTO Ot J44.9 CHRONIC OBSTRUCTIVE PULMONARY DISEASE, U 12/22/2017 MARY SOTO Ot 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 01/16/2018 Ot V72.84 EXAM [...] CUTANEOUS T-CELL LYMPHOMA, UNSPECIFIED, 01/16/2018 LAMONT SPENCE INS[employer] SALES Ot E03.9 HYPOTHYROIDISM, UNSPECIFIED 01/16/2018 LAMONT [employer] SAL[employer] Ot F17.210 NICOTINE DEPENDENCE, CIGARETTES, UNCOMPL 01/16/2018 LAMONT SPENCE [employer] SAL[employer] Ot I10 ESSENTIAL (PRIMARY) HYPERTENSION 01/16/2018 LAMONT SPENCE [employer] SAL[employer] Ot J44.9 CHRONIC OBSTRUCTIVE PULMONARY DISEASE, U 01/16/2018 LAMONT SPENCE [employer] SAL[employer] Ot 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 01/16/2018 MARY SOTO Ot R09.89 OTH SYMPTOMS AND SIGNS INVOLVING THE CIR 01/16/2018 LAMONT SP[employer] Ot 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, EXTRANODAL AND SOLID 01/16/2018 LAMONT SP[employer] Ot C86.6 PRIMARY CUTANEOUS CW42-XDFAMYRR T-CELL P 01/16/2018 LAMONT SP[employer] Ot E27.9 DISORDER OF ADRENAL GLAND, UNSPECIFIED 01/16/2018 LAMONT [employer] Ot J32.8 OTHER CHRONIC SINUSITIS 01/16/2018 LAMONT SPENCE [employer] SAL[employer] Ot N28.1 CYST OF KIDNEY, ACQUIRED 01/16/2018 BRITTANYMARY VILLEDA N Ot 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, EXTRANODAL AND SOLID 01/16/2018 MARY SOTO N Ot C86.6 PRIMARY CUTANEOUS JD17-MZZIEZVB T-CELL P 01/16/2018 MARY SOTO N Ot [...] 01/16/2018 MARY SOTO N Ot Z79.899 OTHER ASSISTED (CURRENT) DRUG THERAPY 01/19/2018 LAMONT SP[employer] Ot 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, EXTRANODAL AND SOLID 01/19/2018 LAMONT [employer] Ot C86.6 PRIMARY CUTANEOUS DH33-SFVFBBZR T-CELL P 01/24/2018 BRITTANYMARY N Ot 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, EXTRANODAL AND SOLID 01/24/2018 MARY SOTO N Ot C86.6 PRIMARY CUTANEOUS HR09-DULYPXTS T-CELL P 01/24/2018 MARY SOTO N Ot [...] 01/24/2018 MARY SOTO N Ot 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 02/07/2018 LAMONT SP[employer] Ot 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, EXTRANODAL AND SOLID 02/07/2018 LAMONT [employer] Ot C86.6 PRIMARY CUTANEOUS DR21-OVEPBVPP T-CELL P 02/15/2018 BRITTANY, BOBAN N Ot 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, EXTRANODAL AND SOLID 02/15/2018 BRITTANY, BOBAN N Ot C86.6 PRIMARY CUTANEOUS AU87-FJUAFZZJ T-CELL P 02/15/2018 BRITTANY, MARY N Ot [...] 02/15/2018 BRITTANY ENRIQUETHA N Ot Z79.899 OTHER ASSISTED (CURRENT) DRUG THERAPY 02/21/2018 LAMONT [employer] Ot 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, EXTRANODAL AND SOLID 02/21/2018 LAMONT [employer] Ot C86.6 PRIMARY CUTANEOUS ZV89-JOZUMYLV T-CELL P 03/21/2018 BRITTANY, BOBAN N Ot 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, EXTRANODAL AND SOLID 03/21/2018 BRITTANY, BOBAN N Ot C86.6 PRIMARY CUTANEOUS XR78-CHWGQOCQ T-CELL P 03/21/2018 BRITTANY MARY N Ot [...] 03/21/2018 BRITTANY BOBAN N Ot 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 03/22/2018 BRITTANY, BOBAN N Ot 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, EXTRANODAL AND SOLID 03/22/2018 BRITTANY, BOBAN N Ot C86.6 PRIMARY CUTANEOUS TF36-TGPELEEU T-CELL P 03/22/2018 BRITTANY, BOBAN N Ot [...] 03/22/2018 BRITTANY, BOBAN N Ot Z79.899 OTHER ASSISTED (CURRENT) DRUG THERAPY 05/17/2018 SHELBY LYON, GINGER Portillo Ot Z01.818 ENCOUNTER FOR OTHER PREPROCEDURAL EXAMIN 05/17/2018 BRITTANY, BOBAN N Ot 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, EXTRANODAL AND SOLID 05/17/2018 BRITTANY, BOBAN N Ot C86.6 PRIMARY CUTANEOUS EG58-ENTFFQIB T-CELL P 05/17/2018 BRITTANY, BOBAN N Ot E03.9 HYPOTHYROIDISM, UNSPECIFIED 05/17/2018 BRITTANY, BOBAN N Ot E27.9 DISORDER OF ADRENAL GLAND, UNSPECIFIED 05/17/2018 BRITTANY, BOBAN N Ot F17.210 NICOTINE DEPENDENCE, CIGARETTES, UNCOMPL 05/17/2018 BRITTANY, BOBAN N Ot I10 ESSENTIAL (PRIMARY) HYPERTENSION 05/17/2018 BRITTANY, BOBAN N Ot J44.9 CHRONIC OBSTRUCTIVE PULMONARY DISEASE, U 05/17/2018 BRITTANY, BOBAN N Ot 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 05/18/2018 SHELBY LYON, GINGER [...] 05/18/2018 GINGER RYAN MD Ot Z79.899 OTHER ASSISTED (CURRENT) DRUG THERAPY 05/23/2018 GINGER RYAN MD [...] SHELBY LYON, GINGER Portillo Ot 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 05/24/2018 MARY SOTO N Ot 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, EXTRANODAL AND SOLID 05/24/2018 MARY SOTO N Ot C86.6 PRIMARY CUTANEOUS IO99-JOKGQSWP T-CELL P 05/24/2018 MARY SOTO Ot E03.9 HYPOTHYROIDISM, UNSPECIFIED 05/24/2018 BRITTANY, BOBAN N Ot E27.9 DISORDER OF ADRENAL GLAND, UNSPECIFIED 05/24/2018 BRITTANY, ENRIQUEAN N Ot F17.210 NICOTINE DEPENDENCE, CIGARETTES, UNCOMPL 05/24/2018 BRITTANY BOBAN N Ot I10 ESSENTIAL (PRIMARY) HYPERTENSION 05/24/2018 BRITTANY BOBAN N Ot J44.9 CHRONIC OBSTRUCTIVE PULMONARY DISEASE, U 05/24/2018 BRITTANYENRIQUEAN N Ot Z79.899 OTHER ASSISTED (CURRENT) DRUG THERAPY 05/24/2018 SHELBY LYON, GINGER [...] SHELBY LYON, GINGER M Ot 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 06/05/2018 MARY SOTO N Ot 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, EXTRANODAL AND SOLID 06/05/2018 BRITTANY BOBAN N Ot C86.6 PRIMARY CUTANEOUS QA80-YRDGTGFQ T-CELL P 06/05/2018 BRITTANY, BOBAN N Ot E03.9 HYPOTHYROIDISM, UNSPECIFIED 06/05/2018 BRITTANY BOBTHA N Ot E27.9 DISORDER OF ADRENAL GLAND, UNSPECIFIED 06/05/2018 BRITTANY BOBAN N Ot F17.210 NICOTINE DEPENDENCE, CIGARETTES, UNCOMPL 06/05/2018 BRITTANY BOBAN N Ot I10 ESSENTIAL (PRIMARY) HYPERTENSION 06/05/2018 MARY SOTO N Ot J44.9 CHRONIC OBSTRUCTIVE PULMONARY DISEASE, U 06/05/2018 BRITTANY, BOBAN N Ot Z79.899 OTHER ASSISTED (CURRENT) DRUG THERAPY 06/20/2018 BRITTANY, BOBAN N Ot 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, EXTRANODAL AND SOLID 06/20/2018 BRITTANY, BOBAN N Ot C86.6 PRIMARY CUTANEOUS JY93-VOVNZUIW T-CELL P 06/20/2018 BRITTANY, BOBAN N Ot [...] 06/20/2018 BRITTANY, BOBAN N Ot Z79.899 OTHER ASSISTED (CURRENT) DRUG THERAPY 06/23/2018 BRITTANY, BOBAN N Ot 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, EXTRANODAL AND SOLID 06/23/2018 BRITTANY, BOBAN N Ot C86.6 PRIMARY CUTANEOUS OD29-HPRJMPTJ T-CELL P 06/23/2018 BRITTANY, BOBAN N Ot [...] 06/23/2018 BRITTANY, BOBAN N Ot 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 06/26/2018 BRITTANY, BOBAN N Ot 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, EXTRANODAL AND SOLID 06/26/2018 BRITTANY, BOBAN N Ot C86.6 PRIMARY CUTANEOUS CD89-WGBRFKXB T-CELL P 06/26/2018 BRITTANY, BOBAN N Ot E03.9 HYPOTHYROIDISM, UNSPECIFIED 06/26/2018 MARY SOTO Ot E27.9 DISORDER OF ADRENAL GLAND, UNSPECIFIED 06/26/2018 MARY SOTO Ot F17.210 NICOTINE DEPENDENCE, CIGARETTES, UNCOMPL 06/26/2018 MARY SOTO Ot I10 ESSENTIAL (PRIMARY) HYPERTENSION 06/26/2018 MARY SOTO Ot J44.9 CHRONIC OBSTRUCTIVE PULMONARY DISEASE, U 06/26/2018 MARY SOTO Ot Z51.11 ENCOUNTER FOR ANTINEOPLASTIC CHEMOTHERAP 06/26/2018 MARY SOTO Ot 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 07/04/2018 GALO, BIANCA W [...] GALO, BIANCA W R60.0 LOCALIZED EDEMA 07/18/2018 BRITTANY, BOBAN N Ot 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, EXTRANODAL AND SOLID 07/18/2018 BRITTANY, BOBAN N Ot C86.6 PRIMARY CUTANEOUS QC24-POOOHXOF T-CELL P 07/18/2018 BRITTANY, BOBAN N Ot E03.9 HYPOTHYROIDISM, UNSPECIFIED 07/18/2018 BRITTANY, BOBAN N Ot E27.9 DISORDER OF ADRENAL GLAND, UNSPECIFIED 07/18/2018 BRITTANY BOBAN N Ot F17.210 NICOTINE DEPENDENCE, CIGARETTES, UNCOMPL 07/18/2018 BRITTANY, BOBAN N Ot I10 ESSENTIAL (PRIMARY) HYPERTENSION 07/18/2018 MARY SOTO Zara Ot J44.9 CHRONIC OBSTRUCTIVE PULMONARY DISEASE, U 07/18/2018 MARY SOTO Zara Ot Z79.899 OTHER ASSISTED (CURRENT) DRUG THERAPY 08/01/2018 KEVONLENDER DO, MELY Perez Ot L98.9 DISORDER OF THE SKIN AND SUBCUTANEOUS TI 08/03/2018 GELLENDER DO, MELY Perez Ot L98.9 DISORDER OF THE SKIN AND SUBCUTANEOUS TI 08/03/2018 KEVONLENDER DO, MELY Perez Ot L98.9 DISORDER OF THE SKIN AND SUBCUTANEOUS TI 08/08/2018 BRITTANYMARY Ot 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, EXTRANODAL AND SOLID 08/08/2018 BRITTANYMARY Ot C86.6 PRIMARY CUTANEOUS YR18-AJUYHPUR T-CELL P 08/08/2018 BRITTANYMARY Ot E03.9 HYPOTHYROIDISM, UNSPECIFIED 08/08/2018 BRITTANYMARY Ot E27.9 DISORDER OF ADRENAL GLAND, UNSPECIFIED 08/08/2018 BRITTANYMARY Ot F17.210 NICOTINE DEPENDENCE, CIGARETTES, UNCOMPL 08/08/2018 BRITTANY ENRIQUETHA Zara Ot I10 ESSENTIAL (PRIMARY) HYPERTENSION 08/08/2018 MARY SOTO Zara Ot J44.9 CHRONIC OBSTRUCTIVE PULMONARY DISEASE, U 08/08/2018 MARY SOTO Zara Ot 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 08/09/2018 KEVONSABINA DOMELY Ot L08.9 LOCAL INFECTION OF THE SKIN AND SUBCUTAN 08/09/2018 GELLENDER DOMELY Ot R22.41 LOCALIZED SWELLING, MASS AND LUMP, RIGHT 08/09/2018 GELLENDER DOMELY Ot K59.00 CONSTIPATION, UNSPECIFIED 08/09/2018 BRITTANYMARY Ot C84.A0 CUTANEOUS T-CELL LYMPHOMA, UNSPECIFIED, 08/09/2018 LAMONT SPENCEP Ot C84.A0 CUTANEOUS T-CELL LYMPHOMA, UNSPECIFIED, 08/09/2018 LAMONT SPENCEP Ot E03.9 HYPOTHYROIDISM, UNSPECIFIED 08/09/2018 LAMONT [employer] SALES Ot F17.210 NICOTINE DEPENDENCE, CIGARETTES, UNCOMPL 08/09/2018 LAMONT SPENCE [employer] SALES Ot I10 ESSENTIAL (PRIMARY) HYPERTENSION 08/09/2018 LAMONT SP[employer] SAL[employer] Ot J44.9 CHRONIC OBSTRUCTIVE PULMONARY DISEASE, U 08/09/2018 LAMONT [employer] SAL[employer] Ot 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 08/09/2018 MARY SOTO Ot R09.89 OTH SYMPTOMS AND SIGNS INVOLVING THE CIR 08/09/2018 LAOMNT SPENCE INSIDE SALES Ot 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, EXTRANODAL AND SOLID 08/09/2018 LAMONT [employer] SAL[employer] Ot C86.6 PRIMARY CUTANEOUS VU18-YMLSVMQP T-CELL P 08/09/2018 LAMONT [employer] Ot E27.9 DISORDER OF ADRENAL GLAND, UNSPECIFIED 08/09/2018 LAMONT [employer] SAL[employer] Ot J32.8 OTHER CHRONIC SINUSITIS 08/09/2018 LAMONT SP[employer] SAL[employer] Ot N28.1 CYST OF KIDNEY, ACQUIRED 08/09/2018 LAMONT SP[employer] SAL[employer] Ot 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, EXTRANODAL AND SOLID 08/09/2018 LAMONT SP[employer] SAL[employer] Ot C86.6 PRIMARY CUTANEOUS FM80-ITDZPTUX T-CELL P 08/09/2018 MARY SOTO Ot 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, EXTRANODAL AND SOLID 08/09/2018 MARY SOTO Ot C86.6 PRIMARY CUTANEOUS SL16-GIFFSJAZ T-CELL P 08/09/2018 MARY SOTO Ot E03.9 HYPOTHYROIDISM, UNSPECIFIED 08/09/2018 MARY SOTO Ot E27.9 DISORDER OF ADRENAL GLAND, UNSPECIFIED 08/09/2018 MARY SOTO Ot F17.210 NICOTINE DEPENDENCE, CIGARETTES, UNCOMPL 08/09/2018 MARY SOTO Ot I10 ESSENTIAL (PRIMARY) HYPERTENSION 08/09/2018 MARY SOTO Zara Ot J44.9 CHRONIC OBSTRUCTIVE PULMONARY DISEASE, U 08/09/2018 MARY SOTO Ot 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 08/09/2018 MELY MENA DO [...] 5-8.5 Urine-Protein Negative Negative Urine-RBC 10-20/HPF Urine-Specific [place] 1.015 1.000-1.030 Urine-WBC 0-2/HPF Urobilinogen 2.0 E.U./dL 0.2-1.0 MRSA Screen - 07/04/18 12:26 FINAL CULTURE RESULTS Called to Nataliya on [facility] Comprehensive Metabolic Panel - 07/11/18 05:10 Albumin [...] Status Pt. Type Provider Facility Loc./Unit Complaint [id number] 07/18/2012 15:36:00 07/18/2012 23:59:59 CLS Outpatient [id number] 06/11/2015 11:46:50 ACT Document Registration [id number] 07/28/2018 15:36:00 07/28/2018 23:59:59 CLS Outpatient MELY MENA DO [facility] [address] LABNPT [id number] 07/18/2018 10:52:00 07/18/2018 23:59:59 CLS Outpatient MARY SOTO [facility] [address] ONC [id number] 06/12/2018 10:46:00 06/20/2018 00:01:00 DIS Outpatient MARY SOTO [facility] [address] ONC [id number] 05/18/2018 11:07:00 05/18/2018 15:50:00 DIS Outpatient GINGER RYAN MD [facility] [address] SDC T-CELL LYMPHOMA [id number] 05/17/2018 06:20:00 05/17/2018 09:44:00 DIS Outpatient GINGER RYAN MD [facility] [address] PREOP T-CELL LYMPHOMA [id number] 02/21/2018 13:18:00 03/21/2018 00:01:00 DIS Outpatient MARY SOTO [facility] [address] ONC [id number] 01/18/2018 09:27:00 01/18/2018 23:59:59 CLS Outpatient LAMONT SPENCE [employer] SALES [facility] [address] RAD 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- CELL LYMPHOMA [id number] 11/30/2017 10:14:00 12/06/2017 00:01:00 DIS Outpatient MARY SOTO [facility] [address] ONC [id number] 08/17/2017 10:08:00 09/06/2017 15:07:00 DIS Outpatient NENA CANCINO MD [facility] [address] ONC [id number] 06/15/2017 11:35:00 07/27/2017 07:40:00 DIS Outpatient MARY SOTO [facility] [address] ONC [id number] 05/31/2017 08:39:00 06/04/2017 00:01:00 DIS Outpatient MARY SOTO [facility] [address] ONC [id number] 05/25/2017 12:24:00 05/25/2017 23:59:59 CLS Outpatient LAMONT [employer] [facility] [address] RAD C86.6,C84.09 [id number] 04/13/2017 09:31:00 04/19/2017 00:01:00 DIS Outpatient MARY SOTO [facility] [address] ONC [id number] 12/29/2016 08:49:00 12/29/2016 00:01:00 DIS Outpatient MRAY SOTO [facility] [address] ONC [id number] 11/16/2016 10:07:00 11/16/2016 23:59:59 CLS Outpatient MARY SOTO [facility] [address] RAD [id number] 09/09/2016 08:29:00 09/13/2016 00:01:00 DIS Outpatient MARY SOTO [facility] [address] ONC [id number] 05/24/2016 09:57:00 06/11/2016 09:10:00 DIS Outpatient MARY SOTO [facility] [address] ONC [id number] 05/03/2016 08:27:00 05/03/2016 23:59:59 CLS Outpatient LAMONT SPENCE [facility] [address] ONC [id number] 04/06/2016 09:44:00 04/06/2016 23:59:59 CLS Outpatient MARY SOTO [facility] [address] RAD CUTANEOUS T CELL [id number] 12/24/2015 12:50:00 12/24/2015 23:59:59 CLS Outpatient MELY MENA DO [facility] [address] RAD CONSTIPATION [id number] 06/11/2015 11:46:00 06/11/2015 23:59:59 CLS Outpatient MELY MENA DO [facility] [address] RAD RT LEG SWOLLEN/ INFECTED [id number] 12/14/2012 07:45:00 Document Registration [id number] 12/13/2012 07:36:00 Document Registration [id number] 06/16/2011 14:45:00 Document Registration [id number] 07/04/2018 12:19:00 07/12/2018 14:13:00 DIS Inpatient BIANCA ROSENTHAL [facility] LUIS ARMANDO [id number] 07/04/2018 13:14:08 Document Registration
--- NOTE | 2018-09-02 15:14 | NUR ---
TO CT WITH [employer] BRAKE OPERATOR AND RT.
[2018-09-02 15:40] VITALS: BP 96/22
[2018-09-02 15:45] VITALS: BP 111/92
[2018-09-02] MEDS ORDERED: ONDANSETRON 4 MG/2 ML (SDV) Z0FRAN IVP PRN ×2 (15:45→16:15)
[2018-09-02] MEDS ORDERED: PROMETHAZINE INJ 25 MG/ML (PHENERGAN) AMP IVP PRN (15:45)
[2018-09-02 15:50] VITALS: BP 107/86
--- NOTE | 2018-09-02 15:51 | Diagnostic Imaging Report ---
PROCEDURE: CT head and CT cervical spine without contrast. TECHNIQUE: Multiple contiguous axial images were obtained through the brain and cervical spine without the use of intravenous contrast. Sagittal and coronal reformations through the cervical spine were then performed. INDICATION: Trauma, found down. COMPARISON: CT head from 06/16/2011. FINDINGS: CT head: No hyperdense hemorrhage or space-occupying mass. No hydrocephalus or midline shift. Global atrophy is present. No features of acute territorial infarct. No acute skull fracture. Paranasal sinuses and mastoid air cells are clear. CT cervical spine: Multilevel degenerative changes are greatest at C5-C6 and C6-C7. No acute fracture or traumatic malalignment. Moderate spinal stenosis secondary to the degenerative changes at C5-C6. Lung apices are clear. IMPRESSION: 1. No acute intracranial process. 2. No acute fracture or traumatic malalignment in the cervical spine. Dictated by: Dictated on workstation # [id number]
--- NOTE | 2018-09-02 15:53 | Diagnostic Imaging Report ---
PROCEDURE: CT abdomen and pelvis without contrast. TECHNIQUE: Multiple contiguous axial images were obtained through the abdomen and pelvis without the use of intravenous contrast. INDICATION: Abdominal distention and pain. FINDINGS: There is extensive portal venous gas in the liver. There is gas in the mesenteric veins. There is marked dilatation of multiple loops of small bowel with mucosal air. The stomach is also distended with air and fluid. There is air also within the wall of the stomach. The colon does not appear to be involved. There is a ventral hernia which contains loops of bowel. No ischemic changes of the loops of bowel in the ventral hernia sac are seen. The liver shows no focal lesion. The bile ducts are not dilated. The spleen, pancreas and adrenals are normal. No acute abnormality of the kidneys is seen. No free intraperitoneal air or fluid is evident. IMPRESSION: There are are diffuse ischemic changes involving the stomach and numerous loops of small bowel. Mesenteric and portal venous gas present. This report was called to the ED at 3:50 p.m. Dictated by: Dictated on workstation # [id number]
[2018-09-02 16:00] VITALS: BP 118/87
[2018-09-02] MEDS ORDERED: NS IV 1000 ML 1,000 ML IV SCH (16:00)
[2018-09-02] MEDS ORDERED: SODIUM CHLORIDE IV SCH ×2 (16:00)
[2018-09-02] MEDS ORDERED: ENOXAPARIN 100 MG/1 ML (LOVENOX) SYR SC SCH (16:00)
[2018-09-02] MEDS ORDERED: VASOPRESSIN IV SCH ×2 (16:00)
[2018-09-02] MEDS ORDERED: EPINEPHrine 1 MG INJECTION 2 MG in NS (IVPB) 248 ML IV SCH (16:00)
--- NOTE | 2018-09-02 16:14 | History & Physical-Hospitalist ---
History of Present Illness HPI/Chief Complaint CC: Hypoxia HPI: This is an 78-year-old white male clinic patient of Dr. Riggs who resides at a nursing facility who is known to me from senior behavioral unit admissions for severe depression who also has a history of lymphoma managed by the cancer center who presents to the ER with severe hypoxia and cyanosis noted by [facility] staff after found down for unknown period of time. He was found to have severely low oxygen saturation placed on BiPAP when arrived on EMS service and workup ensued. He was very astudillo and ashen and patient was noted to have findings consistent with sepsis. I saw him in the ER when he complained of abdominal pain and nausea and he was found to have ischemic bowel with necrosis and likely perforation. He is DO NOT RESUSCITATE and he was counseled regarding the results and creatinine of 3.0 and he decided to choose comfort care and those orders were placed. Source: patient, RN/MD Exam Limitations: clinical condition Date Seen 09/02/18 Time Seen by a Provider: 14:30 Attending Physician Alda Cuenca DO PCP Caesar Barone DO Referring Physician Date of Admission Sep 02, 2018 at 14:57 Home Medications & Allergies Home Medications Reviewed patient Home Medication Reconciliation performed by pharmacy medication reconciliations maintenance technician 3rd shift and/or nursing. Patients Allergies have been reviewed. Allergies Allergies Coded Allergies No Known Drug Allergies ([id number]/29/18) Past [id number]-[id number]-[id number] Hx Past Med/Social Hx: Reviewed Nursing Past Med/Soc Hx, Reviewed and Corrections made Patient Social History Marrital Status: single Employed/Student: retired Alcohol Use: Denies Use Recreational Drug Use: No Smoking Status: Never a Smoker Recent Foreign Travel: No Contact w/other who traveled: No Recent Hopitalizations: No Recent Infectious Disease Expo: No Seasonal Allergies Seasonal Allergies: No Past Medical History Surgeries: Abdominal (colostomy and reversal), Adenoidectomy, Tonsillectomy Cardiac: Hypertension Neurological: Seizure Disorder (as a child) Gastrointestinal: Gastroesophageal Reflux Musculoskeletal: Arthritis HEENT: Cataract Cancer: Lymphoma, Melanoma Psychosocial: Anxiety, Bipolar, Schizophrenia History of Blood Disorders: No Family History Hypertension Review of Systems Constitutional: see HPI, dizziness, fever, malaise, weakness Respiratory: dyspnea on exertion, short of breath Psychiatric/Neurological: Emotional Problems All Other Systems Reviewed Negative Unless Noted: Yes Physical Exam Physical Exam Vital Signs Vital Signs - First Documented 09/02/18 09/02/18 09/02/18 09/02/18 13:03 13:15 13:42 16:01 Temp 99.3 Pulse 112 Resp 56 B/P (MAP) 142/126 (131) Pulse Ox 97 O2 Delivery NIV Bilevel O2 Flow Rate 60.00 FiO2 50 Capillary Refill : Greater Than 3 Seconds Height, Weight, BMI Height: 6'10.00" Weight: 260lbs. 0.0oz. 117.698484ek; 35.4 BMI Method:Stated General Appearance: Moderate Distress, Obese, Other (cyanotic, anxious, O x 3 alert) Respiratory: Crackles, Decreased Breath Sounds Cardiovascular: Tachycardia Neurologic/Psychiatric: Alert, Oriented x3, No Motor/Sensory Deficits, Normal Mood/Affect Results Results/Procedures Labs Laboratory Tests 09/02/18 13:25 Patient resulted labs reviewed. Assessment/Plan Admission Diagnosis Assessment: Critical care status Comfort care protocol implemented Ischemic and necrotic bowel not a surgical candidate Acute renal failure not a dialysis candidate Long-standing history of lymphoma Severe depression history Plan: Comfort care protocol Does not want family notified DO NOT RESUSCITATE Keep comfortable Admission Status: Inpatient Order (span 2 midnights) Reason for Inpatient Admission: Ischemic bowel with necrosis and critical care status Diagnosis/Problems Diagnosis/Problems (1) Septic shock Status: Acute (2) Acute renal failure Status: Acute Qualifiers: Acute renal failure type: unspecified Qualified Codes: N17.9 - Acute kidney failure, unspecified (3) Ischemic bowel disease Status: Acute (4) Primary cutaneous large T-cell lymphoma (5) Abdominal hernia Status: Acute Qualifiers: Hernia type: unspecified Recurrence: not specified as recurrent (6) Lymphoma Status: Acute Qualifiers: Lymphoma type: unspecified type Lymphoma site: unspecified region Qualified Codes: C85.90 - Non-Hodgkin lymphoma, unspecified, unspecified site (7) Respiratory failure Status: Acute Qualifiers: Chronicity: acute Respiratory failure complication: hypoxia Qualified Codes: J96.01 - Acute respiratory failure with hypoxia (8) Nausea Status: Acute (9) Elevated d-dimer Status: Acute ALDA CUENCA DO Sep 02, 2018 16:13
[2018-09-02] MEDS ORDERED: morphine INJ 4 MG/ML 1 ML (VIAL/SYRINGE) IV PRN (16:15)
[2018-09-02] MEDS ORDERED: LORazepam INJ 2 MG/ML (ATIVAN) VIAL IVP PRN (16:15)
[2018-09-02] MEDS ORDERED: ARTIFICAL TEARS 0.4 ML UNIT DOSE (REFRESH PLUS) OU PRN (16:15)
[2018-09-02] MEDS ORDERED: ACETAMINOPHEN 650 MG SUPP (TYLENOL) PR PRN (16:15)
[2018-09-02] MEDS ORDERED: RT-ALBUTEROL/IPRATROPIUM 3 ML (DUONEB) VIAL INH PRN ×2 (16:15)
[2018-09-02] MEDS ORDERED: SALIVA STIMULANT MOUTH SPRAY (BIOTENE) 1.5 OZ MM PRN (16:15)
[2018-09-02] MEDS ORDERED: BISACODYL 10 MG SUPP (DULCOLAX) PR PRN (16:15)
[2018-09-02] MEDS ORDERED: GLYCOPYRROLATE 0.2 MG/ML (ROBINUL) 2 ML VIAL IV PRN (16:15)
[2018-09-02 16:20] VITALS: BP 111/77
[2018-09-02 16:30] VITALS: BP 124/109
[2018-09-02] MEDS ORDERED: VANCOMYCIN INJECTION 1,500 MG in NS IV 500 ML 500 ML IV SCH (18:00)
[2018-09-02] MEDS ORDERED: RT-ALBUTEROL/IPRATROPIUM 3 ML (DUONEB) VIAL INH SCH (18:00)
--- NOTE | 2018-09-02 18:00 | NUR ---
REC'D PER BED FROM ICU. SEE ASSESSMENT. MULTIPLE WOUNDS NOTED ON BODY, BUT ASSESSMENT NOT DONE PER PT AND FAMILY REQUEST FOR COMFORT.
--- NOTE | 2018-09-02 18:05 | NUR ---
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 FAMILY AT BEDSIDE.
[2018-09-02] MEDS ORDERED: NS IV 1000 ML 2,000 ML ONE (18:33)
[2018-09-02] MEDS ORDERED: PIPERACILLIN/TAZO 4.5 GM/NS 100 ML IV SCH ×2 (20:00)
--- NOTE | 2018-09-02 21:30 | NUR ---
Family left floor to go home.
--- NOTE | 2018-09-02 21:33 | NUR ---
respirations ceased as verified w/M.AMANDA Lindsay. attempted to notify family.
--- NOTE | 2018-09-02 21:40 | NUR ---
Sister notified of pt passing. Sister will return to hospital.
--- NOTE | 2018-09-02 21:54 | NUR ---
Dr. Irvin notified of pt passing.
--- NOTE | 2018-09-02 22:12 | NUR ---
Sister and brother in law of pt here. [facility] [place] [facility] notified. Family declining pastoral care as they will not be staying long and last rights were given to pt earlier in the day.
--- NOTE | 2018-09-02 23:35 | NUR ---
[facility] home notified.
[2018-09-03] MEDS ORDERED: NS IV 1000 ML 1,000 ML IV SCH (00:01)
--- NOTE | 2018-09-03 00:47 | NUR ---
[facility] here to receive body.
[2018-09-03] MEDS ORDERED: TROUGH ORDER-PHARMACY XX NR (17:00)
== END 2018-09-02 21:33 | disposition expired | DRG 871 ==
LOC: EDUNIT# 13:03 → ER 13:04 → ICU 14:57 → 4TH 17:56
PROVIDERS: ADMIT Internal Medicine; ATTEND Internal Medicine
DX: A41.9 Sepsis, unspecified organism (principal); R65.21 Severe sepsis with septic shock; K55.059 Acute (reversible) ischemia of intestine, part and extent unspecified; J96.01 Acute respiratory failure with hypoxia; N17.9 Acute kidney failure, unspecified; C86.6 Primary cutaneous CD30-positive T-cell proliferations; Z66 Do not resuscitate; Z51.5 Encounter for palliative care; I10 Essential (primary) hypertension; K21.9 Gastro-esophageal reflux disease without esophagitis; M19.91 Primary osteoarthritis, unspecified site; K46.9 Unspecified abdominal hernia without obstruction or gangrene; F32.9 Major depressive disorder, single episode, unspecified; R79.1 Abnormal coagulation profile
CPT/HCPCS: 36415; 51702; 70450; 71045; 72125; 74176; 80053; 81000; 82805; 83605; 84484; 85007; 85027; 85379; 85610; 85730; 87040; 87070; 87081; 87088; 87205; 87804; 90471; 90715; 93041; 94660; 96361; 96365; 96367; 96368; 96375; 99291; 99292